=== PATIENT | male | born 1970 | race Caucasian/White ===

== ENCOUNTER 2017-02-22 14:35 | Inpatient (IN) | payer OTHER ==
[2017-02-22 16:27] VITALS: BMI 33.9
--- NOTE | 2017-02-22 17:24 | HP ---
CIWA Score - CIWA Score Nausea/Vomitin-Mild Nausea/No Vomiting Muscle Tremors: 4-Moderate,w/Arms Extend Anxiety: 3 Agitation: 4-Moderately Restless Paroxysmal Sweats: 1-Minimal Palms Moist Orientation: 1-Uncertain about Date Tacttile Disturbances: 0-None Auditory Disturbances: 0-None Visual Disturbances: 0-None Headache: 0-None Present CIWA-Ar Total Score: 14 Admission ROS BHS - HPI Chief Complaint: withdrawal sx Allergies/Adverse Reactions: Allergies Allergy/AdvReac Type Severity Reaction Status Date / Time No Known Allergies Allergy Verified 10/21/15 14:13 History of Present Illness: 46 years old male with long history of xanax nicotine dependence has chronic muscle spasm and lower back pain and depression is admitted to detox methadone program 100 mg po daily Exam Limitations: No Limitations - Ebola screening Have you traveled outside of the country in the last 21 days: No Have you had contact with anyone from an Ebola affected area: No Have you been sick,other than usual withdrawal symptoms: No Do you have a fever: No - Review of Systems Constitutional: Changes in sleep, Weight Stable EENT: reports: No Symptoms Reported Respiratory: reports: No Symptoms reported Cardiac: reports: No Symptoms Reported GI: reports: Nausea, Poor Fluid Intake, Abdominal cramping : reports: No Symptoms Reported Musculoskeletal: reports: Back Pain, Joint Pain, Muscle Pain, Neck Pain Integumentary: reports: Change in Color (iv heroin inner elbows) Neuro: reports: Seizure (05/2016 last episode), Tremors Endocrine: reports: No Symptoms Reported Hematology: reports: No Symptoms Reported Psychiatric: reports: Judgement Intact, Anxious, Depressed Other Systems: Reviewed and Negative Patient History - Patient Medical History Hx Anemia: No Hx Asthma: No Hx Chronic Obstructive Pulmonary Disease (COPD): No Hx Cancer: No Hx Cardiac Disorders: No Hx Congestive Heart Failure: No Hx Hypertension: No Hx Hypercholesterolemia: No Hx Pacemaker: No HX Cerebrovascular Accident: No Hx Seizures: Yes (05/2016 last episode) Hx Dementia: No Hx Diabetes: No Hx Gastrointestinal Disorders: No Hx Liver Disease: No Hx Genitourinary Disorders: No Hx Sexually Transmitted Disorders: No Hx Renal Disease (ESRD): No Hx Thyroid Disease: No Hx Human Immunodeficiency Virus (HIV): No (05/06) Hx Hepatitis C: Yes Hx Depression: No Hx Suicide Attempt: Yes (2006 overdose) Hx Bipolar Disorder: Yes Hx Schizophrenia: No - Patient Surgical History Past Surgical History: Yes Hx Neurologic Surgery: No Hx Cataract Extraction: No Hx Cardiac Surgery: No Hx Lung Surgery: No Hx Breast Surgery: No Hx Breast Biopsy: No Hx Abdominal Surgery: No Hx Appendectomy: No Hx Cholecystectomy: No Hx Genitourinary Surgery: No Hx Orthopedic Surgery: No Other Surgical History: incision and drainage of infected right hand in 1994 Anesthesia Reaction: No - PPD History Previous Implant?: Yes Documented Results: Negative w/proof Implanted On Prior [facility] Admission?: Yes Date: 09/18/15 Results: 0 mm PPD to be Administered?: Yes - Smoking Cessation Smoking history: Current every day smoker Have you smoked in the past 12 months: Yes Aproximately how many cigarettes per day: 20 Cigars Per Day: 0 Hx Chewing Tobacco Use: No Initiated information on smoking cessation: Yes 'Breaking Loose' booklet given: 02/22/17 - Substance & Tx. History Hx Alcohol Use: No Hx Substance Use: Yes Substance Use Type: Cocaine, Heroin, Tranquilizers Hx Substance Use Treatment: Yes (05/2016) - Substances Abused Alprazolam (Xanax) Route: Oral Frequency: Daily Amount used: 8mg Age of first use: 18 Date of Last Use: 02/21/17 Benzodiazepine (Klonopin) Route: Oral Frequency: Daily Amount used: 11mg Age of first use: 18 Date of Last Use: 02/21/17 Family Disease History - Family Disease History Family Disease History: Heart Disease: Father (), Other: Brother (ONLY CHILD), Son (HEALTHY) Admission Physical Exam S - Vital Signs Vital Signs: Vital Signs - 24 hr 02/22/17 16:12 Temperature 98.9 F Pulse Rate 64 Respiratory 18 Rate Blood Pressure 100/60 - Physical General Appearance: Yes: Appropriately Dressed, Mild Distress, Obese, Tremorous , Irritable, Sweating, Anxious HEENTM: Yes: Hearing grossly Normal, Normal ENT Inspection, Normocephalic, Normal Voice Respiratory: Yes: Chest Non-Tender, Lungs Clear, Normal Breath Sounds, No Respiratory Distress, No Accessory Muscle Use Neck: Yes: Supple, Trachea in good position Breast: Yes: Breasts Symetrical Cardiology: Yes: Regular Rhythm, Regular Rate, S1, S2 Abdominal: Yes: Non Tender, Soft, Decreased BS Genitourinary: Yes: Within Normal Limits Back: Yes: Normal Inspection Musculoskeletal: Yes: full range of Motion, Gait Steady, Back pain, Muscle Pain Extremities: Yes: Normal Range of Motion, Non-Tender, Tremors Neurological: Yes: Alert, Motor Strength 5/5, Normal Response, Depressed Affect Integumentary: Yes: Warm, Track [place] Lymphatic: Yes: Within Normal Limits - Diagnostic (1) Bipolar II disorder Current Visit: Yes Status: Suspected (2) Uncomplicated sedative, hypnotic or anxiolytic withdrawal Current Visit: Yes Status: Acute (3) Methadone maintenance therapy patient Current Visit: Yes Status: Chronic Comment: 100 MG VERIFICAITON PENDING (4) Nicotine dependence Current Visit: Yes Status: Acute Qualifiers: Nicotine product type: cigarettes Substance use status: in withdrawal Qualified Code(s): F17.213 - Nicotine dependence, cigarettes, with withdrawal Cleared for Admission [facility] - Detox or Rehab [facility] Level of Care: Medically Managed Detox Regimen/Protocol: Valium [facility] Breath Alcohol Content Breath Alcohol Content: 0 Urine Drug Screen - Results Drug Screen Negative: No Urine Drug Screen Results: DESHAWN-Cocaine, OPI-Opiates, BZO-Benzodiazepines, MTD- Methadone
[2017-02-22] MEDS ORDERED: MAGNESIUM CITRATE 300 ML BOTTLE PO PRN (17:35)
[2017-02-22] MEDS ORDERED: IBUPROFEN 400 MG TABLET (FP) PO PRN (17:35)
[2017-02-22] MEDS ORDERED: guaiFENesin/D-METHORPHAN HB 10 ML UNIT-DOSE CUPS PO PRN (17:35)
[2017-02-22] MEDS ORDERED: ACETAMINOPHEN 325 MG TABLET (FP) PO PRN (17:35)
[2017-02-22] MEDS ORDERED: NICOTINE POLACRILEX 4 MG GUM BC PRN (17:35)
[2017-02-22] MEDS ORDERED: MAGNESIUM HYDROX 2400MG/30ML ORAL SUSPENSION 30 ML CUP PO PRN (17:35)
[2017-02-22] MEDS ORDERED: P-EPHED 60MG/TRIPROLIDI 2.5MG TABLET PO PRN (17:35)
[2017-02-22] MEDS ORDERED: MENTHOL/PHENOL 1 EACH UD MM PRN (17:35)
[2017-02-22] MEDS ORDERED: LOPERAMIDE HCL 2 MG CAPSULE PO PRN (17:35)
[2017-02-22] MEDS ORDERED: METHOCARBAMOL 750 MG TABLET PO PRN (17:36)
[2017-02-22] MEDS ORDERED: diazePAM 5 MG TABLET PO ONE (18:45)
[2017-02-22] MEDS: GABAPENTIN 400 MG CAPSULE (FP) PO SCH (22:16)
[2017-02-22] MEDS: THIAMINE HCL 100 MG TABLET (FP) PO SCH (22:16)
[2017-02-22] MEDS: diazePAM 5 MG TABLET PO SCH (22:17)
[2017-02-22 23:26] LABS: URINE APPEARANCE SLCLOUDY; URINE BILIRUBIN NEGATIVE (NEGATIVE); URINE BLOOD NEGATIVE (NEGATIVE); URINE COLOR DKYELLOW; URINE GLUCOSE (UA) NEGATIVE (NEGATIVE); URINE KETONE NEGATIVE (NEGATIVE); URINE NITRITE NEGATIVE (NEGATIVE); URINE PROTEIN NEGATIVE (NEGATIVE)
[2017-02-23] MEDS: GABAPENTIN 400 MG CAPSULE (FP) PO SCH ×2 (05:34→14:12)
[2017-02-23] MEDS: diazePAM 5 MG TABLET PO SCH ×3 (05:34→22:09)
[2017-02-23] MEDS: diazePAM 5 MG TABLET PO PRN ×2 (08:10→16:30)
[2017-02-23] MEDS ORDERED: METHADONE HCL 10 MG TABLET PO SCH (08:30)
[2017-02-23] MEDS ORDERED: METHADONE HCL 10 MG TABLET ONE (09:29)
[2017-02-23] MEDS ORDERED: METHADONE HCL 40 MG DISPERSABLE TABLET ONE (09:30)
--- NOTE | 2017-02-23 10:32 | EKG ---
Test Reason : Blood Pressure : / mmHG Vent. Rate : 054 BPM Atrial Rate : 054 BPM P-R Int : 168 ms QRS Dur : 108 ms QT Int : 488 ms P-R-T Axes : 018 010 026 degrees QTc Int : 462 ms SINUS BRADYCARDIA OTHERWISE NORMAL ECG NO PREVIOUS ECGS AVAILABLE Confirmed by KIP VAUGHN, DEEPTI ([id number]) on 02/23/2017 10:32:17 AM Referred By: Confirmed By:DEEPTI SHIN MD
[2017-02-23] MEDS: METHADONE 80 MG, METHADONE 20 MG PO SCH (10:37)
[2017-02-23] MEDS: NICOTINE 21 MG/24 HOURS TOPICAL PATCH TD SCH (10:37)
[2017-02-23] MEDS: PRENATAL VITAMINS W/ FOLIC ACID TABLET (FP) PO SCH (10:37)
[2017-02-23 11:07] LABS: MCHC 32.5 g/dl (32.0-35.9); MEAN CELL VOLUME 92.6 fl (80-96); PLATELET COUNT 151 K/MM3 (134-434)
[2017-02-23 11:08] LABS: ALBUMIN 3.2 g/dl (3.4-5.0)
[2017-02-23 11:09] LABS: URINE LEUK ESTERASE Negative (NEGATIVE)
[2017-02-23 11:16] LABS: ALK PHOS 74 U/L (45-117); ANION GAP 5 (8-16); BILIRUBIN,TOTAL 0.2 mg/dL (0.2-1.0); CALCIUM 7.9 mg/dL (8.5-10.1); CO2 31 mmol/L (21-32); CREATININE 0.8 mg/dL (0.7-1.3); GLUCOSE,RANDOM 138 mg/dL (74-106); SGOT/AST 29 U/L (15-37); SGPT/ALT 38 U/L (12-78)
--- NOTE | 2017-02-23 11:55 | CONSULT ---
[facility] Psychiatric Consult - Data Date of interview: 02/23/17 Admission source: [facility] Identifying data: Readmission to [facility] for this 46 y/o male seeking detox treatment on for alcohol,heroin,cocaine and sedative/ anxiolytic dependence.Patient is ,a father of one,domiciled,unemployed and supported on Public Assistance. Substance Abuse History: Discussed with patient in this session.Confirmed.Detais in current [facility] report : Smoking history: Current every day smoker. Have you smoked in the past 12 months: Yes. Aproximately how many cigarettes per day: 20. Cigars Per Day: 0. Hx Chewing Tobacco Use: No. Initiated information on smoking cessation: Yes. 'Breaking Loose' booklet given: 02/22/17. - Substance & Tx. History. Hx Alcohol Use: No. Hx Substance Use: Yes. Substance Use Type: Cocaine, Heroin, Tranquilizers. Hx Substance Use Treatment: Yes (05/2016). - Substances Abused. Alprazolam (Xanax). Route: Oral. Frequency: Daily. Amount used: 8mg. Age of first use: 18. Date of Last Use: 02/21/17. Benzodiazepine (Klonopin). Route: Oral. Frequency: Daily. Amount used: 11mg. Age of first use: 18. Date of Last Use: 02/21/17 Medical History: Hepatitis C and recent history of withdrawal seizures. Psychiatric History: Onset of psychiatric disturbances : age 14 (diagnosed with ADHD).History of brief treatment with Ritalin.Patient admits to multiple psychiatric hospitalizations ([facility]).Diagnosed with Bipolar Disorder and PTSD.Mr Bee is currently on methadone maintenance (100 mg/ day) at [facility] in the [place].Sees Dr Agustin for medication management.Prescribed seroquel 100 mg/hs + wellbutrin (dose not recalled) + ambien 10 mg/hs.No reported history of suicide attempts. Physical/Sexual Abuse/Trauma History: Saw combat in [place] (18 months) .Served for six years in the [employer].Admits to occasional flashbacks and nightmares. Additional Comment: Urine Drug Screen Results: DESHAWN-Cocaine, OPI-Opiates, BZO- Benzodiazepines, MTD-Methadone.Noted. Mental Status Exam - Mental Status Exam Alert and Oriented to: Time, Place, Person Cognitive Function: Good Patient Appearance: Well Groomed (tattoo around neck) Mood: Withdrawn, Hopeful, Euthymic Affect: Appropriate, Normal Range Patient Behavior: Fatigued, Cooperative Speech Pattern: Clear, Appropriate Voice Loudness: Normal Thought Process: Intact, Goal Oriented Thought Disorder: Not Present Hallucinations: Denies Suicidal Ideation: Denies Homicidal Ideation: Denies Insight/Judgement: Poor Sleep: Poorly, Difficulty falling asleep Appetite: Good Muscle strength/Tone: Normal Gait/Station: Normal Psychiatric Findings - Problem List ([place] 1, 2,3) (1) Opioid dependence on agonist therapy Current Visit: Yes Status: Acute (2) Uncomplicated sedative, hypnotic or anxiolytic withdrawal Current Visit: Yes Status: Acute (3) Cocaine dependence Current Visit: Yes Status: Acute (4) Nicotine dependence Current Visit: Yes Status: Acute Qualifiers: Nicotine product type: cigarettes Substance use status: in withdrawal Qualified Code(s): F17.213 - Nicotine dependence, cigarettes, with withdrawal (5) Drug-induced mood disorder Current Visit: Yes Status: Acute (6) ADHD (attention deficit hyperactivity disorder) Current Visit: No Status: Acute Comment: As per records. (7) Bipolar disorder Current Visit: Yes Status: Chronic Qualifiers: Active/Remission status: in partial remission Most recent bipolar episode type: depressed Qualified Code(s): F31.75 - Bipolar disorder, in partial remission, most recent episode depressed Comment: Self-report.On medications.OPD care at [facility]. (8) PTSD (post-traumatic stress disorder) Current Visit: Yes Status: Chronic Comment: Historical diagnosis. (9) Insomnia Current Visit: Yes Status: Acute - Initial Treatment Plan Initial Treatment Plan: Psychoeducation.Sleep hygiene.Detoxification in progress.Medications : seroquel 100 mg po hs + wellbutrin XL 150 mg po daily + ambien 10 mg po hs prn.Side effects/benefits are discussed with the patient.Mr Bee has expressed his agreement with this careplan.Pharmacy claims are revisited : confirmed refills for these medications on 02/01/17 at [facility] (including lithium and sertraline : rejected by patient in this interview).Observation.
--- NOTE | 2017-02-23 14:28 | PN ---
[facility] CIWA - CIWA Score Nausea/Vomitin-Mild Nausea/No Vomiting Muscle Tremors: 4-Moderate,w/Arms Extend Anxiety: 5 Agitation: 4-Moderately Restless Paroxysmal Sweats: No Perspiration Orientation: 2-Disoriented Date<2 days Tacttile Disturbances: 2-Mild Itch/Numbness/Burn Auditory Disturbances: 0-None Visual Disturbances: 0-None Headache: 0-None Present CIWA-Ar Total Score: 18 BHS Progress Note (SOAP) Subjective: Interrupted Sleep, Tremors, Stomach Cramping, Anxious, Fatigue. Objective: PT. A 7O X 2 (UNCERTAIN ABOUT CURRENT DAY/ DATE). PT. OBSERVED AMBULATING ON UNIT. NO ACUTE DISTRESS. 02/23/17 14:25 Vital Signs Temperature 96.8 F L 02/23/17 13:12 Pulse Rate 85 02/23/17 13:12 Respiratory Rate 18 02/23/17 13:12 Blood Pressure 112/72 02/23/17 13:12 O2 Sat by Pulse Oximetry (%) Laboratory Tests 02/22/17 02/23/17 02/23/17 22:33 07:00 07:00 WBC 4.0 RBC 3.99 L Hgb 12.0 D Hct 36.9 MCV 92.6 MCH 30.0 MCHC 32.5 RDW 15.0 Plt Count 151 MPV 9.0 Sodium 141 Potassium 3.4 L Chloride 105 Carbon Dioxide 31 Anion Gap 5 L BUN 15 D Creatinine 0.8 Creat Clearance w eGFR > 60 Random Glucose 138 H D Calcium 7.9 L Total Bilirubin 0.2 D AST 29 D ALT 38 D Alkaline Phosphatase 74 Total Protein 6.0 L Albumin 3.2 L Urine Color Dkyellow Urine Appearance Slcloudy Urine pH 5.0 Ur Specific [place] 1.026 Urine Protein Negative Urine Glucose (UA) Negative Urine Ketones Negative Urine Blood Negative Urine Nitrite Negative Urine Bilirubin Negative Urine Urobilinogen 2.0 LABS NOTED. RPR RESULT P[ENDING. 02/23/17 14:27 Assessment: 02/23/17 14:26 WITHDRAWAL SYMPTOMS. HYPOKALEMIA. 02/23/17 14:27 Plan: CONTINUE DETOX. K-DUR, 20 MEW PO X 1 NOW, THEN 20 MEQ PO BID AFTER. BGM ACBK FOR ELEVATED ADMISSION RANDOM GLUCOSE LEVEL. INCREASE DAILY PO FLUID INTAKE.
[2017-02-23] MEDS ORDERED: POTASSIUM CHLORIDE TABS 20 MEQ TABLET.ER (FP) PO ONE (14:29)
[2017-02-23] MEDS: POTASSIUM CHLORIDE TABS 20 MEQ TABLET.ER (FP) PO SCH (17:12)
[2017-02-23] MEDS ORDERED: ZOLPIDEM TARTRATE 5 MG TABLET PO PRN (17:26)
--- NOTE | 2017-02-23 17:26 | PN ---
S Progress Note Note: Patient was waiting on line for medication felt dizzy and lowered to floor, did not hit head, no LOC, no seizure like activity. VSS, bp WNL, no orthostatic hypotension 121/71 pulse 64 t 97.6 rr18 poor skin turgor a/p:dizziness most likely 2/2 medication effects, low k supplemented this am, will repeat labs, d/c prn valium, d/c prn ambien, lower seroquel dosee and neurontin to prevent further episodes. cont detox as scheduled.
--- NOTE | 2017-02-23 19:10 | PN ---
[facility] Progress Note Note: Psychiatry Attending's note : Patient felt dizzy earlier while waiting in line for medications. Lowered to the floor by staff.No fall.Brief episode of fainting. Rapid response called.Patient was attended to by Dr Johnson. Medical note : appreciated.Vital signs were normal at time of incident. Mr Bee was escorted to his room.Alert and fully oriented after the episode. Conversant,coherent and argumentative over the issue of medications. Unhappy about decision to modify medication regimen. Lead Slot Technician met with patient.Safety discussed. Mr Bee calmed down and agreed with careplan. Case reviewed with medical attending,Dr Johnson. Patient is kept under close observation. Ambien and seroquel discontinued until further orders. Psychiatry will follow.
[2017-02-23] MEDS ORDERED: QUEtiapine FUMARATE 50 MG TABLET PO SCH (22:00)
[2017-02-23] MEDS ORDERED: QUEtiapine FUMARATE 100 MG TABLET (FP) PO SCH (22:00)
[2017-02-23] MEDS ORDERED: ZOLPIDEM TARTRATE 10 MG TABLET (PARK CARE ONLY) PO PRN (22:00)
[2017-02-23] MEDS: THIAMINE HCL 100 MG TABLET (FP) PO SCH (22:08)
[2017-02-23] MEDS: GABAPENTIN 300 MG CAPSULE (FP) PO SCH (22:09)
[2017-02-23] MEDS ORDERED: QUEtiapine FUMARATE 50 MG TABLET PO ONE (23:30)
[2017-02-24] MEDS: MAG HYDROX/AL HYDROX/SIMETH 30 ML UNIT-DOSE CUP PO PRN ×3 (01:02→20:08)
[2017-02-24] MEDS ORDERED: METHADONE HCL 10 MG TABLET ONE (04:22)
[2017-02-24] MEDS ORDERED: METHADONE HCL 40 MG DISPERSABLE TABLET ONE (04:23)
[2017-02-24] MEDS: METHADONE 80 MG, METHADONE 20 MG PO SCH (05:02)
[2017-02-24] MEDS: GABAPENTIN 300 MG CAPSULE (FP) PO SCH ×3 (05:02→22:10)
[2017-02-24 10:16] LABS: BASOPHIL 0.8 % (0-2.0); EOSINOPHIL 3.6 % (0-4.5); MCH 30.4 pg (25.7-33.7); MCHC 33.1 g/dl (32.0-35.9); MEAN CELL VOLUME 91.7 fl (80-96); NEUTROPHILS 46.8 % (42.8-82.8); PLATELET COUNT 148 K/MM3 (134-434); RDW 14.7 % (11.9-15.9); WHITE BLOOD COUNT 4.4 K/mm3 (4.0-10.0)
[2017-02-24 10:22] LABS: ALBUMIN 3.1 g/dl (3.4-5.0); ANION GAP 4 (8-16); CALCIUM 8.3 mg/dL (8.5-10.1); CO2 31 mmol/L (21-32); GLUCOSE,RANDOM 124 mg/dL (74-106)
[2017-02-24 10:26] LABS: ALK PHOS 72 U/L (45-117); BILIRUBIN,TOTAL 0.3 mg/dL (0.2-1.0); CREATININE 0.7 mg/dL (0.7-1.3); SGOT/AST 27 U/L (15-37); SGPT/ALT 38 U/L (12-78); TOT PROT 6.1 g/dl (6.4-8.2)
[2017-02-24] MEDS: PRENATAL VITAMINS W/ FOLIC ACID TABLET (FP) PO SCH (10:27)
[2017-02-24] MEDS: POTASSIUM CHLORIDE TABS 20 MEQ TABLET.ER (FP) PO SCH ×2 (10:27→17:12)
[2017-02-24] MEDS: diazePAM 5 MG TABLET PO SCH ×2 (10:27→22:10)
[2017-02-24] MEDS: NICOTINE 21 MG/24 HOURS TOPICAL PATCH TD SCH (10:27)
--- NOTE | 2017-02-24 13:29 | PN ---
[facility] CIWA - CIWA Score Nausea/Vomitin-No Nausea/No Vomiting Muscle Tremors: 4-Moderate,w/Arms Extend Anxiety: 5 Agitation: 4-Moderately Restless Paroxysmal Sweats: 3 Orientation: 2-Disoriented Date<2 days Tacttile Disturbances: 1-Very Mild Itch/Numbness Auditory Disturbances: 0-None Visual Disturbances: 0-None Headache: 0-None Present CIWA-Ar Total Score: 19 S Progress Note (SOAP) Subjective: Anxious, Tremors, Agitation, Sweating, Interrupted Sleep. Objective: PT. A &O X 2 (UNCERTAIN ABOUT DAY / DATE). PT. OBSERVED AMBULATING ON UNIT UNASSISTED. NO ACUTE DISTRESS. 02/24/17 13:24 Vital Signs Temperature 97.5 F L 02/24/17 13:21 Pulse Rate 63 02/24/17 13:21 Respiratory Rate 18 02/24/17 13:21 Blood Pressure 106/71 02/24/17 13:21 O2 Sat by Pulse Oximetry (%) Laboratory Tests 02/22/17 02/23/17 02/23/17 22:33 07:00 07:00 WBC 4.0 RBC 3.99 L Hgb 12.0 D Hct 36.9 MCV 92.6 MCH 30.0 MCHC 32.5 RDW 15.0 Plt Count 151 MPV 9.0 Neutrophils % Lymphocytes % Monocytes % Eosinophils % Basophils % Sodium 141 Potassium 3.4 L Chloride 105 Carbon Dioxide 31 Anion Gap 5 L BUN 15 D Creatinine 0.8 Creat Clearance w eGFR > 60 POC Glucometer Random Glucose 138 H D Calcium 7.9 L Total Bilirubin 0.2 D AST 29 D ALT 38 D Alkaline Phosphatase 74 Total Protein 6.0 L Albumin 3.2 L Urine Color Dkyellow Urine Appearance Slcloudy Urine pH 5.0 Ur Specific [place] 1.026 Urine Protein Negative Urine Glucose (UA) Negative Urine Ketones Negative Urine Blood Negative Urine Nitrite Negative Urine Bilirubin Negative Urine Urobilinogen 2.0 RPR Titer 02/23/17 02/24/17 02/24/17 07:00 05:01 07:00 WBC 4.4 RBC 4.04 Hgb 12.3 Hct 37.1 MCV 91.7 MCH 30.4 MCHC 33.1 RDW 14.7 Plt Count 148 MPV 9.0 Neutrophils % 46.8 Lymphocytes % 41.6 H Monocytes % 7.2 Eosinophils % 3.6 Basophils % 0.8 Sodium Potassium Chloride Carbon Dioxide Anion Gap BUN Creatinine Creat Clearance w eGFR POC Glucometer 104 Random Glucose Calcium Total Bilirubin AST ALT Alkaline Phosphatase Total Protein Albumin Urine Color Urine Appearance Urine pH Ur Specific [place] Urine Protein Urine Glucose (UA) Urine Ketones Urine Blood Urine Nitrite Urine Bilirubin Urine Urobilinogen RPR Titer Nonreactive 02/24/17 07:00 WBC RBC Hgb Hct MCV MCH MCHC RDW Plt Count MPV Neutrophils % Lymphocytes % Monocytes % Eosinophils % Basophils % Sodium 141 Potassium 3.6 Chloride 106 Carbon Dioxide 31 Anion Gap 4 L BUN 13 Creatinine 0.7 Creat Clearance w eGFR > 60 POC Glucometer Random Glucose 124 H Calcium 8.3 L Total Bilirubin 0.3 D AST 27 ALT 38 Alkaline Phosphatase 72 Total Protein 6.1 L Albumin 3.1 L Urine Color Urine Appearance Urine pH Ur Specific [place] Urine Protein Urine Glucose (UA) Urine Ketones Urine Blood Urine Nitrite Urine Bilirubin Urine Urobilinogen RPR Titer LABS NOTED. RESULTS OF REPEAT CBC, CMP NOTED. 02/24/17 13:28 02/24/17 13:28 Assessment: 02/24/17 13:25 WITHDRAWAL SYMPTOMS. Plan: CONTINUE DETOX. PATIENT DOES NOT APPEAR LETHARGIC WHEN BEING EXAMINED EARLIER THIS AM. RE-START REMAINDER OF DETOX VALIUM PRN. INCREASE DAILY PO FLUID INTAKE.
[2017-02-24] MEDS: diazePAM 5 MG TABLET PO PRN ×2 (14:33→18:33)
--- NOTE | 2017-02-24 16:30 | PN ---
[facility] Progress Note Note: Psychiatric Nurse practitioner Patient seen by psychiatric nurse practitioner in response of resuming Seroquel 50mg HS. Pt. felt dizzy yesterday and had to be lowered by staff. Seroquel 50mg held last night due to brief episode of fainting. Today, patient presents alert and oriented and was observed ambulating on the unit. Vital signs this afternoon was within normal limits. No episodes of fainting reported today. Pt. denies feeling dizzy. Seroqul 50mg to be resumed tonight. Pt. agreeable with plan. Will continue to monitor patient.
[2017-02-24] MEDS ORDERED: QUEtiapine FUMARATE 50 MG TABLET PO SCH (22:00)
[2017-02-24] MEDS: THIAMINE HCL 100 MG TABLET (FP) PO SCH (22:10)
[2017-02-25] MEDS: diazePAM 5 MG TABLET PO PRN ×3 (03:03→16:59)
[2017-02-25] MEDS ORDERED: METHADONE HCL 40 MG DISPERSABLE TABLET ONE (04:44)
[2017-02-25] MEDS ORDERED: METHADONE HCL 10 MG TABLET ONE (04:44)
[2017-02-25] MEDS: METHADONE 80 MG, METHADONE 20 MG PO SCH (05:16)
[2017-02-25] MEDS: GABAPENTIN 300 MG CAPSULE (FP) PO SCH ×3 (05:16→22:24)
[2017-02-25] MEDS: NICOTINE 21 MG/24 HOURS TOPICAL PATCH TD SCH (09:11)
[2017-02-25] MEDS: diazePAM 5 MG TABLET PO SCH ×2 (09:11→22:24)
[2017-02-25] MEDS: POTASSIUM CHLORIDE TABS 20 MEQ TABLET.ER (FP) PO SCH ×2 (09:11→17:00)
[2017-02-25] MEDS: PRENATAL VITAMINS W/ FOLIC ACID TABLET (FP) PO SCH (09:12)
--- NOTE | 2017-02-25 13:34 | PN ---
[facility] Progress Note (SOAP) Subjective: Sweating, Tremors, Anxious, Interrupted Sleep. Objective: PT. A & O X 3, OBSERVED AMBULATING ON UNIT. NO ACUTE DISTRESS. 02/25/17 13:31 Vital Signs Temperature 97.3 F L 02/25/17 09:30 Pulse Rate 64 02/25/17 09:30 Respiratory Rate 18 02/25/17 09:30 Blood Pressure 121/67 02/25/17 09:30 O2 Sat by Pulse Oximetry (%) Laboratory Tests 02/22/17 02/23/17 02/23/17 22:33 07:00 07:00 WBC 4.0 RBC 3.99 L Hgb 12.0 D Hct 36.9 MCV 92.6 MCH 30.0 MCHC 32.5 RDW 15.0 Plt Count 151 MPV 9.0 Neutrophils % Lymphocytes % Monocytes % Eosinophils % Basophils % Sodium 141 Potassium 3.4 L Chloride 105 Carbon Dioxide 31 Anion Gap 5 L BUN 15 D Creatinine 0.8 Creat Clearance w eGFR > 60 POC Glucometer Random Glucose 138 H D Calcium 7.9 L Total Bilirubin 0.2 D AST 29 D ALT 38 D Alkaline Phosphatase 74 Total Protein 6.0 L Albumin 3.2 L Urine Color Dkyellow Urine Appearance Slcloudy Urine pH 5.0 Ur Specific [place] 1.026 Urine Protein Negative Urine Glucose (UA) Negative Urine Ketones Negative Urine Blood Negative Urine Nitrite Negative Urine Bilirubin Negative Urine Urobilinogen 2.0 RPR Titer 02/23/17 02/24/17 02/24/17 07:00 05:01 07:00 WBC 4.4 RBC 4.04 Hgb 12.3 Hct 37.1 MCV 91.7 MCH 30.4 MCHC 33.1 RDW 14.7 Plt Count 148 MPV 9.0 Neutrophils % 46.8 Lymphocytes % 41.6 H Monocytes % 7.2 Eosinophils % 3.6 Basophils % 0.8 Sodium Potassium Chloride Carbon Dioxide Anion Gap BUN Creatinine Creat Clearance w eGFR POC Glucometer 104 Random Glucose Calcium Total Bilirubin AST ALT Alkaline Phosphatase Total Protein Albumin Urine Color Urine Appearance Urine pH Ur Specific [place] Urine Protein Urine Glucose (UA) Urine Ketones Urine Blood Urine Nitrite Urine Bilirubin Urine Urobilinogen RPR Titer Nonreactive 02/24/17 07:00 WBC RBC Hgb Hct MCV MCH MCHC RDW Plt Count MPV Neutrophils % Lymphocytes % Monocytes % Eosinophils % Basophils % Sodium 141 Potassium 3.6 Chloride 106 Carbon Dioxide 31 Anion Gap 4 L BUN 13 Creatinine 0.7 Creat Clearance w eGFR > 60 POC Glucometer Random Glucose 124 H Calcium 8.3 L Total Bilirubin 0.3 D AST 27 ALT 38 Alkaline Phosphatase 72 Total Protein 6.1 L Albumin 3.1 L Urine Color Urine Appearance Urine pH Ur Specific [place] Urine Protein Urine Glucose (UA) Urine Ketones Urine Blood Urine Nitrite Urine Bilirubin Urine Urobilinogen RPR Titer LABS NOTED. RESULTS OF REPEAT CBC AND CMP NOTED. PT. REQUESTS HIV AB TEST - RESULT PENDING. 02/25/17 13:34 Assessment: 02/25/17 13:32 WITHDRAWAL SYMPTOMS. Plan: CONTINUE DETOX. PATIENT REFUSING FURTHER BGM'S - WILL D/C. INCREASE DAILY PO FLUID INTAKE.
[2017-02-25] MEDS: MAG HYDROX/AL HYDROX/SIMETH 30 ML UNIT-DOSE CUP PO PRN (13:41)
[2017-02-25 15:36] LABS: HIV 1 & 2 AB NEGATIVE; HIV 1 AGp24 NEGATIVE
--- NOTE | 2017-02-25 16:28 | PN ---
[facility] Progress Note Note: Psychiatric nurse practitioner: Approached patient bedside to discuss seroquel dose. Patient's seroquel was resumed last night after patient had a brief episode of fainting on 02/23/2017. Pt. able to tolerate Seroquel 50mg last night. Seroquel 100mg ordered for tonight. Pharmacy claims reviewed. Pt. presented as alert and oriented and was observed ambulating on the unit. Pt. denies feeling dizzy. Benefits and side effects discussed with patient. Verbal consent given. Pt. agreeable with plan. Will continue to monitor patient.
[2017-02-25] MEDS ORDERED: ZOLPIDEM TARTRATE 5 MG TABLET PO PRN (19:22)
[2017-02-25] MEDS ORDERED: hydrOXYzine HCL 25 MG TABLET (FP) PO PRN (19:22)
[2017-02-25] MEDS ORDERED: QUEtiapine FUMARATE 100 MG TABLET (FP) PO SCH (22:00)
[2017-02-25] MEDS: THIAMINE HCL 100 MG TABLET (FP) PO SCH (22:24)
[2017-02-26] MEDS ORDERED: METHADONE HCL 10 MG TABLET ONE (03:50)
[2017-02-26] MEDS ORDERED: METHADONE HCL 40 MG DISPERSABLE TABLET ONE (03:51)
[2017-02-26] MEDS: METHADONE 80 MG, METHADONE 20 MG PO SCH (05:35)
[2017-02-26] MEDS: GABAPENTIN 300 MG CAPSULE (FP) PO SCH (05:35)
[2017-02-26 06:24] VITALS: BP 90/63; PULSE 64; TEMP 97.4
[2017-02-26] MEDS ORDERED: diazePAM 5 MG TABLET PO SCH (10:00)
--- NOTE | 2017-02-26 18:41 | DS ---
[facility] Detox Discharge Summary Admission Date: 02/22/17 Discharge Date: 02/26/17 - History Present History: Cocaine Dependence, Opioid Dependence, Sedative Dependence, MMTP Additional Comments: [facility] DAY [facility]REATMENT [facility] ([facility]) FOR AFTERCARE. PATIENT WAS DISCHARGED FROM DETOX UNIT IN STABLE MEDICAL CONDITION. Pertinent Past History: Depression, History of Seizures (Substance-Related), Nicotine Dependence, PTSD, ADHD, MMTP, Insomnia, Bipolar Disorder. - Physical Exam Results Vital Signs: Vital Signs Temperature 97.4 F L 02/26/17 06:23 Pulse Rate 64 02/26/17 06:23 Respiratory Rate 18 02/26/17 06:23 Blood Pressure 90/63 02/26/17 06:23 O2 Sat by Pulse Oximetry (%) Pertinent Admission Physical Exam Findings: WITHDRAWAL SYMPTOMS. Laboratory Tests 02/22/17 02/23/17 02/23/17 22:33 07:00 07:00 WBC 4.0 RBC 3.99 L Hgb 12.0 D Hct 36.9 MCV 92.6 MCH 30.0 MCHC 32.5 RDW 15.0 Plt Count 151 MPV 9.0 Neutrophils % Lymphocytes % Monocytes % Eosinophils % Basophils % Sodium 141 Potassium 3.4 L Chloride 105 Carbon Dioxide 31 Anion Gap 5 L BUN 15 D Creatinine 0.8 Creat Clearance w eGFR > 60 POC Glucometer Random Glucose 138 H D Calcium 7.9 L Total Bilirubin 0.2 D AST 29 D ALT 38 D Alkaline Phosphatase 74 Total Protein 6.0 L Albumin 3.2 L Urine Color Dkyellow Urine Appearance Slcloudy Urine pH 5.0 Ur Specific [place] 1.026 Urine Protein Negative Urine Glucose (UA) Negative Urine Ketones Negative Urine Blood Negative Urine Nitrite Negative Urine Bilirubin Negative Urine Urobilinogen 2.0 RPR Titer HIV 1&2 Antibody Screen HIV P24 Antigen 02/23/17 02/24/17 02/24/17 07:00 05:01 07:00 WBC 4.4 RBC 4.04 Hgb 12.3 Hct 37.1 MCV 91.7 MCH 30.4 MCHC 33.1 RDW 14.7 Plt Count 148 MPV 9.0 Neutrophils % 46.8 Lymphocytes % 41.6 H Monocytes % 7.2 Eosinophils % 3.6 Basophils % 0.8 Sodium Potassium Chloride Carbon Dioxide Anion Gap BUN Creatinine Creat Clearance w eGFR POC Glucometer 104 Random Glucose Calcium Total Bilirubin AST ALT Alkaline Phosphatase Total Protein Albumin Urine Color Urine Appearance Urine pH Ur Specific [place] Urine Protein Urine Glucose (UA) Urine Ketones Urine Blood Urine Nitrite Urine Bilirubin Urine Urobilinogen RPR Titer Nonreactive HIV 1&2 Antibody Screen HIV P24 Antigen 02/24/17 02/25/17 07:00 09:40 WBC RBC Hgb Hct MCV MCH MCHC RDW Plt Count MPV Neutrophils % Lymphocytes % Monocytes % Eosinophils % Basophils % Sodium 141 Potassium 3.6 Chloride 106 Carbon Dioxide 31 Anion Gap 4 L BUN 13 Creatinine 0.7 Creat Clearance w eGFR > 60 POC Glucometer Random Glucose 124 H Calcium 8.3 L Total Bilirubin 0.3 D AST 27 ALT 38 Alkaline Phosphatase 72 Total Protein 6.1 L Albumin 3.1 L Urine Color Urine Appearance Urine pH Ur Specific [place] Urine Protein Urine Glucose (UA) Urine Ketones Urine Blood Urine Nitrite Urine Bilirubin Urine Urobilinogen RPR Titer HIV 1&2 Antibody Screen Negative HIV P24 Antigen Negative LABS NOTED. - Treatment Hospital Course: Detox Protocol Followed, Detoxed Safely, Responded well, Discharged Condition Good - Medication Discharge Medications: Ambulatory Orders Quetiapine Fumarate [Seroquel -] 100 mg PO HS 09/16/15 Gabapentin [Neurontin -] 800 mg PO TID #90 capsule 09/18/15 Bupropion HCl [Wellbutrin Xl -] 150 mg PO DAILY #30 tab.sr.24h 02/23/17 Quetiapine Fumarate [Seroquel] 100 mg PO HS #30 tablet 02/23/17 - Diagnosis (1) Uncomplicated sedative, hypnotic or anxiolytic withdrawal Status: Acute (2) Methadone maintenance therapy patient Status: Chronic (3) ADHD (attention deficit hyperactivity disorder) Status: Acute Qualifiers: Attention deficit-hyperactivity disorder type: unspecified Qualified Code(s ): F90.9 - Attention-deficit hyperactivity disorder, unspecified type (4) Cocaine dependence Status: Acute Qualifiers: Substance use status: uncomplicated Qualified Code(s): F14.20 - Cocaine dependence, uncomplicated (5) Drug withdrawal seizure Status: Acute Qualifiers: Complication of substance-induced condition: uncomplicated Qualified Code(s ): F19.230 - Other psychoactive substance dependence with withdrawal, uncomplicated (6) Insomnia Status: Acute Qualifiers: Insomnia type: unspecified Qualified Code(s): G47.00 - Insomnia, unspecified (7) Nicotine dependence Status: Acute Qualifiers: Nicotine product type: cigarettes Substance use status: in withdrawal Qualified Code(s): F17.213 - Nicotine dependence, cigarettes, with withdrawal (8) Opioid dependence on agonist therapy Status: Chronic (9) Bipolar disorder Status: Chronic Qualifiers: Active/Remission status: in partial remission Most recent bipolar episode type: depressed Qualified Code(s): F31.75 - Bipolar disorder, in partial remission, most recent episode depressed (10) PTSD (post-traumatic stress disorder) Status: Chronic (11) Substance-induced sleep disorder Status: Chronic - AMA Did Patient Leave Against Medical Advice: No
== END 2017-02-26 08:44 | disposition home or self-care (01) | DRG 773 ==
LOC: YASAS 14:35 → Y3N 17:36
PROVIDERS: ADMIT Internal Medicine; ATTEND Internal Medicine
PROC: HZ2ZZZZ Detoxification Services for Substance Abuse Treatment (ICD-10-PCS; principal; 2017-02-22)
DX: F11.20 Opioid dependence, uncomplicated (principal); F13.230 Sedative, hypnotic or anxiolytic dependence with withdrawal, uncomplicated; F14.20 Cocaine dependence, uncomplicated; F17.213 Nicotine dependence, cigarettes, with withdrawal; F19.282 Other psychoactive substance dependence with psychoactive substance-induced sleep disorder; F19.24 Other psychoactive substance dependence with psychoactive substance-induced mood disorder; F90.9 Attention-deficit hyperactivity disorder, unspecified type; F31.75 Bipolar disorder, in partial remission, most recent episode depressed; F43.10 Post-traumatic stress disorder, unspecified; G47.00 Insomnia, unspecified
CPT/HCPCS: 36415; 80053; 81003; 85025; 85027; 86593; 87389; 93005; 93010

== ENCOUNTER 2018-04-15 16:32 | Inpatient (IN) | payer OTHER ==
[2018-04-15 17:25] VITALS: BMI 33.2
--- NOTE | 2018-04-15 19:36 | HP ---
CIWA Score Nausea/Vomitin-Mild Nausea/No Vomiting Muscle Tremors: 4-Moderate,w/Arms Extend Anxiety: 4-Mod. Anxious/Guarded Agitation: 3 Paroxysmal Sweats: 1-Minimal Palms Moist Orientation: 0-Oriented Tacttile Disturbances: 0-None Auditory Disturbances: 0-None Visual Disturbances: 0-None Headache: 0-None Present CIWA-Ar Total Score: 13 - Admission Criteria OASAS Guidelines: Admission for Medically Managed Detox: Requires at least one of the followin. CIWA greater than 12 2. Seizures within the past 24 hours 3. Delirium tremens within the past 24 hours 4. Hallucinations within the past 24 hours 5. Acute intervention needed for co occurring medical disorder 6. Acute intervention needed for co occurring psychiatric disorder 7. Severe withdrawal that cannot be handled at a lower level of care (continued vomiting, continued diarrhea, abnormal vital signs) requiring intravenous medication and/or fluids 8. Admission ROS [facility] Chief Complaint: Benzo and alcohol withdrawal symptoms Allergies/Adverse Reactions: Allergies Allergy/AdvReac Type Severity Reaction Status Date / Time No Known Allergies Allergy Verified 04/15/18 19:11 History of Present Illness: 47 years old male with 20 years alcohol and benzo dependence is seeking admission to detox. Patient has been in previous detox, last in January at [facility]. He reports 3 years of sobriety. He has medical history of CVA, anxiety, seizures and depression. He reports suicide attempt in 2006 and denies suicidal ideation at this time. He is on Methadone 140mg tablet oral at [facility]. LDM is today. Dose is yet to be confirmed by the nurse. Exam Limitations: No Limitations - Ebola screening Have you traveled outside of the country in the last 21 days: No (N) Have you had contact with anyone from an Ebola affected area: No Have you been sick,other than usual withdrawal symptoms: No Do you have a fever: No - Review of Systems Constitutional: Chills, Malaise, Night Sweats, Changes in sleep EENT: reports: No Symptoms Reported Respiratory: reports: No Symptoms reported Cardiac: reports: No Symptoms Reported GI: reports: Nausea, Poor Appetite, Poor Fluid Intake, Abdominal cramping : reports: No Symptoms Reported Musculoskeletal: reports: Back Pain Integumentary: reports: Dryness, Flushing Neuro: reports: Tremors Endocrine: reports: No Symptoms Reported Hematology: reports: No Symptoms Reported Psychiatric: reports: Anxious, Depressed Other Systems: Reviewed and Negative Patient History - Patient Medical History Hx Anemia: No Hx Asthma: No Hx Chronic Obstructive Pulmonary Disease (COPD): No Hx Cancer: No Hx Cardiac Disorders: Yes (CVA -) Hx Congestive Heart Failure: No Hx Hypertension: No Hx Hypercholesterolemia: No Hx Pacemaker: No HX Cerebrovascular Accident: No Hx Seizures: Yes ( January 2018 - Gabapentin) Hx Dementia: No Hx Diabetes: No Hx Gastrointestinal Disorders: No Hx Liver Disease: No Hx Genitourinary Disorders: No Hx Sexually Transmitted Disorders: No Hx Renal Disease (ESRD): No Hx Thyroid Disease: No Hx Human Immunodeficiency Virus (HIV): No (05/06) Hx Hepatitis C: Yes (Treated with Interferon) Hx Depression: Yes (Wellbutrin) Hx Suicide Attempt: Yes ( Attempt in 2006 overdose- Denies suicidal ideation at this time) Hx Bipolar Disorder: Yes Hx Schizophrenia: No Other Medical History: Anxiety - Not on medication - Patient Surgical History Past Surgical History: Yes Hx Neurologic Surgery: No Hx Cataract Extraction: No Hx Cardiac Surgery: No Hx Lung Surgery: No Hx Abdominal Surgery: No Hx Appendectomy: No Hx Cholecystectomy: No Hx Genitourinary Surgery: No Hx Orthopedic Surgery: No Other Surgical History: incision and drainage of infected right hand in 1994 Anesthesia Reaction: No - PPD History Previous Implant?: Yes Documented Results: Negative w/o proof Implanted On Prior [facility] Admission?: Yes Date: 02/24/17 Results: 0 mm PPD to be Administered?: Yes - Reproductive History Patient is a Female of Child Bearing Age (11 -55 yrs old): No (male) - Smoking Cessation Smoking history: Current every day smoker Have you smoked in the past 12 months: Yes Aproximately how many cigarettes per day: 20 Cigars Per Day: 0 Hx Chewing Tobacco Use: No Initiated information on smoking cessation: Yes 'Breaking Loose' booklet given: 04/15/18 - Substance & Tx. History Hx Alcohol Use: Yes Hx Substance Use: Yes Substance Use Type: Alcohol, Cocaine Hx Substance Use Treatment: Yes ([facility]) - Substances Abused Alprazolam (Xanax) Route: Oral Frequency: Daily Amount used: 12/2mg Age of first use: 29 Date of Last Use: 04/15/18 Benzodiazepine (Klonopin) Route: Oral Frequency: Daily Amount used: 10/2mg Age of first use: 37 Date of Last Use: 04/15/18 Cocaine Route: Smoking Frequency: 1-3 times last 30 days Amount used: 220 Age of first use: 18 Family Disease History - Family Disease History Family Disease History: Heart Disease: Father (), Other: Brother (ONLY CHILD), Son (HEALTHY) Admission Physical Exam [facility] - Vital Signs Vital Signs: Vital Signs - 24 hr 04/15/18 17:21 Temperature 98.7 F Pulse Rate 110 H Respiratory 18 Rate Blood Pressure 130/82 - Physical General Appearance: Yes: Moderate Distress, Tremorous, Irritable, Sweating, Anxious HEENTM: Yes: EOMI, Normal ENT Inspection, Normocephalic, Normal Voice, MARIAH Respiratory: Yes: Lungs Clear, Normal Breath Sounds, No Respiratory Distress Neck: Yes: Supple Breast: Yes: Breast Exam Deferred Cardiology: Yes: Tachycardia Abdominal: Yes: Normal Bowel Sounds, Soft Genitourinary: Yes: Within Normal Limits Back: Yes: Normal Inspection Musculoskeletal: Yes: Back pain Extremities: Yes: Tremors Neurological: Yes: operations representative II-XII NML intact, Alert, Normal Mood/Affect Integumentary: Yes: Warm Lymphatic: Yes: Within Normal Limits - Diagnostic (1) Anxiety Current Visit: Yes Status: Chronic (2) Cocaine dependence Current Visit: Yes Status: Chronic Qualifiers: Substance use status: uncomplicated Qualified Code(s): F14.20 - Cocaine dependence, uncomplicated (3) Drug withdrawal seizure Current Visit: Yes Status: Chronic Qualifiers: Complication of substance-induced condition: uncomplicated Qualified Code(s ): F19.230 - Other psychoactive substance dependence with withdrawal, uncomplicated (4) Nicotine dependence Current Visit: Yes Status: Chronic Qualifiers: Nicotine product type: cigarettes Substance use status: uncomplicated Qualified Code(s): F17.210 - Nicotine dependence, cigarettes, uncomplicated (5) Uncomplicated sedative, hypnotic or anxiolytic withdrawal Current Visit: Yes Status: Chronic (6) Methadone maintenance therapy patient Current Visit: No Status: Chronic Comment: 100 MG VERIFICAITON PENDING Cleared for Admission S - Detox or Rehab [facility] Level of Care: Medically Managed Detox Regimen/Protocol: Valium S Breath Alcohol Content Breath Alcohol Content: 0 Urine Drug Screen - Results Drug Screen Negative: No Urine Drug Screen Results: DESHAWN-Cocaine, BZO-Benzodiazepines, MTD-Methadone
[2018-04-15] MEDS ORDERED: P-EPHED 60MG/TRIPROLIDI 2.5MG TABLET PO PRN (19:48)
[2018-04-15] MEDS ORDERED: IBUPROFEN 400 MG TABLET (FP) PO PRN (19:48)
[2018-04-15] MEDS ORDERED: NICOTINE POLACRILEX 2 MG GUM BC PRN (19:48)
[2018-04-15] MEDS ORDERED: MENTHOL/PHENOL 1 EACH UD MM PRN (19:48)
[2018-04-15] MEDS ORDERED: LOPERAMIDE HCL 2 MG CAPSULE PO PRN (19:48)
[2018-04-15] MEDS ORDERED: MAGNESIUM HYDROX 2400MG/30ML ORAL SUSPENSION 30 ML CUP PO PRN (19:48)
[2018-04-15] MEDS ORDERED: MAGNESIUM CITRATE 300 ML BOTTLE PO PRN (19:48)
[2018-04-15] MEDS ORDERED: MAG HYDROX/AL HYDROX/SIMETH 30 ML UNIT-DOSE CUP PO PRN (19:48)
[2018-04-15] MEDS ORDERED: guaiFENesin/D-METHORPHAN HB 10 ML UNIT-DOSE CUPS PO PRN (19:48)
[2018-04-15] MEDS ORDERED: ACETAMINOPHEN 325 MG TABLET (FP) PO PRN (19:48)
[2018-04-15] MEDS ORDERED: diazePAM 5 MG TABLET PO ONE (20:45)
[2018-04-15] MEDS ORDERED: MELATONIN 5 MG TABLETS PO PRN (22:00)
[2018-04-15] MEDS: diazePAM 5 MG TABLET PO SCH (22:04)
[2018-04-15] MEDS: THIAMINE HCL 100 MG TABLET (FP) PO SCH (22:04)
[2018-04-16] MEDS: diazePAM 5 MG TABLET PO SCH ×3 (05:37→22:03)
[2018-04-16] MEDS: diazePAM 5 MG TABLET PO PRN ×4 (08:23→21:07)
--- NOTE | 2018-04-16 08:39 | PN ---
[facility] CIWA - CIWA Score Nausea/Vomitin-No Nausea/No Vomiting Muscle Tremors: 2 Anxiety: 2 Agitation: 3 Paroxysmal Sweats: 1-Minimal Palms Moist Orientation: 0-Oriented Tacttile Disturbances: 0-None Auditory Disturbances: 0-None Visual Disturbances: 0-None Headache: 1-Very Mild CIWA-Ar Total Score: 9 S Progress Note (SOAP) Subjective: patient stated that he is taking methadone 140 mg po daily no take home bottle with him the program "close" on tuesday due to the methadone verification protocol that the patient will received methadone 20 mg one dose today patient demands to call emergency number for methadone program at [phone] staff encourage to call Tuesday due to methadone program closed the nurse called [phone] no one fruit picker the phone patient informed that the methadone dosage needed to be verified prior to administration emotional support alternative supportive therapeutic management offered and discussed Objective: 04/16/18 11:29 Vital Signs Temperature 99.0 F 04/16/18 09:19 Pulse Rate 86 04/16/18 09:19 Respiratory Rate 18 04/16/18 09:19 Blood Pressure 98/73 04/16/18 09:19 O2 Sat by Pulse Oximetry (%) Laboratory Last Values WBC 4.6 K/mm3 (4.0-10.0) 04/16/18 07:20 RBC 4.05 M/mm3 (4.00-5.60) 04/16/18 07:20 Hgb 12.9 GM/dL (11.7-16.9) 04/16/18 07:20 Hct 36.8 % (35.4-49) 04/16/18 07:20 MCV 90.8 fl (80-96) 04/16/18 07:20 MCH 31.8 pg (25.7-33.7) 04/16/18 07:20 MCHC 35.1 g/dl (32.0-35.9) 04/16/18 07:20 RDW 15.3 % (11.9-15.9) 04/16/18 07:20 Plt Count 143 K/MM3 (134-434) 04/16/18 07:20 MPV 8.8 fl (7.5-11.1) 04/16/18 07:20 Sodium 142 mmol/L (136-145) 04/16/18 07:20 Potassium 3.6 mmol/L (3.5-5.1) 04/16/18 07:20 Chloride 104 mmol/L (98-107) 04/16/18 07:20 Carbon Dioxide 31 mmol/L (21-32) 04/16/18 07:20 Anion Gap 6 MMOL/L (8-16) L 04/16/18 07:20 BUN 26 mg/dL (7-18) H 04/16/18 07:20 Creatinine 0.9 mg/dL (0.55-1.3) 04/16/18 07:20 Creat Clearance w eGFR > 60 (>60) 04/16/18 07:20 Random Glucose 117 mg/dL (74-106) H 04/16/18 07:20 Calcium 8.3 mg/dL (8.5-10.1) L 04/16/18 07:20 Total Bilirubin 0.3 mg/dL (0.2-1) 04/16/18 07:20 AST 17 U/L (15-37) 04/16/18 07:20 ALT 22 U/L (13-61) 04/16/18 07:20 Alkaline Phosphatase 83 U/L (45-117) 04/16/18 07:20 Total Protein 6.4 g/dl (6.4-8.2) 04/16/18 07:20 Albumin 3.5 g/dl (3.4-5.0) 04/16/18 07:20 lab noted Assessment: 04/16/18 11:29 withdrawal sx Plan: continue detox
--- NOTE | 2018-04-16 09:06 | CONSULT ---
[facility] Psychiatric Consult - Data Date of interview: 04/16/18 Admission source: Self-referred Identifying data: Mr Bee is a 47 years old male, unemployed on public assistance, domiciled living in a residence in [place] seeking detox treatment for benzodiazepine and cocaine Substance Abuse History: Reports history of klonopin, xanax and cocaine use. 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 Smokes cigarettes 1 ppd Psychiatric History: Reports that his first psychiatric contact was at age 14 when he was diagnosed with ADHD. Reports receiving treatment with Ritalin and Adderall. Reports that in 2005, he was admitted to [facility] in [place], [place] and diagnosed with Bipolar Disorder and PTSD. Reports subsequent admissions to [facility] and [facility]. Claims most recent admission was in 2018 to [facility]. Reports receiving OPD care on site at his Residence in [facility]. He sees Dr Susy Dillon and he is prescribed Seroquel 200 mg po HS, Gabapentin 800 mg po TID and Wellbutrin XL 150 mg po daily. Told news writer that he last took medications yesterday prior to current admission. Reportedly, he has one previous suicidal attempt in 2006. At present, reports feeling anxious and sleeping poorly Physical/Sexual Abuse/Trauma History: Denies history of emotional, physical or sexual abuse as well as DV relationship. Reports serving in the [employer] from 1997 to 2003. Claims his discharge was honorable Mental Status Exam - Mental Status Exam Alert and Oriented to: Time, Place, Person Cognitive Function: Fair Patient Appearance: Well Groomed Mood: Anxious Affect: Appropriate Patient Behavior: Cooperative Speech Pattern: Clear Voice Loudness: Normal Thought Process: Intact, Goal Oriented Hallucinations: Denies Homicidal Ideation: Denies Insight/Judgement: Fair Sleep: Poorly Appetite: Poor Muscle strength/Tone: Normal Gait/Station: Other Psychiatric Findings - Problem List (Mobile 1, 2,3) (1) ADHD (attention deficit hyperactivity disorder) Current Visit: No Status: Chronic Qualifiers: Attention deficit-hyperactivity disorder type: unspecified Qualified Code(s ): F90.9 - Attention-deficit hyperactivity disorder, unspecified type Comment: As per records. (2) Bipolar disorder Current Visit: No Status: Chronic Qualifiers: Active/Remission status: in partial remission Most recent bipolar episode type: depressed Qualified Code(s): F31.75 - Bipolar disorder, in partial remission, most recent episode depressed Comment: Self-report.On medications.OPD care at [facility]. (3) PTSD (post-traumatic stress disorder) Current Visit: No Status: Chronic Comment: Historical diagnosis. (4) Substance-induced anxiety disorder Current Visit: Yes Status: Acute (5) Substance-induced sleep disorder Current Visit: Yes Status: Acute (6) Cocaine dependence Current Visit: Yes Status: Acute Qualifiers: Substance use status: uncomplicated Qualified Code(s): F14.20 - Cocaine dependence, uncomplicated (7) Uncomplicated sedative, hypnotic or anxiolytic withdrawal Current Visit: Yes Status: Acute (8) Opioid dependence on agonist therapy Current Visit: No Status: Chronic (9) Nicotine dependence Current Visit: Yes Status: Chronic (10) Drug withdrawal seizure Current Visit: Yes Status: Chronic Qualifiers: Complication of substance-induced condition: uncomplicated Qualified Code(s ): F19.230 - Other psychoactive substance dependence with withdrawal, uncomplicated (11) CVA (cerebral vascular accident) Current Visit: Yes Status: Resolved (12) Hepatitis C Current Visit: Yes Status: Resolved - Initial Treatment Plan Initial Treatment Plan: 1) Continue Wellbutrin XL 150 mg po daily, Seroquel 200 mg po HS and Gabapentin 800 mg po TID. 2) Monitor progress
[2018-04-16] MEDS ORDERED: METHADONE HCL 10 MG TABLET PO ONE (10:00)
[2018-04-16] MEDS: PRENATAL VITAMINS W/ FOLIC ACID TABLET (FP) PO SCH (10:16)
[2018-04-16] MEDS: NICOTINE 21 MG/24 HOURS TOPICAL PATCH TD SCH (10:16)
[2018-04-16 11:12] LABS: ALBUMIN 3.5 g/dl (3.4-5.0); ALK PHOS 83 U/L (45-117); ANION GAP 6 MMOL/L (8-16); BILIRUBIN,TOTAL 0.3 mg/dL (0.2-1); BLOOD UREA NITROGEN 26 mg/dL (7-18); CALCIUM 8.3 mg/dL (8.5-10.1); CHLORIDE 104 mmol/L (98-107); CO2 31 mmol/L (21-32); CREATININE 0.9 mg/dL (0.55-1.3); GLUCOSE,RANDOM 117 mg/dL (74-106); POTASSIUM 3.6 mmol/L (3.5-5.1); SGOT/AST 17 U/L (15-37); SGPT/ALT 22 U/L (13-61); SODIUM 142 mmol/L (136-145); TOT PROT 6.4 g/dl (6.4-8.2)
[2018-04-16 11:26] LABS: HEMATOCRIT 36.8 % (35.4-49); HEMOGLOBIN 12.9 GM/dL (11.7-16.9); MCH 31.8 pg (25.7-33.7); MCHC 35.1 g/dl (32.0-35.9); MEAN CELL VOLUME 90.8 fl (80-96); MEAN PLT VOLUME 8.8 fl (7.5-11.1); PLATELET COUNT 143 K/MM3 (134-434); RBC 4.05 M/mm3 (4.00-5.60); RDW 15.3 % (11.9-15.9); WHITE BLOOD COUNT 4.6 K/mm3 (4.0-10.0)
[2018-04-16] MEDS ORDERED: GABAPENTIN 300 MG CAPSULE (FP) PO ONE (17:03)
[2018-04-16] MEDS ORDERED: MELATONIN 5 MG TABLETS PO PRN (17:04)
--- NOTE | 2018-04-16 17:34 | DS ---
[facility] Detox Discharge Summary Admission Date: 04/15/18 Discharge Date: 04/16/18 - History Present History: Cocaine Dependence, Sedative Dependence, MMTP Additional Comments: Patient admitted with anxiolytic withdrawal symptoms. Pertinent Past History: He has medical history of CVA and bilateral hip pain. Hx opiate use disorder and on Methadone maintenance therapy at [facility]. Hx: Cocaine use disorder. Hx: Nicotine use disorder. - Physical Exam Results Vital Signs: Vital Signs Temperature 96.4 F L 04/16/18 17:16 Pulse Rate 73 04/16/18 17:16 Respiratory Rate 16 04/16/18 17:16 Blood Pressure 101/61 04/16/18 17:16 O2 Sat by Pulse Oximetry (%) Pertinent Admission Physical Exam Findings: Patient admitted for detox from anxiolytics. Patient will remain on methadone maintenance, as prescribed by [facility]. Laboratory Last Values WBC 4.6 K/mm3 (4.0-10.0) 04/16/18 07:20 RBC 4.05 M/mm3 (4.00-5.60) 04/16/18 07:20 Hgb 12.9 GM/dL (11.7-16.9) 04/16/18 07:20 Hct 36.8 % (35.4-49) 04/16/18 07:20 MCV 90.8 fl (80-96) 04/16/18 07:20 MCH 31.8 pg (25.7-33.7) 04/16/18 07:20 MCHC 35.1 g/dl (32.0-35.9) 04/16/18 07:20 RDW 15.3 % (11.9-15.9) 04/16/18 07:20 Plt Count 143 K/MM3 (134-434) 04/16/18 07:20 MPV 8.8 fl (7.5-11.1) 04/16/18 07:20 Sodium 142 mmol/L (136-145) 04/16/18 07:20 Potassium 3.6 mmol/L (3.5-5.1) 04/16/18 07:20 Chloride 104 mmol/L (98-107) 04/16/18 07:20 Carbon Dioxide 31 mmol/L (21-32) 04/16/18 07:20 Anion Gap 6 MMOL/L (8-16) L 04/16/18 07:20 BUN 26 mg/dL (7-18) H 04/16/18 07:20 Creatinine 0.9 mg/dL (0.55-1.3) 04/16/18 07:20 Creat Clearance w eGFR > 60 (>60) 04/16/18 07:20 Random Glucose 117 mg/dL (74-106) H 04/16/18 07:20 Calcium 8.3 mg/dL (8.5-10.1) L 04/16/18 07:20 Total Bilirubin 0.3 mg/dL (0.2-1) 04/16/18 07:20 AST 17 U/L (15-37) 04/16/18 07:20 ALT 22 U/L (13-61) 04/16/18 07:20 Alkaline Phosphatase 83 U/L (45-117) 04/16/18 07:20 Total Protein 6.4 g/dl (6.4-8.2) 04/16/18 07:20 Albumin 3.5 g/dl (3.4-5.0) 04/16/18 07:20 RPR Titer Nonreactive (NONREACTIVE) 04/16/18 07:20 Labs reviewed. - Treatment Hospital Course: Detox Protocol Followed (Patient was tolerating detox w/o side effects but did not complete protocol.), Discharged Condition Good (Alert, oriented upon discharge. Gait steady w/ use of personal cane.) - Medication Discharge Medications: Ambulatory Orders Quetiapine Fumarate [Seroquel -] 200 mg PO HS 09/16/15 Gabapentin [Neurontin -] 800 mg PO TID #90 capsule 09/18/15 Bupropion HCl [Wellbutrin Xl -] 150 mg PO DAILY #30 tab.sr.24h 02/23/17 - Diagnosis (1) Bone pain Current Visit: Yes Status: Chronic (2) Uncomplicated sedative, hypnotic or anxiolytic withdrawal Current Visit: Yes Status: Acute (3) Nicotine dependence Current Visit: Yes Status: Chronic Qualifiers: Nicotine product type: cigarettes Substance use status: uncomplicated Qualified Code(s): F17.210 - Nicotine dependence, cigarettes, uncomplicated (4) Methadone maintenance therapy patient Current Visit: Yes Status: Chronic (5) Cocaine dependence, uncomplicated Current Visit: Yes Status: Chronic - AMA Did Patient Leave Against Medical Advice: Yes (Patient refuses to stay despite offers of medication adjustments. )
--- NOTE | 2018-04-16 17:50 | PN ---
[facility] Progress Note Note: Patient requesting to leave because not getting prescribed pain medication. Provider escorted [facility] and reviewed medications. Patient had prescriptions for Meloxicam and Acetaminophen 500 mg. Offered to prescribe these medications for patient, but patient declined and signed out AMA. D
[2018-04-16] MEDS: THIAMINE HCL 100 MG TABLET (FP) PO SCH (22:03)
[2018-04-16] MEDS: QUEtiapine FUMARATE 100 MG TABLET (FP) PO SCH (22:03)
[2018-04-16] MEDS: GABAPENTIN 400 MG CAPSULE (FP) PO SCH (22:03)
[2018-04-17] MEDS: diazePAM 5 MG TABLET PO PRN ×4 (05:52→19:52)
[2018-04-17] MEDS: GABAPENTIN 400 MG CAPSULE (FP) PO SCH ×3 (05:52→22:24)
[2018-04-17] MEDS ORDERED: METHADONE HCL 10 MG TABLET PO SCH (07:45)
[2018-04-17] MEDS ORDERED: METHADONE HCL 10 MG TABLET ONE (07:58)
[2018-04-17] MEDS ORDERED: METHADONE HCL 40 MG DISPERSABLE TABLET ONE (07:58)
[2018-04-17] MEDS: METHADONE 120 MG, METHADONE 20 MG PO SCH (08:00)
[2018-04-17] MEDS: NICOTINE 21 MG/24 HOURS TOPICAL PATCH TD SCH (10:00)
[2018-04-17] MEDS: PRENATAL VITAMINS W/ FOLIC ACID TABLET (FP) PO SCH (10:01)
[2018-04-17] MEDS: diazePAM 5 MG TABLET PO SCH ×2 (10:01→22:24)
--- NOTE | 2018-04-17 10:30 | PN ---
S CIWA - CIWA Score Nausea/Vomitin-No Nausea/No Vomiting Muscle Tremors: 1-None Visible, but [place] Anxiety: 2 Agitation: 1-Slight > Activity Paroxysmal Sweats: 1-Minimal Palms Moist Orientation: 0-Oriented Tacttile Disturbances: 0-None Auditory Disturbances: 0-None Visual Disturbances: 0-None Headache: 1-Very Mild CIWA-Ar Total Score: 6 BHS Progress Note (SOAP) Subjective: tremor sweating anxiety patient requests higher dose of valium offer supportive therapeutic treatment Objective: 04/17/18 10:31 Vital Signs Temperature 96.4 F L 04/17/18 09:26 Pulse Rate 85 04/17/18 09:26 Respiratory Rate 18 04/17/18 09:26 Blood Pressure 100/57 L 04/17/18 09:26 O2 Sat by Pulse Oximetry (%) Laboratory Last Values WBC 4.6 K/mm3 (4.0-10.0) 04/16/18 07:20 RBC 4.05 M/mm3 (4.00-5.60) 04/16/18 07:20 Hgb 12.9 GM/dL (11.7-16.9) 04/16/18 07:20 Hct 36.8 % (35.4-49) 04/16/18 07:20 MCV 90.8 fl (80-96) 04/16/18 07:20 MCH 31.8 pg (25.7-33.7) 04/16/18 07:20 MCHC 35.1 g/dl (32.0-35.9) 04/16/18 07:20 RDW 15.3 % (11.9-15.9) 04/16/18 07:20 Plt Count 143 K/MM3 (134-434) 04/16/18 07:20 MPV 8.8 fl (7.5-11.1) 04/16/18 07:20 Sodium 142 mmol/L (136-145) 04/16/18 07:20 Potassium 3.6 mmol/L (3.5-5.1) 04/16/18 07:20 Chloride 104 mmol/L (98-107) 04/16/18 07:20 Carbon Dioxide 31 mmol/L (21-32) 04/16/18 07:20 Anion Gap 6 MMOL/L (8-16) L 04/16/18 07:20 BUN 26 mg/dL (7-18) H 04/16/18 07:20 Creatinine 0.9 mg/dL (0.55-1.3) 04/16/18 07:20 Creat Clearance w eGFR > 60 (>60) 04/16/18 07:20 Random Glucose 117 mg/dL (74-106) H 04/16/18 07:20 Calcium 8.3 mg/dL (8.5-10.1) L 04/16/18 07:20 Total Bilirubin 0.3 mg/dL (0.2-1) 04/16/18 07:20 AST 17 U/L (15-37) 04/16/18 07:20 ALT 22 U/L (13-61) 04/16/18 07:20 Alkaline Phosphatase 83 U/L (45-117) 04/16/18 07:20 Total Protein 6.4 g/dl (6.4-8.2) 04/16/18 07:20 Albumin 3.5 g/dl (3.4-5.0) 04/16/18 07:20 RPR Titer Nonreactive (NONREACTIVE) 04/16/18 07:20 lab noted Assessment: 04/17/18 10:31 withdrawal sx Plan: continue detox
[2018-04-17] MEDS ORDERED: BACLOFEN 10 MG TABLET (FP) PO ONE (11:05)
[2018-04-17] MEDS: QUEtiapine FUMARATE 100 MG TABLET (FP) PO SCH (22:24)
[2018-04-17] MEDS: THIAMINE HCL 100 MG TABLET (FP) PO SCH (22:24)
[2018-04-18] MEDS ORDERED: METHADONE HCL 10 MG TABLET ONE (04:49)
[2018-04-18] MEDS ORDERED: METHADONE HCL 40 MG DISPERSABLE TABLET ONE (04:50)
[2018-04-18] MEDS: METHADONE 120 MG, METHADONE 20 MG PO SCH (05:24)
[2018-04-18] MEDS: GABAPENTIN 400 MG CAPSULE (FP) PO SCH ×3 (05:25→22:19)
[2018-04-18] MEDS: diazePAM 5 MG TABLET PO PRN ×4 (05:26→19:42)
[2018-04-18] MEDS: NICOTINE 21 MG/24 HOURS TOPICAL PATCH TD SCH (09:39)
[2018-04-18] MEDS: diazePAM 5 MG TABLET PO SCH ×2 (09:40→22:19)
[2018-04-18] MEDS: PRENATAL VITAMINS W/ FOLIC ACID TABLET (FP) PO SCH (09:40)
--- NOTE | 2018-04-18 10:26 | PN ---
BHS Progress Note (SOAP) Subjective: craving and poor coping skills otherwise feeling ok discuss aftercare Objective: 04/18/18 10:38 Vital Signs Temperature 96.8 F L 04/18/18 09:07 Pulse Rate 90 04/18/18 09:07 Respiratory Rate 18 04/18/18 09:07 Blood Pressure 90/67 04/18/18 09:07 O2 Sat by Pulse Oximetry (%) Laboratory Last Values WBC 4.6 K/mm3 (4.0-10.0) 04/16/18 07:20 RBC 4.05 M/mm3 (4.00-5.60) 04/16/18 07:20 Hgb 12.9 GM/dL (11.7-16.9) 04/16/18 07:20 Hct 36.8 % (35.4-49) 04/16/18 07:20 MCV 90.8 fl (80-96) 04/16/18 07:20 MCH 31.8 pg (25.7-33.7) 04/16/18 07:20 MCHC 35.1 g/dl (32.0-35.9) 04/16/18 07:20 RDW 15.3 % (11.9-15.9) 04/16/18 07:20 Plt Count 143 K/MM3 (134-434) 04/16/18 07:20 MPV 8.8 fl (7.5-11.1) 04/16/18 07:20 Sodium 142 mmol/L (136-145) 04/16/18 07:20 Potassium 3.6 mmol/L (3.5-5.1) 04/16/18 07:20 Chloride 104 mmol/L (98-107) 04/16/18 07:20 Carbon Dioxide 31 mmol/L (21-32) 04/16/18 07:20 Anion Gap 6 MMOL/L (8-16) L 04/16/18 07:20 BUN 26 mg/dL (7-18) H 04/16/18 07:20 Creatinine 0.9 mg/dL (0.55-1.3) 04/16/18 07:20 Creat Clearance w eGFR > 60 (>60) 04/16/18 07:20 Random Glucose 117 mg/dL (74-106) H 04/16/18 07:20 Calcium 8.3 mg/dL (8.5-10.1) L 04/16/18 07:20 Total Bilirubin 0.3 mg/dL (0.2-1) 04/16/18 07:20 AST 17 U/L (15-37) 04/16/18 07:20 ALT 22 U/L (13-61) 04/16/18 07:20 Alkaline Phosphatase 83 U/L (45-117) 04/16/18 07:20 Total Protein 6.4 g/dl (6.4-8.2) 04/16/18 07:20 Albumin 3.5 g/dl (3.4-5.0) 04/16/18 07:20 RPR Titer Nonreactive (NONREACTIVE) 04/16/18 07:20 lab noted Assessment: 04/18/18 10:39 mild withdrawal sx Plan: continue detox
[2018-04-18] MEDS ORDERED: hydrOXYzine PAMOATE 50 MG CAPSULE (FP) PO PRN (20:13)
[2018-04-18] MEDS: QUEtiapine FUMARATE 100 MG TABLET (FP) PO SCH (22:19)
[2018-04-18] MEDS: THIAMINE HCL 100 MG TABLET (FP) PO SCH (22:19)
[2018-04-19] MEDS ORDERED: METHADONE HCL 40 MG DISPERSABLE TABLET ONE (04:45)
[2018-04-19] MEDS ORDERED: METHADONE HCL 10 MG TABLET ONE (04:45)
[2018-04-19] MEDS: METHADONE 120 MG, METHADONE 20 MG PO SCH (05:20)
[2018-04-19] MEDS: GABAPENTIN 400 MG CAPSULE (FP) PO SCH (05:20)
[2018-04-19 06:02] VITALS: BP 114/83; PULSE 87; TEMP 96.4
--- NOTE | 2018-04-19 09:55 | DS ---
[facility] Detox Discharge Summary Admission Date: 04/15/18 Discharge Date: 04/19/18 - History Present History: Alcohol Dependence, Sedative Dependence Additional Comments: 47 years old male admitted on 04/15/18 for alcohol and benzo withdrawal stabilization completed detox regimen aftercare [facility] methadone maintenance program patient received 140 mg of methadone today informed bring in medication list and bottle of home medication to aftercare appointment Pertinent Past History: informed update home medication list if any changes patient reported that he is abuse alcohol and benzo together refused to discuss alcohol drinking in detail - Physical Exam Results Vital Signs: Vital Signs Temperature 96.4 F L 04/19/18 06:01 Pulse Rate 87 04/19/18 06:01 Respiratory Rate 18 04/19/18 06:30 Blood Pressure 114/83 04/19/18 06:01 O2 Sat by Pulse Oximetry (%) Pertinent Admission Physical Exam Findings: alcohol and banzo withdrawal sx Laboratory Last Values WBC 4.6 K/mm3 (4.0-10.0) 04/16/18 07:20 RBC 4.05 M/mm3 (4.00-5.60) 04/16/18 07:20 Hgb 12.9 GM/dL (11.7-16.9) 04/16/18 07:20 Hct 36.8 % (35.4-49) 04/16/18 07:20 MCV 90.8 fl (80-96) 04/16/18 07:20 MCH 31.8 pg (25.7-33.7) 04/16/18 07:20 MCHC 35.1 g/dl (32.0-35.9) 04/16/18 07:20 RDW 15.3 % (11.9-15.9) 04/16/18 07:20 Plt Count 143 K/MM3 (134-434) 04/16/18 07:20 MPV 8.8 fl (7.5-11.1) 04/16/18 07:20 Sodium 142 mmol/L (136-145) 04/16/18 07:20 Potassium 3.6 mmol/L (3.5-5.1) 04/16/18 07:20 Chloride 104 mmol/L (98-107) 04/16/18 07:20 Carbon Dioxide 31 mmol/L (21-32) 04/16/18 07:20 Anion Gap 6 MMOL/L (8-16) L 04/16/18 07:20 BUN 26 mg/dL (7-18) H 04/16/18 07:20 Creatinine 0.9 mg/dL (0.55-1.3) 04/16/18 07:20 Creat Clearance w eGFR > 60 (>60) 04/16/18 07:20 Random Glucose 117 mg/dL (74-106) H 04/16/18 07:20 Calcium 8.3 mg/dL (8.5-10.1) L 04/16/18 07:20 Total Bilirubin 0.3 mg/dL (0.2-1) 04/16/18 07:20 AST 17 U/L (15-37) 04/16/18 07:20 ALT 22 U/L (13-61) 04/16/18 07:20 Alkaline Phosphatase 83 U/L (45-117) 04/16/18 07:20 Total Protein 6.4 g/dl (6.4-8.2) 04/16/18 07:20 Albumin 3.5 g/dl (3.4-5.0) 04/16/18 07:20 RPR Titer Nonreactive (NONREACTIVE) 04/16/18 07:20 lab noted - Treatment Hospital Course: Detox Protocol Followed, Detoxed Safely, Responded well, Discharged Condition Good, Rehab Referral Accepted Patient has Accepted a Rehab Referral to: [facility] - Medication Discharge Medications: Ambulatory Orders Quetiapine Fumarate [Seroquel -] 200 mg PO HS 09/16/15 Gabapentin [Neurontin -] 800 mg PO TID #90 capsule 09/18/15 Bupropion HCl [Wellbutrin Xl -] 150 mg PO DAILY #30 tab.sr.24h 02/23/17 Methadone [Dolophine -] 140 mg PO DAILY 04/19/18 - Diagnosis (1) Alcohol dependence with uncomplicated withdrawal Status: Acute (2) Drug-induced mood disorder Status: Suspected (3) Uncomplicated sedative, hypnotic or anxiolytic withdrawal Status: Acute (4) Methadone maintenance therapy patient Status: Chronic (5) Nicotine dependence Status: Acute Qualifiers: Nicotine product type: cigarettes Substance use status: in withdrawal Qualified Code(s): F17.213 - Nicotine dependence, cigarettes, with withdrawal (6) Hepatitis C Status: Chronic Qualifiers: Viral hepatitis chronicity: unspecified Hepatic coma status: without hepatic coma Qualified Code(s): B19.20 - Unspecified viral hepatitis C without hepatic coma - AMA Did Patient Leave Against Medical Advice: No
[2018-04-19] MEDS ORDERED: diazePAM 5 MG TABLET PO SCH (10:00)
== END 2018-04-19 08:50 | disposition home or self-care (01) | DRG 773 ==
LOC: YASAS 16:32 → Y3N 20:14
PROVIDERS: ADMIT Neuromusculoskeletal Medicine & OMM; ATTEND Neuromusculoskeletal Medicine & OMM
PROC: HZ2ZZZZ Detoxification Services for Substance Abuse Treatment (ICD-10-PCS; principal; 2018-04-15)
DX: F10.230 Alcohol dependence with withdrawal, uncomplicated (principal); F13.230 Sedative, hypnotic or anxiolytic dependence with withdrawal, uncomplicated; F11.20 Opioid dependence, uncomplicated; F14.20 Cocaine dependence, uncomplicated; F19.24 Other psychoactive substance dependence with psychoactive substance-induced mood disorder; F19.280 Other psychoactive substance dependence with psychoactive substance-induced anxiety disorder; F19.282 Other psychoactive substance dependence with psychoactive substance-induced sleep disorder; F90.9 Attention-deficit hyperactivity disorder, unspecified type; F43.10 Post-traumatic stress disorder, unspecified; F41.9 Anxiety disorder, unspecified; B19.20 Unspecified viral hepatitis C without hepatic coma; M85.80 Other specified disorders of bone density and structure, unspecified site; G40.909 Epilepsy, unspecified, not intractable, without status epilepticus; R00.0 Tachycardia, unspecified; Z86.73 Personal history of transient ischemic attack (TIA), and cerebral infarction without residual deficits; Z91.5 Personal history of self-harm
CPT/HCPCS: 36415; 80053; 85027; 86593; J0475

== ENCOUNTER 2018-06-28 13:21 | Inpatient (IN) | payer OTHER ==
[2018-06-28 15:04] VITALS: BMI 34.0
--- NOTE | 2018-06-28 15:43 | HP ---
CIWA Score Nausea/Vomitin Muscle Tremors: 2 Anxiety: 2 Agitation: 2 Paroxysmal Sweats: 1-Minimal Palms Moist Orientation: 0-Oriented Tacttile Disturbances: 1-Very Mild Itch/Numbness Auditory Disturbances: 1-Very Mild Visual Disturbances: 0-None Headache: 2-Mild CIWA-Ar Total Score: 13 - Admission Criteria OASAS Guidelines: Admission for Medically Managed Detox: Requires at least one of the followin. CIWA greater than 12 2. Seizures within the past 24 hours 3. Delirium tremens within the past 24 hours 4. Hallucinations within the past 24 hours 5. Acute intervention needed for co occurring medical disorder 6. Acute intervention needed for co occurring psychiatric disorder 7. Severe withdrawal that cannot be handled at a lower level of care (continued vomiting, continued diarrhea, abnormal vital signs) requiring intravenous medication and/or fluids 8. Admission ROS S - HPI Chief Complaint: i need help to stop using xanax Allergies/Adverse Reactions: Allergies Allergy/AdvReac Type Severity Reaction Status Date / Time No Known Allergies Allergy Verified 06/28/18 14:52 History of Present Illness: this 47 years old male with xanax dependence,seeking detox,last detox 04/17/18 to 04/19/18 multiple admissions in detox but keep relapsing mmtp 140 mgs/day,last medicated today hepatitis c treated nicotine dependence 5 cigarette,requested patch and gum longest period of sobriety 3 and half years will go to residencial ptsd,bipolar disoder,depression,insomnia 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 ,complete recovery Exam Limitations: No Limitations - Ebola screening Have you traveled outside of the country in the last 21 days: No (N) Have you had contact with anyone from an Ebola affected area: No Do you have a fever: No - Review of Systems Constitutional: Chills, Loss of Appetite, Malaise, Night Sweats, Changes in sleep, Weakness EENT: reports: Nose Congestion Respiratory: reports: No Symptoms reported Cardiac: reports: No Symptoms Reported GI: reports: Diarrhea, Nausea, Vomiting, Abdominal cramping : reports: No Symptoms Reported Musculoskeletal: reports: Back Pain, Muscle Pain Integumentary: reports: Dryness Neuro: reports: Headache, Tremors Endocrine: reports: No Symptoms Reported Hematology: reports: No Symptoms Reported Psychiatric: reports: No Sypmtoms Reported, Judgement Intact, Mood/Affect Appropiate, Orientated x3, Anxious, Depressed, other (bipolar disorder,ptsd, insomnia) Other Systems: Reviewed and Negative Patient History - Patient Medical History Hx Anemia: No Hx Asthma: No Hx Chronic Obstructive Pulmonary Disease (COPD): No Hx Cancer: No Hx Cardiac Disorders: Yes (CVA -) Hx Congestive Heart Failure: No Hx Hypertension: No Hx Hypercholesterolemia: No Hx Pacemaker: No HX Cerebrovascular Accident: No Hx Seizures: Yes (04/08 last ) Hx Dementia: No Hx Diabetes: No Hx Gastrointestinal Disorders: No Hx Liver Disease: No Hx Genitourinary Disorders: No Hx Sexually Transmitted Disorders: No Hx Renal Disease (ESRD): No Hx Thyroid Disease: No Hx Human Immunodeficiency Virus (HIV): No (05/06) Hx Hepatitis C: Yes (Treated with Interferon) Hx Depression: Yes (Wellbutrin) Hx Suicide Attempt: Yes ( Attempt in 2006 overdose- Denies suicidal ideation at this time) Hx Bipolar Disorder: Yes Hx Schizophrenia: No Other Medical History: no suicidal,no homicidal - Patient Surgical History Past Surgical History: Yes Hx Neurologic Surgery: No Hx Cataract Extraction: No Hx Cardiac Surgery: No Hx Lung Surgery: No Hx Breast Surgery: No Hx Breast Biopsy: No Hx Abdominal Surgery: No Hx Appendectomy: No Hx Cholecystectomy: No Hx Genitourinary Surgery: No Hx Orthopedic Surgery: No Other Surgical History: incision and drainage of infected right hand in 1994 Anesthesia Reaction: No - PPD History Previous Implant?: Yes Documented Results: Negative w/proof Implanted On Prior [facility] Admission?: Yes Date: 04/17/18 Results: 0 mm PPD to be Administered?: No - Smoking Cessation Smoking history: Current every day smoker Have you smoked in the past 12 months: Yes Aproximately how many cigarettes per day: 5 Cigars Per Day: 0 Hx Chewing Tobacco Use: No Initiated information on smoking cessation: Yes 'Breaking Loose' booklet given: 06/28/18 - Substance & Tx. History Hx Alcohol Use: Yes Hx Substance Use: Yes Substance Use Type: Tranquilizers Hx Substance Use Treatment: Yes ([facility] 04/15/18 to 04/19/18) - Substances abused Alprazolam (Xanax) Substance route: Smoking Frequency: Daily Amount used: 25mg Age of first use: 32 Date of last use: 06/28/18 Benzodiazepine (Klonopin) Substance route: Oral Frequency: 1-3 times last 30 days Amount used: 25 pills 50mg Age of first use: 37 Date of last use: 06/22/18 Family Disease History - Family Disease History Family Disease History: Heart Disease: Father (), Mother (alive), Other : Brother (ONLY CHILD), Son (HEALTHY) Admission Physical Exam BHS - Vital Signs Vital Signs: Vital Signs - 24 hr 06/28/18 14:51 Temperature 98.2 F Pulse Rate 74 Respiratory 18 Rate Blood Pressure 119/82 - Physical General Appearance: Yes: Moderate Distress, Tremorous, Irritable, Sweating, Anxious HEENTM: Yes: Normal ENT Inspection, MARIAH, Pharynx Normal Respiratory: Yes: Lungs Clear, Normal Breath Sounds, No Respiratory Distress Neck: Yes: Within Normal Limits, Supple, Trachea in good position Breast: Yes: Within Normal Limits Cardiology: Yes: Within Normal Limits, Regular Rhythm, Regular Rate, S1, S2 Abdominal: Yes: Within Normal Limits, Normal Bowel Sounds, Non Tender, Flat, Soft Genitourinary: Yes: Within Normal Limits Back: Yes: Muscle Spasm Musculoskeletal: Yes: Back pain, Muscle Pain Extremities: Yes: Within Normal Limits, Normal Range of Motion, Tremors Neurological: Yes: mortician helper II-XII NML intact, Alert, Motor Strength 5/5 Integumentary: Yes: Dry, Track [place] Lymphatic: Yes: Within Normal Limits - Diagnostic (1) Uncomplicated sedative, hypnotic or anxiolytic withdrawal Current Visit: Yes Status: Acute (2) Hepatitis C Current Visit: No Status: Chronic Qualifiers: Viral hepatitis chronicity: unspecified Hepatic coma status: without hepatic coma Qualified Code(s): B19.20 - Unspecified viral hepatitis C without hepatic coma (3) Methadone maintenance therapy patient Current Visit: No Status: Chronic Comment: 100 MG VERIFICAITON PENDING (4) Opioid dependence on agonist therapy Current Visit: No Status: Chronic (5) Bipolar II disorder Current Visit: No Status: Suspected (6) CVA (cerebral vascular accident) Current Visit: No Status: Resolved (7) Nicotine dependence Current Visit: No Status: Acute Qualifiers: Nicotine product type: cigarettes Substance use status: in withdrawal Qualified Code(s): F17.213 - Nicotine dependence, cigarettes, with withdrawal (8) PTSD (post-traumatic stress disorder) Current Visit: No Status: Chronic Comment: Historical diagnosis. Cleared for Admission [facility] - Detox or Rehab [facility] Level of Care: Medically Managed Detox Regimen/Protocol: Valium Urine Drug Screen - Test Device Lot number: [id number] Expiration date: 02/18/20 - Control Is test valid?: Yes - Results Drug screen NEGATIVE: No Urine drug screen results: DESHAWN-Cocaine, MTD-Methadone, BZO-Benzodiazepines Inpatient Rehab Admission - Rehab Decision to Admit Inpatient rehab admission?: No
[2018-06-28] MEDS ORDERED: BISMUTH SUBSALICYLATE 524 MG/30 ML UD PO PRN (16:12)
[2018-06-28] MEDS ORDERED: METHOCARBAMOL 500 MG TABLET PO PRN (16:12)
[2018-06-28] MEDS ORDERED: MELATONIN 5 MG TABLETS PO PRN (16:12)
[2018-06-28] MEDS ORDERED: IBUPROFEN 400 MG TABLET (FP) PO PRN (16:12)
[2018-06-28] MEDS ORDERED: MAGNESIUM HYDROX 2400MG/30ML ORAL SUSPENSION 30 ML CUP PO PRN (16:12)
[2018-06-28] MEDS ORDERED: ACETAMINOPHEN 325 MG TABLET (FP) PO PRN ×2 (16:12)
[2018-06-28] MEDS ORDERED: MENTHOL/PHENOL 1 EACH UD MM PRN (16:12)
[2018-06-28] MEDS ORDERED: MAGNESIUM CITRATE 300 ML BOTTLE PO PRN (16:12)
[2018-06-28] MEDS ORDERED: MAG HYDROX/AL HYDROX/SIMETH 30 ML UNIT-DOSE CUP PO PRN (16:12)
[2018-06-28] MEDS: diazePAM 5 MG TABLET PO PRN (17:40)
[2018-06-28] MEDS ORDERED: QUEtiapine FUMARATE 100 MG TABLET (FP) PO ONE (21:00)
[2018-06-28] MEDS ORDERED: GABAPENTIN 300 MG CAPSULE (FP) PO ONE (21:00)
[2018-06-28] MEDS: diazePAM 5 MG TABLET PO SCH (22:25)
[2018-06-28] MEDS: THIAMINE HCL 100 MG TABLET (FP) PO SCH (22:25)
[2018-06-28] MEDS: hydrOXYzine PAMOATE 25 MG CAPSULE (FP) PO PRN (22:25)
[2018-06-28 23:36] LABS: PH,URINE 5.5 (5.0-8.0); URINE APPEARANCE CLEAR; URINE BILIRUBIN NEGATIVE (NEGATIVE); URINE COLOR YELLOW; URINE GLUCOSE (UA) NEGATIVE (NEGATIVE); URINE KETONE NEGATIVE (NEGATIVE); URINE LEUK ESTERASE NEGATIVE (NEGATIVE); URINE NITRITE NEGATIVE (NEGATIVE); URINE PROTEIN NEGATIVE (NEGATIVE); URINE UROBILINOGEN 0.2 mg/dL (0.2-1.0)
[2018-06-29] MEDS: diazePAM 5 MG TABLET PO SCH ×3 (05:33→22:14)
[2018-06-29] MEDS: diazePAM 5 MG TABLET PO PRN ×4 (08:42→20:43)
[2018-06-29] MEDS ORDERED: METHADONE HCL 10 MG TABLET PO ONE (09:02)
[2018-06-29] MEDS ORDERED: METHADONE 120 MG, METHADONE 20 MG PO ONE (09:20)
--- NOTE | 2018-06-29 09:37 | CONSULT ---
[facility] Psychiatric Consult - Data Date of interview: 06/29/18 Admission source: Self-referred Identifying data: Mr Bee is a 47 years old male, unemployed on public assistance, domiciled living in a residence in [place] seeking detox treatment for benzodiazepine Substance Abuse History: Reports history of klonopin and xanax use. Refer to addiction counselor's summary for further information. 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 Smokes cigarettes 1 ppd Psychiatric History: Reports is well known to auto service writer from previous encounter while admitted to this facility in March 2018. Historical narrative has remained consistent. He reports that his first psychiatric contact was at age 14 when he was diagnosed with ADHD. Reports receiving treatment with Ritalin and Adderall. Reports that in 2005, he was admitted to [facility] in [place], [place], diagnosed with Bipolar Disorder and PTSD. Reports subsequent admissions to [facility] and [facility]. Claims most recent admission was in [address] [facility]. Reports receiving OPD care on site at his Residence in [facility]. He sees Dr Susy Dillon and he is prescribed Seroquel 200 mg po HS, Gabapentin 800 mg po TID and Wellbutrin XL 150 mg po daily. Told auto service writer that he last took medications yesterday prior to current admission. Reportedly, he has one previous suicidal attempt by overdose on pills in 2006. At present, reports feeling depressed, anxious and sleeping poorly Physical/Sexual Abuse/Trauma History: Denies history of emotional, physical or sexual abuse as well as DV relationship. Reports serving in the [employer] from 1997 to 2003. Claims his discharge was honorable Mental Status Exam - Mental Status Exam Alert and Oriented to: Time, Place, Person Cognitive Function: Fair Patient Appearance: Disheveled Mood: Depressed, Anxious, Irritable Affect: Appropriate Speech Pattern: Clear Voice Loudness: Moderately Soft/Quiet Thought Process: Intact, Goal Oriented Hallucinations: Denies Suicidal Ideation: Denies Homicidal Ideation: Denies Sleep: Poorly Appetite: Poor Muscle strength/Tone: Normal Gait/Station: Normal Psychiatric Findings - Problem List ([place] 1, 2,3) (1) ADHD (attention deficit hyperactivity disorder) Current Visit: No Status: Chronic Qualifiers: Attention deficit-hyperactivity disorder type: unspecified Qualified Code(s ): F90.9 - Attention-deficit hyperactivity disorder, unspecified type Comment: As per records. (2) Bipolar disorder Current Visit: No Status: Chronic Qualifiers: Active/Remission status: in partial remission Most recent bipolar episode type: depressed Qualified Code(s): F31.75 - Bipolar disorder, in partial remission, most recent episode depressed Comment: Self-report.On medications.OPD care at [facility]. (3) PTSD (post-traumatic stress disorder) Current Visit: No Status: Chronic Comment: Historical diagnosis. (4) Substance induced mood disorder Current Visit: Yes Status: Acute (5) Substance-induced sleep disorder Current Visit: Yes Status: Acute (6) Uncomplicated sedative, hypnotic or anxiolytic withdrawal Current Visit: No Status: Acute (7) Opioid dependence on agonist therapy Current Visit: Yes Status: Chronic (8) Nicotine dependence Current Visit: Yes Status: Chronic (9) Hepatitis C Current Visit: No Status: Resolved Qualifiers: Viral hepatitis chronicity: unspecified Hepatic coma status: without hepatic coma Qualified Code(s): B19.20 - Unspecified viral hepatitis C without hepatic coma (10) Low back pain Current Visit: No Status: Chronic Qualifiers: Chronicity: chronic Back pain laterality: bilateral Sciatica presence: with sciatica Sciatica laterality: bilateral sciatica Qualified Code(s): M54.42 - Lumbago with sciatica, left side; M54.41 - Lumbago with sciatica, right side; G89.29 - Other chronic pain (11) CVA (cerebral vascular accident) Current Visit: No Status: Resolved - Initial Treatment Plan Initial Treatment Plan: 1) Continue Wellbutrin XL 150 mg po daily, Gabapentin 800 mg po TID and Seroquel 200 mg po HS. 2) Start Belsomra 10 mg po HS prn for insomnia. 3) Continue inpatient detoxification
[2018-06-29] MEDS ORDERED: METHADONE HCL 10 MG TABLET ONE (09:42)
[2018-06-29] MEDS ORDERED: METHADONE HCL 40 MG DISPERSABLE TABLET ONE (09:42)
[2018-06-29 10:11] LABS: HEMATOCRIT 37.5 % (35.4-49); HEMOGLOBIN 12.4 GM/dL (11.7-16.9); MCH 30.6 pg (25.7-33.7); MCHC 33.2 g/dl (32.0-35.9); MEAN CELL VOLUME 92.4 fl (80-96); MEAN PLT VOLUME 8.7 fl (7.5-11.1); PLATELET COUNT 120 K/MM3 (134-434); RBC 4.06 M/mm3 (4.00-5.60); RDW 15.3 % (11.9-15.9); WHITE BLOOD COUNT 3.1 K/mm3 (4.0-10.0)
[2018-06-29] MEDS: ASPIRIN 81 MG CHEWABLE TABLETS PO SCH (10:13)
[2018-06-29] MEDS: PRENATAL VITAMINS W/ FOLIC ACID TABLET (FP) PO SCH (10:13)
[2018-06-29 10:28] LABS: ALK PHOS 64 U/L (45-117); ANION GAP 1 MMOL/L (8-16); BILIRUBIN,TOTAL 0.3 mg/dL (0.2-1); BLOOD UREA NITROGEN 17 mg/dL (7-18); CALCIUM 8.5 mg/dL (8.5-10.1); CHLORIDE 108 mmol/L (98-107); CO2 31 mmol/L (21-32); CREATININE 0.7 mg/dL (0.55-1.3); GLUCOSE,RANDOM 82 mg/dL (74-106); POTASSIUM 3.9 mmol/L (3.5-5.1); SGOT/AST 17 U/L (15-37); SGPT/ALT 16 U/L (13-61); SODIUM 140 mmol/L (136-145); TOT PROT 5.9 g/dl (6.4-8.2)
--- NOTE | 2018-06-29 10:28 | PN ---
S CIWA - CIWA Score Nausea/Vomitin Muscle Tremors: 2 Anxiety: 2 Agitation: 2 Paroxysmal Sweats: 1-Minimal Palms Moist Orientation: 0-Oriented Tacttile Disturbances: 1-Very Mild Itch/Numbness Auditory Disturbances: 1-Very Mild Visual Disturbances: 0-None Headache: 2-Mild CIWA-Ar Total Score: 13 BHS Progress Note (SOAP) Subjective: alert,irritable,anxious,interrupted sleep,pain in the body Objective: 06/29/18 10:26 Vital Signs Temperature 96.3 F L 06/29/18 09:09 Pulse Rate 66 06/29/18 09:09 Respiratory Rate 18 06/29/18 09:09 Blood Pressure 131/73 06/29/18 09:09 O2 Sat by Pulse Oximetry (%) 06/29/18 10:27 Laboratory Last Values Urine Color Yellow 06/28/18 23:20 Urine Appearance Clear 06/28/18 23:20 Urine pH 5.5 (5.0-8.0) 06/28/18 23:20 Ur Specific [place] 1.019 (1.010-1.035) 06/28/18 23:20 Urine Protein Negative (NEGATIVE) 06/28/18 23:20 Urine Glucose (UA) Negative (NEGATIVE) 06/28/18 23:20 Urine Ketones Negative (NEGATIVE) 06/28/18 23:20 Urine Blood Negative (NEGATIVE) 06/28/18 23:20 Urine Nitrite Negative (NEGATIVE) 06/28/18 23:20 Urine Bilirubin Negative (NEGATIVE) 06/28/18 23:20 Urine Urobilinogen 0.2 mg/dL (0.2-1.0) 06/28/18 23:20 Ur Leukocyte Esterase Negative (NEGATIVE) 06/28/18 23:20 06/29/18 10:27 labs pending Assessment: 06/29/18 10:27 withdrawal symptom Plan: continue detox
[2018-06-29] MEDS: GABAPENTIN 400 MG CAPSULE (FP) PO SCH ×2 (15:55→22:14)
[2018-06-29] MEDS: hydrOXYzine PAMOATE 25 MG CAPSULE (FP) PO PRN (20:13)
[2018-06-29] MEDS ORDERED: SUVOREXANT 10 MG TABLET PO PRN (22:00)
[2018-06-29] MEDS: QUEtiapine FUMARATE 200 MG TABLET PO SCH (22:14)
[2018-06-29] MEDS: THIAMINE HCL 100 MG TABLET (FP) PO SCH (22:14)
[2018-06-30] MEDS: diazePAM 5 MG TABLET PO PRN ×5 (02:51→21:19)
[2018-06-30] MEDS ORDERED: METHADONE HCL 40 MG DISPERSABLE TABLET ONE (05:03)
[2018-06-30] MEDS ORDERED: METHADONE HCL 10 MG TABLET ONE (05:03)
[2018-06-30] MEDS: GABAPENTIN 400 MG CAPSULE (FP) PO SCH ×3 (05:23→22:22)
[2018-06-30] MEDS: METHADONE 120 MG, METHADONE 20 MG PO SCH (05:24)
[2018-06-30] MEDS ORDERED: METHADONE HCL 40 MG DISPERSABLE TABLET PO SCH (06:00)
[2018-06-30] MEDS ORDERED: SIMETHICONE 80 MG TAB.CHEW (FP) PO PRN (09:00)
[2018-06-30] MEDS: ASPIRIN 81 MG CHEWABLE TABLETS PO SCH (10:19)
[2018-06-30] MEDS: diazePAM 5 MG TABLET PO SCH ×2 (10:19→22:23)
[2018-06-30] MEDS: PRENATAL VITAMINS W/ FOLIC ACID TABLET (FP) PO SCH (10:19)
--- NOTE | 2018-06-30 11:53 | PN ---
S CIWA - CIWA Score Nausea/Vomitin Muscle Tremors: 2 Anxiety: 2 Agitation: 2 Paroxysmal Sweats: 1-Minimal Palms Moist Orientation: 0-Oriented Tacttile Disturbances: 1-Very Mild Itch/Numbness Auditory Disturbances: 1-Very Mild Visual Disturbances: 0-None Headache: 2-Mild CIWA-Ar Total Score: 13 BHS Progress Note (SOAP) Subjective: alert,irritable,anxious,interrupted sleep,pain in the body and back Objective: 06/30/18 11:52 Vital Signs Temperature 97.9 F 06/30/18 06:00 Pulse Rate 81 06/30/18 09:19 Respiratory Rate 18 06/30/18 09:19 Blood Pressure 117/61 06/30/18 09:19 O2 Sat by Pulse Oximetry (%) Laboratory Last Values WBC 3.1 K/mm3 (4.0-10.0) L 06/29/18 07:00 RBC 4.06 M/mm3 (4.00-5.60) 06/29/18 07:00 Hgb 12.4 GM/dL (11.7-16.9) 06/29/18 07:00 Hct 37.5 % (35.4-49) 06/29/18 07:00 MCV 92.4 fl (80-96) 06/29/18 07:00 MCH 30.6 pg (25.7-33.7) 06/29/18 07:00 MCHC 33.2 g/dl (32.0-35.9) 06/29/18 07:00 RDW 15.3 % (11.9-15.9) 06/29/18 07:00 Plt Count 120 K/MM3 (134-434) L 06/29/18 07:00 MPV 8.7 fl (7.5-11.1) 06/29/18 07:00 Sodium 140 mmol/L (136-145) 06/29/18 07:00 Potassium 3.9 mmol/L (3.5-5.1) 06/29/18 07:00 Chloride 108 mmol/L (98-107) H 06/29/18 07:00 Carbon Dioxide 31 mmol/L (21-32) 06/29/18 07:00 Anion Gap 1 MMOL/L (8-16) L 06/29/18 07:00 BUN 17 mg/dL (7-18) 06/29/18 07:00 Creatinine 0.7 mg/dL (0.55-1.3) 06/29/18 07:00 Creat Clearance w eGFR 121.95 (>60) 06/29/18 07:00 Random Glucose 82 mg/dL (74-106) 06/29/18 07:00 Calcium 8.5 mg/dL (8.5-10.1) 06/29/18 07:00 Total Bilirubin 0.3 mg/dL (0.2-1) 06/29/18 07:00 AST 17 U/L (15-37) 06/29/18 07:00 ALT 16 U/L (13-61) 06/29/18 07:00 Alkaline Phosphatase 64 U/L (45-117) 06/29/18 07:00 Total Protein 5.9 g/dl (6.4-8.2) L 06/29/18 07:00 Albumin 3.0 g/dl (3.4-5.0) L 06/29/18 07:00 Urine Color Yellow 06/28/18 23:20 Urine Appearance Clear 06/28/18 23:20 Urine pH 5.5 (5.0-8.0) 06/28/18 23:20 Ur Specific [place] 1.019 (1.010-1.035) 06/28/18 23:20 Urine Protein Negative (NEGATIVE) 06/28/18 23:20 Urine Glucose (UA) Negative (NEGATIVE) 06/28/18 23:20 Urine Ketones Negative (NEGATIVE) 06/28/18 23:20 Urine Blood Negative (NEGATIVE) 06/28/18 23:20 Urine Nitrite Negative (NEGATIVE) 06/28/18 23:20 Urine Bilirubin Negative (NEGATIVE) 06/28/18 23:20 Urine Urobilinogen 0.2 mg/dL (0.2-1.0) 06/28/18 23:20 Ur Leukocyte Esterase Negative (NEGATIVE) 06/28/18 23:20 RPR Titer Nonreactive (NONREACTIVE) 06/29/18 07:00 Assessment: 06/30/18 11:52 withdrawal symptom Plan: continue detox,mylicon for gas prn
[2018-06-30] MEDS: hydrOXYzine PAMOATE 25 MG CAPSULE (FP) PO PRN ×2 (12:39→19:47)
[2018-06-30] MEDS ORDERED: LOPERAMIDE HCL 2 MG CAPSULE PO ONE (20:30)
[2018-06-30] MEDS: THIAMINE HCL 100 MG TABLET (FP) PO SCH (22:22)
[2018-06-30] MEDS: QUEtiapine FUMARATE 200 MG TABLET PO SCH (22:22)
[2018-07-01] MEDS ORDERED: METHADONE HCL 40 MG DISPERSABLE TABLET ONE (05:09)
[2018-07-01] MEDS ORDERED: METHADONE HCL 10 MG TABLET ONE (05:09)
[2018-07-01] MEDS: METHADONE 120 MG, METHADONE 20 MG PO SCH (05:10)
[2018-07-01] MEDS: GABAPENTIN 400 MG CAPSULE (FP) PO SCH (05:10)
[2018-07-01] MEDS ORDERED: diazePAM 5 MG TABLET PO SCH (06:00)
[2018-07-01 06:24] VITALS: BP 95/58; PULSE 78; TEMP 98.2
== END 2018-07-01 07:15 | disposition home or self-care (01) | DRG 773 ==
LOC: YASAS 13:21 → Y6N 17:01
PROVIDERS: ADMIT Surgery; ATTEND Surgery
PROC: HZ2ZZZZ Detoxification Services for Substance Abuse Treatment (ICD-10-PCS; principal; 2018-06-28)
DX: F13.230 Sedative, hypnotic or anxiolytic dependence with withdrawal, uncomplicated (principal); F11.20 Opioid dependence, uncomplicated; F17.210 Nicotine dependence, cigarettes, uncomplicated; F90.9 Attention-deficit hyperactivity disorder, unspecified type; F31.75 Bipolar disorder, in partial remission, most recent episode depressed; F43.10 Post-traumatic stress disorder, unspecified; F19.24 Other psychoactive substance dependence with psychoactive substance-induced mood disorder; F19.282 Other psychoactive substance dependence with psychoactive substance-induced sleep disorder; B19.20 Unspecified viral hepatitis C without hepatic coma; M54.41 Lumbago with sciatica, right side; G89.29 Other chronic pain; Z86.73 Personal history of transient ischemic attack (TIA), and cerebral infarction without residual deficits; Z86.69 Personal history of other diseases of the nervous system and sense organs; Z91.5 Personal history of self-harm
CPT/HCPCS: 36415; 80053; 81003; 85027; 86593

== ENCOUNTER 2018-10-13 11:44 | Inpatient (IN) | payer OTHER | END 2018-10-16 20:43 | disposition short-term general hospital (02) | LOC: YASAS 11:44 → Y6N 15:04 ==

== ENCOUNTER 2018-10-16 12:37 | Observation (INO) | payer OTHER ==
--- NOTE | 2018-10-16 14:20 | PDOC ---
History of Present Illness - General Chief Complaint: Syncope/Near Syncope Stated Complaint: FALL Time Seen by Provider: 10/16/18 12:55 History Source: Patient Exam Limitations: No Limitations - History of Present Illness Initial Comments: HPI: 47 y/o male presenting [facility] from [facility] s/p unwitnessed syncopal episode. Pt reports he was sitting in his bed and then the next thing he remembers is being on the floor with members of staff above him. Denies any preceding symptoms. Is currently undergoing detox for benzodiazepine and cocaine abuse. Endorses h/o of IVDA, last used on Tuesday. Has a h/o of withdrawal seizures but states these are usually preceded by fuzzy headedness and he usually experiences urinary incontinence, neither of which he experienced today. Denies any symptoms at time of interview. Family Hx: - Father from [place] in 50s - Mother s/p [place] in 50s PCP: Follows with a physician in [place]. 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, treated at [facility] - Irregular Echo, reports some sort of valvular disorder but pt failed to f/u w / cards, unable to provide further details Review of Systems: In addition to that documented in the HPI above, the additional ROS was obtained : Constitutional: Denies fevers or chills Head: Denies vision changes or headache ENMT: Denies sore throat or tongue biting CV: Denies chest pain Resp: Denies SOB GI: Denies vomiting or diarrhea : Denies painful urination MSK: Denies recent trauma Skin: Denies new rashes Neuro: Denies new numbness or tingling or weakness Endocrine: Denies polyuria Heme: Denies bleeding or bruising Physical Examination: Constitutional: Well-developed, well-nourished adult male in no acute distress or obvious discomfort. Found semi-fowlers on hospital bed. Alert and oriented x4. Answered all questions appropriately and completely. Speech was non-labored , non-pressured. Head: Normocephalic. No obvious external signs of trauma. Eyes: EOMI. No Nystagmus. Sclerae white. Conjunctiva moist and not injected. Ears: Hearing grossly intact. Nose: No nasal discharge. Throat: Oral cavity and pharynx normal. No inflammation, swelling, exudate, or lesions. Teeth and gingiva in good general condition. Neck: Supple, trachea is midline. Cardiovascular / Chest: Regular rate and regular rhythm. No murmur, rubs, clicks , or gallops. Peripheral pulses: radial pulses full. Respiratory: Breathing unlabored. Equal chest rise and fall. Clear to auscultation bilaterally. No stridor, no wheezing, no rhonchi. Gastrointestinal: abdomen is soft, non-tender, non-distended. Neuro: Alert and oriented. Moving all four extremities spontaneously. No focal deficits. Cranial nerves intact. Sensation to all four extremities intact. Upper and lower extremities: proximal and distal strength 5/5. Ring Conductor strength 5/ 5 - equal and symmetric. Plantar flexion and dorsiflexion 5/5. No nuchal rigidity. Intact heel to bhakta and rapid alternating movements. Skin: Warm, dry, and intact. Psych: Affect: appropriate. Mood: normal. MDM: *Reviewed vital signs, nursing notes, and prior visit documentation (if available). 47 y/o male presenting s/p syncopal episode. No reported seizure like activity. Afebrile. Vitals unremarkable for hypotension or tachycardia. Physical exam as described above. Low suspicion for seizure, ACS, arrhythmia, PE, or CVA/TIA. EKG unremarkable for ischemic findings. Troponin not elevated. CBC unremarkable for anemia. Mild leukopenia, which appears to be baseline per previous [employer] [facility] [employer] records. Head CT unremarkable. Echo ordered given pts reported valvular disorder and recent IVDA. Echo unremarkable. Ordered PRN and scheduled PO Valium as prescribed in [facility] Records. ED Attending discussed case with Dr. Cleveland. Requested Echo report from [facility]. Unable to obtain SARAH report. Will admit pt to observation for syncope. In person discussion with resident Dr. Abrams. Verbally appraised of the pts HPI , ED course, and current plan of management. Will admit pt to telemetry for attending Dr. Bhatia. Apolinar Ashford M.D., PGY2 Emergency Medicine Resident Past History - Past Medical History Allergies/Adverse Reactions: Allergies Allergy/AdvReac Type Severity Reaction Status Date / Time No Known Allergies Allergy Verified 10/16/18 12:42 Home Medications: Ambulatory Orders Quetiapine Fumarate [Seroquel -] 200 mg PO HS 09/16/15 Gabapentin [Neurontin -] 800 mg PO TID #90 capsule 09/18/15 Bupropion HCl [Wellbutrin Xl -] 150 mg PO DAILY #30 tab.sr.24h 02/23/17 Methadone [Dolophine -] 140 mg PO DAILY 04/19/18 Aspirin [ASA -] 81 mg PO DAILY 06/28/18 Zolpidem Tartrate [Ambien] 10 mg PO HS 06/28/18 Anemia: No Asthma: No Cancer: No Cardiac Disorders: Yes (CVA -) CVA: No COPD: No CHF: No Dementia: No Diabetes: No GI Disorders: No Disorders: No HTN: No Hypercholesterolemia: No Kidney Stones: No Liver Disease: No Seizures: Yes (07/2018) Thyroid Disease: No - Surgical History Abdominal Surgery: No Appendectomy: No Cardiac Surgery: No Cholecystectomy: No Lung Surgery: No Neurologic Surgery: No Orthopedic Surgery: No - Reproductive History Testicular Surgery: No - Suicide/Smoking/Psychosocial Hx Smoking History: Current every day smoker Have you smoked in the past 12 months: Yes Number of Cigarettes Smoked Daily: 10 Cigars Per Day: 0 Information on smoking cessation initiated: No 'Breaking Loose' booklet given: 10/13/18 Hx Alcohol Use: Yes Drug/Substance Use Hx: Yes Substance Use Type: Alcohol, Prescribed, Tranquilizers Hx Substance Use Treatment: Yes *Physical Exam - Vital Signs Last Vital Signs Temp Pulse Resp BP Pulse Ox 99.1 F 77 18 100/72 97 10/16/18 12:42 10/16/18 12:42 10/16/18 12:42 10/16/18 12:42 10/16/18 12:42 ED Treatment Course - LABORATORY CBC & Chemistry Diagram: 10/16/18 14:05 10/16/18 14:05 - RADIOLOGY Radiology Studies Ordered: Category Date Time Status HEAD CT WITHOUT CONTRAST [CT] Stat CT Scan 10/16/18 13:39 Ordered CHEST PA & LAT [RAD] Stat Radiology 10/16/18 13:46 Ordered *DC/Admit/Observation/Transfer Diagnosis at time of Disposition: Syncope Qualifiers: Syncope type: unspecified Qualified Code(s): R55 - Syncope and collapse - Discharge Dispostion Condition at time of disposition: Stable Decision to Admit order: Yes - Referrals - Patient Instructions - Post Discharge Activity
[2018-10-16] MEDS ORDERED: diazePAM 5 MG TABLET PO ONE ×2 (14:22→20:12)
[2018-10-16 14:50] LABS: BASO % 1.2 % (0-2.0); EOS % 3.5 % (0-4.5); HEMATOCRIT 41.6 % (35.4-49); LYMPH % 42.3 % (8-40); MCH 31.3 pg (25.7-33.7); MCHC 33.7 g/dl (32.0-35.9); MEAN CELL VOLUME 92.7 fl (80-96); MEAN PLT VOLUME 9.1 fl (7.5-11.1); MONO % 8.4 % (3.8-10.2); NEUT % 44.6 % (42.8-82.8); PLATELET COUNT 132 K/MM3 (134-434); RBC 4.49 M/mm3 (4.00-5.60); RDW 15.4 % (11.9-15.9); WHITE BLOOD COUNT 3.7 K/mm3 (4.0-10.0)
--- NOTE | 2018-10-16 14:55 | PDOC ---
Documentation entered by Karen West SCRIBE, acting as scribe for Del Vila MD. Del Vila MD: This documentation has been prepared by the Brett sheikh Brenda, SCRIBE, under my direction and personally reviewed by me in its entirety. I confirm that the documentation accurately reflects all work, treatment, procedures, and medical decision making performed by me. Attending Attestation - Resident Resident Name: AshfordApolinar - ED Attending Attestation I have performed the following: I have examined & evaluated the patient, The case was reviewed & discussed with the resident, I agree w/resident's findings & plan, Exceptions are as noted - HPI HPI: 10/16/18 14:36 The patient is a 47 year old male, with a significant PMH of withdrawal seizures , bipolar disorder, nicotine dependence and Hepatitis C, who presents to the emergency department from [facility], s/p syncopal episode. As per patient, he is currently at [facility] for a benzo detox (admitted TuesdayOctober 13) , and reports having a heated argument with his roommate, where he then remembers sitting down on his bed and then waking up on the floor. He notes not knowing how long he was out for, but believes it wasnt long. Patient notes doing cocaine on Tuesday (10/12/18). Patient reports chills and sweats, but notes it to be normal due to the detox. Patient currently denies any pain, or complaints. The patient denies chest pain, shortness of breath, headache and dizziness. Denies fever, chills, nausea, vomiting, diarrhea and constipation. Denies dysuria, frequency, urgency and hematuria. Allergies: NKA Social history: Current everyday smoker. Hx of Illicit drug use. PCP: Does not have one - Physicial Exam PE: 10/16/18 14:26 GENERAL: The patient is awake, alert, and fully oriented, Nontoxic - in no acute distress. HEAD: Normocephalic, atraumatic EYES: extraocular movements intact, sclera anicteric, conjunctiva clear. ENT: Normal voice, Moist mucous membranes. NECK: Normal range of motion, supple LUNGS: Breath sounds equal, clear to auscultation bilaterally. No wheezes, no rhonchi, no rales. HEART: Regular rate and rhythm, normal S1 and S2 without murmur, rub or gallop. ABDOMEN: Soft, nontender, No guarding, no rebound. No CVA tenderness EXTREMITIES: Normal range of motion, no edema. NEUROLOGICAL: No facial assymetry, Normal speech, moving all 4 ext spontaneously and symmetrically PSYCH: Normal mood, normal affect. SKIN: Warm, Dry, normal turgor, - Medical Decision Making 10/16/18 13:43 47y M at [facility] for detox of benzos/cocaine, hx of cva w abnormal SARAH at [facility] last year, had a syncopal episode while in detox. currently astypmatmic. no tongue biting, urinary incontinence. No syncopal prodrome including cp, painter, sob, abd pain, back pain, focal numbnes/weakness/tingling, palpitations, lightheadedness, changes in his speech. ddx - includes possible arrytmia, thromboemboli, anemia, metablic derangement will ck labs, ct head, ekg will place pt on interpretive program coordinator 10/16/18 17:17 labs reviewed TTE normal here will dw cardiology regarding recommendations 10/16/18 18:22 will attempt to get a copy of his records from [facility] may need obs/syncope Heart Score/ECG Review - ECG Impressions Comment:: 10/16/18 14:35 Twelve-lead EKG was performed and reviewed by me. There is normal sinus rhythm with a normal rate. rate of 75 The axis is normal. The intervals are normal. There is normal R wave progression There are no ST or T wave abnormalities. Impression: Normal twelve-lead EKG
[2018-10-16 15:03] LABS: INR 0.97 (0.83-1.09); PROTHROMBIN TIME (PATIENT) 11.4 SEC (9.7-13.0)
[2018-10-16 15:23] LABS: ALBUMIN 3.8 g/dl (3.4-5.0); ALK PHOS 80 U/L (45-117); ANION GAP 3 MMOL/L (8-16); BILIRUBIN,TOTAL 0.2 mg/dL (0.2-1); BLOOD UREA NITROGEN 15.5 mg/dL (7-18); CALCIUM 9.6 mg/dL (8.5-10.1); CHLORIDE 101 mmol/L (98-107); CO2 35 mmol/L (21-32); CREATININE 0.9 mg/dL (0.55-1.3); GLUCOSE,RANDOM 110 mg/dL (74-106); POTASSIUM 4.5 mmol/L (3.5-5.1); SGOT/AST 19 U/L (15-37); SGPT/ALT 23 U/L (13-61); SODIUM 139 mmol/L (136-145)
[2018-10-16] MEDS ORDERED: diazePAM 5 MG TABLET ONE ×4 (15:27→23:43)
--- NOTE | 2018-10-16 16:07 | ECHO ---
Name: SRIRAM DOMINGO Exam:Adult Echocardiogram Study Date: 10/16/2018 03:24 PM Age: 47 yrs Reason For Study: SYNCOPE HX VALVE PROBLEM RECENT IVDA Height: 72 in Weight: 240 lb BSA: 2.3 m2 MMode/2D Measurements & Calculations IVSd: 0.85 cm Ao root diam: 3.4 cm LVIDd: 5.0 cm LA dimension: 3.4 cm LVIDs: 3.1 cm LVPWd: 0.75 cm EDV(Teich): 115.8 ml LVOT diam: 2.1 cm ESV(Teich): 37.4 ml Doppler Measurements & Calculations MV E max shun: 50.1 cm/sec Ao V2 max: 126.4 cm/sec MV A max shun: 54.4 cm/sec Ao max P.4 mmHg MV E/A: 0.92 Ao V2 mean: 90.5 cm/sec MV dec time: 0.27 sec Ao mean P.6 mmHg Ao V2 VTI: 29.6 cm MARV(I,D): 2.0 cm2 MARV(V,D): 2.1 cm2 LV V1 max P.4 mmHg SV(LVOT): 59.5 ml LV V1 mean P.2 mmHg LV V1 max: 78.0 cm/sec LV V1 mean: 49.3 cm/sec LV V1 VTI: 17.2 cm TR max shun: 190.5 cm/sec Med Peak E' Shun: 5.0 cm/sec TR max P.2 mmHg Med E/e': 10.1 Lat Peak E' Shun: 6.7 cm/sec Lat E/e': 7.5 Procedure A complete two-dimensional transthoracic echocardiogram was performed (2D, M-mode, Doppler and color flow Doppler). Left Ventricle The left ventricle is normal in size. Left ventricular systolic function is normal. Ejection Fraction = 65- 70%. Grade I diastolic dysfunction, (abnormal relaxation pattern). Ratio E/E'= 10. No regional wall m otion abnormalities noted. Right Ventricle The right ventricle is normal size. The right ventricular systolic function is normal. RV systolic TD I is 12 cm/s. Atria The left atrial size is normal. Right atrial size is normal. Mitral Valve The mitral valve is normal in structure and function. There is trace to mild mitral regurgitation. Tricuspid Valve The tricuspid valve is normal in structure and function. There is mild tricuspid regurgitation. Right ventricular systolic pressure is normal. Aortic Valve There is mild aortic sclerosis.;. No aortic regurgitation is present. Pulmonic Valve The pulmonic valve is not well visualized. Trace pulmonic valvular regurgitation. Great Vessels The aortic root is normal size. Pericardium/Pleura There is no pericardial effusion. Interpretation Summary The left ventricle is normal in size. Left ventricular systolic function is normal. No regional wall motion abnormalities noted. Ejection Fraction = 65-70%. Grade I diastolic dysfunction, (abnormal relaxation pattern). Ratio E/E'= 10 The right ventricular systolic function is normal. The left atrial size is normal. Right atrial size is normal. There is trace to mild mitral regurgitation. There is mild tricuspid regurgitation. Right ventricular systolic pressure is normal. There is mild aortic sclerosis.; Trace pulmonic valvular regurgitation. There is no pericardial effusion. Previous study is not available for comparison Cliff Cleveland MD 10/16/2018 04:06 PM
--- NOTE | 2018-10-16 19:43 | HP ---
CHIEF COMPLAINT:= Syncope PCP: Dr. Bernard ([place]- 12 04) HISTORY OF PRESENT ILLNESS: 47 y/o M, w/ PMH of IV Drug user and seizures, presents to the ED from [facility] w/ syncope of a few minute duration, onset right before arrival to the ED. Pt reports that he was feeling lightheaded right after he took his medication, Vallium, during which he became aggravated and into an argument with roommate. Next thing he remembers is waking up by himself on the floor right before help arrived. Pt states it was not a seizure due to lack of bruises, pain or hitting his head. Pt states he has had 2 to 3 seizures in the past year, and all seizures started after treatment at [facility]. Pt reports a CVA 2017, during which they found cardiac abnormality on SARAH at [place]. He is undergoing treatment at [facility] with Vallium, also [facility] methadone clinic and psycho therapy for PTSD. Denies headaches, changes in vision, numbness, tingling, sob, chest pain, urinary incontinence. ROS is negative. ER course was notable for: (1)CT head here normal (2)ECHO here was normal (3)Vitals were wnl on admission Recent Travel: n/a PAST MEDICAL HISTORY: Seizures, CVA 2017, IV Drug abuse- heroin, Benzo for 6yrs, cocaine since 2002, PTSD- psychotherapy with Dr. Bernard currently, Hx of Hep C, Undergoing tx at methadone clinic, tx at [facility] PAST SURGICAL HISTORY: n/a Social History: Smoking: half a pack/daily x 25 yrs Alcohol: none Drugs: heroin, cocaine- last use on tuesday last week 10/11 Family History: Father at 53 y/o [place], Mother has [place] x3, Alive Allergies: NKDA No Known Allergies Allergy (Verified 10/16/18 12:42) HOME MEDICATIONS: Home Medications Medication Instructions Recorded Quetiapine Fumarate [Seroquel -] 200 mg PO HS 09/16/15 Gabapentin [Neurontin -] 800 mg PO TID #90 capsule 09/18/15 Bupropion HCl [Wellbutrin Xl -] 150 mg PO DAILY #30 tab.sr.24h 02/23/17 Methadone [Dolophine -] 140 mg PO DAILY 04/19/18 Aspirin [ASA -] 81 mg PO DAILY 06/28/18 Zolpidem Tartrate [Ambien] 10 mg PO HS 06/28/18 REVIEW OF SYSTEMS CONSTITUTIONAL: Absent: fever, chills, diaphoresis, generalized weakness, malaise, loss of appetite, weight change Absent: difficulty swallowing, mouth swelling, ear pain, eye pain, visual changes CARDIOVASCULAR: Absent: chest pain, syncope, palpitations, irregular heart rate, lightheadedness , peripheral edema RESPIRATORY: Absent: cough, shortness of breath, dyspnea with exertion, orthopnea, wheezing, stridor, hemoptysis GASTROINTESTINAL: Absent: abdominal pain, abdominal distension, nausea, vomiting, diarrhea, constipation, melena, hematochezia GENITOURINARY: Absent: dysuria, frequency, urgency, hesitancy, hematuria, flank pain, genital pain MUSCULOSKELETAL: Absent: myalgia, arthralgia, joint swelling, back pain, neck pain Absent: rash, itching, pallor HEMATOLOGIC/IMMUNOLOGIC: Absent: easy bleeding, easy bruising, lymphadenopathy, frequent infections NEUROLOGIC: Absent: headache, focal weakness or paresthesias, dizziness, unsteady gait, seizure, mental status changes, bladder or bowel incontinence PSYCHIATRIC: Absent: anxiety, depression, suicidal or homicidal ideation, hallucinations. PHYSICAL EXAMINATION Vital Signs Temperature 99.1 F 10/16/18 12:42 Pulse Rate 63 10/16/18 19:00 Respiratory Rate 18 10/16/18 19:00 Blood Pressure 114/70 10/16/18 19:00 O2 Sat by Pulse Oximetry (%) 97 10/16/18 19:00 GENERAL: Awake, alert, and fully oriented, in no acute distress. HEAD: Normal with no signs of trauma, no bruises or tenderness EYES: Pupils equal, round and reactive to light, extraocular movements intact, sclera anicteric, conjunctiva clear. No lid lag. THROAT: Thyroid normal- no fullness. Moist mucous membranes. NECK: Normal range of motion, supple without lymphadenopathy, JVD, or masses. LUNGS: Breath sounds equal, clear to auscultation bilaterally. No wheezes, and no crackles. No accessory muscle use. HEART: Regular rate and rhythm, normal S1 and S2 without murmur, rub or gallop. ABDOMEN: Soft, nontender, not distended, normoactive bowel sounds, no guarding, no rebound, no masses. LOWER EXTREMITIES: 2+ pulses, warm, well-perfused. No calf tenderness. No peripheral edema. NEUROLOGICAL: Cranial nerves II-XII intact. Normal speech. Normal gait. Sensations intact b/l. Strength 5/5 b/l. DTR intact b/l. ROM intact b/l. PSYCHIATRIC: Cooperative. Good eye contact. Appropriate mood and affect. SKIN: Warm, dry, normal turgor, no rashes or lesions noted, normal capillary refill. Laboratory Results - last 24 hr CBC, BMP 10/16/18 14:05 10/16/18 14:05 Active Medications Aspirin (Asa -) 81 mg PO DAILY KYUNG ASSESSMENT/PLAN: 47 y/o M hx of drug use, hepC, cva and seizurespresents to the ED s/p Syncope of a few minute duration possible secondary to vasovagal, r/o syncope. 1) Syncope: r/o Cardiogenic vs Vasovagal vs withdrawl r/o Arrythymia r/o Stroke Orthostatic test negative- vitals: Supine- 118/74, Sitting- 120/75, Standing- 118/84 EKG normal Echo done here- Mild pulmonic, tricuspid, mitral valve regurge. Otherwise normal Cardiac monitoring overnight Carotid Doppler ordered- r/o stenosis- Will f/u ED spoke with Dr. Cleveland (cardio)- Recommended getting SARAH results from [facility] f/u SARAH results from [place] f/u TSH CT head negative Continue home med- Aspirin 2)IV Drug User: Pt not clean- last use 10/11/18- cocaine In [facility] detox w/ Vallium in ED 10mg f/u for Methadone dosing and give in am Will order HIV testing after consent- f/u Will monitor for now 4) Thrombocytopenia and Leukopenia Could be 2/2 to Hepc vs r/o HIV Labs- Platelets 132, WBC- 3.7 SCDs for DVT ppx Labs in am- f/u Chronically Thrombocytopenic #DVT ppx - SCD's FEN -Sodium controlled diet Dispo: monitor on tele, meds need to be reconciled in AM - ED spoke with Dr. Cleveland, SARAH records need to be obtained before patient can go back to [facility] ATTENDING PHYSICIAN STATEMENT I saw and evaluated the patient. I reviewed the resident's note and discussed the case with the resident. I agree with the resident's findings and plan as documented. SUBJECTIVE: OBJECTIVE: ASSESSMENT AND PLAN:
--- NOTE | 2018-10-16 20:13 | PN ---
Teaching Attending Note Name of Resident: Jeff Renee ATTENDING PHYSICIAN STATEMENT I saw and evaluated the patient. I reviewed the resident's note and discussed the case with the resident. I agree with the resident's findings and plan as documented. Seen and examined; please see resident note for further historical details. Briefly, this is a 47 y/o male with a PMH as stated being brought here from [facility] (was on valium taper for detox) for unwitnessed syncope. SARAH report pending; TTE from today shows LVEF normal with Grade I DD and trace MR, mild TR , trace AL, normal RVSP, and mild aortic sclerosis. Dr. Cleveland contacted by ED. Does not have usual features of seizure (no true post ictal state, no incontenance) though has had WD sz prior. VS, labs, imaging reviewed NAD, AAO, resting in bed. Negative orthostatics NC AT EOMI PERRLA RRR s1/2 no mgr Lungs CTAB, w/ sym exp Echo discussed above ASSESSMENT AND PLAN: Patient presents for syncope; pending SARAH records. Checking blood culturex1 given IVDU # Syncope and collapse # BZD and cocaine abuse, currently detoxing # Leukopenia with lymphocytosis (no HIV on file since 2017 so will order) # HCV # Hypercarbia # Thrombocytopenia # Obesity # Polysubstance abuse with recent IVDU Telemetry, followup SARAH, seizure precautions and neuro checks. Less suspicious for seizure given clinical presentation but overall need to monitor. Continue valium taper. Full Code
[2018-10-16] MEDS ORDERED: HEPARIN NA (PORCINE) 5,000 UNITS/ML 1ML VIAL SQ SCH (22:00)
[2018-10-16] MEDS: diazePAM 5 MG TABLET PO SCH (23:00)
[2018-10-16] MEDS ORDERED: diazePAM 5 MG TABLET PO PRN (23:09)
[2018-10-17] MEDS ORDERED: MAGNESIUM SULF 50% (8.12 MEQ/2 ML-1 GM VIAL) IVPB ONE (02:57)
[2018-10-17] MEDS ORDERED: QUEtiapine FUMARATE 200 MG TABLET PO ONE (03:15)
[2018-10-17] MEDS ORDERED: QUEtiapine FUMARATE 100 MG TABLET (FP) PO ONE (03:45)
[2018-10-17 05:30] VITALS: BMI 31.1
[2018-10-17] MEDS: diazePAM 5 MG TABLET PO SCH (06:37)
[2018-10-17 07:34] LABS: BASO % 0.6 % (0-2.0); EOS % 4.3 % (0-4.5); HEMATOCRIT 39.4 % (35.4-49); HEMOGLOBIN 13.4 GM/dL (11.7-16.9); LYMPH % 43.2 % (8-40); MCH 31.1 pg (25.7-33.7); MCHC 34.1 g/dl (32.0-35.9); MEAN CELL VOLUME 91.3 fl (80-96); MEAN PLT VOLUME 8.6 fl (7.5-11.1); MONO % 8.9 % (3.8-10.2); PLATELET COUNT 123 K/MM3 (134-434); RBC 4.31 M/mm3 (4.00-5.60); RDW 15.6 % (11.9-15.9); WHITE BLOOD COUNT 3.5 K/mm3 (4.0-10.0)
[2018-10-17 08:37] LABS: ALBUMIN 3.6 g/dl (3.4-5.0); BILIRUBIN,TOTAL 0.3 mg/dL (0.2-1); BLOOD UREA NITROGEN 16.3 mg/dL (7-18); CALCIUM 9.2 mg/dL (8.5-10.1); CREATININE 0.9 mg/dL (0.55-1.3); MAGNESIUM 2.8 mg/dL (1.8-2.4); PHOSPHOROUS 3.8 mg/dL (2.5-4.9); TOT PROT 6.7 g/dl (6.4-8.2)
[2018-10-17] MEDS: ASPIRIN 81 MG CHEWABLE TABLETS PO SCH (09:09)
--- NOTE | 2018-10-17 09:30 | EKG ---
Test Reason : Blood Pressure : / mmHG Vent. Rate : 075 BPM Atrial Rate : 075 BPM P-R Int : 156 ms QRS Dur : 096 ms QT Int : 428 ms P-R-T Axes : 026 030 038 degrees QTc Int : 477 ms NORMAL SINUS RHYTHM NORMAL ECG WHEN COMPARED WITH ECG OF 13-OCT-2018 15:27, NO SIGNIFICANT CHANGE WAS FOUND Confirmed by Martinez Kaiser MD ([id number]) on 10/17/2018 9:29:49 AM Referred By: Confirmed By:Martinez Kaiser MD
[2018-10-17] MEDS ORDERED: METHADONE HCL 10 MG TABLET PO SCH (11:45)
[2018-10-17] MEDS ORDERED: METHADONE HCL 10 MG TABLET ONE (11:50)
[2018-10-17] MEDS ORDERED: METHADONE HCL 40 MG DISPERSABLE TABLET ONE (11:50)
[2018-10-17] MEDS: FOLIC ACID 1 MG TABLET (FP) PO SCH (11:52)
--- NOTE | 2018-10-17 11:59 | EKG ---
Test Reason : Blood Pressure : / mmHG Vent. Rate : 061 BPM Atrial Rate : 061 BPM P-R Int : 162 ms QRS Dur : 102 ms QT Int : 456 ms P-R-T Axes : 012 -01 018 degrees QTc Int : 459 ms NORMAL SINUS RHYTHM NORMAL ECG WHEN COMPARED WITH ECG OF 16-OCT-2018 13:14, NO SIGNIFICANT CHANGE WAS FOUND Confirmed by Martinez Kaiser MD ([id number]) on 10/17/2018 11:58:57 AM [facility]erred [facility] Confirmed By:Martinez Kaiser MD
[2018-10-17] MEDS ORDERED: METHADONE PO SCH ×2 (12:00→12:13)
--- NOTE | 2018-10-17 15:36 | PN ---
Teaching Attending Note Name of Resident: Ad Lakhani ATTENDING PHYSICIAN STATEMENT I saw and evaluated the patient. I reviewed the resident's note and discussed the case with the resident. I agree with the resident's findings and plan as documented. SUBJECTIVE: No pain, no fever or chills, no N/V. No HENAO. He thinks he is detoxing and requests valium. OBJECTIVE: NAD, calm, and comfortable in bed . MMM, no facial droop. EOMI. round equal pupils, reactive to light CV: RRR, no MRG Lungs: CTAB Abd: soft, ND, NL BS. Ext : no edema or erythema, no tremor. Neuro: he refused ASSESSMENT AND PLAN: 47 y/o man with h/o heroin abuse, and active benzo and cocaine use, HCV, WD seizures, and other problems who presented form [facility] with syncope. 1- Syncope : unclear etiology. r/o arrhythmias, r/o valium effect. Orthostatic VS are neg. doubt withdrawal seizures after being detoxed in [facility]. - cont tele - EKG reviewed. - CUS and echo reviewed. Head CT reviewed. 2- Benzo and cocaine abuse: - per [facility] records, he fished his detox with valium yesterday. he was supposed to be monitored yesterday for a dc home today. - No signs of withdrawal today. he shows signs of drug seeking behaviour. - hold off any benzos , nless signs of withdrawal are observed. - MD has to evaluate before any benzos are given. 3- H/o heroin abuse. on chronic methadone - dose confirmed and resumed. 4- Pancytopenia: chronic , likely due to BM suppression or HCV - check B12 - w/u as out pt . need GI referral for w.u of cirrhosis 5- metabolic alkalosis . was likely volume depleted. resolved on repeat blood work dispo : if tele lan snot reveal any arrhythmias and no signs of withdrawal, can be dc tomorrow
--- NOTE | 2018-10-17 15:41 | PN ---
Physical Exam: SUBJECTIVE: Patient seen and examined at the bedside this AM. No acute events overnight. OBJECTIVE: Vital Signs Period Temp Pulse Resp BP Sys/Duque Pulse Ox Last 24 Hr 97.6 F-98.2 F 63-72 16-18 95-141/58-84 95-98 GENERAL: The patient is awake, alert, and fully oriented, in no acute distress. HEAD: Normal with no signs of trauma. EYES: PERRL, extraocular movements intact, sclera anicteric, conjunctiva clear. No ptosis. NECK: supple. LUNGS: Breath sounds equal, clear to auscultation bilaterally, no wheezes, no crackles, no accessory muscle use. HEART: Regular rate and rhythm, S1, S2 2/6 aortic regurg like murmur in 2nd rt intercostal space, no rubs or gallop. ABDOMEN: Soft, nontender, nondistended, no guarding, no rebound. EXTREMITIES: 2+ pulses, warm, well-perfused, no edema. NEUROLOGICAL: Normal speech, gait not observed. PSYCH: agitated mood. SKIN: Warm, dry, tattoes diffusely throughout his body, no rashes or lesions noted. Laboratory Results - last 24 hr 10/17/18 10/17/18 06:40 06:40 WBC 3.5 L RBC 4.31 Hgb 13.4 Hct 39.4 MCV 91.3 MCH 31.1 MCHC 34.1 RDW 15.6 Plt Count 123 L MPV 8.6 Absolute Neuts (auto) 1.5 Neutrophils % 43.0 Lymphocytes % 43.2 H Monocytes % 8.9 Eosinophils % 4.3 Basophils % 0.6 Nucleated RBC % 0 Sodium 139 Potassium 4.0 Chloride 102 Carbon Dioxide 32 Anion Gap 4 L BUN 16.3 Creatinine 0.9 Est GFR (CKD-EPI)AfAm 119.13 Est GFR (CKD-EPI)NonAf 102.79 Random Glucose 88 Calcium 9.2 Phosphorus 3.8 Magnesium 2.8 H Total Bilirubin 0.3 AST 14 L ALT 20 Alkaline Phosphatase 76 Total Protein 6.7 Albumin 3.6 TSH 1.92 Active Medications Generic Name Dose Route Start Last Admin Trade Name Freq PRN Reason Stop Dose Admin Aspirin 81 mg 10/17/18 10:00 10/17/18 09:09 Asa - PO 81 mg DAILY KYUNG Administration Folic Acid 1 mg 10/17/18 10:00 10/17/18 11:52 Folic Acid - PO 1 mg DAILY [facility] Administration Gabapentin 800 mg 10/17/18 15:45 Neurontin - PO TID [facility] Methadone HCl 30 mg/ Methadone 150 mg 10/17/18 12:13 HCl 120 mg PO DAILY@0600 [facility] Quetiapine Fumarate 200 mg 10/17/18 22:00 Seroquel - PO HS [facility] Thiamine HCl 100 mg 10/17/18 22:00 Vitamin B1 - PO [facility] ASSESSMENT/PLAN: 47 y/o M hx of drug use, hepC, cva and seizurespresents to the ED s/p Syncope of a few minute duration possible secondary to vasovagal, r/o syncope. 1) Syncope: r/o Cardiogenic vs Vasovagal vs withdrawl r/o Arrythymia r/o Stroke Echo done here- Mild pulmonic, tricuspid, mitral valve regurge. Otherwise normal Cardiac monitoring overnight Carotid Doppler ordered- r/o stenosis- Will f/u TSH- 1.92 - Continue home med: Aspirin - continue thiamine 100 mg - f/u B12, Folate 2)IV Drug User: In [facility] detox Valium day 3 was missed, which was his final day. He is on 5mg BID as his detox dose, 10mg one time dose given in ED last night. Methadone maintenance dose (150mg) given. Will follow up HIV test 4) Thrombocytopenia and Leukopenia Could be 2/2 to HCV vs HIV Labs- Platelets 123, WBC- 3.5 Labs in am- f/u Chronically Thrombocytopenic #DVT ppx - SCD's FEN -Sodium controlled diet Dispo: spoke with [facility] to confirm his management: pt only missed last dose of his valium detox, but pt was given it in ED. will most likely d/c him tm just want to monitor pt on tele for another night. Visit type - Emergency Visit Emergency Visit: No - New Patient This patient is new to me today: No - Critical Care Critical Care patient: No - Discharge Referral Referred to [facility] Med P.C.: No ATTENDING PHYSICIAN STATEMENT I saw and evaluated the patient. I reviewed the resident's note and discussed the case with the resident. I agree with the resident's findings and plan as documented. SUBJECTIVE: OBJECTIVE: ASSESSMENT AND PLAN:
[2018-10-17] MEDS: GABAPENTIN 400 MG CAPSULE (FP) PO SCH ×2 (15:56→21:40)
[2018-10-17] MEDS ORDERED: PT OWN MED DRAWER 7, Y5N ONE (21:39)
[2018-10-17] MEDS ORDERED: QUEtiapine FUMARATE 200 MG TABLET PO SCH (22:00)
[2018-10-17] MEDS ORDERED: THIAMINE HCL 100 MG TABLET (FP) PO SCH (22:00)
[2018-10-18] MEDS ORDERED: diazePAM 5 MG TABLET PO SCH (06:00)
[2018-10-18] MEDS ORDERED: METHADONE HCL 40 MG DISPERSABLE TABLET ONE (06:04)
[2018-10-18] MEDS ORDERED: METHADONE HCL 10 MG TABLET ONE (06:05)
[2018-10-18] MEDS: GABAPENTIN 400 MG CAPSULE (FP) PO SCH ×2 (06:16→15:19)
--- NOTE | 2018-10-18 09:37 | PN ---
Teaching Attending Note Name of Resident: Ad Lakhani ATTENDING PHYSICIAN STATEMENT I saw and evaluated the patient. I reviewed the resident's note and discussed the case with the resident. I agree with the resident's findings and plan as documented. SUBJECTIVE: Patient iis feeling better with no acute distress. OBJECTIVE: Vital Signs Temperature 97.8 F 10/18/18 05:00 Pulse Rate 57 L 10/18/18 05:00 Respiratory Rate 18 10/18/18 05:00 Blood Pressure 103/58 L 10/18/18 05:00 O2 Sat by Pulse Oximetry (%) 97 10/18/18 01:58 GENERAL: The patient is awake, alert, and fully oriented, in no acute distress. HEAD: Normal with no signs of trauma. NECK: supple. No JVD EYES: PERRL, extraocular movements intact, sclera anicteric, conjunctiva clear. LUNGS: CTA BL , clear to auscultation bilaterally, no wheezes, no crackles, no accessory muscle use. HEART: Regular rate and rhythm, S1, S2 positive, with KING 2/6 , no rubs or gallop. ABDOMEN: Soft, nontender, nondistended, no guarding, no rebound. EXTREMITIES: 2+ pulses, warm, well-perfused, no edema. NEUROLOGICAL: Normal speech, gait not observed. SKIN: Warm, dry, tattoes diffusely throughout his body, no rashes or lesions noted. WBC 3.5 K/mm3 (4.0-10.0) L 10/17/18 06:40 RBC 4.31 M/mm3 (4.00-5.60) 10/17/18 06:40 Hgb 13.4 GM/dL (11.7-16.9) 10/17/18 06:40 Hct 39.4 % (35.4-49) 10/17/18 06:40 MCV 91.3 fl (80-96) 10/17/18 06:40 MCHC 34.1 g/dl (32.0-35.9) 10/17/18 06:40 RDW 15.6 % (11.9-15.9) 10/17/18 06:40 Plt Count 123 K/MM3 (134-434) L 10/17/18 06:40 MPV 8.6 fl (7.5-11.1) 10/17/18 06:40 CMP Sodium 139 mmol/L (136-145) 10/17/18 06:40 Potassium 4.0 mmol/L (3.5-5.1) 10/17/18 06:40 Chloride 102 mmol/L (98-107) 10/17/18 06:40 Carbon Dioxide 32 mmol/L (21-32) 10/17/18 06:40 Anion Gap 4 MMOL/L (8-16) L 10/17/18 06:40 BUN 16.3 mg/dL (7-18) 10/17/18 06:40 Creatinine 0.9 mg/dL (0.55-1.3) 10/17/18 06:40 Random Glucose 88 mg/dL (74-106) 10/17/18 06:40 Calcium 9.2 mg/dL (8.5-10.1) 10/17/18 06:40 Total Bilirubin 0.3 mg/dL (0.2-1) 10/17/18 06:40 AST 14 U/L (15-37) L 10/17/18 06:40 ALT 20 U/L (13-61) 10/17/18 06:40 Alkaline Phosphatase 76 U/L (45-117) 10/17/18 06:40 Total Protein 6.7 g/dl (6.4-8.2) 10/17/18 06:40 Albumin 3.6 g/dl (3.4-5.0) 10/17/18 06:40 CARDIAC ENZYMES Creatine Kinase 56 U/L (26-308) 10/16/18 14:05 Troponin I < 0.02 ng/ml (0.00-0.05) 10/16/18 14:05 Current Medications Generic Name Dose Route Start Last Admin Trade Name Melissa PRN Reason Stop Dose Admin Aspirin 81 mg 10/17/18 10:00 10/17/18 09:09 Asa - PO 81 mg DAILY KYUNG Administration Bupropion HCl 150 mg 10/17/18 17:00 10/17/18 17:23 Wellbutrin Xl - PO 150 mg DAILY [facility]UN[facility] Administration Folic Acid 1 mg 10/17/18 10:00 10/17/18 11:52 Folic Acid - PO 1 mg DAILY [facility] Administration Gabapentin 800 mg 10/17/18 15:45 10/18/18 06:16 Neurontin - PO 800 mg TID [facility]UNG Administration Methadone HCl 30 mg/ Methadone 150 mg 10/17/18 12:13 10/18/18 06:15 HCl 120 mg PO 150 mg DAILY@0600 [facility] Administration Quetiapine Fumarate 200 mg 10/17/18 22:00 10/17/18 21:40 Seroquel - PO 200 mg HS [facility]UN[facility] Administration Thiamine HCl 100 mg 10/17/18 22:00 10/17/18 21:40 Vitamin B1 - PO 100 mg HS KYUNG Administration Home Medications Medication Instructions Recorded Quetiapine Fumarate [Seroquel -] 100 mg PO HS 09/16/15 Gabapentin [Neurontin -] 800 mg PO TID #90 capsule 09/18/15 Bupropion HCl [Wellbutrin Xl -] 150 mg PO DAILY #30 tab.sr.24h 02/23/17 Methadone [Dolophine -] 150 mg PO DAILY 04/19/18 Aspirin [ASA -] 81 mg PO DAILY 06/28/18 Zolpidem Tartrate [Ambien] 10 mg PO HS 06/28/18 ASSESSMENT AND PLAN: Patient is a 47 y/o man with PMHx of heroin abuse, and active benzo and cocaine use, HCV, WD seizures, who presented form [facility] with syncope. # s/p Syncopal event: no seizure activity or further syncopal event. will discharge the patient back to rehab. cont tele, EKG reviewed. echo reviewed. Head CT reviewed. # Benzo and cocaine abuse: Patient is going back to rehab. # H/o heroin abuse. on chronic methadone f/u with the clinic , dose confirmed and resumed. # Pancytopenia:improved discharge patient back to rehab.
[2018-10-18] MEDS: ASPIRIN 81 MG CHEWABLE TABLETS PO SCH (10:23)
[2018-10-18] MEDS: FOLIC ACID 1 MG TABLET (FP) PO SCH (10:23)
--- NOTE | 2018-10-18 15:14 | DS ---
Physical Exam: SUBJECTIVE: Patient seen and examined at the bedside this AM in no acute distress. Non agitated state, did not show any signs of withdrawing. OBJECTIVE: Vital Signs Period Temp Pulse Resp BP Sys/Duque Pulse Ox Last 24 Hr 97.6 F-98.0 F 57-80 18-18 103-124/53-67 97-97 PHYSICAL EXAM GENERAL: The patient is awake, alert, and fully oriented, in no acute distress. HEAD: Normal with no signs of trauma. NECK: supple. LUNGS: Breath sounds equal, clear to auscultation bilaterally, no wheezes, no crackles, no accessory muscle use. HEART: Regular rate and rhythm, S1, S2 without murmur, rub or gallop. ABDOMEN: Soft, nontender, nondistended, no guarding, no rebound. EXTREMITIES: 2+ pulses, warm, well-perfused, no edema. NEUROLOGICAL: Cranial nerves II through XII grossly intact. Normal speech, gait not observed. PSYCH: Normal mood, normal affect. SKIN: Warm, no rashes or lesions noted. LABS Laboratory Results - last 24 hr 10/16/18 10/18/18 06:40 05:05 Vitamin B12 444 Serum Folate 19 H HIV 1&2 Ag/Ab, 4th Gen Non reactive HOSPITAL COURSE: Date of Admission:10/16/18 This is a 47 y/o M with PMH of HCV, multidrug use, CVA, and seizures who was admitted for a syncopal event. While he was here echo, ekg, carotid all were found to be normal. He was placed on telemetry and no signs of arrythmia were observed. While patient was here, he was found to have thrombocytopenia and this was followed up by an HIV test, which was negative. Patient has been asymptomatic and fully detoxed for his benzo and alcohol use. He was d/c to rehab at [facility]. - Pt was informed to refrain from using alcohol and drugs and pt agrees to go to rehab and to stay away from drugs. - Pt was told to return to the ED if he had any worsening of his symptoms or chest pain, sob, fevers. Date of Discharge: 10/18/18 Minutes to complete discharge: 35 Discharge Summary Reason For Visit: SYNCOPE Condition: Good - Instructions Diet, Activity, Other Instructions: You were admitted after a fainting episode. We monitored your heart while you were here and it was normal. An ultrasound of your carotid arteries and heart were done that did not show any acute issues requiring immediate intervention. Medications - Continue all your home meds as prescribed. Follow Up - Please follow up with your primary care doctor, Dr. Barros in 1 week. - You may continue drug rehab - You may return to the emergency room if you have another fall, or if you experience chest pain, shortness of breath, fevers. Referrals: MD Papo [Other] - 1 Week Disposition: HOME - Home Medications Comprehensive Discharge Medication List: Ambulatory Orders Quetiapine Fumarate [Seroquel -] 100 mg PO HS 09/16/15 Gabapentin [Neurontin -] 800 mg PO TID #90 capsule 09/18/15 Bupropion HCl [Wellbutrin Xl -] 150 mg PO DAILY #30 tab.sr.24h 02/23/17 Methadone [Dolophine -] 150 mg PO DAILY 04/19/18 Aspirin [ASA -] 81 mg PO DAILY 06/28/18 This patient is new to me today: No Emergency Visit: No Critical Care patient: No - Discharge Referral [facility]erred to [facility] Med P.C.: No ATTENDING PHYSICIAN STATEMENT I saw and evaluated the patient. I reviewed the resident's note and discussed the case with the resident. I agree with the resident's findings and plan as documented. SUBJECTIVE: OBJECTIVE: ASSESSMENT AND PLAN:
[2018-10-18 16:07] VITALS: BP 113/57; PULSE 64; TEMP 98
[2018-10-19] MEDS ORDERED: diazePAM 5 MG TABLET PO ONE (06:00)
== END 2018-10-18 16:14 | disposition other institution (70) ==
LOC: JER 12:37 → JERBED 20:06 → J4S 10-17 02:49
PROVIDERS: ADMIT Internal Medicine; ATTEND Internal Medicine
PROC: 3E033GC Introduction of Other Therapeutic Substance into Peripheral Vein, Percutaneous Approach (ICD-10-PCS; principal; 2018-10-16)
DX: R55 Syncope and collapse (principal); F11.20 Opioid dependence, uncomplicated; F14.10 Cocaine abuse, uncomplicated; F13.10 Sedative, hypnotic or anxiolytic abuse, uncomplicated; F31.9 Bipolar disorder, unspecified; F17.210 Nicotine dependence, cigarettes, uncomplicated; B18.2 Chronic viral hepatitis C; G62.9 Polyneuropathy, unspecified; R94.31 Abnormal electrocardiogram [ECG] [EKG]; E87.2 Acidosis; D69.6 Thrombocytopenia, unspecified; D72.819 Decreased white blood cell count, unspecified; G40.909 Epilepsy, unspecified, not intractable, without status epilepticus; E66.9 Obesity, unspecified; Z68.31 Body mass index [BMI] 31.0-31.9, adult; Z86.73 Personal history of transient ischemic attack (TIA), and cerebral infarction without residual deficits; Z79.82 Long term (current) use of aspirin
CPT/HCPCS: 36415; 70450-TC; 71045-TC-FY; 80053; 80307; 82550; 82607; 82746; 83735; 84100; 84443; 84484; 85025; 85610; 87389; 93005; 93010; 93306-TC; 93880-TC; 96374; 99285-25; G0378

== ENCOUNTER 2018-10-18 16:30 | Inpatient (IN) | payer OTHER | END 2018-10-31 07:00 | disposition home or self-care (01) | LOC: YASAS 16:30 → Y3W 18:30 ==

== ENCOUNTER 2018-12-20 13:27 | Inpatient (IN) | payer OTHER ==
[2018-12-20 17:10] VITALS: BMI 32.8
--- NOTE | 2018-12-20 18:35 | HP ---
CIWA Score Nausea/Vomitin-No Nausea/No Vomiting Muscle Tremors: 4-Moderate,w/Arms Extend Anxiety: 1-Mildly Anxious Agitation: 1-Slight > Activity Paroxysmal Sweats: 3 Orientation: 0-Oriented Tacttile Disturbances: 1-Very Mild Itch/Numbness Auditory Disturbances: 0-None Visual Disturbances: 0-None Headache: 3-Moderate CIWA-Ar Total Score: 13 - Admission Criteria OASAS Guidelines: Admission for Medically Managed Detox: Requires at least one of the followin. CIWA greater than 12 2. Seizures within the past 24 hours 3. Delirium tremens within the past 24 hours 4. Hallucinations within the past 24 hours 5. Acute intervention needed for co occurring medical disorder 6. Acute intervention needed for co occurring psychiatric disorder 7. Severe withdrawal that cannot be handled at a lower level of care (continued vomiting, continued diarrhea, abnormal vital signs) requiring intravenous medication and/or fluids 8. Patient presents the following: CIWA greater than 12 Admission Criteria Met: Admission criteria met Admitting History and Physical - Smoking History Smoking history: Current every day smoker Have you smoked in the past 12 months: Yes Aproximately how many cigarettes per day: 10 - Alcohol/Substance Use Hx Alcohol Use: Yes Admission ROS [facility] Chief Complaint: Matthew Bee is a 48 year old male presenting for benzodiazapine detox. Allergies/Adverse Reactions: Allergies Allergy/AdvReac Type Severity Reaction Status Date / Time No Known Allergies Allergy Verified 12/20/18 16:58 History of Present Illness: Matthew Bee is a 48 year old male presenting for benzodiazapine detox. Benzodiazapines: 6-10 sticks of Xanax per day. If cannot use Xanax takes 6-8 Klonopin. Last use was today in the morning. has had seizures in the past. Most recent seizure was on previous admission to this facility. Endorses blackouts. has had falls and head hits. Notes that he doesn't always know what is in the Xanax but mostly only gets it from 2-3 dealers that he trusts. Withdrawal symptoms of shakes, diarrhea, chills, body aches. Alcohol: 4 24oz beers 1-2 times per week. Does drink when he is on Xanax. Cocaine: occasional use. On methadone maintenance program, on 150mg through [facility]. NEED TO OBTAIN DOSE CONFIRMATION FROM [facility] IN THE MORNING. Has been to detox and rehab in the past and completed. Plans after detox is to go to rehab at this facility. Wants to go back to outpatient and AA meetings. Medical History: 2 herniated discs (L4-L5), stroke (2018) Surgical History: denies Psychiatric: PTSD, bipolar, insomnia Meds: Wellbutrin, nuerontin, aspirin, seroquel, ambien Smokin cigarettes a day, 25 years. Social: lives in apartment, lives alone. 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 Counseled on Sai protocol and advised to talk to psychiatrist to try and taper off benzos with Valium. Counseled on Hendricks-3, MVI, magnesium, Vit B complex, proper nutrition. - Ebola screening Have you traveled outside of the country in the last 21 days: No Have you had contact with anyone from an Ebola affected area: No - Review of Systems Constitutional: Loss of Appetite EENT: reports: No Symptoms Reported Respiratory: reports: No Symptoms reported Cardiac: reports: Palpitations GI: reports: No Symptoms Reported : reports: No Symptoms Reported Musculoskeletal: reports: Back Pain Integumentary: reports: No Symptoms Reported Neuro: reports: Headache Endocrine: reports: No Symptoms Reported Hematology: reports: No Symptoms Reported Psychiatric: reports: Judgement Intact, Orientated x3, Anxious Patient History - Patient Medical History Hx Anemia: No Hx Asthma: No Hx Chronic Obstructive Pulmonary Disease (COPD): No Hx Cancer: No Hx Cardiac Disorders: Yes (CVA -) Hx Congestive Heart Failure: No Hx Hypertension: No Hx Hypercholesterolemia: No Hx Pacemaker: No HX Cerebrovascular Accident: No Hx Seizures: Yes (07/2018) Hx Dementia: No Hx Diabetes: No Hx Gastrointestinal Disorders: No Hx Liver Disease: No Hx Genitourinary Disorders: No Hx Sexually Transmitted Disorders: No Hx Renal Disease (ESRD): No Hx Thyroid Disease: No Hx Human Immunodeficiency Virus (HIV): No (05/06) Hx Hepatitis C: Yes (Treated with Interferon) Hx Depression: Yes Hx Suicide Attempt: No Hx Bipolar Disorder: Yes Hx Schizophrenia: No - Patient Surgical History Past Surgical History: No Hx Neurologic Surgery: No Hx Cataract Extraction: No Hx Cardiac Surgery: No Hx Lung Surgery: No Hx Breast Surgery: No Hx Breast Biopsy: No Hx Abdominal Surgery: No Hx Appendectomy: No Hx Cholecystectomy: No Hx Genitourinary Surgery: No Hx Section: No Hx Orthopedic Surgery: No Other Surgical History: incision and drainage of infected right hand in 1994 Anesthesia Reaction: No - PPD History Date: 04/17/18 Results: 0 mm - Smoking Cessation Smoking history: Current every day smoker Have you smoked in the past 12 months: Yes Aproximately how many cigarettes per day: 10 Cigars Per Day: 0 Hx Chewing Tobacco Use: No Initiated information on smoking cessation: Yes 'Breaking Loose' booklet given: 12/20/18 - Substance & Tx. History Hx Alcohol Use: Yes Hx Substance Use: Yes Substance Use Type: Alcohol, Cocaine, Tranquilizers (benzo) Hx Substance Use Treatment: Yes - Substances abused Alprazolam (Xanax) Substance route: Oral Frequency: Daily Amount used: 16 to 20 mg or 8 to 10 2 mg. Age of first use: 37 Date of last use: 12/20/18 Benzodiazepine (Klonopin) Substance route: Oral Frequency: 1-3 times last 30 days Amount used: 25 pills 50mg Age of first use: 37 Date of last use: 06/22/18 Alcohol Substance route: Oral Frequency: 1-2 times per week Amount used: 4 of 24 ounce Age of first use: 14 Date of last use: 12/19/18 Admission Physical Exam S - Vital Signs Vital Signs: Vital Signs - 24 hr 12/20/18 16:57 Temperature 98.1 F Pulse Rate 82 Respiratory 20 Rate Blood Pressure 126/84 - Physical General Appearance: Yes: Nourished, Appropriately Dressed, Mild Distress HEENTM: Yes: EOMI, Hearing grossly Normal, Normocephalic, Normal Voice, MARIAH, Pharynx Normal Respiratory: Yes: Chest Non-Tender, Lungs Clear, Normal Breath Sounds, No Respiratory Distress, No Accessory Muscle Use Neck: Yes: No masses,lesions,Nodules, Trachea in good position Breast: Yes: Breast Exam Deferred Cardiology: Yes: Regular Rhythm, Regular Rate, S1, S2 Abdominal: Yes: Normal Bowel Sounds, Non Tender, Flat Genitourinary: Yes: Within Normal Limits Back: Yes: Other (mild tenderness over L4-L5) Musculoskeletal: Yes: Back pain Extremities: Yes: Normal Capillary Refill, Normal Inspection, Normal Range of Motion, Non-Tender Neurological: Yes: salt washer II-XII NML intact, Fully Oriented, Alert, Motor Strength 5/5, Normal Response, Depressed Affect Integumentary: Yes: Normal Color, Dry, Warm, Track Scott (old healed) - Diagnostic (1) Alcohol dependence, uncomplicated Current Visit: No Status: Acute (2) History of seizure Current Visit: No Status: Acute (3) Sedative, hypnotic or anxiolytic dependence, uncomplicated Current Visit: No Status: Acute (4) Substance-induced anxiety disorder Current Visit: No Status: Acute (5) Substance-induced sleep disorder Current Visit: No Status: Acute (6) Anxiety Current Visit: No Status: Chronic (7) Bipolar disorder Current Visit: No Status: Chronic Qualifiers: Qualified Code(s): F31.75 - Bipolar disorder, in partial remission, most recent episode depressed Comment: As per records + self-report. On medications. (8) CVA (cerebral vascular accident) Current Visit: No Status: Chronic Qualifiers: Qualified Code(s): I63.9 - Cerebral infarction, unspecified (9) Cocaine dependence, uncomplicated Current Visit: No Status: Chronic (10) Drug withdrawal seizure Current Visit: No Status: Chronic Qualifiers: Qualified Code(s): F19.230 - Other psychoactive substance dependence with withdrawal, uncomplicated (11) Low back pain Current Visit: No Status: Chronic Qualifiers: Qualified Code(s): M54.42 - Lumbago with sciatica, left side; M54.41 - Lumbago with sciatica, right side; G89.29 - Other chronic pain (12) Methadone maintenance therapy patient Current Visit: No Status: Chronic Comment: on 150 mg qd (13) Nicotine dependence Current Visit: No Status: Chronic Qualifiers: Qualified Code(s): F17.210 - Nicotine dependence, cigarettes, uncomplicated (14) PTSD (post-traumatic stress disorder) Current Visit: No Status: Chronic Comment: Historical diagnosis. (15) Hepatitis C Current Visit: No Status: Resolved Qualifiers: Qualified Code(s): B19.20 - Unspecified viral hepatitis C without hepatic coma Cleared for Admission [facility] - Detox or Rehab [facility] Level of Care: Medically Managed Detox Regimen/Protocol: Valium Breathalyzer - Breathalyzer Breathalyzer: 0 Urine Drug Screen - Test Device Lot number: [id number] Expiration date: 08/18/20 - Control Is test valid?: Yes - Results Drug screen NEGATIVE: No Urine drug screen results: DESHAWN-Cocaine, MTD-Methadone, BZO-Benzodiazepines Inpatient Rehab Admission - Rehab Decision to Admit Inpatient rehab admission?: No
[2018-12-20] MEDS ORDERED: MENTHOL/PHENOL 1 EACH UD MM PRN (19:06)
[2018-12-20] MEDS ORDERED: MELATONIN 5 MG TABLETS PO PRN (19:06)
[2018-12-20] MEDS ORDERED: MAGNESIUM HYDROX 2400MG/30ML ORAL SUSPENSION 30 ML CUP PO PRN (19:06)
[2018-12-20] MEDS ORDERED: BISMUTH SUBSALICYLATE 524 MG/30 ML UD PO PRN (19:06)
[2018-12-20] MEDS ORDERED: diazePAM 5 MG TABLET PO ONE (19:06)
[2018-12-20] MEDS ORDERED: ACETAMINOPHEN 325 MG TABLET (FP) PO PRN ×2 (19:06)
[2018-12-20] MEDS ORDERED: MAG HYDROX/AL HYDROX/SIMETH 30 ML UNIT-DOSE CUP PO PRN (19:06)
[2018-12-20] MEDS ORDERED: MAGNESIUM CITRATE 300 ML BOTTLE PO PRN (19:06)
--- NOTE | 2018-12-20 19:11 | PN ---
Teaching Attending Note Name of Resident: Gary Desir ATTENDING PHYSICIAN STATEMENT I saw and evaluated the patient. I reviewed the resident's note and discussed the case with the resident. I agree with the resident's findings and plan as documented. SUBJECTIVE: 48 yo with h/o CVA here for benzo use disorder and on methadone for opioid use disorder. H/o seizures with benzo withdrawal OBJECTIVE: Vital Signs - 24 hr 12/20/18 16:57 Temperature 98.1 F Pulse Rate 82 Respiratory 20 Rate Blood Pressure 126/84 alert and oriented ASSESSMENT AND PLAN: Benzo use disorder- valium taper. continue methadone
[2018-12-20] MEDS ORDERED: QUEtiapine FUMARATE 25 MG TABLET (FP) PO ONE (21:00)
[2018-12-20] MEDS: GABAPENTIN 400 MG CAPSULE (FP) PO SCH (22:02)
[2018-12-20] MEDS: hydrOXYzine PAMOATE 25 MG CAPSULE (FP) PO PRN (22:02)
[2018-12-20] MEDS: METHOCARBAMOL 500 MG TABLET PO PRN (22:02)
[2018-12-20] MEDS: THIAMINE HCL 100 MG TABLET (FP) PO SCH (22:02)
[2018-12-20] MEDS: diazePAM 5 MG TABLET PO SCH (22:03)
[2018-12-21] MEDS: diazePAM 5 MG TABLET PO PRN ×4 (02:21→17:37)
[2018-12-21] MEDS: GABAPENTIN 400 MG CAPSULE (FP) PO SCH ×3 (05:37→22:06)
[2018-12-21] MEDS: diazePAM 5 MG TABLET PO SCH ×3 (05:37→22:06)
[2018-12-21] MEDS ORDERED: METHADONE HCL 10 MG TABLET PO ONE (08:50)
[2018-12-21] MEDS ORDERED: METHADONE 120 MG, METHADONE 30 MG PO ONE (08:55)
--- NOTE | 2018-12-21 09:23 | CONSULT ---
[facility] Psychiatric Consult - Data Date of interview: 12/21/18 Admission source: Sef-referred Identifying data: Mr Bee is a 47 years old male, father of a 18 years old son, unemployed on public assistance, domiciled living in a residence in [place] seeking detox treatment for alcohol and benzodiazepine Substance Abuse History: Reports history of alcohol, klonopin and xanax use. Refer to addiction counselor's summary for further information. 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 Patient is on methadone 150 mg/day from [facility]. 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 Historical narrative has remained consistent. He reports that his first psychiatric contact was at age 14 when he was diagnosed with ADHD. Reports receiving treatment with Ritalin and Adderall. Reports that in 2005, he was admitted to [facility] in [place], [place], diagnosed with Bipolar Disorder and PTSD. Reports subsequent admissions [facility], [facility], [facility] and most recently in 2018 [facility] . Claims most recent admission was in . Reports receiving OPD care on site at his [facility]. He sees Dr Susy Dillon and he is currently prescribed Seroquel 100 mg po HS, Gabapentin 800 mg po TID and Wellbutrin XL 150 mg po daily. Reportedly, he has one previous suicidal attempt by overdose on pills in 2006. At present, denies experiencing psychotic, manic or depressive symptoms, S /H ideations. However, reports feeling anxious and sleeping poorly. Requests to be continued on current medications Physical/Sexual Abuse/Trauma History: Denies history of emotional, physical or sexual abuse as well as DV relationship. Reports serving in the [employer] from 1997 to 2003. Claims his discharge was honorable Mental Status Exam - Mental Status Exam Alert and Oriented to: Time, Place, Person Cognitive Function: Fair Patient Appearance: Disheveled Mood: Anxious Affect: Appropriate Patient Behavior: Cooperative Speech Pattern: Clear Voice Loudness: Normal Thought Process: Intact, Goal Oriented Thought Disorder: Not Present Hallucinations: Denies Suicidal Ideation: Denies Homicidal Ideation: Denies Insight/Judgement: Poor Sleep: Poorly Appetite: Fair Muscle strength/Tone: Normal Gait/Station: Normal Psychiatric Findings - Problem List ([place] 1, 2,3) (1) ADHD (attention deficit hyperactivity disorder) Current Visit: No Status: Chronic Qualifiers: Attention deficit-hyperactivity disorder type: unspecified Qualified Code(s ): F90.9 - Attention-deficit hyperactivity disorder, unspecified type Comment: As per records. (2) PTSD (post-traumatic stress disorder) Current Visit: No Status: Chronic Comment: Historical diagnosis. (3) Bipolar II disorder Current Visit: No Status: Chronic (4) Alcohol dependence with uncomplicated withdrawal Current Visit: No Status: Acute (5) Sedative, hypnotic or anxiolytic dependence, uncomplicated Current Visit: No Status: Acute (6) Opioid dependence on agonist therapy Current Visit: Yes Status: Chronic (7) Nicotine dependence Current Visit: No Status: Chronic Qualifiers: Nicotine product type: cigarettes Substance use status: uncomplicated Qualified Code(s): F17.210 - Nicotine dependence, cigarettes, uncomplicated (8) CVA (cerebral vascular accident) Current Visit: No Status: Chronic Qualifiers: CVA mechanism: unspecified Qualified Code(s): I63.9 - Cerebral infarction, unspecified (9) Drug withdrawal seizure Current Visit: No Status: Resolved Qualifiers: Complication of substance-induced condition: uncomplicated Qualified Code(s ): F19.230 - Other psychoactive substance dependence with withdrawal, uncomplicated (10) Low back pain Current Visit: No Status: Chronic Qualifiers: Chronicity: chronic Back pain laterality: bilateral Sciatica presence: with sciatica Sciatica laterality: bilateral sciatica Qualified Code(s): M54.42 - Lumbago with sciatica, left side; M54.41 - Lumbago with sciatica, right side; G89.29 - Other chronic pain (11) Hepatitis C Current Visit: No Status: Resolved Qualifiers: Viral hepatitis chronicity: unspecified Hepatic coma status: without hepatic coma Qualified Code(s): B19.20 - Unspecified viral hepatitis C without hepatic coma - Initial Treatment Plan Initial Treatment Plan: 1) Continue Wellbutrin XL 150 mg po daily, Seroquel 100 mg po HS and Gabapentin 800 mg po TID(ordered by medical staff). 2) Continue inpatient detoxification
[2018-12-21] MEDS ORDERED: METHADONE HCL 10 MG TABLET ONE (09:44)
[2018-12-21] MEDS ORDERED: METHADONE HCL 40 MG DISPERSABLE TABLET ONE (09:45)
[2018-12-21] MEDS: ASPIRIN 81 MG CHEWABLE TABLETS PO SCH (10:08)
[2018-12-21] MEDS: PRENATAL VITAMINS W/ FOLIC ACID TABLET (FP) PO SCH (10:08)
[2018-12-21 10:48] LABS: HEMATOCRIT 36.3 % (35.4-49); HEMOGLOBIN 12.2 GM/dL (11.7-16.9); MCHC 33.7 g/dl (32.0-35.9); MEAN CELL VOLUME 92.2 fl (80-96); MEAN PLT VOLUME 9.1 fl (7.5-11.1); PLATELET COUNT 132 K/MM3 (134-434); RBC 3.93 M/mm3 (4.00-5.60); RDW 15.3 % (11.9-15.9); WHITE BLOOD COUNT 3.7 K/mm3 (4.0-10.0)
[2018-12-21 11:01] LABS: ALBUMIN 3.3 g/dl (3.4-5.0); BILIRUBIN,TOTAL 0.4 mg/dL (0.2-1); BLOOD UREA NITROGEN 18.6 mg/dL (7-18); CALCIUM 8.6 mg/dL (8.5-10.1); CREATININE 0.9 mg/dL (0.55-1.3); POTASSIUM 4.1 mmol/L (3.5-5.1); TOT PROT 6.2 g/dl (6.4-8.2)
--- NOTE | 2018-12-21 12:51 | PN ---
S CIWA - CIWA Score Nausea/Vomitin Muscle Tremors: 2 Anxiety: 3 Agitation: 2 Paroxysmal Sweats: 2 Orientation: 0-Oriented Tacttile Disturbances: 1-Very Mild Itch/Numbness Auditory Disturbances: 0-None Visual Disturbances: 1-Very Mild Sensitivity Headache: 0-None Present CIWA-Ar Total Score: 13 BHS Progress Note (SOAP) Subjective: c/o of difficulty sleeping, chills , sweats Objective: 12/21/18 12:49 Vital Signs Temperature 97.7 F 12/21/18 09:29 Pulse Rate 79 12/21/18 09:29 Respiratory Rate 18 12/21/18 09:29 Blood Pressure 119/78 12/21/18 09:29 O2 Sat by Pulse Oximetry (%) Laboratory Last Values WBC 3.7 K/mm3 (4.0-10.0) L 12/21/18 08:00 RBC 3.93 M/mm3 (4.00-5.60) L 12/21/18 08:00 Hgb 12.2 GM/dL (11.7-16.9) 12/21/18 08:00 Hct 36.3 % (35.4-49) 12/21/18 08:00 MCV 92.2 fl (80-96) 12/21/18 08:00 MCH 31.0 pg (25.7-33.7) 12/21/18 08:00 MCHC 33.7 g/dl (32.0-35.9) 12/21/18 08:00 RDW 15.3 % (11.9-15.9) 12/21/18 08:00 Plt Count 132 K/MM3 (134-434) L 12/21/18 08:00 MPV 9.1 fl (7.5-11.1) 12/21/18 08:00 Sodium 142 mmol/L (136-145) 12/21/18 08:00 Potassium 4.1 mmol/L (3.5-5.1) 12/21/18 08:00 Chloride 107 mmol/L (98-107) 12/21/18 08:00 Carbon Dioxide 31 mmol/L (21-32) 12/21/18 08:00 Anion Gap 4 MMOL/L (8-16) L 12/21/18 08:00 BUN 18.6 mg/dL (7-18) H 12/21/18 08:00 Creatinine 0.9 mg/dL (0.55-1.3) 12/21/18 08:00 Est GFR (CKD-EPI)AfAm 118.30 12/21/18 08:00 Est GFR (CKD-EPI)NonAf 102.07 12/21/18 08:00 Random Glucose 93 mg/dL (74-106) 12/21/18 08:00 Calcium 8.6 mg/dL (8.5-10.1) 12/21/18 08:00 Total Bilirubin 0.4 mg/dL (0.2-1) 12/21/18 08:00 AST 16 U/L (15-37) 12/21/18 08:00 ALT 31 U/L (13-61) 12/21/18 08:00 Alkaline Phosphatase 69 U/L (45-117) 12/21/18 08:00 Total Protein 6.2 g/dl (6.4-8.2) L 12/21/18 08:00 Albumin 3.3 g/dl (3.4-5.0) L 12/21/18 08:00 RPR Titer Nonreactive (NONREACTIVE) 12/21/18 08:00 labs reviewed Assessment: 12/21/18 12:49 withdrawal sx Aox3 no acute distress no adventitious breath sounds full ROM, no gait abnormality Plan: increase PO fluids continue detox continue to monitor
[2018-12-21] MEDS: METHOCARBAMOL 500 MG TABLET PO PRN (17:39)
[2018-12-21] MEDS: IBUPROFEN 400 MG TABLET (FP) PO PRN (17:39)
[2018-12-21] MEDS: hydrOXYzine PAMOATE 25 MG CAPSULE (FP) PO PRN (22:06)
[2018-12-21] MEDS: THIAMINE HCL 100 MG TABLET (FP) PO SCH (22:06)
[2018-12-21] MEDS: QUEtiapine FUMARATE 100 MG TABLET (FP) PO SCH (22:06)
[2018-12-22] MEDS: diazePAM 5 MG TABLET PO PRN ×4 (01:09→19:49)
[2018-12-22] MEDS ORDERED: METHADONE HCL 40 MG DISPERSABLE TABLET PO SCH (06:00)
[2018-12-22] MEDS ORDERED: METHADONE HCL 10 MG TABLET ONE (06:21)
[2018-12-22] MEDS ORDERED: METHADONE HCL 40 MG DISPERSABLE TABLET ONE (06:22)
[2018-12-22] MEDS: GABAPENTIN 400 MG CAPSULE (FP) PO SCH ×3 (06:30→22:04)
[2018-12-22] MEDS: diazePAM 5 MG TABLET PO SCH ×2 (06:30→17:30)
[2018-12-22] MEDS: METHADONE 120 MG, METHADONE 30 MG PO SCH (06:31)
[2018-12-22] MEDS: METHOCARBAMOL 500 MG TABLET PO PRN (10:14)
[2018-12-22] MEDS: ASPIRIN 81 MG CHEWABLE TABLETS PO SCH (10:14)
[2018-12-22] MEDS: IBUPROFEN 400 MG TABLET (FP) PO PRN (10:14)
[2018-12-22] MEDS: PRENATAL VITAMINS W/ FOLIC ACID TABLET (FP) PO SCH (10:14)
--- NOTE | 2018-12-22 13:10 | PN ---
S CIWA - CIWA Score Nausea/Vomitin Muscle Tremors: 2 Anxiety: 3 Agitation: 3 Paroxysmal Sweats: 2 Orientation: 0-Oriented Tacttile Disturbances: 0-None Auditory Disturbances: 0-None Visual Disturbances: 0-None Headache: 0-None Present CIWA-Ar Total Score: 12 BHS Progress Note (SOAP) Subjective: Patient c/o anxiety, restlessness, sweating and mild shakes. Objective: 12/22/18 13:01 Vital Signs Temperature 97.8 F 12/22/18 10:10 Pulse Rate 72 12/22/18 10:10 Respiratory Rate 18 12/22/18 10:10 Blood Pressure 111/71 12/22/18 10:10 O2 Sat by Pulse Oximetry (%) Laboratory Tests 12/21/18 12/21/18 12/21/18 08:00 08:00 08:00 WBC 3.7 L RBC 3.93 L Hgb 12.2 Hct 36.3 MCV 92.2 MCH 31.0 MCHC 33.7 RDW 15.3 Plt Count 132 L MPV 9.1 Sodium 142 Potassium 4.1 Chloride 107 Carbon Dioxide 31 Anion Gap 4 L BUN 18.6 H Creatinine 0.9 Est GFR (CKD-EPI)AfAm 118.30 Est GFR (CKD-EPI)NonAf 102.07 Random Glucose 93 Calcium 8.6 Total Bilirubin 0.4 AST 16 ALT 31 Alkaline Phosphatase 69 Total Protein 6.2 L Albumin 3.3 L RPR Titer Nonreactive PE alert and oriented x 3 skin warm, + facial moisture pupils dilated at 3mm, eoms intact bl car s1s2 resp cta bl ext full rom, +tremors amb ad jamir Assessment: 12/22/18 13:15 BZo withdrawal symptoms Plan: continue detox encourage oral fluids monitor clinically
[2018-12-22] MEDS: QUEtiapine FUMARATE 100 MG TABLET (FP) PO SCH (22:04)
[2018-12-22] MEDS: THIAMINE HCL 100 MG TABLET (FP) PO SCH (22:04)
[2018-12-23] MEDS: diazePAM 5 MG TABLET PO PRN ×2 (00:45→07:30)
[2018-12-23] MEDS ORDERED: METHADONE HCL 40 MG DISPERSABLE TABLET ONE (04:59)
[2018-12-23] MEDS ORDERED: METHADONE HCL 10 MG TABLET ONE (04:59)
[2018-12-23] MEDS: GABAPENTIN 400 MG CAPSULE (FP) PO SCH ×3 (05:16→21:58)
[2018-12-23] MEDS: METHADONE 120 MG, METHADONE 30 MG PO SCH (05:17)
[2018-12-23] MEDS ORDERED: diazePAM 5 MG TABLET PO ONE (06:00)
[2018-12-23] MEDS: ASPIRIN 81 MG CHEWABLE TABLETS PO SCH (10:51)
[2018-12-23] MEDS: NICOTINE POLACRILEX 2 MG GUM BUC PRN (10:52)
[2018-12-23] MEDS: PRENATAL VITAMINS W/ FOLIC ACID TABLET (FP) PO SCH (10:52)
[2018-12-23] MEDS: METHOCARBAMOL 500 MG TABLET PO PRN ×2 (10:55→19:43)
[2018-12-23] MEDS: IBUPROFEN 400 MG TABLET (FP) PO PRN ×2 (10:55→19:44)
--- NOTE | 2018-12-23 11:31 | PN ---
S CIWA - CIWA Score Nausea/Vomitin-No Nausea/No Vomiting Muscle Tremors: 2 Anxiety: 3 Agitation: 1-Slight > Activity Paroxysmal Sweats: 2 Orientation: 0-Oriented Tacttile Disturbances: 0-None Auditory Disturbances: 0-None Visual Disturbances: 0-None Headache: 1-Very Mild CIWA-Ar Total Score: 9 BHS Progress Note (SOAP) Subjective: c/o anxiety, headache, sweats, and mild shakes. Objective: 12/23/18 11:26 Vital Signs 12/23/18 12/23/18 12/23/18 03:30 06:00 09:34 Temperature 97.3 F L 97.2 F L Pulse Rate 79 87 Respiratory 18 20 18 Rate Blood Pressure 97/61 132/73 12/23/18 11:26 Lab Results WBC 3.7 K/mm3 (4.0-10.0) L 12/21/18 08:00 RBC 3.93 M/mm3 (4.00-5.60) L 12/21/18 08:00 Hgb 12.2 GM/dL (11.7-16.9) 12/21/18 08:00 Hct 36.3 % (35.4-49) 12/21/18 08:00 MCV 92.2 fl (80-96) 12/21/18 08:00 MCHC 33.7 g/dl (32.0-35.9) 12/21/18 08:00 RDW 15.3 % (11.9-15.9) 12/21/18 08:00 Plt Count 132 K/MM3 (134-434) L 12/21/18 08:00 Sodium 142 mmol/L (136-145) 12/21/18 08:00 Potassium 4.1 mmol/L (3.5-5.1) 12/21/18 08:00 Chloride 107 mmol/L (98-107) 12/21/18 08:00 Carbon Dioxide 31 mmol/L (21-32) 12/21/18 08:00 Anion Gap 4 MMOL/L (8-16) L 12/21/18 08:00 BUN 18.6 mg/dL (7-18) H 12/21/18 08:00 Creatinine 0.9 mg/dL (0.55-1.3) 12/21/18 08:00 Random Glucose 93 mg/dL (74-106) 12/21/18 08:00 Calcium 8.6 mg/dL (8.5-10.1) 12/21/18 08:00 Labs noted. Assessment: 12/23/18 11:27 AOX3, in no acute respiratory distress. Full ROM, ambulating in the unt. Withdrawal symptoms. Pt [facility] and bed was available for him, pt still with c/o withdrawal symptoms. Explained to pt that if bed is not available in the rehab tomorrow, he will be discharge home and have to come back on tuesday (12/25/18) for admission to rehab. Pt agreed to stay in detox for one more day due to the withdrawal symptoms. Pt verbalized understanding of the information given. Discharge order changed for tomorrow (12/24/18). 12/23/18 11:36 Plan: Continue prns and schedule meds. Give Valium 5mg po once in AM (12/24/18). D/C in AM when bed is available in rehab, if no bed is available in rehab discharge home and advice pt to come back tuesday for admission to rehab.
[2018-12-23] MEDS: hydrOXYzine PAMOATE 25 MG CAPSULE (FP) PO PRN ×2 (13:54→19:43)
[2018-12-23] MEDS: QUEtiapine FUMARATE 100 MG TABLET (FP) PO SCH (21:58)
[2018-12-23] MEDS: THIAMINE HCL 100 MG TABLET (FP) PO SCH (21:58)
[2018-12-24] MEDS ORDERED: METHADONE HCL 10 MG TABLET ONE (02:57)
[2018-12-24] MEDS ORDERED: METHADONE HCL 40 MG DISPERSABLE TABLET ONE (02:58)
[2018-12-24] MEDS: METHADONE 120 MG, METHADONE 30 MG PO SCH (05:39)
[2018-12-24] MEDS: GABAPENTIN 400 MG CAPSULE (FP) PO SCH (05:40)
[2018-12-24] MEDS ORDERED: diazePAM 5 MG TABLET PO ONE (06:00)
[2018-12-24 09:08] VITALS: BP 112/67; PULSE 79; TEMP 97
[2018-12-24] MEDS: hydrOXYzine PAMOATE 25 MG CAPSULE (FP) PO PRN (09:21)
[2018-12-24] MEDS: PRENATAL VITAMINS W/ FOLIC ACID TABLET (FP) PO SCH (10:18)
[2018-12-24] MEDS: ASPIRIN 81 MG CHEWABLE TABLETS PO SCH (10:18)
[2018-12-24] MEDS: METHOCARBAMOL 500 MG TABLET PO PRN (10:19)
[2018-12-24] MEDS: IBUPROFEN 400 MG TABLET (FP) PO PRN (10:19)
[2018-12-24] MEDS: NICOTINE POLACRILEX 2 MG GUM BUC PRN (11:04)
--- NOTE | 2018-12-24 12:34 | PN ---
S CIWA - CIWA Score Nausea/Vomitin-No Nausea/No Vomiting Muscle Tremors: 1-None Visible, but [place] Anxiety: 0-No Anxiety, at Ease Agitation: 1-Slight > Activity Paroxysmal Sweats: No Perspiration Orientation: 0-Oriented Tacttile Disturbances: 0-None Auditory Disturbances: 0-None Visual Disturbances: 0-None Headache: 0-None Present CIWA-Ar Total Score: 2 BHS Progress Note (SOAP) Subjective: offers no new complaint Objective: 12/24/18 12:35 A & O x 3 gait steady no withdrawal sx noted Vital Signs Temperature 97 F L 12/24/18 09:08 Pulse Rate 79 12/24/18 09:08 Respiratory Rate 18 12/24/18 09:08 Blood Pressure 112/67 12/24/18 09:08 O2 Sat by Pulse Oximetry (%) Assessment: 12/24/18 12:38 detox completed Plan: for d/c
--- NOTE | 2018-12-24 12:45 | DS ---
[facility] Detox Discharge Summary Admission Date: 12/20/18 Discharge Date: 12/24/18 - History Additional Comments: Pt completed detox. A & O x 3, denies headache, CP or any discomfort. Ambulatory with a steady gait, in no acute distress. 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 - Physical Exam Results Vital Signs: Vital Signs Temperature 97 F L 12/24/18 09:08 Pulse Rate 79 12/24/18 09:08 Respiratory Rate 18 12/24/18 09:08 Blood Pressure 112/67 12/24/18 09:08 O2 Sat by Pulse Oximetry (%) Pertinent Admission Physical Exam Findings: withdrawal sx - Treatment Hospital Course: Detox Protocol Followed, Detoxed Safely, Responded well, Discharged Condition Good - Medication Discharge Medications: Ambulatory Orders Aspirin [ASA -] 81 mg PO DAILY #30 tab.chew 10/30/18 Bupropion HCl [Wellbutrin Xl -] 150 mg PO DAILY 14 Days #30 tab.sr.24h 10/30/18 Gabapentin [Neurontin -] 800 mg PO TID #42 capsule 10/30/18 Quetiapine Fumarate [Seroquel -] 100 mg PO HS #14 tablet 10/30/18 - Diagnosis (1) Alcohol dependence with uncomplicated withdrawal Current Visit: No Status: Acute (2) Sedative, hypnotic or anxiolytic dependence, uncomplicated Current Visit: No Status: Acute (3) Substance-induced anxiety disorder Current Visit: No Status: Acute (4) Anxiety Current Visit: No Status: Chronic (5) Cocaine dependence, uncomplicated Current Visit: No Status: Chronic (6) Insomnia Current Visit: No Status: Chronic Qualifiers: Insomnia type: unspecified Qualified Code(s): G47.00 - Insomnia, unspecified (7) Nicotine dependence Current Visit: No Status: Chronic Qualifiers: Nicotine product type: cigarettes Substance use status: uncomplicated Qualified Code(s): F17.210 - Nicotine dependence, cigarettes, uncomplicated (8) PTSD (post-traumatic stress disorder) Current Visit: No Status: Chronic (9) Low back pain Current Visit: No Status: Chronic Qualifiers: Chronicity: chronic Back pain laterality: bilateral Sciatica presence: with sciatica Sciatica laterality: bilateral sciatica Qualified Code(s): M54.42 - Lumbago with sciatica, left side; M54.41 - Lumbago with sciatica, right side; G89.29 - Other chronic pain (10) Methadone maintenance therapy patient Current Visit: No Status: Chronic - AMA Did Patient Leave Against Medical Advice: No
== END 2018-12-24 12:30 | disposition home or self-care (01) | DRG 773 ==
LOC: YASAS 13:27 → Y6N 20:08
PROVIDERS: ADMIT Surgery; ATTEND Surgery
PROC: HZ2ZZZZ Detoxification Services for Substance Abuse Treatment (ICD-10-PCS; principal; 2018-12-20)
DX: F10.230 Alcohol dependence with withdrawal, uncomplicated (principal); F13.230 Sedative, hypnotic or anxiolytic dependence with withdrawal, uncomplicated; F11.20 Opioid dependence, uncomplicated; F14.20 Cocaine dependence, uncomplicated; F17.210 Nicotine dependence, cigarettes, uncomplicated; F19.280 Other psychoactive substance dependence with psychoactive substance-induced anxiety disorder; F31.81 Bipolar II disorder; F43.10 Post-traumatic stress disorder, unspecified; F90.9 Attention-deficit hyperactivity disorder, unspecified type; G47.00 Insomnia, unspecified; M54.42 Lumbago with sciatica, left side; M54.41 Lumbago with sciatica, right side; Z86.73 Personal history of transient ischemic attack (TIA), and cerebral infarction without residual deficits; Z86.69 Personal history of other diseases of the nervous system and sense organs
CPT/HCPCS: 36415; 80053; 85027; 86593

== ENCOUNTER 2019-01-24 12:39 | Inpatient (IN) | payer OTHER ==
[2019-01-24 15:39] VITALS: BMI 32.3
--- NOTE | 2019-01-24 16:38 | HP ---
CIWA Score Nausea/Vomitin-Mild Nausea/No Vomiting Muscle Tremors: 2 Anxiety: 3 Agitation: 1-Slight > Activity Paroxysmal Sweats: 2 Orientation: 0-Oriented Tacttile Disturbances: 0-None Auditory Disturbances: 1-Very Mild Visual Disturbances: 2-Mild Sensitivity Headache: 1-Very Mild CIWA-Ar Total Score: 13 - Admission Criteria OASAS Guidelines: Admission for Medically Managed Detox: Requires at least one of the followin. CIWA greater than 12 2. Seizures within the past 24 hours 3. Delirium tremens within the past 24 hours 4. Hallucinations within the past 24 hours 5. Acute intervention needed for co occurring medical disorder 6. Acute intervention needed for co occurring psychiatric disorder 7. Severe withdrawal that cannot be handled at a lower level of care (continued vomiting, continued diarrhea, abnormal vital signs) requiring intravenous medication and/or fluids 8. Patient presents the following: CIWA greater than 12, Seizures, delirium tremens or hallucinations in the past 12 hours (last seizure was in 09/2018 ( benzo induced)) Admission Criteria Met: Admission criteria met Admitting History and Physical - Admission Chief Complaint: Withdrawal symptoms History Source: Patient Limitations to Obtaining History: No Limitations - Past Surgical History Past Surgical History: Yes: None - Smoking History Smoking history: Current every day smoker Have you smoked in the past 12 months: Yes Aproximately how many cigarettes per day: 7 - Alcohol/Substance Use Hx Alcohol Use: Yes - Social History Usual Living Arrangement: Yes: Alone Do you think of yourself as: Straight/Heterosexual ADL: Independent Occupation: [id number] History of Recent Travel: No Admission ROS [facility] Chief Complaint: Withdrawal symptoms Allergies/Adverse Reactions: Allergies Allergy/AdvReac Type Severity Reaction Status Date / Time No Known Allergies Allergy Verified 01/24/19 15:32 History of Present Illness: 48 y.o. woman with an extensive history of benzodiazepine, alcohol and cocaine dependence is here seeking detox services. He has had multiple admissions here for detox with the last being from 12/20/18 to 12/24/18. His last rehab admission was from 10/18/18 to 10/31/18. Longest period of illicit drug abstinence has been 1 month. He currently on enrolled at [facility] and states he was last medicated today 150mg of methadone (unverified). Exam Limitations: No Limitations - Ebola screening Have you traveled outside of the country in the last 21 days: No Have you had contact with anyone from an Ebola affected area: No Do you have a fever: No - Review of Systems Constitutional: Loss of Appetite EENT: reports: No Symptoms Reported Respiratory: reports: No Symptoms reported Cardiac: reports: No Symptoms Reported GI: reports: No Symptoms Reported : reports: No Symptoms Reported Musculoskeletal: reports: Back Pain Integumentary: reports: No Symptoms Reported Neuro: reports: Seizure (Benzo withdrawal induced), Tremors Endocrine: reports: No Symptoms Reported Hematology: reports: No Symptoms Reported Psychiatric: reports: Mood/Affect Appropiate, Anxious, other (Bipolar) Other Systems: Reviewed and Negative Patient History - Patient Medical History Hx Anemia: No Hx Asthma: No Hx Chronic Obstructive Pulmonary Disease (COPD): No Hx Cancer: No Hx Cardiac Disorders: No Hx Congestive Heart Failure: No Hx Hypertension: No Hx Hypercholesterolemia: No Hx Pacemaker: No HX Cerebrovascular Accident: Yes (01/2018) Hx Seizures: Yes (Benzo withdrawal induced-09/2018) Hx Dementia: No Hx Diabetes: No Hx Gastrointestinal Disorders: No Hx Liver Disease: No Hx Genitourinary Disorders: No Hx Sexually Transmitted Disorders: No Hx Renal Disease (ESRD): No Hx Thyroid Disease: No Hx Human Immunodeficiency Virus (HIV): No (05/06) Hx Hepatitis C: Yes (Treated with Interferon) Hx Depression: Yes Hx Suicide Attempt: No Hx Bipolar Disorder: Yes Hx Schizophrenia: No - Patient Surgical History Past Surgical History: No Hx Neurologic Surgery: No Hx Cataract Extraction: No Hx Cardiac Surgery: No Hx Lung Surgery: No Hx Breast Surgery: No Hx Breast Biopsy: No Hx Abdominal Surgery: No Hx Appendectomy: No Hx Cholecystectomy: No Hx Genitourinary Surgery: No Hx Section: No Hx Orthopedic Surgery: No Other Surgical History: incision and drainage of infected right hand in 1994 Anesthesia Reaction: No - PPD History Previous Implant?: Yes Documented Results: Negative w/proof Implanted On Prior [facility] Admission?: Yes Date: 04/17/18 Results: 0 mm PPD to be Administered?: No - Reproductive History Patient is a Female of Child Bearing Age (11 -55 yrs old): No - Smoking Cessation Smoking history: Current every day smoker Have you smoked in the past 12 months: Yes Aproximately how many cigarettes per day: 7 Cigars Per Day: 0 Hx Chewing Tobacco Use: No Initiated information on smoking cessation: Yes 'Breaking Loose' booklet given: 01/24/19 - Substance & Tx. History Hx Alcohol Use: Yes Hx Substance Use: Yes Substance Use Type: Alcohol, Tranquilizers Hx Substance Use Treatment: Yes (Detox: 12/2018; Rehab: 10/2018) - Substances abused Alprazolam (Xanax) Substance route: Oral Frequency: Daily Amount used: 16-24mg Age of first use: 37 Date of last use: 01/23/19 Benzodiazepine (Klonopin) Substance route: Oral Frequency: Daily Amount used: 12-20mg Age of first use: 37 Date of last use: 01/24/19 Alcohol Substance route: Oral Frequency: 1-2 times per week Amount used: 4 of 24 ounce Age of first use: 14 Date of last use: 01/23/19 Admission Physical Exam BHS - Vital Signs Vital Signs: Vital Signs - 24 hr 01/24/19 15:24 Temperature 97.5 F L Pulse Rate 112 H Respiratory 19 Rate Blood Pressure 128/85 - Physical General Appearance: Yes: Tremorous, Irritable, Anxious HEENTM: Yes: Normocephalic Respiratory: Yes: Lungs Clear, Normal Breath Sounds, No Respiratory Distress, No Accessory Muscle Use Neck: Yes: Within Normal Limits Breast: Yes: Breast Exam Deferred Cardiology: Yes: Regular Rhythm, Tachycardia Abdominal: Yes: Non Tender, Flat, Soft Genitourinary: Yes: Other (No compliants reported) Back: Yes: Normal Inspection Musculoskeletal: Yes: Back pain Extremities: Yes: Normal Capillary Refill, Normal Inspection Neurological: Yes: Alert, Normal Mood/Affect, Normal Response Integumentary: Yes: Within Normal Limits, Normal Color Lymphatic: Yes: Within Normal Limits - Diagnostic (1) History of seizures Current Visit: Yes Status: Chronic (2) Alcohol dependence, uncomplicated Current Visit: Yes Status: Chronic (3) Sedative, hypnotic or anxiolytic dependence, uncomplicated Current Visit: No Status: Acute (4) CVA (cerebral vascular accident) Current Visit: No Status: Chronic Qualifiers: CVA mechanism: unspecified Qualified Code(s): I63.9 - Cerebral infarction, unspecified (5) Cocaine dependence, uncomplicated Current Visit: Yes Status: Acute (6) Nicotine dependence Current Visit: No Status: Chronic Qualifiers: Nicotine product type: cigarettes Substance use status: uncomplicated Qualified Code(s): F17.210 - Nicotine dependence, cigarettes, uncomplicated (7) Opioid dependence on agonist therapy Current Visit: Yes Status: Chronic (8) Uncomplicated sedative, hypnotic or anxiolytic withdrawal Current Visit: Yes Status: Chronic (9) Hepatitis C Current Visit: Yes Status: Chronic Qualifiers: Viral hepatitis chronicity: unspecified Hepatic coma status: without hepatic coma Qualified Code(s): B19.20 - Unspecified viral hepatitis C without hepatic coma (10) Syncope Current Visit: No Status: Acute Qualifiers: Syncope type: unspecified Qualified Code(s): R55 - Syncope and collapse (11) Neuropathy Current Visit: Yes Status: Chronic Cleared for Admission BHS - Detox or Rehab S Level of Care: Medically Managed Detox Regimen/Protocol: Valium Claeared for Rehab Admission: No Breathalyzer - Breathalyzer Breathalyzer: 0 Urine Drug Screen - Test Device Lot number: [id number] Expiration date: 09/17/20 - Control Is test valid?: Yes - Results Drug screen NEGATIVE: No Urine drug screen results: DESHAWN-Cocaine, MTD-Methadone, BZO-Benzodiazepines Inpatient Rehab Admission - Rehab Decision to Admit Inpatient rehab admission?: No
[2019-01-24] MEDS ORDERED: ACETAMINOPHEN 325 MG TABLET (FP) PO PRN ×2 (16:46)
[2019-01-24] MEDS ORDERED: MAGNESIUM CITRATE 300 ML BOTTLE PO PRN (16:46)
[2019-01-24] MEDS ORDERED: QUEtiapine FUMARATE 100 MG TABLET (FP) PO PRN (16:46)
[2019-01-24] MEDS ORDERED: hydrOXYzine PAMOATE 25 MG CAPSULE (FP) PO PRN (16:46)
[2019-01-24] MEDS ORDERED: METHOCARBAMOL 500 MG TABLET PO PRN (16:46)
[2019-01-24] MEDS ORDERED: MENTHOL/PHENOL 1 EACH UD MM PRN (16:46)
[2019-01-24] MEDS ORDERED: MAGNESIUM HYDROX 2400MG/30ML ORAL SUSPENSION 30 ML CUP PO PRN (16:46)
[2019-01-24] MEDS ORDERED: BISMUTH SUBSALICYLATE 524 MG/30 ML UD PO PRN (16:46)
[2019-01-24] MEDS ORDERED: IBUPROFEN 400 MG TABLET (FP) PO PRN (16:46)
[2019-01-24] MEDS ORDERED: NICOTINE POLACRILEX 2 MG GUM BUC PRN (16:46)
[2019-01-24] MEDS ORDERED: diazePAM 5 MG TABLET PO ONE (18:15)
[2019-01-24] MEDS: MAG HYDROX/AL HYDROX/SIMETH 30 ML UNIT-DOSE CUP PO PRN (21:04)
[2019-01-24] MEDS: diazePAM 5 MG TABLET PO SCH (22:10)
[2019-01-24] MEDS: GABAPENTIN 400 MG CAPSULE (FP) PO SCH (22:11)
[2019-01-24] MEDS: THIAMINE HCL 100 MG TABLET (FP) PO SCH (22:11)
[2019-01-25] MEDS: GABAPENTIN 400 MG CAPSULE (FP) PO SCH ×3 (05:14→22:39)
[2019-01-25] MEDS: diazePAM 5 MG TABLET PO SCH ×3 (05:14→22:41)
[2019-01-25] MEDS: diazePAM 5 MG TABLET PO PRN ×4 (07:13→20:47)
[2019-01-25] MEDS ORDERED: METHADONE HCL 10 MG TABLET PO ONE (08:37)
[2019-01-25] MEDS ORDERED: METHADONE 120 MG, METHADONE 30 MG PO ONE (08:45)
[2019-01-25] MEDS ORDERED: METHADONE HCL 10 MG TABLET ONE (08:55)
[2019-01-25] MEDS ORDERED: METHADONE HCL 40 MG DISPERSABLE TABLET ONE (08:56)
[2019-01-25] MEDS: ASPIRIN 81 MG CHEWABLE TABLETS PO SCH (09:05)
[2019-01-25] MEDS: PRENATAL VITAMINS W/ FOLIC ACID TABLET (FP) PO SCH (09:05)
[2019-01-25] MEDS: NICOTINE 14 MG/24 HOURS TOPICAL PATCH TD SCH (09:06)
--- NOTE | 2019-01-25 09:36 | PN ---
S CIWA - CIWA Score Nausea/Vomitin-Mild Nausea/No Vomiting Muscle Tremors: 2 Anxiety: 2 Agitation: 2 Paroxysmal Sweats: No Perspiration Orientation: 0-Oriented Tacttile Disturbances: 1-Very Mild Itch/Numbness Auditory Disturbances: 0-None Visual Disturbances: 0-None Headache: 2-Mild CIWA-Ar Total Score: 10 BHS Progress Note (SOAP) Subjective: alert,irritable,anxious,interrupted sleep,pain in the body Objective: 01/25/19 09:35 Vital Signs Temperature 97.9 F 01/25/19 06:05 Pulse Rate 88 01/25/19 06:05 Respiratory Rate 18 01/25/19 06:05 Blood Pressure 121/77 01/25/19 06:05 O2 Sat by Pulse Oximetry (%) labs pending Assessment: 01/25/19 09:36 withdrawal symptom Plan: continue detox valium regimen
[2019-01-25 09:44] LABS: HEMATOCRIT 39.7 % (35.4-49); HEMOGLOBIN 13.3 GM/dL (11.7-16.9); MCH 30.5 pg (25.7-33.7); MCHC 33.4 g/dl (32.0-35.9); MEAN CELL VOLUME 91.3 fl (80-96); MEAN PLT VOLUME 9.2 fl (7.5-11.1); PLATELET COUNT 124 K/MM3 (134-434); RBC 4.35 M/mm3 (4.00-5.60); RDW 15.1 % (11.9-15.9); WHITE BLOOD COUNT 3.5 K/mm3 (4.0-10.0)
[2019-01-25 10:08] LABS: ALBUMIN 3.5 g/dl (3.4-5.0); BILIRUBIN,TOTAL 0.2 mg/dL (0.2-1); BLOOD UREA NITROGEN 20.9 mg/dL (7-18); CALCIUM 9.2 mg/dL (8.5-10.1); CREATININE 0.9 mg/dL (0.55-1.3); POTASSIUM 3.9 mmol/L (3.5-5.1); TOT PROT 6.5 g/dl (6.4-8.2)
--- NOTE | 2019-01-25 10:41 | CONSULT ---
[facility] Psychiatric Consult - Data Date of interview: 01/25/19 Admission source: Self-referred Identifying data: Mr Bee is a 47 years old male, father of a 18 years old son, unemployed on public assistance, domiciled living in a residence in [place] seeking detox treatment for alcohol and benzodiazepine Substance Abuse History: Reports history of alcohol, klonopin and xanax use. Refer to addiction counselor's summary for further information. 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 Patient is on methadone 150 mg/day from [facility]. 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 Historical narrative has remained consistent. He reports that his first psychiatric contact was at age 14 when he was diagnosed with ADHD. Reports receiving treatment with Ritalin and Adderall. Reports that in 2005, he was admitted to [facility] in [place], [place], diagnosed with Bipolar Disorder and PTSD. Reports subsequent admissions [facility], [facility], [facility] and most recently in 2018 [facility]. Reports receiving OPD care on site at his [facility]. He sees Dr Susy Dillon and he is currently prescribed Seroquel 100 mg po HS, Gabapentin 800 mg po TID and Wellbutrin XL 150 mg po daily. Reportedly, he has one previous suicidal attempt by overdose on pills in 2006. At present, denies experiencing psychotic , manic or depressive symptoms, S/H ideations. However, reports feeling anxious and sleeping poorly. Requests to be continued on current medications Physical/Sexual Abuse/Trauma History: Denies history of emotional, physical or sexual abuse as well as DV relationship. Reports serving in the [employer] from 1997 to 2003. Claims his discharge was honorable Mental Status Exam - Mental Status Exam Alert and Oriented to: Time, Place, Person Cognitive Function: Fair Patient Appearance: Disheveled Mood: Depressed, Anxious Affect: Appropriate Speech Pattern: Clear Sleep: Poorly Appetite: Fair Muscle strength/Tone: Normal Gait/Station: Normal Psychiatric Findings - Problem List ([place] 1, 2,3) (1) ADHD (attention deficit hyperactivity disorder) Current Visit: No Status: Chronic Qualifiers: Attention deficit-hyperactivity disorder type: unspecified Qualified Code(s ): F90.9 - Attention-deficit hyperactivity disorder, unspecified type Comment: As per records. (2) PTSD (post-traumatic stress disorder) Current Visit: No Status: Chronic Comment: Historical diagnosis. (3) Bipolar II disorder Current Visit: No Status: Chronic (4) Substance induced mood disorder Current Visit: Yes Status: Acute (5) Substance-induced sleep disorder Current Visit: No Status: Acute (6) Alcohol dependence, uncomplicated Current Visit: Yes Status: Acute (7) Cocaine dependence, uncomplicated Current Visit: Yes Status: Acute (8) Uncomplicated sedative, hypnotic or anxiolytic withdrawal Current Visit: Yes Status: Acute (9) Opioid dependence on agonist therapy Current Visit: Yes Status: Chronic (10) Nicotine dependence Current Visit: No Status: Chronic Qualifiers: Nicotine product type: cigarettes Substance use status: uncomplicated Qualified Code(s): F17.210 - Nicotine dependence, cigarettes, uncomplicated (11) Hepatitis C Current Visit: Yes Status: Resolved Qualifiers: Viral hepatitis chronicity: unspecified Hepatic coma status: without hepatic coma Qualified Code(s): B19.20 - Unspecified viral hepatitis C without hepatic coma (12) History of seizures Current Visit: Yes Status: Resolved (13) Neuropathy Current Visit: Yes Status: Chronic (14) CVA (cerebral vascular accident) Current Visit: No Status: Chronic Qualifiers: CVA mechanism: unspecified Qualified Code(s): I63.9 - Cerebral infarction, unspecified (15) Low back pain Current Visit: No Status: Chronic Qualifiers: Chronicity: chronic Back pain laterality: bilateral Sciatica presence: with sciatica Sciatica laterality: bilateral sciatica Qualified Code(s): M54.42 - Lumbago with sciatica, left side; M54.41 - Lumbago with sciatica, right side; G89.29 - Other chronic pain - Initial Treatment Plan Initial Treatment Plan: 1) Resume Wellbutrin XL 150 mg po daily, Seroquel 100 mg po HS and Gabapentin 800 mg po TID. 2) Continue inpatient detoxification
[2019-01-25] MEDS ORDERED: QUEtiapine FUMARATE 100 MG TABLET (FP) PO SCH (22:00)
[2019-01-25] MEDS: THIAMINE HCL 100 MG TABLET (FP) PO SCH (22:40)
[2019-01-26] MEDS: diazePAM 5 MG TABLET PO PRN ×4 (03:23→13:47)
[2019-01-26] MEDS: GABAPENTIN 400 MG CAPSULE (FP) PO SCH ×2 (05:07→13:46)
[2019-01-26] MEDS: diazePAM 5 MG TABLET PO SCH ×2 (05:07→17:15)
[2019-01-26] MEDS ORDERED: METHADONE HCL 40 MG DISPERSABLE TABLET PO SCH (06:00)
[2019-01-26] MEDS ORDERED: METHADONE 120 MG, METHADONE 30 MG PO SCH ×2 (06:00→10:00)
[2019-01-26] MEDS: MAG HYDROX/AL HYDROX/SIMETH 30 ML UNIT-DOSE CUP PO PRN (06:27)
[2019-01-26] MEDS ORDERED: METHADONE HCL 10 MG TABLET ONE (08:52)
[2019-01-26] MEDS ORDERED: METHADONE HCL 40 MG DISPERSABLE TABLET ONE (08:53)
[2019-01-26] MEDS: PRENATAL VITAMINS W/ FOLIC ACID TABLET (FP) PO SCH (10:21)
[2019-01-26] MEDS: ASPIRIN 81 MG CHEWABLE TABLETS PO SCH (10:21)
[2019-01-26] MEDS: NICOTINE 14 MG/24 HOURS TOPICAL PATCH TD SCH (10:22)
--- NOTE | 2019-01-26 10:30 | PN ---
S CIWA - CIWA Score Nausea/Vomitin-No Nausea/No Vomiting Muscle Tremors: 2 Anxiety: 1-Mildly Anxious Agitation: 0-Normal Activity Paroxysmal Sweats: 1-Minimal Palms Moist Orientation: 0-Oriented Tacttile Disturbances: 0-None Auditory Disturbances: 0-None Visual Disturbances: 0-None Headache: 0-None Present CIWA-Ar Total Score: 4 BHS Progress Note (SOAP) Subjective: anxiety Objective: 01/26/19 10:27 Vital Signs Temperature 97.7 F 01/26/19 09:36 Pulse Rate 96 H 01/26/19 09:36 Respiratory Rate 18 01/26/19 09:36 Blood Pressure 103/68 01/26/19 09:36 O2 Sat by Pulse Oximetry (%) Laboratory Tests 01/25/19 01/25/19 01/25/19 08:00 08:00 08:00 WBC 3.5 L RBC 4.35 Hgb 13.3 Hct 39.7 MCV 91.3 MCH 30.5 MCHC 33.4 RDW 15.1 Plt Count 124 L MPV 9.2 Sodium 141 Potassium 3.9 Chloride 105 Carbon Dioxide 31 Anion Gap 5 L BUN 20.9 H Creatinine 0.9 Est GFR (CKD-EPI)AfAm 118.30 Est GFR (CKD-EPI)NonAf 102.07 Random Glucose 82 Calcium 9.2 Total Bilirubin 0.2 AST 20 ALT 25 Alkaline Phosphatase 83 Total Protein 6.5 Albumin 3.5 RPR Titer Nonreactive aaox3 ambulating no acute distress Assessment: 01/26/19 10:28 mild withdrawals Plan: continue detox increase fluids d/c later this evening
[2019-01-26] MEDS ORDERED: hydrOXYzine PAMOATE 50 MG CAPSULE (FP) PO PRN ×2 (12:26→16:46)
[2019-01-26] MEDS ORDERED: DOCUSATE SODIUM 100 MG CAPSULE (FP) PO SCH (14:00)
[2019-01-26 17:01] VITALS: BP 122/73; PULSE 94; TEMP 98.2
[2019-01-27] MEDS ORDERED: diazePAM 5 MG TABLET PO ONE (06:00)
== END 2019-01-26 18:30 | disposition other institution (70) | DRG 773 ==
LOC: YASAS 12:39 → Y6N 17:16
PROVIDERS: ADMIT Allergy & Immunology; ATTEND Allergy & Immunology
PROC: HZ2ZZZZ Detoxification Services for Substance Abuse Treatment (ICD-10-PCS; principal; 2019-01-24)
DX: F10.230 Alcohol dependence with withdrawal, uncomplicated (principal); F13.230 Sedative, hypnotic or anxiolytic dependence with withdrawal, uncomplicated; F11.20 Opioid dependence, uncomplicated; F14.20 Cocaine dependence, uncomplicated; F17.210 Nicotine dependence, cigarettes, uncomplicated; F19.282 Other psychoactive substance dependence with psychoactive substance-induced sleep disorder; F19.24 Other psychoactive substance dependence with psychoactive substance-induced mood disorder; F31.81 Bipolar II disorder; F43.10 Post-traumatic stress disorder, unspecified; F90.9 Attention-deficit hyperactivity disorder, unspecified type; G62.9 Polyneuropathy, unspecified; M54.41 Lumbago with sciatica, right side; Z86.19 Personal history of other infectious and parasitic diseases; Z86.69 Personal history of other diseases of the nervous system and sense organs; Z86.73 Personal history of transient ischemic attack (TIA), and cerebral infarction without residual deficits
CPT/HCPCS: 36415; 80053; 85027; 86593

== ENCOUNTER 2019-01-26 18:48 | Inpatient (IN) | payer OTHER ==
--- NOTE | 2019-01-26 14:33 | HP ---
[facility] Rehab Assess/Revision - Admission History Ad[facility]hab [facility] - Findings Detox History & Physical reviewed: Yes Concur with findings: Yes Inpatient Rehab Admission - Rehab Decision to Admit Inpatient rehab admission?: Yes - Initial Determination Are CD services needed?: Yes Free of communicable disease: Yes Not in need of hospitalization: Yes - Rehab Admission Criteria Previous failed treatment: Yes Poor recovery environment: Yes Comorbidities: Yes Lacks judgement: Yes Patient is meeting Inpatient Rehab admission criteria:: Yes
[~2019-01-26 18:48] MED LIST: MAGNESIUM CITRATE 300 ML BOTTLE PO PRN; MAGNESIUM HYDROX 2400MG/30ML ORAL SUSPENSION 30 ML CUP PO PRN; MENTHOL/PHENOL 1 EACH UD MM PRN; P-EPHED 60MG/TRIPROLIDI 2.5MG TABLET PO PRN; guaiFENesin 200 MG/10 ML 10 ML UNIT-DOSE CUPS PO PRN
[2019-01-26] MEDS: GABAPENTIN 400 MG CAPSULE (FP) PO SCH (21:36)
[2019-01-26] MEDS: THIAMINE HCL 100 MG TABLET (FP) PO SCH (21:36)
[2019-01-26] MEDS: MELATONIN 5 MG TABLETS PO PRN (21:36)
[2019-01-26] MEDS: QUEtiapine FUMARATE 50 MG TABLET PO SCH (21:36)
[2019-01-26] MEDS: hydrOXYzine PAMOATE 50 MG CAPSULE (FP) PO PRN (21:36)
[2019-01-26] MEDS: IBUPROFEN 400 MG TABLET (FP) PO PRN (21:37)
[2019-01-26] MEDS: MAG HYDROX/AL HYDROX/SIMETH 30 ML UNIT-DOSE CUP PO PRN (22:29)
[2019-01-27] MEDS ORDERED: MAG HYDROX/AL HYDROX/SIMETH 30 ML UNIT-DOSE CUP PO ONE (03:34)
[2019-01-27] MEDS: hydrOXYzine PAMOATE 50 MG CAPSULE (FP) PO PRN ×3 (03:38→17:14)
[2019-01-27] MEDS ORDERED: METHADONE HCL 10 MG TABLET ONE (05:21)
[2019-01-27] MEDS ORDERED: METHADONE HCL 40 MG DISPERSABLE TABLET ONE (05:22)
[2019-01-27] MEDS ORDERED: METHADONE HCL 10 MG TABLET PO SCH (06:00)
[2019-01-27] MEDS: GABAPENTIN 400 MG CAPSULE (FP) PO SCH ×3 (06:01→21:28)
[2019-01-27] MEDS: METHADONE 120 MG, METHADONE 30 MG PO SCH (06:01)
--- NOTE | 2019-01-27 09:13 | PN ---
[facility] Progress Note Note: patient complained of heart burn Vital Signs Temperature 97.5 F L 01/27/19 06:55 Pulse Rate 72 01/27/19 06:55 Respiratory Rate 18 01/27/19 06:55 Blood Pressure 108/72 01/27/19 06:55 O2 Sat by Pulse Oximetry (%) will give pepcid 10 mgs po daily
[2019-01-27] MEDS: PRENATAL VITAMINS W/ FOLIC ACID TABLET (FP) PO SCH (10:26)
[2019-01-27] MEDS: FAMOTIDINE 10 MG TABLET PO SCH (10:26)
[2019-01-27] MEDS: NICOTINE 21 MG/24 HOURS TOPICAL PATCH TD SCH (10:26)
[2019-01-27] MEDS: ASPIRIN 81 MG CHEWABLE TABLETS PO SCH (10:26)
[2019-01-27] MEDS: MAG HYDROX/AL HYDROX/SIMETH 30 ML UNIT-DOSE CUP PO PRN (17:14)
[2019-01-27] MEDS: LOPERAMIDE HCL 2 MG CAPSULE PO PRN (21:28)
[2019-01-27] MEDS: QUEtiapine FUMARATE 50 MG TABLET PO SCH (21:31)
[2019-01-27] MEDS: THIAMINE HCL 100 MG TABLET (FP) PO SCH (21:32)
[2019-01-27] MEDS ORDERED: ONDANSETRON *ODT* 4 MG TABLET SL ONE (22:09)
--- NOTE | 2019-01-27 22:12 | PN ---
[facility] Progress Note Note: Patient complained of nausea Vital Signs Temperature 97.5 F L 01/27/19 06:55 Pulse Rate 72 01/27/19 06:55 Respiratory Rate 18 01/27/19 06:55 Blood Pressure 108/72 01/27/19 06:55 O2 Sat by Pulse Oximetry (%) Action: Ondansetron 4mg SL ordered
[2019-01-28] MEDS ORDERED: METHADONE HCL 10 MG TABLET ONE (04:59)
[2019-01-28] MEDS ORDERED: METHADONE HCL 40 MG DISPERSABLE TABLET ONE (05:00)
[2019-01-28] MEDS: LOPERAMIDE HCL 2 MG CAPSULE PO PRN ×2 (05:08→11:20)
[2019-01-28] MEDS: IBUPROFEN 400 MG TABLET (FP) PO PRN (05:08)
[2019-01-28] MEDS: GABAPENTIN 400 MG CAPSULE (FP) PO SCH ×3 (06:03→22:18)
[2019-01-28] MEDS: METHADONE 120 MG, METHADONE 30 MG PO SCH (06:03)
[2019-01-28] MEDS ORDERED: FAMOTIDINE 10 MG TABLET PO ONE ×2 (07:15→07:45)
[2019-01-28] MEDS ORDERED: ONDANSETRON *ODT* 4 MG TABLET SL ONE (07:31)
--- NOTE | 2019-01-28 07:34 | PN ---
S Progress Note Note: [id number] complained of heartburn and nausea Vital Signs Temperature 97.7 F 01/28/19 06:47 Pulse Rate 106 H 01/28/19 06:47 Respiratory Rate 20 01/28/19 06:47 Blood Pressure 101/58 L 01/28/19 06:47 O2 Sat by Pulse Oximetry (%) Action: Ondansetron 4mg SL ordered Pepcid 10mg oral ordered
[2019-01-28] MEDS: PRENATAL VITAMINS W/ FOLIC ACID TABLET (FP) PO SCH (10:11)
[2019-01-28] MEDS: ASPIRIN 81 MG CHEWABLE TABLETS PO SCH (10:11)
[2019-01-28] MEDS: NICOTINE 21 MG/24 HOURS TOPICAL PATCH TD SCH (10:12)
[2019-01-28] MEDS: hydrOXYzine PAMOATE 50 MG CAPSULE (FP) PO PRN ×3 (10:12→22:19)
[2019-01-28] MEDS: FAMOTIDINE 10 MG TABLET PO SCH (11:04)
[2019-01-28] MEDS: QUEtiapine FUMARATE 50 MG TABLET PO SCH (22:18)
[2019-01-28] MEDS: THIAMINE HCL 100 MG TABLET (FP) PO SCH (22:18)
[2019-01-29] MEDS ORDERED: METHADONE HCL 10 MG TABLET ONE (05:59)
[2019-01-29] MEDS ORDERED: METHADONE HCL 40 MG DISPERSABLE TABLET ONE (05:59)
[2019-01-29] MEDS: GABAPENTIN 400 MG CAPSULE (FP) PO SCH ×3 (06:17→21:04)
[2019-01-29] MEDS: METHADONE 120 MG, METHADONE 30 MG PO SCH (06:17)
[2019-01-29] MEDS ORDERED: ONDANSETRON *ODT* 4 MG TABLET SL PRN (09:12)
[2019-01-29] MEDS: PRENATAL VITAMINS W/ FOLIC ACID TABLET (FP) PO SCH (09:58)
[2019-01-29] MEDS: FAMOTIDINE 10 MG TABLET PO SCH (09:58)
[2019-01-29] MEDS: ASPIRIN 81 MG CHEWABLE TABLETS PO SCH (09:58)
[2019-01-29] MEDS: NICOTINE POLACRILEX 4 MG GUM BUC PRN ×2 (09:59→15:45)
[2019-01-29] MEDS: NICOTINE 21 MG/24 HOURS TOPICAL PATCH TD SCH (10:01)
--- NOTE | 2019-01-29 14:40 | PN ---
[facility] Progress Note Note: Patient reports sleeping poorly despite taking Seroquel 100 mg/hs. Reports that he usuallu takes Seroquel and Ambien. Hypnotic properties of Belsomra discussed with patient and he agreed to try it. Belsomra 10 mg/hs prn for insomnia ordered for patient
[2019-01-29] MEDS: hydrOXYzine PAMOATE 50 MG CAPSULE (FP) PO PRN (16:38)
[2019-01-29] MEDS: QUEtiapine FUMARATE 50 MG TABLET PO SCH (21:04)
[2019-01-29] MEDS: MELATONIN 5 MG TABLETS PO PRN (21:04)
[2019-01-29] MEDS: THIAMINE HCL 100 MG TABLET (FP) PO SCH (21:04)
[2019-01-29] MEDS: SUVOREXANT 10 MG TABLET PO PRN (21:05)
[2019-01-30] MEDS: GABAPENTIN 400 MG CAPSULE (FP) PO SCH ×3 (05:58→21:46)
[2019-01-30] MEDS ORDERED: METHADONE HCL 10 MG TABLET ONE (05:58)
[2019-01-30] MEDS: METHADONE 120 MG, METHADONE 30 MG PO SCH (05:59)
[2019-01-30] MEDS ORDERED: METHADONE HCL 40 MG DISPERSABLE TABLET ONE (05:59)
[2019-01-30] MEDS: MAG HYDROX/AL HYDROX/SIMETH 30 ML UNIT-DOSE CUP PO PRN (06:43)
[2019-01-30] MEDS: ASPIRIN 81 MG CHEWABLE TABLETS PO SCH (09:51)
[2019-01-30] MEDS: FAMOTIDINE 10 MG TABLET PO SCH (09:51)
[2019-01-30] MEDS: hydrOXYzine PAMOATE 50 MG CAPSULE (FP) PO PRN ×3 (09:51→21:48)
[2019-01-30] MEDS: NICOTINE 21 MG/24 HOURS TOPICAL PATCH TD SCH (09:52)
[2019-01-30] MEDS: PRENATAL VITAMINS W/ FOLIC ACID TABLET (FP) PO SCH (09:53)
[2019-01-30] MEDS: NICOTINE POLACRILEX 4 MG GUM BUC PRN ×3 (09:53→17:51)
[2019-01-30] MEDS: MELATONIN 5 MG TABLETS PO PRN (21:46)
[2019-01-30] MEDS: THIAMINE HCL 100 MG TABLET (FP) PO SCH (21:46)
[2019-01-30] MEDS: QUEtiapine FUMARATE 50 MG TABLET PO SCH (21:47)
[2019-01-30] MEDS: IBUPROFEN 400 MG TABLET (FP) PO PRN (21:48)
[2019-01-30] MEDS: SUVOREXANT 10 MG TABLET PO PRN (21:48)
[2019-01-30] MEDS ORDERED: FAMOTIDINE 10 MG TABLET PO SCH (22:00)
[2019-01-31] MEDS ORDERED: METHADONE HCL 10 MG TABLET ONE (05:02)
[2019-01-31] MEDS ORDERED: METHADONE HCL 40 MG DISPERSABLE TABLET ONE (05:02)
[2019-01-31] MEDS: GABAPENTIN 400 MG CAPSULE (FP) PO SCH ×3 (06:13→21:03)
[2019-01-31] MEDS: METHADONE 120 MG, METHADONE 30 MG PO SCH (06:13)
[2019-01-31] MEDS: PRENATAL VITAMINS W/ FOLIC ACID TABLET (FP) PO SCH (10:08)
[2019-01-31] MEDS: ASPIRIN 81 MG CHEWABLE TABLETS PO SCH (10:08)
[2019-01-31] MEDS: NICOTINE 21 MG/24 HOURS TOPICAL PATCH TD SCH (10:08)
[2019-01-31] MEDS ORDERED: FAMOTIDINE 20 MG TABLET PO ONE (10:13)
[2019-01-31] MEDS: NICOTINE POLACRILEX 4 MG GUM BUC PRN ×2 (11:05→18:07)
--- NOTE | 2019-01-31 12:30 | CONSULT ---
[facility] Psychiatric Consult - Data Date of interview: 01/31/19 Psychiatric History: Patient admitted from detox on 01/26/19 for inpatient rehabilitation. 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 These medications were reordered by ERINN Swan on 01/26/19 when transferring patient to rehab
[2019-01-31] MEDS ORDERED: COLLOIDAL OATMEAL 1 BAR EACH TP PRN (14:01)
[2019-01-31] MEDS: QUEtiapine FUMARATE 50 MG TABLET PO SCH (21:03)
[2019-01-31] MEDS: MELATONIN 5 MG TABLETS PO PRN (21:04)
[2019-01-31] MEDS: THIAMINE HCL 100 MG TABLET (FP) PO SCH (21:04)
[2019-01-31] MEDS: hydrOXYzine PAMOATE 50 MG CAPSULE (FP) PO PRN (21:05)
[2019-01-31] MEDS: FAMOTIDINE 10 MG TABLET PO SCH (21:05)
[2019-01-31] MEDS: SUVOREXANT 10 MG TABLET PO PRN (21:06)
[2019-01-31] MEDS ORDERED: PT OWN MED DRAWER 7, Y5N ONE (21:07)
[2019-02-01] MEDS ORDERED: METHADONE HCL 10 MG TABLET ONE (05:13)
[2019-02-01] MEDS ORDERED: METHADONE HCL 40 MG DISPERSABLE TABLET ONE (05:14)
[2019-02-01] MEDS: GABAPENTIN 400 MG CAPSULE (FP) PO SCH ×3 (05:58→21:54)
[2019-02-01] MEDS: FAMOTIDINE 10 MG TABLET PO SCH ×2 (05:58→21:55)
[2019-02-01] MEDS: METHADONE 120 MG, METHADONE 30 MG PO SCH (05:58)
[2019-02-01] MEDS ORDERED: PT OWN MED DRAWER 7, Y5N ONE (08:25)
[2019-02-01] MEDS: PRENATAL VITAMINS W/ FOLIC ACID TABLET (FP) PO SCH (10:23)
[2019-02-01] MEDS: ASPIRIN 81 MG CHEWABLE TABLETS PO SCH (10:23)
[2019-02-01] MEDS: hydrOXYzine PAMOATE 50 MG CAPSULE (FP) PO PRN ×3 (10:24→21:54)
[2019-02-01] MEDS: NICOTINE 21 MG/24 HOURS TOPICAL PATCH TD SCH (10:25)
[2019-02-01] MEDS: NICOTINE POLACRILEX 4 MG GUM BUC PRN ×3 (10:25→18:09)
[2019-02-01] MEDS: THIAMINE HCL 100 MG TABLET (FP) PO SCH (21:54)
[2019-02-01] MEDS: MELATONIN 5 MG TABLETS PO PRN (21:54)
[2019-02-01] MEDS: QUEtiapine FUMARATE 50 MG TABLET PO SCH (21:55)
[2019-02-01] MEDS: IBUPROFEN 400 MG TABLET (FP) PO PRN (21:55)
[2019-02-01] MEDS: SUVOREXANT 10 MG TABLET PO PRN (21:55)
[2019-02-02] MEDS ORDERED: METHADONE HCL 40 MG DISPERSABLE TABLET ONE (05:22)
[2019-02-02] MEDS ORDERED: METHADONE HCL 10 MG TABLET ONE (05:22)
[2019-02-02] MEDS: GABAPENTIN 400 MG CAPSULE (FP) PO SCH ×3 (06:28→21:06)
[2019-02-02] MEDS: FAMOTIDINE 10 MG TABLET PO SCH ×2 (06:28→21:06)
[2019-02-02] MEDS: METHADONE 120 MG, METHADONE 30 MG PO SCH (06:28)
[2019-02-02] MEDS: ASPIRIN 81 MG CHEWABLE TABLETS PO SCH (10:29)
[2019-02-02] MEDS: PRENATAL VITAMINS W/ FOLIC ACID TABLET (FP) PO SCH (10:29)
[2019-02-02] MEDS: NICOTINE 21 MG/24 HOURS TOPICAL PATCH TD SCH (10:29)
[2019-02-02] MEDS: NICOTINE POLACRILEX 4 MG GUM BUC PRN ×2 (11:09→17:56)
[2019-02-02] MEDS: hydrOXYzine PAMOATE 50 MG CAPSULE (FP) PO PRN ×2 (13:59→17:56)
[2019-02-02] MEDS: SUVOREXANT 10 MG TABLET PO PRN (21:05)
[2019-02-02] MEDS: IBUPROFEN 400 MG TABLET (FP) PO PRN (21:06)
[2019-02-02] MEDS: QUEtiapine FUMARATE 50 MG TABLET PO SCH (21:06)
[2019-02-02] MEDS: MELATONIN 5 MG TABLETS PO PRN (21:07)
[2019-02-02] MEDS: THIAMINE HCL 100 MG TABLET (FP) PO SCH (21:57)
[2019-02-03] MEDS ORDERED: METHADONE HCL 10 MG TABLET ONE (05:57)
[2019-02-03] MEDS ORDERED: METHADONE HCL 40 MG DISPERSABLE TABLET ONE (05:57)
[2019-02-03] MEDS: METHADONE 120 MG, METHADONE 30 MG PO SCH (06:22)
[2019-02-03] MEDS: FAMOTIDINE 10 MG TABLET PO SCH ×2 (06:23→21:40)
[2019-02-03] MEDS: GABAPENTIN 400 MG CAPSULE (FP) PO SCH ×3 (06:23→21:10)
[2019-02-03] MEDS: ASPIRIN 81 MG CHEWABLE TABLETS PO SCH (09:46)
[2019-02-03] MEDS: NICOTINE 21 MG/24 HOURS TOPICAL PATCH TD SCH (09:46)
[2019-02-03] MEDS: PRENATAL VITAMINS W/ FOLIC ACID TABLET (FP) PO SCH (09:46)
[2019-02-03] MEDS: hydrOXYzine PAMOATE 50 MG CAPSULE (FP) PO PRN ×2 (09:47→21:11)
[2019-02-03] MEDS: THIAMINE HCL 100 MG TABLET (FP) PO SCH (21:10)
[2019-02-03] MEDS: MELATONIN 5 MG TABLETS PO PRN (21:10)
[2019-02-03] MEDS: QUEtiapine FUMARATE 50 MG TABLET PO SCH (21:10)
[2019-02-03] MEDS: SUVOREXANT 10 MG TABLET PO PRN (21:11)
[2019-02-03] MEDS ORDERED: PT OWN MED DRAWER 7, Y5N ONE (21:13)
[2019-02-04] MEDS ORDERED: METHADONE HCL 10 MG TABLET ONE (05:56)
[2019-02-04] MEDS ORDERED: METHADONE HCL 40 MG DISPERSABLE TABLET ONE (05:56)
[2019-02-04] MEDS: FAMOTIDINE 10 MG TABLET PO SCH ×2 (06:12→21:40)
[2019-02-04] MEDS: METHADONE 120 MG, METHADONE 30 MG PO SCH (06:12)
[2019-02-04] MEDS: GABAPENTIN 400 MG CAPSULE (FP) PO SCH ×3 (06:12→21:40)
[2019-02-04] MEDS: ASPIRIN 81 MG CHEWABLE TABLETS PO SCH (09:59)
[2019-02-04] MEDS: NICOTINE 21 MG/24 HOURS TOPICAL PATCH TD SCH (09:59)
[2019-02-04] MEDS: NICOTINE POLACRILEX 4 MG GUM BUC PRN (09:59)
[2019-02-04] MEDS: hydrOXYzine PAMOATE 50 MG CAPSULE (FP) PO PRN ×2 (09:59→21:41)
[2019-02-04] MEDS: PRENATAL VITAMINS W/ FOLIC ACID TABLET (FP) PO SCH (09:59)
--- NOTE | 2019-02-04 12:16 | PN ---
[facility] Progress Note Note: Patient reports not responding to Belsomra 10 mg/hs. Will increase Belsomra dosage to 15 mg/hs
[2019-02-04] MEDS: THIAMINE HCL 100 MG TABLET (FP) PO SCH (21:40)
[2019-02-04] MEDS: MELATONIN 5 MG TABLETS PO PRN (21:40)
[2019-02-04] MEDS: QUEtiapine FUMARATE 50 MG TABLET PO SCH (21:40)
[2019-02-04] MEDS: SUVOREXANT 10 MG TABLET PO PRN (21:41)
[2019-02-04] MEDS ORDERED: SUVOREXANT 5 MG TABLET PO PRN (22:00)
[2019-02-04] MEDS ORDERED: SUVOREXANT 10 MG TABLET PO PRN (22:00)
[2019-02-05] MEDS ORDERED: METHADONE HCL 10 MG TABLET ONE (05:21)
[2019-02-05] MEDS ORDERED: METHADONE HCL 40 MG DISPERSABLE TABLET ONE (05:21)
[2019-02-05] MEDS: GABAPENTIN 400 MG CAPSULE (FP) PO SCH ×3 (06:01→21:16)
[2019-02-05] MEDS: METHADONE 120 MG, METHADONE 30 MG PO SCH (06:01)
[2019-02-05] MEDS: FAMOTIDINE 10 MG TABLET PO SCH ×2 (06:02→21:18)
[2019-02-05] MEDS: ASPIRIN 81 MG CHEWABLE TABLETS PO SCH (09:42)
[2019-02-05] MEDS: NICOTINE 21 MG/24 HOURS TOPICAL PATCH TD SCH (09:42)
[2019-02-05] MEDS: hydrOXYzine PAMOATE 50 MG CAPSULE (FP) PO PRN ×3 (09:42→21:19)
[2019-02-05] MEDS: PRENATAL VITAMINS W/ FOLIC ACID TABLET (FP) PO SCH (09:42)
[2019-02-05] MEDS: NICOTINE POLACRILEX 4 MG GUM BUC PRN (09:43)
[2019-02-05] MEDS: ACETAMINOPHEN 325 MG TABLET (FP) PO PRN (17:40)
[2019-02-05] MEDS: QUEtiapine FUMARATE 50 MG TABLET PO SCH (21:16)
[2019-02-05] MEDS: THIAMINE HCL 100 MG TABLET (FP) PO SCH (21:17)
[2019-02-05] MEDS: MELATONIN 5 MG TABLETS PO PRN (21:18)
[2019-02-06] MEDS ORDERED: METHADONE HCL 40 MG DISPERSABLE TABLET ONE (05:24)
[2019-02-06] MEDS ORDERED: METHADONE HCL 10 MG TABLET ONE (05:24)
[2019-02-06] MEDS: FAMOTIDINE 10 MG TABLET PO SCH ×2 (05:39→21:10)
[2019-02-06] MEDS: GABAPENTIN 400 MG CAPSULE (FP) PO SCH ×3 (05:39→21:09)
[2019-02-06] MEDS: METHADONE 120 MG, METHADONE 30 MG PO SCH (05:39)
[2019-02-06] MEDS: PRENATAL VITAMINS W/ FOLIC ACID TABLET (FP) PO SCH (09:45)
[2019-02-06] MEDS: hydrOXYzine PAMOATE 50 MG CAPSULE (FP) PO PRN ×2 (09:45→16:39)
[2019-02-06] MEDS: ASPIRIN 81 MG CHEWABLE TABLETS PO SCH (09:45)
[2019-02-06] MEDS: NICOTINE 21 MG/24 HOURS TOPICAL PATCH TD SCH (09:46)
[2019-02-06] MEDS: NICOTINE POLACRILEX 4 MG GUM BUC PRN (09:46)
[2019-02-06] MEDS: IBUPROFEN 400 MG TABLET (FP) PO PRN ×2 (09:46→16:40)
[2019-02-06] MEDS: MELATONIN 5 MG TABLETS PO PRN (21:10)
[2019-02-06] MEDS: THIAMINE HCL 100 MG TABLET (FP) PO SCH (21:10)
[2019-02-06] MEDS: QUEtiapine FUMARATE 50 MG TABLET PO SCH (21:10)
[2019-02-06] MEDS: SUVOREXANT 15 MG TABLET PO PRN (22:25)
[2019-02-07] MEDS ORDERED: METHADONE HCL 10 MG TABLET ONE (05:25)
[2019-02-07] MEDS ORDERED: METHADONE HCL 40 MG DISPERSABLE TABLET ONE (05:25)
[2019-02-07] MEDS: FAMOTIDINE 10 MG TABLET PO SCH ×2 (06:00→22:24)
[2019-02-07] MEDS: METHADONE 120 MG, METHADONE 30 MG PO SCH (06:00)
[2019-02-07] MEDS: GABAPENTIN 400 MG CAPSULE (FP) PO SCH ×3 (06:00→22:22)
[2019-02-07] MEDS: ASPIRIN 81 MG CHEWABLE TABLETS PO SCH (09:00)
[2019-02-07] MEDS: NICOTINE 21 MG/24 HOURS TOPICAL PATCH TD SCH (09:01)
[2019-02-07] MEDS: PRENATAL VITAMINS W/ FOLIC ACID TABLET (FP) PO SCH (09:01)
[2019-02-07] MEDS: SUVOREXANT 15 MG TABLET PO PRN (22:22)
[2019-02-07] MEDS: THIAMINE HCL 100 MG TABLET (FP) PO SCH (22:22)
[2019-02-07] MEDS: hydrOXYzine PAMOATE 50 MG CAPSULE (FP) PO PRN (22:22)
[2019-02-07] MEDS: QUEtiapine FUMARATE 50 MG TABLET PO SCH (22:23)
[2019-02-08] MEDS ORDERED: METHADONE HCL 40 MG DISPERSABLE TABLET ONE (05:51)
[2019-02-08] MEDS ORDERED: METHADONE HCL 10 MG TABLET ONE (05:51)
[2019-02-08] MEDS: GABAPENTIN 400 MG CAPSULE (FP) PO SCH ×3 (06:12→21:13)
[2019-02-08] MEDS: METHADONE 120 MG, METHADONE 30 MG PO SCH (06:12)
[2019-02-08] MEDS: FAMOTIDINE 10 MG TABLET PO SCH ×2 (06:12→21:13)
[2019-02-08 06:38] VITALS: TEMP 97.5
[2019-02-08] MEDS: PRENATAL VITAMINS W/ FOLIC ACID TABLET (FP) PO SCH (10:00)
[2019-02-08] MEDS: hydrOXYzine PAMOATE 50 MG CAPSULE (FP) PO PRN ×2 (10:00→21:13)
[2019-02-08] MEDS: ASPIRIN 81 MG CHEWABLE TABLETS PO SCH (10:01)
[2019-02-08] MEDS: NICOTINE POLACRILEX 4 MG GUM BUC PRN (10:01)
[2019-02-08] MEDS: NICOTINE 21 MG/24 HOURS TOPICAL PATCH TD SCH (10:01)
--- NOTE | 2019-02-08 12:13 | PN ---
S Progress Note Note: Psychiatric nurse practitioner note: Patient scheduled for discharge tomorrow (02/09/19). A 30 day prescription of Wellbutrin 150mg XL + Gabapentin 800mg TID + Seroquel 100mg was electronically sent to [facility], [address] [place] [address].
--- NOTE | 2019-02-08 14:10 | PN ---
[facility] Progress Note (SOAP) Subjective: patient to be discharged tomorrow. PMHx: 48 y.o. man with an extensive history of benzodiazepine, alcohol and cocaine dependence. He has had multiple admissions with the last being from 12/20/18 to 12/24/18. His last rehab admission was from 10/18/18 to 10/31/18. Longest period of drug abstinence has been 1 month. He currently on enrolled at [facility]'s M[facility]. He is also a of [place] conflicts. Hospital Course: Patient attended groups, had 1:1 meeting with his counselor and was adherent to his medication regimen and treatment plan Objective: P/E General: no apparent distres HEENTM: normocephalic, PERRLA Neck: supple Lungs: clear Heart: s1 s2 ABD: soft, non-tender, +BS MSK: full weight bearing, steady gait, full ROM Neuro: CN 2-12 intact, no neurological deficits noted. 02/08/19 14:14 Vital Signs Period Temp Pulse Resp BP Sys/Duque Pulse Ox Last 24 Hr 97.5 F 93 18-18 107/67 Assessment: Medically stable for discharge MMTP ETOH Use Benzo us Heroin use 02/08/19 14:16 02/08/19 14:16 02/08/19 14:17 Plan: Prescriptions sent to patient's pharmacy. Patient will be returning to his MMTP at [facility]. Discharge order placed.
[2019-02-08] MEDS: ACETAMINOPHEN 325 MG TABLET (FP) PO PRN (16:03)
[2019-02-08] MEDS: QUEtiapine FUMARATE 50 MG TABLET PO SCH (21:13)
[2019-02-08] MEDS: THIAMINE HCL 100 MG TABLET (FP) PO SCH (21:13)
[2019-02-08] MEDS: MELATONIN 5 MG TABLETS PO PRN (21:13)
[2019-02-08] MEDS: SUVOREXANT 15 MG TABLET PO PRN (21:15)
[2019-02-09] MEDS ORDERED: METHADONE HCL 10 MG TABLET ONE (05:49)
[2019-02-09] MEDS ORDERED: METHADONE HCL 40 MG DISPERSABLE TABLET ONE (05:49)
[2019-02-09] MEDS ORDERED: METHADONE 120 MG, METHADONE 30 MG PO SCH (06:00)
[2019-02-09] MEDS: GABAPENTIN 400 MG CAPSULE (FP) PO SCH (06:09)
[2019-02-09] MEDS: FAMOTIDINE 10 MG TABLET PO SCH (06:09)
[2019-02-09 06:49] VITALS: BP 90/77; PULSE 95
--- NOTE | 2019-02-09 09:48 | DS ---
[facility] Rehab Discharge Summary - [facility] Rehab Discharge Summary Admission Date: 01/26/19 Discharge Date: 02/09/19 - History Present History: Alcohol dependence, Cocaine dependence, Sedative dependence - Discharge Physical Exam Vital Signs: Vital Signs Temperature 97.5 F L 02/09/19 06:48 Pulse Rate 95 H 02/09/19 06:48 Respiratory Rate 18 02/09/19 06:48 Blood Pressure 90/77 02/09/19 06:48 O2 Sat by Pulse Oximetry (%) Pertinent Admission Physical Exam Findings: Patient left prior to BANK RUNNER evaluation this morning stating " I saw the provider yesterday and everything was done. I have to go now". - Treatment Discharge Condition: Discharge condition good - Medication Discharge Medications: Ambulatory Orders Bupropion HCl [Wellbutrin Xl -] 150 mg PO DAILY 14 Days #30 tab.sr.24h 10/30/18 Quetiapine Fumarate [Seroquel -] 100 mg PO HS #14 tablet 10/30/18 Aspirin [ASA -] 81 mg PO DAILY #30 tab.chew 02/08/19 Bupropion HCl [Wellbutrin Xl -] 150 mg PO DAILY #30 tab.sr.24h 02/08/19 Gabapentin 800 mg PO TID #90 tablet 02/08/19 Gabapentin [Neurontin -] 800 mg PO TID #42 capsule 02/08/19 Quetiapine Fumarate [Seroquel -] 100 mg PO HS #30 tablet 02/08/19 - Medication-Assisted Treatment (MAT) Medication-Assisted Treatment (MAT): Yes MAT Follow-up Referral: Patient is client at [facility]. - Discharge Instructions Diet, activity, other medical instructions: Diet: reg as avni Activity: as avni Other medical instructions: follow up with PCP as recommended - AMA Did Patient Leave Against Medical Advice: No
== END 2019-02-09 08:50 | disposition home or self-care (01) | DRG 772 ==
LOC: YASAS 18:48 → Y3W 18:49
PROVIDERS: ADMIT Neuromusculoskeletal Medicine & OMM; ATTEND Neuromusculoskeletal Medicine & OMM
PROC: HZ42ZZZ Group Counseling for Substance Abuse Treatment, Cognitive-Behavioral (ICD-10-PCS; principal; 2019-01-26)
DX: F10.20 Alcohol dependence, uncomplicated (principal); F11.20 Opioid dependence, uncomplicated; F13.20 Sedative, hypnotic or anxiolytic dependence, uncomplicated; F14.20 Cocaine dependence, uncomplicated
CPT/HCPCS: Q0162

== ENCOUNTER 2019-05-23 14:47 | Inpatient (IN) | payer OTHER ==
--- NOTE | 2019-05-23 15:22 | BHS.RME ---
Substance Use & Tx History - Substance Use History Alcohol Substance amount: beer, 2 x 16 ounce Frequency of use: Less than 3 times per week Substance route: Oral Date of Last Use: 05/23/19 Benzodiazepines Substance amount: Xanax 5-8 sticks per day, Klonopin 2mg tabs up to 6-8 per day Frequency of use: Daily Substance route: Oral Date of Last Use: 05/23/19 Physical/Psych/Mental Status - Behavior General Behavior: Decreased activity - Cooperativeness Cooperativeness: Cooperative - Thinking Thought Processes: Tight Thought content: Future oriented - Physical Health Problems Is patient presently having any pain?: No Does patient presently have any injuries (include location): No Does patient currently have a fever: No CIWA Nausea/Vomitin-No Nausea/No Vomiting Muscle Tremors: 4-Moderate,w/Arms Extend Anxiety: 3 Agitation: 3 Paroxysmal Sweats: No Perspiration Orientation: 0-Oriented Tacttile Disturbances: 0-None Auditory Disturbances: 1-Very Mild Visual Disturbances: 1-Very Mild Sensitivity Headache: 0-None Present CIWA-Ar Total Score: 12
--- NOTE | 2019-05-23 19:27 | HP ---
CIWA Score Nausea/Vomitin-No Nausea/No Vomiting Muscle Tremors: 4-Moderate,w/Arms Extend Anxiety: 3 Agitation: 3 Paroxysmal Sweats: No Perspiration Orientation: 0-Oriented Tacttile Disturbances: 0-None Auditory Disturbances: 0-None Visual Disturbances: 2-Mild Sensitivity Headache: 3-Moderate CIWA-Ar Total Score: 15 - Admission Criteria OASAS Guidelines: Admission for Medically Managed Detox: Requires at least one of the followin. CIWA greater than 12 2. Seizures within the past 24 hours 3. Delirium tremens within the past 24 hours 4. Hallucinations within the past 24 hours 5. Acute intervention needed for co occurring medical disorder 6. Acute intervention needed for co occurring psychiatric disorder 7. Severe withdrawal that cannot be handled at a lower level of care (continued vomiting, continued diarrhea, abnormal vital signs) requiring intravenous medication and/or fluids 8. Admitting History and Physical - Past Surgical History Past Surgical History: Yes: None - Smoking History Smoking history: Current every day smoker Have you smoked in the past 12 months: Yes Aproximately how many cigarettes per day: 7 - Alcohol/Substance Use Hx Alcohol Use: Yes - Social History ADL: Independent Occupation: [id number] History of Recent Travel: No Admission ROS [facility] Allergies/Adverse Reactions: Allergies Allergy/AdvReac Type Severity Reaction Status Date / Time No Known Allergies Allergy Verified 05/23/19 18:59 History of Present Illness: This report was requested by: Felecia Ricci | Reference #: [id number] Others' Prescriptions Patient Name: Matthew Bee Date: 1970 Address: [address] [place] [address] Sex: Male Rx Written Rx Dispensed Drug Quantity Days Supply Prescriber Name Payment Method Dispenser clonazepam 1 mg tablet 28 14 Edy Patricio [facility] clonazepam 1 mg tablet 28 14 Edy Patricio [facility] zolpidem tartrate 10 mg tablet 30 30 Desirae Montenegro MD [employer] [facility] zolpidem tartrate 10 mg tablet 7 7 Ivone Barros [employer] [facility] zolpidem tartrate 10 mg tablet 7 7 Papo , Shoshannah A [employer] [facility] zolpidem tartrate 10 mg tablet 7 7 Papo , Shoshannah A [employer] [facility] zolpidem tartrate 10 mg tablet 7 7 Papo , Shoshannah A [employer] [facility] Patient Name: Matthew Bee Date: 1970 Address: [address] [place] [id number] Sex: Male Rx Written Rx Dispensed Drug Quantity Days Supply Prescriber Name Payment Method Dispenser zolpidem tartrate 10 mg tablet 7 7 Papo , Shoshnevah A [facility] zolpidem tartrate 10 mg tablet 7 7 Papo , Shoshannah A [facility] zolpidem tartrate 10 mg tablet 7 7 Papo , Shoshannah A [facility] zolpidem tartrate 10 mg tablet 7 7 Papo , Shoshannah A [facility] zolpidem tartrate 10 mg tablet 7 7 Papo , Shoshannah A [employer] [facility] zolpidem tartrate 10 mg tablet 7 7 Papo , Shoshannah A [employer] [facility] zolpidem tartrate 10 mg tablet 7 7 Papo , Shoshannah A [employer] [facility] Patient Name: Matthew Bee Date: 1970 Address: [address] [place] [id number] Sex: Male Rx Written Rx Dispensed Drug Quantity Days Supply Prescriber Name Payment Method Dispenser zolpidem tartrate 10 mg tablet 7 7 Papo , Shoshannah A [employer] [facility] zolpidem tartrate 10 mg tablet 7 7 Papo , Shoshannah A [employer] [facility] zolpidem tartrate 10 mg tablet 7 7 Papo , Lindah A [employer] [facility] zolpidem tartrate 10 mg tablet 7 7 Papo , Maria Victoriashnevah A [employer] [facility] zolpidem tartrate 10 mg tablet 7 7 Papo , Lindah A [employer] [facility] * - Drugs marked with an asterisk are compound drugs. If the compound drug is made up of more than one controlled substance, then each controlled substance will be a separate row in the table. pt here requesting detox from etoh use , claims 2 x large beers abd 1/2 pint - 1 pint vodka/day since 5 months ago after of his maternal GM . reports tremors and sweating if not drinking , + w/d seizures, latest " a few months ago " cocaine - 1/2 gr/ month via inhalation heroin - occasional , used 1 day ago states first time in 3.5 years benzo - rx as above /. mmttp-120 mg , latest today Exam Limitations: Clinical Condition - Review of Systems Constitutional: See HPI EENT: reports: No Symptoms Reported (denies dysphagia) Respiratory: reports: No Symptoms reported Cardiac: reports: No Symptoms Reported GI: reports: Diarrhea, Nausea, Poor Appetite : reports: No Symptoms Reported Musculoskeletal: reports: No Symptoms Reported Integumentary: reports: No Symptoms Reported Neuro: reports: Headache, Tremors Endocrine: reports: No Symptoms Reported Psychiatric: reports: Orientated x3, Agitated, Anxious Patient History - Patient Medical History Hx Anemia: No Hx Asthma: No Hx Chronic Obstructive Pulmonary Disease (COPD): No Hx Cancer: No Hx Cardiac Disorders: No Hx Congestive Heart Failure: No Hx Hypertension: No Hx Hypercholesterolemia: No Hx Pacemaker: No HX Cerebrovascular Accident: Yes (01/2018) Hx Seizures: Yes (Benzo withdrawal induced-09/2018) Hx Dementia: No Hx Diabetes: No Hx Gastrointestinal Disorders: No Hx Liver Disease: No Hx Genitourinary Disorders: No Hx Sexually Transmitted Disorders: No Hx Renal Disease (ESRD): No Hx Thyroid Disease: No Hx Human Immunodeficiency Virus (HIV): No (05/06) Hx Hepatitis C: Yes (Treated with Interferon) Hx Depression: Yes Hx Suicide Attempt: No Hx Bipolar Disorder: Yes Hx Schizophrenia: No - Patient Surgical History Past Surgical History: No Hx Neurologic Surgery: No Hx Cataract Extraction: No Hx Cardiac Surgery: No Hx Lung Surgery: No Hx Breast Surgery: No Hx Breast Biopsy: No Hx Abdominal Surgery: No Hx Appendectomy: No Hx Cholecystectomy: No Hx Genitourinary Surgery: No Hx Section: No Hx Orthopedic Surgery: No Other Surgical History: incision and drainage of infected right hand in 1994 Anesthesia Reaction: No - PPD History Date: 04/17/18 Results: 0 mm - Smoking Cessation Smoking history: Current every day smoker Have you smoked in the past 12 months: Yes Aproximately how many cigarettes per day: 7 Cigars Per Day: 0 Hx Chewing Tobacco Use: No Initiated information on smoking cessation: Yes 'Breaking Loose' booklet given: 05/23/19 - Substances abused Alcohol Substance route: Oral Frequency: Daily Amount used: 3-4 CANS OF BEER, 1/2 PINT VODKA Age of first use: 14 Date of last use: 05/23/19 Benzodiazepine (Klonopin) Substance route: Oral Frequency: 1-2 times per week Amount used: 6 MG Age of first use: 37 Date of last use: 05/21/19 Alprazolam (Xanax) Substance route: Oral Frequency: Daily Amount used: 1-2 TABS Age of first use: 37 Date of last use: 05/19/19 Admission Physical Exam [facility] - Physical General Appearance: Yes: Moderate Distress, Tremorous, Irritable, Anxious HEENTM: Yes: EOMI, Hearing grossly Normal, Normocephalic, Normal Voice Respiratory: Yes: Chest Non-Tender, Lungs Clear, Normal Breath Sounds, No Respiratory Distress, No Accessory Muscle Use Neck: Yes: No masses,lesions,Nodules, Trachea in good position Cardiology: Yes: Regular Rhythm, Regular Rate, S1, S2 Abdominal: Yes: Normal Bowel Sounds, Non Tender, Soft Back: Yes: Normal Inspection Musculoskeletal: Yes: full range of Motion, Gait Steady Extremities: Yes: Normal Range of Motion, Non-Tender, Tremors Neurological: Yes: Fully Oriented, Alert, Motor Strength 5/5, Depressed Affect Integumentary: Yes: Warm, Other (tattoos damir UE) - Diagnostic (1) Alcohol dependence with uncomplicated withdrawal Current Visit: Yes Status: Acute (2) Cocaine dependence, uncomplicated Current Visit: Yes Status: Chronic (3) Nicotine dependence Current Visit: Yes Status: Chronic Qualifiers: Nicotine product type: cigarettes (4) Opioid dependence on agonist therapy Current Visit: Yes Status: Chronic Breathalyzer - Breathalyzer Breathalyzer: 0 Urine Drug Screen - Test Device Lot number: [id number] Expiration date: 02/17/21 - Control Is test valid?: Yes - Results Drug screen NEGATIVE: No Urine drug screen results: DESHAWN-Cocaine, MOP-Opiates, MTD-Methadone, BZO- Benzodiazepines Inpatient Rehab Admission - Rehab Decision to Admit Inpatient rehab admission?: No
[2019-05-23] MEDS ORDERED: ONDANSETRON *ODT* 4 MG TABLET SL ONE (19:30)
[2019-05-23] MEDS ORDERED: MAGNESIUM HYDROX 2400MG/30ML ORAL SUSPENSION 30 ML CUP PO PRN (19:30)
[2019-05-23] MEDS ORDERED: ACETAMINOPHEN 325 MG TABLET (FP) PO PRN ×2 (19:30)
[2019-05-23] MEDS ORDERED: BISMUTH SUBSALICYLATE 524 MG/30 ML UD PO PRN (19:30)
[2019-05-23] MEDS ORDERED: NICOTINE POLACRILEX 2 MG GUM BUC PRN (19:30)
[2019-05-23] MEDS ORDERED: IBUPROFEN 400 MG TABLET (FP) PO PRN (19:30)
[2019-05-23] MEDS ORDERED: QUEtiapine FUMARATE 100 MG TABLET (FP) PO PRN (19:30)
[2019-05-23] MEDS ORDERED: MAGNESIUM CITRATE 300 ML BOTTLE PO PRN (19:30)
[2019-05-23] MEDS ORDERED: MENTHOL/PHENOL 1 EACH UD MM PRN (19:30)
[2019-05-23] MEDS ORDERED: chlordiazePOXIDE HCL 25 MG CAPSULE PO ONE (19:32)
[2019-05-23 20:44] VITALS: BMI 34.5
[2019-05-23] MEDS: hydrOXYzine PAMOATE 25 MG CAPSULE (FP) PO SCH (22:08)
[2019-05-23] MEDS: MELATONIN 5 MG TABLETS PO SCH (22:08)
[2019-05-23] MEDS: chlordiazePOXIDE HCL 25 MG CAPSULE PO SCH (22:08)
[2019-05-23] MEDS: THIAMINE HCL 100 MG TABLET (FP) PO SCH (22:09)
[2019-05-24] MEDS: hydrOXYzine PAMOATE 25 MG CAPSULE (FP) PO SCH ×5 (07:42→22:15)
[2019-05-24] MEDS: chlordiazePOXIDE HCL 25 MG CAPSULE PO SCH ×4 (07:42→22:11)
--- NOTE | 2019-05-24 09:23 | PN ---
[facility] CIWA - CIWA Score Nausea/Vomitin-Mild Nausea/No Vomiting Muscle Tremors: 2 Anxiety: 2 Agitation: 2 Paroxysmal Sweats: No Perspiration Orientation: 0-Oriented Tacttile Disturbances: 1-Very Mild Itch/Numbness Auditory Disturbances: 0-None Visual Disturbances: 0-None Headache: 2-Mild CIWA-Ar Total Score: 10 S Progress Note (SOAP) Subjective: alert,irritable,anxious,interrupted sleep,tremor,pain in the body Objective: 05/24/19 09:21 Vital Signs Temperature 98.1 F 05/24/19 07:32 Pulse Rate 73 05/24/19 07:32 Respiratory Rate 18 05/24/19 07:32 Blood Pressure 112/59 L 05/24/19 07:32 O2 Sat by Pulse Oximetry (%) Assessment: 05/24/19 09:22 withdrawal symptom Plan: continue detox librium regimen,methadone maintenance 120 mgs po daily
[2019-05-24] MEDS ORDERED: METHADONE HCL 40 MG DISPERSABLE TABLET PO ONE (09:30)
[2019-05-24] MEDS: PRENATAL VITAMINS W/ FOLIC ACID TABLET (FP) PO SCH (10:44)
[2019-05-24] MEDS: ASPIRIN 81 MG CHEWABLE TABLETS PO SCH (10:44)
[2019-05-24 13:03] LABS: HEMATOCRIT 34.8 % (35.4-49); HEMOGLOBIN 11.4 GM/dL (11.7-16.9); MCH 30.1 pg (25.7-33.7); MCHC 32.8 g/dl (32.0-35.9); MEAN CELL VOLUME 91.8 fl (80-96); MEAN PLT VOLUME 8.4 fl (7.5-11.1); PLATELET COUNT 120 K/MM3 (134-434); RDW 15.5 % (11.9-15.9); WHITE BLOOD COUNT 4.8 K/mm3 (4.0-10.0)
[2019-05-24 13:27] LABS: BILIRUBIN,TOTAL 0.3 mg/dL (0.2-1); CALCIUM 8.2 mg/dL (8.5-10.1); CREATININE 0.9 mg/dL (0.55-1.3); POTASSIUM 3.5 mmol/L (3.5-5.1); TOT PROT 5.7 g/dl (6.4-8.2)
--- NOTE | 2019-05-24 15:45 | CONSULT ---
[facility] Psychiatric Consult - Data Date of interview: 05/24/19 Admission source: [facility] Identifying data: Patient is a 48 year old single male, father of one, unemployed, domiciled, and is supported by [employer] benefits. This is one of multiple admissions for patient. Patient admitted to for alcohol and benzodiazepine dependence. Substance Abuse History: Smoking Cessation. Smoking history: Current every day smoker. Have you smoked in the past 12 months: Yes. Aproximately how many cigarettes per day: 7. Cigars Per Day: 0. Hx Chewing Tobacco Use: No. Initiated information on smoking cessation: Yes. 'Breaking Loose' booklet given: 05/23/19. - Substances abused. Alcohol. Substance route: Oral. Frequency: Daily. Amount used: 3-4 CANS OF BEER, 1/2 PINT VODKA. Age of first use: 14. Date of last use: 05/23/19. Benzodiazepine (Klonopin). Substance route: Oral. Frequency: 1-2 times per week. Amount used: 6 MG. Age of first use: 37. Date of last use: 05/21/19. Alprazolam (Xanax). Substance route: Oral. Frequency: Daily. Amount used: 1-2 TABS. Age of first use: 37. Date of last use: 05/19/19 Medical History: Significant for herniated disc, history of treatment for hepatitis C, sedative-related seizure and surgery for I & D infection of right hand. Psychiatric History: Patient reports history of multiple psychiatric hospitalizations ([facility] in [place], [place], [facility], [facility], [facility]) most recently one month ago at [facility] due to feeling paranoid and having constant flashbacks. Diagnosis of Bipolar disorder +PTSD. Mr. Bee states that he receives outpatient psychiatric from Dr. Barros and claims to be prescribed Seroquel 100mg HS + Depakote 1000mg + Prazosin 2mg HS +Buspar 10mg TID (will contact pharmacy for verifications). History of one suicide attempt by overdose in 2006. At present patient is reporting difficulty sleeping. Physical/Sexual Abuse/Trauma History: denies. Mental Status Exam - Mental Status Exam Alert and Oriented to: Time, Place, Person Cognitive Function: Good Patient Appearance: Well Groomed Mood: Withdrawn Affect: Mood Congruent Patient Behavior: Fatigued, Cooperative Speech Pattern: Appropriate Voice Loudness: Moderately Soft/Quiet Thought Process: Goal Oriented Thought Disorder: Not Present Hallucinations: Denies Suicidal Ideation: Denies Homicidal Ideation: Denies Insight/Judgement: Poor Sleep: Fair Appetite: Fair Muscle strength/Tone: Normal Gait/Station: Normal Psychiatric Findings - Problem List ([place] 1, 2,3) (1) Alcohol dependence with uncomplicated withdrawal Current Visit: Yes Status: Acute (2) Cocaine dependence, uncomplicated Current Visit: Yes Status: Chronic (3) Nicotine dependence Current Visit: Yes Status: Chronic Qualifiers: Nicotine product type: cigarettes (4) Opioid dependence on agonist therapy Current Visit: Yes Status: Chronic (5) Substance-induced sleep disorder Current Visit: Yes Status: Acute - Initial Treatment Plan Initial Treatment Plan: Psychoeducation provided. Detoxification in progress. [facility] @ [phone]. As per pharmacy staff patient picked up the following prescription on 04/25/19 (30 day supply): Zyprexa 15mg HS + Tra zodone 50mg HS + Seroquel 50mg HS +Buspar 10mg TID + Depakote 1000mg ER + Prazosin 2mg HS + Gabapentin 800mg TID. After patient was informed of his medications patient stated to song writer , " All i take is seroquel + Depakote". 1) Will order Seroquel 100mg HS + Depakote 500mg ER. 2) Valproic acid level ordered for 05/25/19.
[2019-05-24] MEDS: THIAMINE HCL 100 MG TABLET (FP) PO SCH (22:11)
[2019-05-24] MEDS: QUEtiapine FUMARATE 100 MG TABLET (FP) PO SCH (22:12)
[2019-05-24] MEDS: DIVALPROEX NA *ER* EXTEND REL 500 MG TABLET.SA (FP) PO SCH (22:12)
[2019-05-24] MEDS: MELATONIN 5 MG TABLETS PO SCH (22:14)
[2019-05-25] MEDS: MAG HYDROX/AL HYDROX/SIMETH 30 ML UNIT-DOSE CUP PO PRN ×2 (02:47→19:26)
[2019-05-25] MEDS: METHADONE HCL 40 MG DISPERSABLE TABLET PO SCH (05:18)
[2019-05-25] MEDS: chlordiazePOXIDE HCL 25 MG CAPSULE PO SCH ×4 (05:19→22:04)
[2019-05-25] MEDS: hydrOXYzine PAMOATE 25 MG CAPSULE (FP) PO SCH ×5 (05:19→22:07)
[2019-05-25] MEDS: METHOCARBAMOL 500 MG TABLET PO PRN (05:21)
--- NOTE | 2019-05-25 09:44 | PN ---
S CIWA - CIWA Score Nausea/Vomitin-Mild Nausea/No Vomiting Muscle Tremors: 1-None Visible, but [place] Anxiety: 2 Agitation: 2 Paroxysmal Sweats: No Perspiration Orientation: 0-Oriented Tacttile Disturbances: 1-Very Mild Itch/Numbness Auditory Disturbances: 0-None Visual Disturbances: 0-None Headache: 2-Mild CIWA-Ar Total Score: 9 [facility] Progress Note (SOAP) Subjective: alert,irritable,anxious,interrupted sleep,tremor Objective: 05/25/19 09:40 Vital Signs Temperature 97.2 F L 05/25/19 06:18 Pulse Rate 65 05/25/19 06:18 Respiratory Rate 20 05/25/19 06:18 Blood Pressure 112/60 05/25/19 06:18 O2 Sat by Pulse Oximetry (%) Laboratory Last Values WBC 4.8 K/mm3 (4.0-10.0) 05/24/19 09:00 RBC 3.80 M/mm3 (4.00-5.60) L 05/24/19 09:00 Hgb 11.4 GM/dL (11.7-16.9) L 05/24/19 09:00 Hct 34.8 % (35.4-49) L 05/24/19 09:00 MCV 91.8 fl (80-96) 05/24/19 09:00 MCH 30.1 pg (25.7-33.7) 05/24/19 09:00 MCHC 32.8 g/dl (32.0-35.9) 05/24/19 09:00 RDW 15.5 % (11.9-15.9) 05/24/19 09:00 Plt Count 120 K/MM3 (134-434) L 05/24/19 09:00 MPV 8.4 fl (7.5-11.1) 05/24/19 09:00 Sodium 143 mmol/L (136-145) 05/24/19 09:00 Potassium 3.5 mmol/L (3.5-5.1) 05/24/19 09:00 Chloride 109 mmol/L (98-107) H 05/24/19 09:00 Carbon Dioxide 29 mmol/L (21-32) 05/24/19 09:00 Anion Gap 5 MMOL/L (8-16) L 05/24/19 09:00 BUN 16.0 mg/dL (7-18) 05/24/19 09:00 Creatinine 0.9 mg/dL (0.55-1.3) 05/24/19 09:00 Est GFR (CKD-EPI)AfAm 118.30 05/24/19 09:00 Est GFR (CKD-EPI)NonAf 102.07 05/24/19 09:00 Random Glucose 102 mg/dL (74-106) 05/24/19 09:00 Calcium 8.2 mg/dL (8.5-10.1) L 05/24/19 09:00 Total Bilirubin 0.3 mg/dL (0.2-1) 05/24/19 09:00 AST 57 U/L (15-37) H 05/24/19 09:00 ALT 58 U/L (13-61) 05/24/19 09:00 Alkaline Phosphatase 65 U/L (45-117) 05/24/19 09:00 Total Protein 5.7 g/dl (6.4-8.2) L 05/24/19 09:00 Albumin 3.0 g/dl (3.4-5.0) L 05/24/19 09:00 RPR Titer Nonreactive (NONREACTIVE) 05/24/19 09:00 Assessment: 05/25/19 09:41 withdrawal symptom,continue detox librium regimen,continue methadone maintenance 120 mgs po daily,znia grady was contracted by Daksha Mckinney ,on compliance issue and unit rule,and agree to comply sand continue treatment Plan: continue detox librium regimen and methadone maintenance 120 mgs po daily
[2019-05-25] MEDS: PRENATAL VITAMINS W/ FOLIC ACID TABLET (FP) PO SCH (10:12)
[2019-05-25] MEDS: ASPIRIN 81 MG CHEWABLE TABLETS PO SCH (10:13)
[2019-05-25] MEDS: chlordiazePOXIDE HCL 25 MG CAPSULE PO PRN ×2 (14:12→19:26)
--- NOTE | 2019-05-25 17:49 | PN ---
[facility] Progress Note Note: Psychiatric nurse practitioner note; Valproic acid level is 12.6. Level is nontherapeutic. Level of 12.6 is indicative of poor compliance to medications.
[2019-05-25] MEDS ORDERED: TRIMETHOBENZAMIDE HCL 200MG/2ML INJ IM ONE (21:30)
[2019-05-25] MEDS ORDERED: PROMETHAZINE HCL 25 MG TABLET PO PRN (21:32)
[2019-05-25] MEDS: DIVALPROEX NA *ER* EXTEND REL 500 MG TABLET.SA (FP) PO SCH (22:05)
[2019-05-25] MEDS: THIAMINE HCL 100 MG TABLET (FP) PO SCH (22:05)
[2019-05-25] MEDS: QUEtiapine FUMARATE 100 MG TABLET (FP) PO SCH (22:05)
[2019-05-25] MEDS: MELATONIN 5 MG TABLETS PO SCH (22:08)
[2019-05-26] MEDS: chlordiazePOXIDE HCL 10 MG CAPSULE PO PRN ×4 (02:42→21:06)
[2019-05-26] MEDS: LOPERAMIDE HCL 2 MG CAPSULE PO PRN (03:04)
[2019-05-26] MEDS: hydrOXYzine PAMOATE 25 MG CAPSULE (FP) PO SCH ×5 (05:44→22:24)
[2019-05-26] MEDS: METHADONE HCL 40 MG DISPERSABLE TABLET PO SCH (05:44)
[2019-05-26] MEDS: chlordiazePOXIDE HCL 10 MG CAPSULE PO SCH ×4 (05:44→22:24)
--- NOTE | 2019-05-26 10:14 | PN ---
[facility] CIWA - CIWA Score Nausea/Vomitin-Mild Nausea/No Vomiting Muscle Tremors: 2 Anxiety: 2 Agitation: 2 Paroxysmal Sweats: No Perspiration Orientation: 0-Oriented Tacttile Disturbances: 1-Very Mild Itch/Numbness Auditory Disturbances: 0-None Visual Disturbances: 0-None Headache: 1-Very Mild CIWA-Ar Total Score: 9 S Progress Note (SOAP) Subjective: alert,irritable,anxious,interrupted sleep,pain in the body Objective: 05/26/19 10:13 Vital Signs Temperature 97.3 F L 05/26/19 08:47 Pulse Rate 76 05/26/19 08:47 Respiratory Rate 18 05/26/19 08:47 Blood Pressure 96/66 05/26/19 08:47 O2 Sat by Pulse Oximetry (%) 05/26/19 10:13 Laboratory Last Values WBC 4.8 K/mm3 (4.0-10.0) 05/24/19 09:00 RBC 3.80 M/mm3 (4.00-5.60) L 05/24/19 09:00 Hgb 11.4 GM/dL (11.7-16.9) L 05/24/19 09:00 Hct 34.8 % (35.4-49) L 05/24/19 09:00 MCV 91.8 fl (80-96) 05/24/19 09:00 MCH 30.1 pg (25.7-33.7) 05/24/19 09:00 MCHC 32.8 g/dl (32.0-35.9) 05/24/19 09:00 RDW 15.5 % (11.9-15.9) 05/24/19 09:00 Plt Count 120 K/MM3 (134-434) L 05/24/19 09:00 MPV 8.4 fl (7.5-11.1) 05/24/19 09:00 Sodium 143 mmol/L (136-145) 05/24/19 09:00 Potassium 3.5 mmol/L (3.5-5.1) 05/24/19 09:00 Chloride 109 mmol/L (98-107) H 05/24/19 09:00 Carbon Dioxide 29 mmol/L (21-32) 05/24/19 09:00 Anion Gap 5 MMOL/L (8-16) L 05/24/19 09:00 BUN 16.0 mg/dL (7-18) 05/24/19 09:00 Creatinine 0.9 mg/dL (0.55-1.3) 05/24/19 09:00 Est GFR (CKD-EPI)AfAm 118.30 05/24/19 09:00 Est GFR (CKD-EPI)NonAf 102.07 05/24/19 09:00 Random Glucose 102 mg/dL (74-106) 05/24/19 09:00 Calcium 8.2 mg/dL (8.5-10.1) L 05/24/19 09:00 Total Bilirubin 0.3 mg/dL (0.2-1) 05/24/19 09:00 AST 57 U/L (15-37) H 05/24/19 09:00 ALT 58 U/L (13-61) 05/24/19 09:00 Alkaline Phosphatase 65 U/L (45-117) 05/24/19 09:00 Total Protein 5.7 g/dl (6.4-8.2) L 05/24/19 09:00 Albumin 3.0 g/dl (3.4-5.0) L 05/24/19 09:00 Valproic Acid 12.6 ug/mL (50-100) L 05/25/19 07:45 RPR Titer Nonreactive (NONREACTIVE) 05/24/19 09:00 Assessment: 05/26/19 10:13 withdrawal symptom Plan: continue detox librium regimen,encourage fluid,continue methadone maintenance 120 mgs po daily
[2019-05-26] MEDS: ASPIRIN 81 MG CHEWABLE TABLETS PO SCH (10:43)
[2019-05-26] MEDS: PRENATAL VITAMINS W/ FOLIC ACID TABLET (FP) PO SCH (10:43)
[2019-05-26] MEDS: QUEtiapine FUMARATE 100 MG TABLET (FP) PO SCH (22:24)
[2019-05-26] MEDS: DIVALPROEX NA *ER* EXTEND REL 500 MG TABLET.SA (FP) PO SCH (22:24)
[2019-05-26] MEDS: THIAMINE HCL 100 MG TABLET (FP) PO SCH (22:24)
[2019-05-26] MEDS: MELATONIN 5 MG TABLETS PO SCH (22:24)
[2019-05-27] MEDS: chlordiazePOXIDE HCL 10 MG CAPSULE PO SCH ×2 (06:11→17:06)
[2019-05-27] MEDS: hydrOXYzine PAMOATE 25 MG CAPSULE (FP) PO SCH ×5 (06:11→22:18)
[2019-05-27] MEDS: METHADONE HCL 40 MG DISPERSABLE TABLET PO SCH (06:11)
[2019-05-27] MEDS: MAG HYDROX/AL HYDROX/SIMETH 30 ML UNIT-DOSE CUP PO PRN ×2 (07:42→16:01)
[2019-05-27] MEDS: PRENATAL VITAMINS W/ FOLIC ACID TABLET (FP) PO SCH (09:43)
[2019-05-27] MEDS: ASPIRIN 81 MG CHEWABLE TABLETS PO SCH (09:43)
[2019-05-27] MEDS: METHOCARBAMOL 500 MG TABLET PO PRN (09:43)
[2019-05-27] MEDS ORDERED: ONDANSETRON *ODT* 4 MG TABLET SL PRN (10:45)
--- NOTE | 2019-05-27 11:27 | PN ---
S CIWA - CIWA Score Nausea/Vomitin-Mild Nausea/No Vomiting Muscle Tremors: 1-None Visible, but [place] Anxiety: 1-Mildly Anxious Agitation: 1-Slight > Activity Paroxysmal Sweats: No Perspiration Orientation: 0-Oriented Tacttile Disturbances: 0-None Auditory Disturbances: 0-None Visual Disturbances: 0-None Headache: 0-None Present CIWA-Ar Total Score: 4 BHS Progress Note (SOAP) Subjective: nausea heartburn Objective: 05/27/19 11:26 Vital Signs Temperature 97.7 F 05/27/19 08:40 Pulse Rate 95 H 05/27/19 08:40 Respiratory Rate 18 05/27/19 08:40 Blood Pressure 94/78 05/27/19 08:40 O2 Sat by Pulse Oximetry (%) aaox3 ambulating no acute distress Assessment: 05/27/19 11:27 withdrawals Plan: fredis carpenter prn protonix d/c in am
[2019-05-27] MEDS: PANTOPRAZOLE 40 MG TABLET PO SCH (11:38)
[2019-05-27] MEDS: LOPERAMIDE HCL 2 MG CAPSULE PO PRN (20:18)
[2019-05-27] MEDS: QUEtiapine FUMARATE 100 MG TABLET (FP) PO SCH (22:17)
[2019-05-27] MEDS: MELATONIN 5 MG TABLETS PO SCH (22:17)
[2019-05-27] MEDS: DIVALPROEX NA *ER* EXTEND REL 500 MG TABLET.SA (FP) PO SCH (22:17)
[2019-05-27] MEDS: THIAMINE HCL 100 MG TABLET (FP) PO SCH (22:18)
[2019-05-28] MEDS ORDERED: chlordiazePOXIDE HCL 10 MG CAPSULE PO ONE (05:00)
[2019-05-28] MEDS: METHADONE HCL 40 MG DISPERSABLE TABLET PO SCH (05:32)
[2019-05-28] MEDS: hydrOXYzine PAMOATE 25 MG CAPSULE (FP) PO SCH ×3 (05:33→13:34)
[2019-05-28] MEDS: LOPERAMIDE HCL 2 MG CAPSULE PO PRN (05:35)
[2019-05-28 06:54] VITALS: PULSE 80; TEMP 97.5
--- NOTE | 2019-05-28 08:44 | DS ---
[facility] Detox Discharge Summary Admission Date: 05/23/19 Discharge Date: 05/28/19 - History Present History: Alcohol Dependence, Cocaine Dependence, Sedative Dependence, MMTP - Physical Exam Results Vital Signs: Vital Signs Temperature 97.5 F L 05/28/19 05:20 Pulse Rate 80 05/28/19 05:20 Respiratory Rate 18 05/28/19 05:20 Blood Pressure 103/67 05/28/19 05:20 O2 Sat by Pulse Oximetry (%) Pertinent Admission Physical Exam Findings: Vital Signs Temperature 97.5 F L 05/28/19 05:20 Pulse Rate 80 05/28/19 05:20 Respiratory Rate 18 05/28/19 05:20 Blood Pressure 103/67 05/28/19 05:20 O2 Sat by Pulse Oximetry (%) Laboratory Tests 05/24/19 05/24/19 05/24/19 09:00 09:00 09:00 WBC 4.8 RBC 3.80 L Hgb 11.4 L Hct 34.8 L MCV 91.8 MCH 30.1 MCHC 32.8 RDW 15.5 Plt Count 120 L MPV 8.4 Sodium 143 Potassium 3.5 Chloride 109 H Carbon Dioxide 29 Anion Gap 5 L BUN 16.0 Creatinine 0.9 Est GFR (CKD-EPI)AfAm 118.30 Est GFR (CKD-EPI)NonAf 102.07 Random Glucose 102 Calcium 8.2 L Total Bilirubin 0.3 AST 57 H ALT 58 Alkaline Phosphatase 65 Total Protein 5.7 L Albumin 3.0 L Valproic Acid RPR Titer Nonreactive 05/25/19 07:45 WBC RBC Hgb Hct MCV MCH MCHC RDW Plt Count MPV Sodium Potassium Chloride Carbon Dioxide Anion Gap BUN Creatinine Est GFR (CKD-EPI)AfAm Est GFR (CKD-EPI)NonAf Random Glucose Calcium Total Bilirubin AST ALT Alkaline Phosphatase Total Protein Albumin Valproic Acid 12.6 L RPR Titer aaox3 ambula;;;;;;;; ;;.-+ - Treatment Hospital Course: Detox Protocol Followed, Detoxed Safely, Responded well, Discharged Condition Good, Rehab Referral Accepted - Medication Discharge Medications: Ambulatory Orders Quetiapine Fumarate [Seroquel -] 100 mg PO HS #14 tablet 10/30/18 Aspirin [ASA -] 81 mg PO DAILY #30 tab.chew 02/08/19 Gabapentin [Neurontin -] 800 mg PO TID #42 capsule 02/08/19 Zolpidem Tartrate [Ambien] 10 mg PO HS 03/22/19 Divalproex [Depakote -] 500 mg PO BID 05/23/19 Prazosin HCl [Minipress -] 2 mg PO HS 05/23/19 - Diagnosis (1) Alcohol dependence with uncomplicated withdrawal Current Visit: Yes Status: Chronic (2) Substance-induced sleep disorder Current Visit: Yes Status: Chronic (3) Cocaine dependence, uncomplicated Current Visit: Yes Status: Chronic (4) Nicotine dependence Current Visit: Yes Status: Chronic Qualifiers: Nicotine product type: cigarettes Substance use status: uncomplicated Qualified Code(s): F17.210 - Nicotine dependence, cigarettes, uncomplicated (5) Opioid dependence on agonist therapy Current Visit: Yes Status: Chronic (6) Alcohol dependence, uncomplicated Current Visit: No Status: Acute (7) Sedative, hypnotic or anxiolytic dependence, uncomplicated Current Visit: No Status: Acute (8) Substance induced mood disorder Current Visit: No Status: Acute (9) Substance-induced anxiety disorder Current Visit: No Status: Acute (10) Syncope Current Visit: No Status: Acute Qualifiers: Syncope type: unspecified Qualified Code(s): R55 - Syncope and collapse (11) Uncomplicated sedative, hypnotic or anxiolytic withdrawal Current Visit: No Status: Acute (12) ADHD (attention deficit hyperactivity disorder) Current Visit: No Status: Chronic Qualifiers: Attention deficit-hyperactivity disorder type: unspecified Qualified Code(s): F90.9 - Attention-deficit hyperactivity disorder, unspecified type (13) Anxiety Current Visit: No Status: Chronic (14) Bipolar II disorder Current Visit: No Status: Chronic (15) Bipolar disorder Current Visit: No Status: Chronic Qualifiers: Active/Remission status: in partial remission Most recent bipolar episode type: depressed Qualified Code(s): F31.75 - Bipolar disorder, in partial remission, most recent episode depressed (16) Bone pain Current Visit: No Status: Chronic (17) CVA (cerebral vascular accident) Current Visit: No Status: Chronic Qualifiers: CVA mechanism: unspecified Qualified Code(s): I63.9 - Cerebral infarction, unspecified (18) Insomnia Current Visit: No Status: Chronic Qualifiers: Insomnia type: unspecified Qualified Code(s): G47.00 - Insomnia, unspecified (19) Low back pain Current Visit: No Status: Chronic Qualifiers: Chronicity: chronic Back pain laterality: bilateral Sciatica presence: with sciatica Sciatica laterality: bilateral sciatica Qualified Code(s): M54.42 - Lumbago with sciatica, left side; M54.41 - Lumbago with sciatica, right side; G89.29 - Other chronic pain (20) Methadone maintenance therapy patient Current Visit: No Status: Chronic (21) Neuropathy Current Visit: No Status: Chronic (22) PTSD (post-traumatic stress disorder) Current Visit: No Status: Chronic (23) Substance induced mood disorder Current Visit: No Status: Chronic (24) Substance-induced sleep disorder Current Visit: No Status: Chronic (25) Substance-induced sleep disorder Current Visit: No Status: Chronic (26) Drug-induced mood disorder Current Visit: No Status: Suspected (27) Drug withdrawal seizure Current Visit: No Status: Resolved Qualifiers: Complication of substance-induced condition: uncomplicated Qualified Code(s): F19.230 - Other psychoactive substance dependence with withdrawal, uncomplicated (28) Hepatitis C Current Visit: No Status: Resolved Qualifiers: Viral hepatitis chronicity: unspecified Hepatic coma status: without hepatic coma Qualified Code(s): B19.20 - Unspecified viral hepatitis C without hepatic coma (29) History of seizures Current Visit: No Status: Resolved - AMA Did Patient Leave Against Medical Advice: No
--- NOTE | 2019-05-28 09:07 | PN ---
[facility] Progress Note Note: patient stated he has been taking gabapentin 800 mg po tid,confirmed with pharmacist at [facility] at [phone],patient has bee taking it since 05/2018 , patient stated taking it fir neuropathy, patient agrees to be on gabapentin 600 mgd po tid agreed to go to rehab
[2019-05-28] MEDS ORDERED: DIPHENOXYLATE 2.5/ATROPINE.025 1 COMBO TABLET PO PRN (09:15)
[2019-05-28 10:30] VITALS: BP 91/65
[2019-05-28] MEDS: ASPIRIN 81 MG CHEWABLE TABLETS PO SCH (10:50)
[2019-05-28] MEDS: PANTOPRAZOLE 40 MG TABLET PO SCH (10:50)
[2019-05-28] MEDS: PRENATAL VITAMINS W/ FOLIC ACID TABLET (FP) PO SCH (10:50)
--- NOTE | 2019-05-28 12:38 | HP ---
[facility] Rehab Assess/Revision - Admission History Admitted to Rehab from: [facility] [address] Date of Admission to Rehab: 05/28/2019 - Vital signs Vital Signs: Vital Signs Period Temp Pulse Resp BP Sys/Duque Pulse Ox Last 24 Hr 97.5 F-98.4 F 74-89 17-20 91-126/57-74 - Findings Detox History & Physical reviewed: Yes Concur with findings: Yes Comments/Additional Findings: for rehab as protocol Inpatient Rehab Admission - Rehab Decision to Admit Inpatient rehab admission?: Yes - Initial Determination Are CD services needed?: Yes Free of communicable disease: Yes Not in need of hospitalization: Yes - Rehab Admission Criteria Previous failed treatment: Yes Poor recovery environment: Yes Comorbidities: Yes Lacks judgement: No Patient is meeting Inpatient Rehab admission criteria:: Yes
[2019-05-28] MEDS ORDERED: GABAPENTIN 300 MG CAPSULE PO SCH (14:00)
== END 2019-05-28 13:41 | disposition other institution (70) | DRG 773 ==
LOC: YASAS 14:47 → Y6N 20:03
PROVIDERS: ADMIT Allergy & Immunology; ATTEND Allergy & Immunology
PROC: HZ2ZZZZ Detoxification Services for Substance Abuse Treatment (ICD-10-PCS; principal; 2019-05-23)
DX: F10.230 Alcohol dependence with withdrawal, uncomplicated (principal); F11.20 Opioid dependence, uncomplicated; F13.230 Sedative, hypnotic or anxiolytic dependence with withdrawal, uncomplicated; F14.20 Cocaine dependence, uncomplicated; F17.210 Nicotine dependence, cigarettes, uncomplicated; F19.280 Other psychoactive substance dependence with psychoactive substance-induced anxiety disorder; F19.24 Other psychoactive substance dependence with psychoactive substance-induced mood disorder; F31.81 Bipolar II disorder; F41.9 Anxiety disorder, unspecified; F90.9 Attention-deficit hyperactivity disorder, unspecified type; G47.00 Insomnia, unspecified; R55 Syncope and collapse; M54.41 Lumbago with sciatica, right side; M54.42 Lumbago with sciatica, left side; G62.9 Polyneuropathy, unspecified; Z86.73 Personal history of transient ischemic attack (TIA), and cerebral infarction without residual deficits; Z86.69 Personal history of other diseases of the nervous system and sense organs; Z86.19 Personal history of other infectious and parasitic diseases
CPT/HCPCS: 36415; 80053; 80164; 85027; 86593; Q0162

== ENCOUNTER 2019-05-28 14:17 | Inpatient (IN) | payer OTHER ==
--- NOTE | 2019-05-28 15:56 | HP ---
[facility] Rehab Assess/Revision - Admission History Admitted to Rehab from: [place] - Vital signs Vital Signs: Vital Signs Period Temp Pulse Resp BP Sys/Duque Pulse Ox Last 24 Hr 97.5 F 81 20 97/53 - Findings Detox History & Physical reviewed: Yes Concur with findings: Yes Comments/Additional Findings: Pt is a 48 y/o male with a hx of MATHEUS- Alcohol,klonopin,xanax and on Methadone 120 mg po daily admitted to rehab today from [address] PMHx:Hep C(treated),Herniated Lumber Disc, sedative related Seizure. PSHx:I&D of right hand due to infection. Psych Hx:Bipolar Disorder, PTSD. Alert o x 3. nad. oob ambulating with steady gait. Meds revieweded and ordered as necessary. Pt to follow up with psych consult Inpatient Rehab Admission - Rehab Decision to Admit Inpatient rehab admission?: Yes - Initial Determination Are CD services needed?: Yes Free of communicable disease: Yes Not in need of hospitalization: Yes - Rehab Admission Criteria Previous failed treatment: Yes Poor recovery environment: Yes Comorbidities: Yes Lacks judgement: Yes Patient is meeting Inpatient Rehab admission criteria:: Yes
[2019-05-28] MEDS ORDERED: MAGNESIUM HYDROX 2400MG/30ML ORAL SUSPENSION 30 ML CUP PO PRN (15:57)
[2019-05-28] MEDS ORDERED: ACETAMINOPHEN 325 MG TABLET (FP) PO PRN (15:57)
[2019-05-28] MEDS ORDERED: MAG HYDROX/AL HYDROX/SIMETH 30 ML UNIT-DOSE CUP PO PRN (15:57)
[2019-05-28] MEDS ORDERED: IBUPROFEN 400 MG TABLET (FP) PO PRN (15:57)
[2019-05-28] MEDS ORDERED: guaiFENesin 200 MG/10 ML 10 ML UNIT-DOSE CUPS PO PRN (15:57)
[2019-05-28] MEDS ORDERED: P-EPHED 60MG/TRIPROLIDI 2.5MG TABLET PO PRN (15:57)
[2019-05-28] MEDS ORDERED: MAGNESIUM CITRATE 300 ML BOTTLE PO PRN (15:57)
[2019-05-28] MEDS ORDERED: NICOTINE POLACRILEX 2 MG GUM BUC PRN (15:57)
[2019-05-28] MEDS ORDERED: MENTHOL/PHENOL 1 EACH UD MM PRN (15:57)
[2019-05-28] MEDS ORDERED: ONDANSETRON *ODT* 4 MG TABLET SL PRN (16:04)
--- NOTE | 2019-05-28 17:07 | CONSULT ---
[facility] Psychiatric Consult - Data Date of interview: 05/28/19 Admission source: [facility] Identifying data: Patient is a 48 year old single male, father of one, unemployed, domiciled, and is supported by [employer] benefits. This is one of multiple admissions for patient. Patient admitted to for alcohol and benzodiazepine dependence. Substance Abuse History: Smoking Cessation. Smoking history: Current every day smoker. Have you smoked in the past 12 months: Yes. Aproximately how many cigarettes per day: 7. Cigars Per Day: 0. Hx Chewing Tobacco Use: No. Initiated information on smoking cessation: Yes. 'Breaking Loose' booklet given: 05/23/19. - Substances abused. Alcohol. Substance route: Oral. Frequency: Daily. Amount used: 3-4 CANS OF BEER, 1/2 PINT VODKA. Age of first use: 14. Date of last use: 05/23/19. Benzodiazepine (Klonopin). Substance route: Oral. Frequency: 1-2 times per week. Amount used: 6 MG. Age of first use: 37. Date of last use: 05/21/19. Alprazolam (Xanax). Substance route: Oral. Frequency: Daily. Amount used: 1-2 TABS. Age of first use: 37. Date of last use: 05/19/19 Medical History: Significant for herniated disc, history of treatment for hepatitis C, sedative-related seizure and surgery for I & D infection of right hand Psychiatric History: Patient reports history of multiple psychiatric hospitalizations ( in [place], [place], [facility], [facility], [facility]) most recently one month ago at [facility] due to feeling paranoid and having constant flashbacks. Diagnosis of Bipolar disorder +PTSD. Mr. Bee states that he receives outpatient psychiatric from Dr. Barros and claims to be prescribed Seroquel 100mg HS + Depakote 1000mg + Prazosin 2mg HS +Buspar 10mg TID. Pharmacy contacted while patient was in detox. History of one suicide attempt by overdose in 2006. At present denies depressive/manic symptons, suicidal/homicidal ideation. Physical/Sexual Abuse/Trauma History: Trauma from serving in the [employer] from [id number]. Patient served time in [place] and [place]. Mental Status Exam - Mental Status Exam Alert and Oriented to: Time, Place, Person Cognitive Function: Good Patient Appearance: Well Groomed Mood: Withdrawn Affect: Appropriate Patient Behavior: Cooperative Speech Pattern: Appropriate Voice Loudness: Mildly Soft/Quiet Thought Process: Intact, Goal Oriented Thought Disorder: Not Present Hallucinations: Denies Suicidal Ideation: Denies Homicidal Ideation: Denies Insight/Judgement: Poor Sleep: Fair Appetite: Fair Muscle strength/Tone: Normal Gait/Station: Normal Psychiatric Findings - Problem List ([place] 1, 2,3) (1) Alcohol dependence, uncomplicated Current Visit: Yes Status: Acute (2) Cocaine dependence, uncomplicated Current Visit: Yes Status: Chronic (3) Opioid dependence on agonist therapy Current Visit: Yes Status: Chronic (4) PTSD (post-traumatic stress disorder) Current Visit: Yes Status: Chronic Comment: Historical diagnosis. (5) Bipolar II disorder Current Visit: Yes Status: Acute - Initial Treatment Plan Initial Treatment Plan: Psychoeducation provided. Detoxification in progress. [facility] contacted on05/24/19 @ [phone]. As per pharmacy staff patient picked up the following prescription on 04/25/19 (30 day supply): Zyprexa 15mg HS + Trazodone 50mg HS + Seroquel 50mg HS +Buspar 10mg TID + Depakote 1000mg ER + Prazosin 2mg HS + Gabapentin 800mg TID. While in detox patient only reported taking seroquel + Depakote therefore Seroquel 100mg HS + Depakote 500mg ER was ordered. Valproic acid level:12.6 on 05/25/19 which is indicative of poor compliance. Patient agreeable to resume zyprexa + prazosin and an increase in depakote. Vitals reviewed and noted that patient is hypotensive (08:44- BP- 91/65 HR 80, 15:07- BP- 97/53 HR 81) and presents as pale. Patient reports having diarrhea and vomiting within the last 24 hours. Patient denies feeling lightheaded or dizzy. Nursing staff informed. For now: 1) Will continue current medications of seroquel 100mg HS +Depakote 500mg ER. No medications adjustments to be completed at this time. 2) Patient to be reassessed on Wednesday for medication ajustments of adding his other prescribed psychotropic medications. 3) Patient in agreement with plan.
[2019-05-28] MEDS: QUEtiapine FUMARATE 100 MG TABLET (FP) PO SCH (21:13)
[2019-05-28] MEDS: DIVALPROEX NA *ER* EXTEND REL 500 MG TABLET.SA (FP) PO SCH (21:13)
[2019-05-28] MEDS: MELATONIN 5 MG TABLETS PO SCH (21:13)
[2019-05-28] MEDS: GABAPENTIN 400 MG CAPSULE PO SCH (21:13)
[2019-05-28] MEDS: THIAMINE HCL 100 MG TABLET (FP) PO SCH (21:14)
[2019-05-29] MEDS: LOPERAMIDE HCL 2 MG CAPSULE PO PRN ×2 (03:11→08:31)
[2019-05-29] MEDS: METHADONE HCL 40 MG DISPERSABLE TABLET PO SCH (06:14)
[2019-05-29] MEDS: GABAPENTIN 400 MG CAPSULE PO SCH ×3 (06:14→21:23)
[2019-05-29] MEDS ORDERED: DIPHENOXYLATE 2.5/ATROPINE.025 1 COMBO TABLET PO ONE (09:56)
--- NOTE | 2019-05-29 09:58 | PN ---
[facility] Progress Note Note: Pt c/o diarrhea x 4 days and gas that started in detox. Denies stomach pain, n/v at this time or fever. Pt is s/p alcohol detox and arrived on [address] yesterday. Pt reportedly received imodium last shift but states no relief. Pt is very agitated and verbally abrasive and unable to control his impulse with problem with re-direcions. pt was spoken to this morning by Nurse director, Puja and this typewriter repairer and encouraged to work with us to help him and mangage his concerns and symptoms appropriately. Vital Signs - 24 hr 05/28/19 05/29/19 05/29/19 15:07 01:06 07:23 Temperature 97.5 F L 97.3 F L Pulse Rate 81 70 Respiratory 20 20 20 Rate Blood Pressure 97/53 L 108/65 Alert o x 3 nad oob ambulating with steady gait. A/P Diarrhea s/p detox w/s Maintain safety D/C Imodium Lomotil 1 tab po Q8H prn for diarrhea Gas-x 80 mg po QID prn for gas BRAT Diet ordered. Dietary Consult to discuss with patient food choices that supports diarrhea treatment.
[2019-05-29] MEDS ORDERED: NICOTINE 7 MG/24 HOURS TOPICAL PATCH TD SCH (10:00)
[2019-05-29] MEDS: hydrOXYzine PAMOATE 25 MG CAPSULE (FP) PO PRN ×2 (10:19→21:25)
[2019-05-29] MEDS: ASPIRIN 81 MG CHEWABLE TABLETS PO SCH (10:19)
[2019-05-29] MEDS: NICOTINE 14 MG/24 HOURS TOPICAL PATCH TD SCH (10:19)
[2019-05-29] MEDS: PRENATAL VITAMINS W/ FOLIC ACID TABLET (FP) PO SCH (10:19)
[2019-05-29] MEDS: SIMETHICONE 80 MG TAB.CHEW (FP) PO PRN ×2 (13:49→20:21)
[2019-05-29] MEDS: DIPHENOXYLATE 2.5/ATROPINE.025 1 COMBO TABLET PO PRN (17:15)
[2019-05-29] MEDS ORDERED: LOPERAMIDE HCL 2 MG CAPSULE PO PRN (18:17)
[2019-05-29] MEDS: THIAMINE HCL 100 MG TABLET (FP) PO SCH (21:23)
[2019-05-29] MEDS: DIVALPROEX NA *ER* EXTEND REL 500 MG TABLET.SA (FP) PO SCH (21:23)
[2019-05-29] MEDS: QUEtiapine FUMARATE 100 MG TABLET (FP) PO SCH (21:23)
[2019-05-29] MEDS: MELATONIN 5 MG TABLETS PO SCH (21:24)
[2019-05-30] MEDS: GABAPENTIN 400 MG CAPSULE PO SCH (06:27)
[2019-05-30] MEDS: METHADONE HCL 40 MG DISPERSABLE TABLET PO SCH (06:27)
[2019-05-30 07:13] VITALS: BP 111/73; PULSE 77; TEMP 97.2
[2019-05-30] MEDS: DIPHENOXYLATE 2.5/ATROPINE.025 1 COMBO TABLET PO PRN (07:14)
--- NOTE | 2019-05-30 08:55 | PN ---
[facility] Progress Note Note: Called to see pt who reports he wants to go to the Hospital for his diarrhea. Reports no n/v. states gas with cramps but resolves when sit in toilet and expelled gas. Pt's antidiarrheal medication was changed yesterday and put on Gas-X as well as diet changed to BRAT. Pt was agreeable to change of diet but once received his Lunch tray rushed to this senior copywriter, became verbally aggressive and dropped his food tray hard on the table in the office next to the computer where this senior copywriter was sitting. Pt was spoken to this morning with Ms Anu Pan,Outreach Specialist re:current management and told will re-evaluate today and intervene as necessary but patient declined to all management suggestions, extremely talkative and wants to leave despite encouragement to consider staying and be managed here. Vital Signs - 24 hr 05/30/19 05/30/19 00:30 07:13 Temperature 97.2 F L Pulse Rate 77 Respiratory 20 20 Rate Blood Pressure 111/73 Alert o x 3,denies s/h/i nad oob ambulating with steady gait cardiac;s1 s2,rrr lungs:cta,damir. abdomen:soft,+bs,generalized mild discomfort on palp(reports cramping and gassy) extremities/skin:no edema;skin intact, tattoos right LE. A/P MATHEUS diarrhea noncompliant with medical care Pt to follow up with vp organizational development today talk with his counselor re:pt's refusal for management/interventions.
[2019-05-30] MEDS: ASPIRIN 81 MG CHEWABLE TABLETS PO SCH (09:04)
[2019-05-30] MEDS: PRENATAL VITAMINS W/ FOLIC ACID TABLET (FP) PO SCH (09:04)
[2019-05-30] MEDS: hydrOXYzine PAMOATE 25 MG CAPSULE (FP) PO PRN (09:04)
[2019-05-30] MEDS: NICOTINE 14 MG/24 HOURS TOPICAL PATCH TD SCH (09:05)
[2019-05-30] MEDS: SIMETHICONE 80 MG TAB.CHEW (FP) PO PRN (09:14)
--- NOTE | 2019-05-30 11:20 | DS ---
[facility] Rehab Discharge Summary - [facility] Rehab Discharge Summary Admission Date: 05/28/19 Discharge Date: 05/30/19 - History Present History: Alcohol dependence, MMTP, Sedative dependence Additional Comments: pt declined to continue with rehab and refused medical management of diarrhea since/post alcohol detox on . Pt reports he has a primary care provider Dr. Susy Barros in [place], [place] and will follow up after he leaves. pt was seen by counselor, Ms Ramandeep Kerr before pt exiting. Pertinent Past History: CVA Neuropathy PTSD Bipolar Disorder - Discharge Physical Exam Vital Signs: Vital Signs Temperature 97.2 F L 05/30/19 07:13 Pulse Rate 77 05/30/19 07:13 Respiratory Rate 20 05/30/19 07:13 Blood Pressure 111/73 05/30/19 07:13 O2 Sat by Pulse Oximetry (%) Alert o x 3,denies s/h/i well groomed nad oob ambulating with steady gait cardiac:s1 s1 lungs:cta abdomen:+bs,soft extremities/skin:no edema;skin intact. Pertinent Admission Physical Exam Findings: Status Unchanged from detox - Treatment Discharge Condition: Discharge condition good Hospital Course: pt completed detox on and referred to rehab. Pt has been c/o diarrhea from detox and resisting proper management of sx and wants to leave(see previous notes). - Medication Discharge Medications: Ambulatory Orders Quetiapine Fumarate [Seroquel -] 100 mg PO HS #14 tablet 10/30/18 Aspirin [ASA -] 81 mg PO DAILY #30 tab.chew 02/08/19 Gabapentin [Neurontin -] 800 mg PO TID #42 capsule 02/08/19 Zolpidem Tartrate [Ambien] 10 mg PO HS 03/22/19 Divalproex [Depakote -] 500 mg PO BID 05/23/19 Prazosin HCl [Minipress -] 2 mg PO HS 05/23/19 Methadone [Dolophine -] 120 mg PO DAILY 05/28/19 - Medication-Assisted Treatment (MAT) Medication-Assisted Treatment (MAT): No - Discharge Instructions Diet, activity, other medical instructions: Diet:BRAT -till diarrhea resolves(follow up with primary care provider) Activity: oob ad li Other medical instructions:follow up with CD aftercare as recommended. - Diagnosis (1) Alcohol dependence, uncomplicated Current Visit: Yes Status: Chronic (2) Low back pain Current Visit: Yes Status: Chronic Qualifiers: Chronicity: chronic Back pain laterality: bilateral Sciatica presence: with sciatica Sciatica laterality: bilateral sciatica Qualified Code(s): M54.42 - Lumbago with sciatica, left side; M54.41 - Lumbago with sciatica, right side; G89.29 - Other chronic pain (3) Methadone maintenance therapy patient Current Visit: No Status: Chronic (4) Neuropathy Current Visit: Yes Status: Chronic (5) Nicotine dependence Current Visit: Yes Status: Chronic Qualifiers: Nicotine product type: cigarettes Substance use status: uncomplicated Qualified Code(s): F17.210 - Nicotine dependence, cigarettes, uncomplicated (6) Drug withdrawal seizure Current Visit: Yes Status: Resolved Qualifiers: Complication of substance-induced condition: uncomplicated Qualified Code(s): F19.230 - Other psychoactive substance dependence with withdrawal, uncomplicated (7) Hepatitis C Current Visit: Yes Status: Resolved Qualifiers: Viral hepatitis chronicity: unspecified Hepatic coma status: without hepatic coma Qualified Code(s): B19.20 - Unspecified viral hepatitis C without hepatic coma - Follow-up Referral Minutes to complete discharge: 25 - AMA Did Patient Leave Against Medical Advice: Yes Additional Comments: Pt reports hes own meds.
== END 2019-05-30 09:30 | disposition left against medical advice (07) | DRG 770 ==
LOC: YASAS 14:17 → Y5N 14:33
PROVIDERS: ADMIT Allergy & Immunology; ATTEND Allergy & Immunology
PROC: HZ42ZZZ Group Counseling for Substance Abuse Treatment, Cognitive-Behavioral (ICD-10-PCS; principal; 2019-05-28)
DX: F10.20 Alcohol dependence, uncomplicated (principal); F11.20 Opioid dependence, uncomplicated; F14.20 Cocaine dependence, uncomplicated; F17.210 Nicotine dependence, cigarettes, uncomplicated; F43.10 Post-traumatic stress disorder, unspecified; F31.81 Bipolar II disorder; G62.9 Polyneuropathy, unspecified; M54.41 Lumbago with sciatica, right side; G89.29 Other chronic pain; B19.20 Unspecified viral hepatitis C without hepatic coma; R19.7 Diarrhea, unspecified; Z91.19 Patient's noncompliance with other medical treatment and regimen; Z86.69 Personal history of other diseases of the nervous system and sense organs
CPT/HCPCS: Q0162

== ENCOUNTER 2019-09-07 12:24 | Inpatient (IN) | payer OTHER ==
--- NOTE | 2019-09-07 13:08 | BHS.RME ---
Substance Use & Tx History - Substance Use History Alcohol Substance amount: 1 pint vodka + 6 pack beers Frequency of use: Daily Substance route: Oral Date of Last Use: 09/06/19 Physical/Psych/Mental Status - Behavior General Behavior: Decreased activity Eye Contact: Normal - Cooperativeness Cooperativeness: Cooperative - Thinking Thought Processes: Tight, Logical, Goal Directed - Physical Health Problems Is patient presently having any pain?: No Does patient presently have any injuries (include location): No Does patient currently have a fever: No Is patient : No CIWA Nausea/Vomitin-Mild Nausea/No Vomiting Muscle Tremors: 1-None Visible, but [place] Anxiety: 1-Mildly Anxious Agitation: 1-Slight > Activity Paroxysmal Sweats: 1-Minimal Palms Moist Orientation: 1-Uncertain about Date Tacttile Disturbances: 0-None Auditory Disturbances: 0-None Visual Disturbances: 0-None Headache: 0-None Present CIWA-Ar Total Score: 6
--- NOTE | 2019-09-07 14:41 | HP ---
CIWA Score Nausea/Vomitin-Mild Nausea/No Vomiting Muscle Tremors: 1-None Visible, but [place] Anxiety: 1-Mildly Anxious Agitation: 1-Slight > Activity Paroxysmal Sweats: 1-Minimal Palms Moist Orientation: 1-Uncertain about Date Tacttile Disturbances: 0-None Auditory Disturbances: 0-None Visual Disturbances: 0-None Headache: 0-None Present CIWA-Ar Total Score: 6 - Admission Criteria OASAS Guidelines: Admission for Medically Managed Detox: Requires at least one of the followin. CIWA greater than 12 2. Seizures within the past 24 hours 3. Delirium tremens within the past 24 hours 4. Hallucinations within the past 24 hours 5. Acute intervention needed for co occurring medical disorder 6. Acute intervention needed for co occurring psychiatric disorder 7. Severe withdrawal that cannot be handled at a lower level of care (continued vomiting, continued diarrhea, abnormal vital signs) requiring intravenous medication and/or fluids 8. Admitting History and Physical - Admission Chief Complaint: "I want to stop drinking and stop taking Xanax" History of Present Illness: 48 year old male with history of alcohol dependence with withdrawal, sedative dependence, cocaine use disorder, cannabis use disorder. Alcohol: 1 pint vodka and six pack beers daily, started using at age 14 and last used today at 1:30AM. 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 No legal issues pending. CIWA=6 mitigated by having taken Xanax prior to coming. Patient meets criteria for detox due to multiple medical problems and high risk for relapse due to psychiatric co-morbidities. History Source: Patient Limitations to Obtaining History: No Limitations - Past Medical History Musculoskeletal: Yes: Chronic low back pain, Other - Past Surgical History Past Surgical History: Yes: None - Smoking History Smoking history: Current every day smoker Have you smoked in the past 12 months: Yes Aproximately how many cigarettes per day: 10 - Alcohol/Substance Use Hx Alcohol Use: Yes Number of Drinks Daily: 6 History of Substance Use: reports: Cocaine, Tranquilizers - Social History Usual Living Arrangement: Yes: Other Do you think of yourself as: Straight/Heterosexual ADL: Independent Occupation: [id number] History of Recent Travel: No Admission ROS [facility] Allergies/Adverse Reactions: Allergies Allergy/AdvReac Type Severity Reaction Status Date / Time No Known Allergies Allergy Verified 05/23/19 18:59 Exam Limitations: No Limitations - Ebola screening Have you traveled outside of the country in the last 21 days: No Have you had contact with anyone from an Ebola affected area: No Have you been sick,other than usual withdrawal symptoms: No Do you have a fever: No - Review of Systems Constitutional: No Symptoms Reported EENT: reports: No Symptoms Reported Respiratory: reports: No Symptoms reported Cardiac: reports: No Symptoms Reported GI: reports: No Symptoms Reported : reports: No Symptoms Reported Musculoskeletal: reports: No Symptoms Reported Integumentary: reports: No Symptoms Reported Neuro: reports: Headache Endocrine: reports: No Symptoms Reported Hematology: reports: No Symptoms Reported Psychiatric: reports: Judgement Intact, Orientated x3, Agitated, Anxious Other Systems: Reviewed and Negative Patient History - Patient Medical History Hx Anemia: No Hx Asthma: No Hx Chronic Obstructive Pulmonary Disease (COPD): No Hx Cancer: No Hx Cardiac Disorders: No Hx Congestive Heart Failure: No Hx Hypertension: No Hx Hypercholesterolemia: No Hx Pacemaker: No HX Cerebrovascular Accident: Yes (01/2018) Hx Seizures: Yes (Last episode- 4-5 mths ago) Hx Dementia: No Hx Diabetes: No Hx Gastrointestinal Disorders: Yes Hx Liver Disease: No Hx Genitourinary Disorders: No Hx Sexually Transmitted Disorders: No Hx Renal Disease (ESRD): No Hx Thyroid Disease: No Hx Human Immunodeficiency Virus (HIV): No (05/06) Hx Hepatitis C: Yes (Treated with Interferon) Hx Depression: Yes Hx Suicide Attempt: No Hx Bipolar Disorder: Yes Hx Schizophrenia: No - Patient Surgical History Past Surgical History: No Hx Neurologic Surgery: No Hx Cataract Extraction: No Hx Cardiac Surgery: No Hx Lung Surgery: No Hx Breast Surgery: No Hx Breast Biopsy: No Hx Abdominal Surgery: No Hx Appendectomy: No Hx Cholecystectomy: No Hx Genitourinary Surgery: No Hx Section: No Hx Orthopedic Surgery: No Other Surgical History: incision and drainage of infected right hand in 1994 Anesthesia Reaction: No - PPD History Previous Implant?: Yes Documented Results: Negative w/proof Implanted On Prior [facility] Admission?: Yes Date: 04/17/18 Results: 0mm PPD to be Administered?: No - Smoking Cessation Smoking history: Current every day smoker Have you smoked in the past 12 months: Yes Aproximately how many cigarettes per day: 10 Cigars Per Day: 0 Hx Chewing Tobacco Use: No Initiated information on smoking cessation: Yes 'Breaking Loose' booklet given: 09/07/19 - Substances abused Alcohol Substance route: Oral Frequency: Daily Amount used: 1 pint vodka and 6 pack beers Age of first use: 14 Date of last use: 09/07/19 Crack Substance route: Smoking Frequency: Daily Amount used: 1 gram Age of first use: 19 Date of last use: 09/03/19 Alprazolam (Xanax) Other (specify): 2mg 6 tabs Substance route: Oral Frequency: Daily Amount used: 6 tabs Age of first use: 30 Date of last use: 09/06/19 Marijuana/Hashish Substance route: Smoking Frequency: Daily Amount used: 1 joint Age of first use: 15 Date of last use: 09/06/19 Admission Physical Exam [facility] - Physical General Appearance: Yes: Mild Distress, Moderate Distress, Irritable, Anxious HEENTM: Yes: EOMI, Hearing grossly Normal, Normal ENT Inspection, Normocephalic, Normal Voice, MARIAH, Pharynx Normal, Tm's normal Respiratory: Yes: Chest Non-Tender, Lungs Clear, Normal Breath Sounds, No Respiratory Distress, No Accessory Muscle Use Neck: Yes: No masses,lesions,Nodules, Supple, Trachea in good position Breast: Yes: Within Normal Limits Cardiology: Yes: Regular Rhythm, Regular Rate, S1, S2 Abdominal: Yes: Normal Bowel Sounds, Non Tender, Flat, Soft Genitourinary: Yes: Within Normal Limits Back: Yes: Normal Inspection Musculoskeletal: Yes: full range of Motion, Gait Steady, Pelvis Stable Extremities: Yes: Normal Capillary Refill, Normal Inspection, Normal Range of Motion, Non-Tender Neurological: Yes: sand analyst II-XII NML intact, Fully Oriented, Alert, Motor Strength 5/5, Normal Mood/Affect, Normal Response Integumentary: Yes: Normal Color, Dry, Warm Lymphatic: Yes: Within Normal Limits - Diagnostic (1) Bipolar II disorder Current Visit: Yes Status: Acute (2) Sedative, hypnotic or anxiolytic dependence, uncomplicated Current Visit: Yes Status: Acute (3) Substance induced mood disorder Current Visit: Yes Status: Acute (4) Substance-induced anxiety disorder Current Visit: Yes Status: Acute (5) Uncomplicated sedative, hypnotic or anxiolytic withdrawal Current Visit: Yes Status: Acute (6) ADHD (attention deficit hyperactivity disorder) Current Visit: Yes Status: Chronic Qualifiers: Attention deficit-hyperactivity disorder type: unspecified Qualified Code(s): F90.9 - Attention-deficit hyperactivity disorder, unspecified type Comment: As per records. (7) Alcohol dependence with uncomplicated withdrawal Current Visit: Yes Status: Chronic (8) Bipolar II disorder Current Visit: Yes Status: Chronic (9) Insomnia Current Visit: Yes Status: Chronic Qualifiers: Insomnia type: unspecified Qualified Code(s): G47.00 - Insomnia, unspecified (10) Low back pain Current Visit: Yes Status: Chronic Qualifiers: Chronicity: chronic Back pain laterality: bilateral Sciatica presence: with sciatica Sciatica laterality: bilateral sciatica Qualified Code(s): M54 .42 - Lumbago with sciatica, left side; M54.41 - Lumbago with sciatica, right side; G89.29 - Other chronic pain (11) Methadone maintenance therapy patient Current Visit: Yes Status: Chronic Comment: on 150 mg qd (12) Neuropathy Current Visit: Yes Status: Chronic (13) Nicotine dependence Current Visit: Yes Status: Chronic Qualifiers: Nicotine product type: cigarettes Substance use status: uncomplicated Qualified Code(s): F17.210 - Nicotine dependence, cigarettes, uncomplicated (14) Opioid dependence on agonist therapy Current Visit: Yes Status: Chronic Cleared for Admission BHS - Detox or Rehab Detox Regimen/Protocol: Librium Claeared for Rehab Admission: No Screened but not Admitted - Documentation of Visit Screened but not Admitted: No Breathalyzer - Breathalyzer Breathalyzer: 0 Urine Drug Screen - Test Device Lot number: [id number] Expiration date: 11/18/20 - Control Is test valid?: Yes - Results Drug screen NEGATIVE: No Urine drug screen results: THC-Marijuana, DESHAWN-Cocaine, FEN-Fentanyl, MOP- Opiates, MTD-Methadone, BZO-Benzodiazepines Inpatient Rehab Admission - Rehab Decision to Admit Inpatient rehab admission?: No
[2019-09-07] MEDS ORDERED: METHOCARBAMOL 500 MG TABLET PO PRN (14:47)
[2019-09-07] MEDS ORDERED: IBUPROFEN 400 MG TABLET (FP) PO PRN (14:47)
[2019-09-07] MEDS ORDERED: MAGNESIUM HYDROX 2400MG/30ML ORAL SUSPENSION 30 ML CUP PO PRN (14:47)
[2019-09-07] MEDS ORDERED: MENTHOL/PHENOL 1 EACH UD MM PRN (14:47)
[2019-09-07] MEDS ORDERED: ACETAMINOPHEN 325 MG TABLET (FP) PO PRN ×2 (14:47)
[2019-09-07] MEDS ORDERED: BISMUTH SUBSALICYLATE 524 MG/30 ML UD PO PRN (14:47)
[2019-09-07] MEDS ORDERED: chlordiazePOXIDE HCL 25 MG CAPSULE PO PRN (14:47)
[2019-09-07] MEDS ORDERED: MAGNESIUM CITRATE 300 ML BOTTLE PO PRN (14:47)
[2019-09-07 16:08] VITALS: BMI 33.0
[2019-09-07] MEDS ORDERED: ONDANSETRON *ODT* 4 MG TABLET SL ONE (16:30)
[2019-09-07] MEDS: PRENATAL VITAMINS W/ FOLIC ACID TABLET (FP) PO SCH (16:43)
[2019-09-07] MEDS: chlordiazePOXIDE HCL 25 MG CAPSULE PO SCH ×2 (16:43→22:20)
[2019-09-07] MEDS: NICOTINE 7 MG/24 HOURS TOPICAL PATCH TD SCH (17:07)
[2019-09-07] MEDS: hydrOXYzine PAMOATE 25 MG CAPSULE (FP) PO SCH ×2 (17:07→22:20)
--- NOTE | 2019-09-07 17:35 | CONSULT ---
[facility] Psychiatric Consult - Data Date of interview: 09/07/19 Admission source: [facility] Identifying data: Revisit to [facility] and admission to [address] [place] [address] for this 48 y/o male, self-referred for detoxification treatment. MATHEUS issues : alcohol, heroin, cocaine, benzodiazepine, nicotine. Patient is , one dependent (19 y/o son), domiciled, unemployed and supported on Public Assistance. Substance Abuse History: Discussed with the patient. MATHEUS profile as follows : Smoking history: Current every day smoker. Have you smoked in the past 12 months: Yes. Aproximately how many cigarettes per day: 10. Cigars Per Day: 0. Hx Chewing Tobacco Use: No. Initiated information on smoking cessation: Yes. 'Breaking Loose' booklet given: 09/07/19. - Substances abused. Alcohol. Substance route: Oral. Frequency: Daily. Amount used: 1 pint vodka and 6 pack beers. Age of first use: 14. Date of last use: 09/07/19. Crack. Substance route: Smoking. Frequency: Daily. Amount used: 1 gram. Age of first use: 19. Date of last use: 09/03/19. Alprazolam (Xanax). Other (specify): 2mg 6 tabs. Substance route: Oral. Frequency: Daily. Amount used: 6 tabs. Age of first use: 30. Date of last use: 09/06/19. Marijuana/Hashish. Substance route: Smoking. Frequency: Daily. Amount used: 1 joint. Age of first use: 15. Date of last use: 09/06/19 Medical History: Medical profile is remarkable for cerebrovascular accident without residual complications (several weeks ago), hepatitis C, antecedent of benzodiazepine-related withdrawal seizures, history of neuropathic pain and recent history of infection of right hand (surgery : incision and drainage). Psychiatric History: Patient presents with an extensive history of psychiatric problems (onset at age 14). Diagnosed with ADHD in childhood (brief treatment with psychostimulants : ritalin and adderall). Mr Bee admits to multiple psychiatric hospitalizations ([facility], [facility], [facility], [facility] in [place] in [place], [facility] in [facility]). Diagnosis has been revised to Bipolar Disorder + PTSD. Patient is currently on methadone maintenance (100 mg/day) at [facility]. Medications currently prescribed in OPD care : depakote 1000 mg po hs + olanzapine 15 mg/hs + neurontin 800 mg/tid (as per patient's own account). Patient continues to see his psychiatrist, Dr [facility] [place] Patient endorses one suicide attempt via overdose with medications (2006). Physical/Sexual Abuse/Trauma History: Patient denies history of abuse. Served in [employer] for 4 years. 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 Traumatized by the experience. Left the in 2003 (with an honorable discharge as per self-report). Additional Comment: Urine drug screen results: THC-Marijuana, DESHAWN-Cocaine, FEN- Fentanyl, MOP-Opiates, MTD-Methadone, BZO-Benzodiazepines. Noted. Mental Status Exam - Mental Status Exam Alert and Oriented to: Time, Place, Person Cognitive Function: Good Patient Appearance: Well Groomed (covered with tattoos : neck, extremities) Mood: Nervous, Withdrawn, Anxious Affect: Mood Congruent, Constricted Patient Behavior: Fatigued, Appropriate, Cooperative Speech Pattern: Clear, Appropriate Voice Loudness: Normal Thought Process: Goal Oriented Thought Disorder: Not Present Hallucinations: Denies Suicidal Ideation: Denies Homicidal Ideation: Denies Insight/Judgement: Poor Sleep: Poorly, Difficulty falling asleep Appetite: Good Gait/Station: Normal Psychiatric Findings - Problem List ([place] 1, 2,3) (1) Alcohol dependence with uncomplicated withdrawal Current Visit: Yes Status: Acute (2) Opioid dependence on agonist therapy Current Visit: Yes Status: Chronic (3) Benzodiazepine dependence Current Visit: Yes Status: Chronic (4) Cocaine dependence, uncomplicated Current Visit: Yes Status: Chronic (5) Nicotine dependence Current Visit: Yes Status: Chronic Qualifiers: Nicotine product type: cigarettes Substance use status: uncomplicated Qualified Code(s): F17.210 - Nicotine dependence, cigarettes, uncomplicated (6) Substance induced mood disorder Current Visit: Yes Status: Acute (7) Substance induced mood disorder Current Visit: Yes Status: Chronic (8) Bipolar disorder Current Visit: Yes Status: Chronic Qualifiers: Active/Remission status: in partial remission Most recent bipolar episode type: depressed Qualified Code(s): F31.75 - Bipolar disorder, in partial remission, most recent episode depressed Comment: As per records + self-report. On medications. (9) History of attention deficit hyperactivity disorder (ADHD) Current Visit: Yes Status: Chronic (10) Insomnia Current Visit: Yes Status: Chronic Qualifiers: Insomnia type: unspecified Qualified Code(s): G47.00 - Insomnia, unspecified - Initial Treatment Plan Initial Treatment Plan: Records revisited. Psychoeducation. Support. Sleep hygiene. Detoxification in progress. Belly Packer called [facility] for verification of medications ([phone]). Pharmacy closed. On COV- schedule (will reopen tomorrow at 10 am and closes at 3 pm, as per answering machine). In the meantime, medications are resumed as follows : olanzapine 7.5 mg po hs (reduced) + depakote 500 mg po bid + gabapentin 400 mg po tid (reduced). These are the only psychotropic molecules (and methadone) endorsed by patient in the psychiatric interview. Prazosin and seroquel orders are discontinued until verification with [facility]. Side effects/benefits of these medications were discussed with the patient in my interview. Mr Bee has expressed his agreement with this plan of care. He gave his informed consent (verbal) to MD. Valproic acid level is requested. Will follow result. Observation.
[2019-09-07] MEDS ORDERED: GABAPENTIN 400 MG CAPSULE PO SCH (22:00)
[2019-09-07] MEDS ORDERED: PRAZOSIN HCL 1 MG CAPSULE PO SCH (22:00)
[2019-09-07] MEDS ORDERED: QUEtiapine FUMARATE 50 MG TABLET PO SCH (22:00)
[2019-09-07] MEDS: DIVALPROEX SODIUM 500 MG TABLET E.C. PO SCH (22:20)
[2019-09-07] MEDS: THIAMINE HCL 100 MG TABLET (FP) PO SCH (22:20)
[2019-09-07] MEDS: OLANZapine 5 MG TABLET PO SCH (22:20)
[2019-09-07] MEDS: GABAPENTIN 400 MG CAPSULE PO SCH (22:20)
[2019-09-07] MEDS: MELATONIN 5 MG TABLETS PO SCH (22:23)
[2019-09-08] MEDS: GABAPENTIN 400 MG CAPSULE PO SCH ×3 (06:00→21:54)
[2019-09-08] MEDS: hydrOXYzine PAMOATE 25 MG CAPSULE (FP) PO SCH (06:00)
[2019-09-08] MEDS: chlordiazePOXIDE HCL 25 MG CAPSULE PO SCH ×2 (06:00→10:46)
[2019-09-08] MEDS ORDERED: METHADONE HCL 10 MG TABLET PO SCH (10:00)
[2019-09-08 10:36] LABS: HEMATOCRIT 36.6 % (35.4-49); MCH 30.3 pg (25.7-33.7); MCHC 32.9 g/dl (32.0-35.9); MEAN CELL VOLUME 92.2 fl (80-96); MEAN PLT VOLUME 9.2 fl (7.5-11.1); PLATELET COUNT 135 K/MM3 (134-434); RBC 3.97 M/mm3 (4.00-5.60); RDW 15.5 % (11.9-15.9); WHITE BLOOD COUNT 4.3 K/mm3 (4.0-10.0)
[2019-09-08 10:40] LABS: ALBUMIN 3.1 g/dl (3.4-5.0); BILIRUBIN,TOTAL 0.3 mg/dL (0.2-1); BLOOD UREA NITROGEN 21.4 mg/dL (7-18); CALCIUM 8.8 mg/dL (8.5-10.1); CREATININE 0.9 mg/dL (0.55-1.3); POTASSIUM 3.8 mmol/L (3.5-5.1); TOT PROT 5.9 g/dl (6.4-8.2)
[2019-09-08] MEDS: DIVALPROEX SODIUM 500 MG TABLET E.C. PO SCH ×2 (10:45→21:54)
[2019-09-08] MEDS: PRENATAL VITAMINS W/ FOLIC ACID TABLET (FP) PO SCH (10:45)
[2019-09-08] MEDS: ASPIRIN 81 MG CHEWABLE TABLETS PO SCH (10:45)
[2019-09-08] MEDS: NICOTINE 7 MG/24 HOURS TOPICAL PATCH TD SCH (10:46)
[2019-09-08] MEDS ORDERED: METHADONE HCL 10 MG TABLET ONE (11:24)
[2019-09-08] MEDS ORDERED: METHADONE HCL 40 MG DISPERSABLE TABLET ONE (11:24)
[2019-09-08] MEDS: METHADONE 80 MG, METHADONE 20 MG PO SCH (11:24)
--- NOTE | 2019-09-08 13:12 | PN ---
S CIWA - CIWA Score Nausea/Vomitin-No Nausea/No Vomiting Muscle Tremors: 3 Anxiety: 2 Agitation: 0-Normal Activity Paroxysmal Sweats: 2 Orientation: 0-Oriented Tacttile Disturbances: 0-None Auditory Disturbances: 0-None Visual Disturbances: 2-Mild Sensitivity Headache: 0-None Present CIWA-Ar Total Score: 9 BHS Progress Note (SOAP) Subjective: Anxious, Fatigue, Tremors. Objective: Patient A & O X 3, Observed Ambulating on Detox Unit Unassisted. In No Acute Distress. 09/08/19 13:11 Vital Signs Temperature 98.0 F 09/08/19 08:22 Pulse Rate 64 09/08/19 08:22 Respiratory Rate 18 09/08/19 08:22 Blood Pressure 115/75 09/08/19 08:22 O2 Sat by Pulse Oximetry (%) 99 09/08/19 05:45 Laboratory Tests 09/08/19 09/08/19 09/08/19 07:20 07:20 07:20 WBC 4.3 RBC 3.97 L Hgb 12.0 Hct 36.6 MCV 92.2 MCH 30.3 MCHC 32.9 RDW 15.5 Plt Count 135 MPV 9.2 Sodium 144 Potassium 3.8 Chloride 110 H Carbon Dioxide 30 Anion Gap 5 L BUN 21.4 H Creatinine 0.9 Est GFR (CKD-EPI)AfAm 118.30 Est GFR (CKD-EPI)NonAf 102.07 Random Glucose 91 Calcium 8.8 Total Bilirubin 0.3 AST 10 L ALT 16 Alkaline Phosphatase 56 Total Protein 5.9 L Albumin 3.1 L Valproic Acid Syphilis Serology Non-reactive 09/08/19 07:20 WBC RBC Hgb Hct MCV MCH MCHC RDW Plt Count MPV Sodium Potassium Chloride Carbon Dioxide Anion Gap BUN Creatinine Est GFR (CKD-EPI)AfAm Est GFR (CKD-EPI)NonAf Random Glucose Calcium Total Bilirubin AST ALT Alkaline Phosphatase Total Protein Albumin Valproic Acid 34.7 L Syphilis Serology Labs Noted. Assessment: 09/08/19 13:12 WITHDRAWAL SYMPTOMS. 09/08/19 13:13 Plan: Continue Detox.
[2019-09-08] MEDS ORDERED: diazePAM 5 MG TABLET PO ONE (14:11)
--- NOTE | 2019-09-08 14:39 | PN ---
[facility] Progress Note Note: Patient reports that he is not finding current Detox medication regimen (Librium) to be effective for relief of withdrawal symptoms. At Patient's request, Detox medication regimen changed to Valium Detox Regimen. Wicho Palacios NP
[2019-09-08] MEDS: diazePAM 5 MG TABLET PO PRN (20:36)
[2019-09-08] MEDS: diazePAM 5 MG TABLET PO SCH (21:54)
[2019-09-08] MEDS: THIAMINE HCL 100 MG TABLET (FP) PO SCH (21:54)
[2019-09-08] MEDS: MELATONIN 5 MG TABLETS PO SCH (21:55)
[2019-09-08] MEDS: OLANZapine 5 MG TABLET PO SCH (21:55)
[2019-09-09] MEDS ORDERED: METHADONE HCL 40 MG DISPERSABLE TABLET ONE (04:13)
[2019-09-09] MEDS ORDERED: METHADONE HCL 10 MG TABLET ONE (04:13)
[2019-09-09] MEDS ORDERED: chlordiazePOXIDE HCL 25 MG CAPSULE PO SCH (05:00)
[2019-09-09] MEDS: diazePAM 5 MG TABLET PO SCH ×3 (05:34→22:00)
[2019-09-09] MEDS: METHADONE 80 MG, METHADONE 20 MG PO SCH (05:34)
[2019-09-09] MEDS: GABAPENTIN 400 MG CAPSULE PO SCH ×3 (05:34→22:00)
[2019-09-09] MEDS: PRENATAL VITAMINS W/ FOLIC ACID TABLET (FP) PO SCH (10:41)
[2019-09-09] MEDS: DIVALPROEX SODIUM 500 MG TABLET E.C. PO SCH ×2 (10:41→22:00)
[2019-09-09] MEDS: NICOTINE 7 MG/24 HOURS TOPICAL PATCH TD SCH (10:41)
[2019-09-09] MEDS: ASPIRIN 81 MG CHEWABLE TABLETS PO SCH (10:41)
[2019-09-09] MEDS: diazePAM 5 MG TABLET PO PRN ×3 (10:41→21:01)
[2019-09-09] MEDS ORDERED: ONDANSETRON *ODT* 4 MG TABLET SL ONE (11:51)
--- NOTE | 2019-09-09 12:36 | PN ---
S CIWA - CIWA Score Nausea/Vomitin Muscle Tremors: 3 Anxiety: 3 Agitation: 2 Paroxysmal Sweats: No Perspiration Orientation: 0-Oriented Tacttile Disturbances: 0-None Auditory Disturbances: 1-Very Mild Visual Disturbances: 0-None Headache: 1-Very Mild CIWA-Ar Total Score: 12 S Progress Note (SOAP) Subjective: Complaints of shakes, anxiety and headache. Objective: 09/09/19 12:33 Vital Signs 09/09/19 09/09/19 05:29 08:50 Temperature 97 F L 97.1 F L Pulse Rate 67 54 L Respiratory 20 16 Rate Blood Pressure 103/64 112/57 L O2 Sat by Pulse 96 Oximetry (%) Laboratory Last Values WBC 4.3 K/mm3 (4.0-10.0) 09/08/19 07:20 RBC 3.97 M/mm3 (4.00-5.60) L 09/08/19 07:20 Hgb 12.0 GM/dL (11.7-16.9) 09/08/19 07:20 Hct 36.6 % (35.4-49) 09/08/19 07:20 MCV 92.2 fl (80-96) 09/08/19 07:20 MCH 30.3 pg (25.7-33.7) 09/08/19 07:20 MCHC 32.9 g/dl (32.0-35.9) 09/08/19 07:20 RDW 15.5 % (11.9-15.9) 09/08/19 07:20 Plt Count 135 K/MM3 (134-434) 09/08/19 07:20 MPV 9.2 fl (7.5-11.1) 09/08/19 07:20 Sodium 144 mmol/L (136-145) 09/08/19 07:20 Potassium 3.8 mmol/L (3.5-5.1) 09/08/19 07:20 Chloride 110 mmol/L (98-107) H 09/08/19 07:20 Carbon Dioxide 30 mmol/L (21-32) 09/08/19 07:20 Anion Gap 5 MMOL/L (8-16) L 09/08/19 07:20 BUN 21.4 mg/dL (7-18) H 09/08/19 07:20 Creatinine 0.9 mg/dL (0.55-1.3) 09/08/19 07:20 Est GFR (CKD-EPI)AfAm 118.30 09/08/19 07:20 Est GFR (CKD-EPI)NonAf 102.07 09/08/19 07:20 Random Glucose 91 mg/dL (74-106) 09/08/19 07:20 Calcium 8.8 mg/dL (8.5-10.1) 09/08/19 07:20 Total Bilirubin 0.3 mg/dL (0.2-1) 09/08/19 07:20 AST 10 U/L (15-37) L 09/08/19 07:20 ALT 16 U/L (13-61) 09/08/19 07:20 Alkaline Phosphatase 56 U/L (45-117) 09/08/19 07:20 Total Protein 5.9 g/dl (6.4-8.2) L 09/08/19 07:20 Albumin 3.1 g/dl (3.4-5.0) L 09/08/19 07:20 Valproic Acid 34.7 ug/mL (50-100) L 09/08/19 07:20 Syphilis Serology Non-reactive (NONREACTIVE) 09/08/19 07:20 Labs reviewed. Assessment: 09/09/19 12:33 Alert and oriented x 3, in no acute respiratory distress. Full ROM, ambulating in the unit with no assistance. Mild withdrawal symptoms. Complaining of nausea and vomiting Plan: Continue detox protocol. Zofran x 1 dose for vomiting. COVID 19 testing pending.
[2019-09-09] MEDS: NICOTINE POLACRILEX 2 MG GUM BUC PRN (14:44)
[2019-09-09] MEDS: OLANZapine 5 MG TABLET PO SCH (21:59)
[2019-09-09] MEDS: THIAMINE HCL 100 MG TABLET (FP) PO SCH (22:00)
[2019-09-09] MEDS: MELATONIN 5 MG TABLETS PO SCH (22:02)
[2019-09-09] MEDS: MAG HYDROX/AL HYDROX/SIMETH 30 ML UNIT-DOSE CUP PO PRN (23:08)
[2019-09-10] MEDS ORDERED: chlordiazePOXIDE HCL 10 MG CAPSULE PO PRN
[2019-09-10] MEDS ORDERED: METHADONE HCL 40 MG DISPERSABLE TABLET ONE (03:14)
[2019-09-10] MEDS ORDERED: METHADONE HCL 10 MG TABLET ONE (03:14)
[2019-09-10] MEDS ORDERED: chlordiazePOXIDE HCL 10 MG CAPSULE PO SCH (05:00)
[2019-09-10] MEDS: METHADONE 80 MG, METHADONE 20 MG PO SCH (05:43)
[2019-09-10] MEDS: GABAPENTIN 400 MG CAPSULE PO SCH ×3 (05:43→21:58)
[2019-09-10] MEDS: diazePAM 5 MG TABLET PO SCH ×2 (05:43→18:00)
[2019-09-10] MEDS: diazePAM 5 MG TABLET PO PRN ×2 (07:46→12:16)
[2019-09-10] MEDS: DIVALPROEX SODIUM 500 MG TABLET E.C. PO SCH ×2 (10:04→21:59)
[2019-09-10] MEDS: ASPIRIN 81 MG CHEWABLE TABLETS PO SCH (10:04)
[2019-09-10] MEDS: PRENATAL VITAMINS W/ FOLIC ACID TABLET (FP) PO SCH (10:04)
[2019-09-10] MEDS: NICOTINE 7 MG/24 HOURS TOPICAL PATCH TD SCH (10:06)
[2019-09-10] MEDS: NICOTINE POLACRILEX 2 MG GUM BUC PRN (10:06)
--- NOTE | 2019-09-10 12:11 | PN ---
S CIWA - CIWA Score Nausea/Vomitin-No Nausea/No Vomiting Muscle Tremors: 2 Anxiety: 2 Agitation: 2 Paroxysmal Sweats: 2 Orientation: 0-Oriented Tacttile Disturbances: 0-None Auditory Disturbances: 0-None Visual Disturbances: 0-None Headache: 0-None Present CIWA-Ar Total Score: 8 BHS Progress Note (SOAP) Subjective: sweats shakes body aches interrupted sleep Objective: 09/10/19 12:10 Vital Signs Temperature 97.5 F L 09/10/19 08:49 Pulse Rate 65 09/10/19 08:49 Respiratory Rate 16 09/10/19 08:49 Blood Pressure 129/77 09/10/19 08:49 O2 Sat by Pulse Oximetry (%) 97 09/10/19 05:40 Laboratory Tests 09/08/19 09/08/19 09/08/19 07:20 07:20 07:20 WBC 4.3 RBC 3.97 L Hgb 12.0 Hct 36.6 MCV 92.2 MCH 30.3 MCHC 32.9 RDW 15.5 Plt Count 135 MPV 9.2 Sodium 144 Potassium 3.8 Chloride 110 H Carbon Dioxide 30 Anion Gap 5 L BUN 21.4 H Creatinine 0.9 Est GFR (CKD-EPI)AfAm 118.30 Est GFR (CKD-EPI)NonAf 102.07 Random Glucose 91 Calcium 8.8 Total Bilirubin 0.3 AST 10 L ALT 16 Alkaline Phosphatase 56 Total Protein 5.9 L Albumin 3.1 L Valproic Acid Syphilis Serology Non-reactive 09/08/19 07:20 WBC RBC Hgb Hct MCV MCH MCHC RDW Plt Count MPV Sodium Potassium Chloride Carbon Dioxide Anion Gap BUN Creatinine Est GFR (CKD-EPI)AfAm Est GFR (CKD-EPI)NonAf Random Glucose Calcium Total Bilirubin AST ALT Alkaline Phosphatase Total Protein Albumin Valproic Acid 34.7 L Syphilis Serology labs noted aaox3 ambulating no acute distress Assessment: 09/10/19 12:10 withdrawals Plan: continue detox increase fluids
[2019-09-10] MEDS ORDERED: GABAPENTIN 400 MG CAPSULE PO SCH (15:15)
[2019-09-10] MEDS ORDERED: LOPERAMIDE HCL 2 MG CAPSULE PO ONE (16:19)
[2019-09-10] MEDS ORDERED: LOPERAMIDE HCL 2 MG CAPSULE PO PRN (20:00)
[2019-09-10] MEDS ORDERED: hydrOXYzine PAMOATE 50 MG CAPSULE (FP) PO ONE ×2 (20:13)
[2019-09-10] MEDS ORDERED: hydrOXYzine PAMOATE 25 MG CAPSULE (FP) PO PRN (20:23)
[2019-09-10] MEDS: OLANZapine 7.5 MG TABLET PO SCH (21:58)
[2019-09-10] MEDS: THIAMINE HCL 100 MG TABLET (FP) PO SCH (21:59)
[2019-09-10] MEDS: MELATONIN 5 MG TABLETS PO SCH (21:59)
[2019-09-11] MEDS ORDERED: METHADONE HCL 10 MG TABLET ONE (04:12)
[2019-09-11] MEDS ORDERED: METHADONE HCL 40 MG DISPERSABLE TABLET ONE (04:12)
[2019-09-11] MEDS ORDERED: chlordiazePOXIDE HCL 10 MG CAPSULE PO SCH (05:00)
[2019-09-11] MEDS: GABAPENTIN 400 MG CAPSULE PO SCH ×3 (05:37→21:59)
[2019-09-11] MEDS: diazePAM 5 MG TABLET PO SCH ×2 (05:38→17:06)
[2019-09-11] MEDS: METHADONE 80 MG, METHADONE 20 MG PO SCH (05:38)
--- NOTE | 2019-09-11 08:50 | PN ---
S CIWA - CIWA Score Nausea/Vomitin-Mild Nausea/No Vomiting Muscle Tremors: 2 Anxiety: 1-Mildly Anxious Agitation: 0-Normal Activity Paroxysmal Sweats: 2 Orientation: 0-Oriented Tacttile Disturbances: 0-None Auditory Disturbances: 0-None Visual Disturbances: 0-None Headache: 0-None Present CIWA-Ar Total Score: 6 BHS Progress Note (SOAP) Subjective: sweats shakes nausea Objective: 09/11/19 08:50 Vital Signs Temperature 97.7 F 09/11/19 06:19 Pulse Rate 70 09/11/19 06:19 Respiratory Rate 18 09/11/19 06:19 Blood Pressure 114/72 09/11/19 06:19 O2 Sat by Pulse Oximetry (%) 96 09/11/19 06:19 Laboratory Tests 09/07/19 09/08/19 09/08/19 15:50 07:20 07:20 WBC 4.3 RBC 3.97 L Hgb 12.0 Hct 36.6 MCV 92.2 MCH 30.3 MCHC 32.9 RDW 15.5 Plt Count 135 MPV 9.2 Sodium 144 Potassium 3.8 Chloride 110 H Carbon Dioxide 30 Anion Gap 5 L BUN 21.4 H Creatinine 0.9 Est GFR (CKD-EPI)AfAm 118.30 Est GFR (CKD-EPI)NonAf 102.07 Random Glucose 91 Calcium 8.8 Total Bilirubin 0.3 AST 10 L ALT 16 Alkaline Phosphatase 56 Total Protein 5.9 L Albumin 3.1 L Valproic Acid Syphilis Serology COVID-19 (LATIA) Not detected 09/08/19 09/08/19 07:20 07:20 WBC RBC Hgb Hct MCV MCH MCHC RDW Plt Count MPV Sodium Potassium Chloride Carbon Dioxide Anion Gap BUN Creatinine Est GFR (CKD-EPI)AfAm Est GFR (CKD-EPI)NonAf Random Glucose Calcium Total Bilirubin AST ALT Alkaline Phosphatase Total Protein Albumin Valproic Acid 34.7 L Syphilis Serology Non-reactive COVID-19 (LATIA) labs noted aaox3 ambulating no acute distress Assessment: 09/11/19 08:52 withdrawals Plan: continue detox zofran sl d/c in am
[2019-09-11] MEDS: DIVALPROEX SODIUM 500 MG TABLET E.C. PO SCH ×2 (12:32→21:59)
[2019-09-11] MEDS: ASPIRIN 81 MG CHEWABLE TABLETS PO SCH (12:32)
[2019-09-11] MEDS: PRENATAL VITAMINS W/ FOLIC ACID TABLET (FP) PO SCH (12:32)
[2019-09-11] MEDS: NICOTINE 7 MG/24 HOURS TOPICAL PATCH TD SCH (12:34)
[2019-09-11] MEDS: MAG HYDROX/AL HYDROX/SIMETH 30 ML UNIT-DOSE CUP PO PRN (21:27)
[2019-09-11] MEDS: OLANZapine 7.5 MG TABLET PO SCH (21:59)
[2019-09-11] MEDS: MELATONIN 5 MG TABLETS PO SCH (22:00)
[2019-09-11] MEDS: THIAMINE HCL 100 MG TABLET (FP) PO SCH (22:00)
[2019-09-12] MEDS ORDERED: METHADONE HCL 10 MG TABLET ONE (04:27)
[2019-09-12] MEDS ORDERED: METHADONE HCL 40 MG DISPERSABLE TABLET ONE (04:28)
[2019-09-12] MEDS ORDERED: chlordiazePOXIDE HCL 10 MG CAPSULE PO ONE (05:00)
[2019-09-12] MEDS: METHADONE 80 MG, METHADONE 20 MG PO SCH (05:29)
[2019-09-12] MEDS: GABAPENTIN 400 MG CAPSULE PO SCH (05:29)
[2019-09-12] MEDS ORDERED: diazePAM 5 MG TABLET PO ONE (06:00)
[2019-09-12 08:54] VITALS: BP 130/75; PULSE 81; TEMP 97.1
[2019-09-12] MEDS: PRENATAL VITAMINS W/ FOLIC ACID TABLET (FP) PO SCH (09:59)
[2019-09-12] MEDS: DIVALPROEX SODIUM 500 MG TABLET E.C. PO SCH (09:59)
[2019-09-12] MEDS: ASPIRIN 81 MG CHEWABLE TABLETS PO SCH (09:59)
[2019-09-12] MEDS: NICOTINE 7 MG/24 HOURS TOPICAL PATCH TD SCH (10:00)
--- NOTE | 2019-09-12 10:12 | DS ---
[facility] Detox Discharge Summary Admission Date: 09/07/19 Discharge Date: 09/12/19 - History Present History: Alcohol Dependence Additional Comments: 48 years old male admitted on 09/07/19 for alcohol withdrawal as management treated with valium detox regiment seen by psychiatrist for bipolar disorder resume gabapentin zyprexa and depakote Mr Cristal has completed the valium detox regiment and is tolerated well alert oriented x 3 cardiac s1s2 regular rate rhythm respiratory clear lungs bilaterally on auscultation abdomen soft round obese no rebound tenderness Pertinent Past History: time for discharge 35 minutes - Physical Exam Results Vital Signs: Vital Signs Temperature 97.1 F L 09/12/19 08:46 Pulse Rate 81 09/12/19 08:46 Respiratory Rate 20 09/12/19 08:46 Blood Pressure 130/75 09/12/19 08:46 O2 Sat by Pulse Oximetry (%) 98 09/12/19 06:10 Pertinent Admission Physical Exam Findings: alcohol withdrawal Vital Signs - 24 hr 09/11/19 09/11/19 09/11/19 12:35 17:11 17:12 Temperature 97.6 F 97.1 F L 97.1 F L Pulse Rate 82 60 60 Respiratory 18 18 18 Rate Blood Pressure 111/64 106/55 L 106/55 L O2 Sat by Pulse 98 Oximetry (%) 09/11/19 09/12/19 09/12/19 20:24 00:38 03:31 Temperature 97.3 F L Pulse Rate 77 Respiratory 18 18 18 Rate Blood Pressure 90/60 O2 Sat by Pulse 95 Oximetry (%) 09/12/19 09/12/19 06:10 08:46 Temperature 97.5 F L 97.1 F L Pulse Rate 73 81 Respiratory 18 20 Rate Blood Pressure 108/67 130/75 O2 Sat by Pulse 98 Oximetry (%) Laboratory Tests 09/07/19 09/08/19 09/08/19 15:50 07:20 07:20 WBC 4.3 RBC 3.97 L Hgb 12.0 Hct 36.6 MCV 92.2 MCH 30.3 MCHC 32.9 RDW 15.5 Plt Count 135 MPV 9.2 Sodium 144 Potassium 3.8 Chloride 110 H Carbon Dioxide 30 Anion Gap 5 L BUN 21.4 H Creatinine 0.9 Est GFR (CKD-EPI)AfAm 118.30 Est GFR (CKD-EPI)NonAf 102.07 Random Glucose 91 Calcium 8.8 Total Bilirubin 0.3 AST 10 L ALT 16 Alkaline Phosphatase 56 Total Protein 5.9 L Albumin 3.1 L Valproic Acid Syphilis Serology COVID-19 (LATIA) Not detected 09/08/19 09/08/19 07:20 07:20 WBC RBC Hgb Hct MCV MCH MCHC RDW Plt Count MPV Sodium Potassium Chloride Carbon Dioxide Anion Gap BUN Creatinine Est GFR (CKD-EPI)AfAm Est GFR (CKD-EPI)NonAf Random Glucose Calcium Total Bilirubin AST ALT Alkaline Phosphatase Total Protein Albumin Valproic Acid 34.7 L Syphilis Serology Non-reactive COVID-19 (LATIA) low albumin and depakote serum level continue depakote as mood moderator - Treatment Hospital Course: Detox Protocol Followed, Detoxed Safely, Responded well, Disch arged Condition Good, Rehab Referral Accepted Patient has Accepted [facility] Referral [facility] - Medication Discharge Medications: Ambulatory Orders Aspirin [ASA -] 81 mg PO DAILY #30 tab.chew 02/08/19 Gabapentin [Neurontin -] 800 mg PO TID #42 capsule 02/08/19 Divalproex [Depakote -] 500 mg PO BID 05/23/19 Methadone [Dolophine -] 100 mg PO DAILY 05/28/19 Olanzapine [Zyprexa] 15 mg PO HS 09/07/19 - Diagnosis (1) Alcohol dependence, uncomplicated Current Visit: Yes Status: Acute (2) Neuropathy Current Visit: Yes Status: Chronic (3) Substance induced mood disorder Current Visit: Yes Status: Suspected (4) Bipolar II disorder Current Visit: Yes Status: Chronic (5) Methadone maintenance therapy patient Current Visit: Yes Status: Chronic (6) Substance induced mood disorder Current Visit: Yes Status: Chronic (7) Nicotine dependence Current Visit: Yes Status: Chronic Qualifiers: Nicotine product type: cigarettes Substance use status: in withdrawal Q ualified Code(s): F17.213 - Nicotine dependence, cigarettes, with withdrawal - AMA Did Patient Leave Against Medical Advice: No CIWA Score - CIWA Score Nausea/Vomitin-No Nausea/No Vomiting Muscle Tremors: 2 Anxiety: 0-No Anxiety, at Ease Agitation: 0-Normal Activity Paroxysmal Sweats: 1-Minimal Palms Moist Orientation: 0-Oriented Tacttile Disturbances: 0-None Auditory Disturbances: 0-None Visual Disturbances: 0-None Headache: 0-None Present CIWA-Ar Total Score: 3
== END 2019-09-12 11:15 | disposition other institution (70) | DRG 773 ==
LOC: YASAS 12:24 → Y6N 15:45 → UNDODISIN 09-10 19:45 → Y3N 09-11 08:33
PROVIDERS: ADMIT Allergy & Immunology; ATTEND Allergy & Immunology
PROC: HZ2ZZZZ Detoxification Services for Substance Abuse Treatment (ICD-10-PCS; principal; 2019-09-07)
DX: F10.230 Alcohol dependence with withdrawal, uncomplicated (principal); F11.20 Opioid dependence, uncomplicated; F13.20 Sedative, hypnotic or anxiolytic dependence, uncomplicated; F14.20 Cocaine dependence, uncomplicated; F12.20 Cannabis dependence, uncomplicated; F17.210 Nicotine dependence, cigarettes, uncomplicated; F31.81 Bipolar II disorder; F19.24 Other psychoactive substance dependence with psychoactive substance-induced mood disorder; F19.280 Other psychoactive substance dependence with psychoactive substance-induced anxiety disorder; F43.10 Post-traumatic stress disorder, unspecified; F90.9 Attention-deficit hyperactivity disorder, unspecified type; G62.9 Polyneuropathy, unspecified; G47.00 Insomnia, unspecified; B18.2 Chronic viral hepatitis C; M54.41 Lumbago with sciatica, right side; M54.42 Lumbago with sciatica, left side; E66.9 Obesity, unspecified; Z68.33 Body mass index [BMI] 33.0-33.9, adult; Z86.69 Personal history of other diseases of the nervous system and sense organs; Z86.73 Personal history of transient ischemic attack (TIA), and cerebral infarction without residual deficits
CPT/HCPCS: 36415; 80053; 80164; 85027; 86780; Q0162; U0003

== ENCOUNTER 2019-09-12 11:06 | Inpatient (IN) | payer OTHER ==
--- NOTE | 2019-09-12 10:13 | HP ---
[facility] Rehab Assess/Revision - Admission History Admitted to Rehab from: [facility] Date of Admission to Rehab: 09/12/19 - Findings Detox History & Physical reviewed: Yes Concur with findings: Yes Comments/Additional Findings: transferred from detox to rehab admission as per protocol Inpatient Rehab Admission - Rehab Decision to Admit Inpatient rehab admission?: Yes - Initial Determination Are CD services needed?: Yes Free of communicable disease: Yes Not in need of hospitalization: Yes - Rehab Admission Criteria Previous failed treatment: Yes Poor recovery environment: Yes Comorbidities: Yes Lacks judgement: Yes Patient is meeting Inpatient Rehab admission criteria:: Yes
[~2019-09-12 11:06] MED LIST changes: +ACETAMINOPHEN 325 MG TABLET (FP) PO PRN; +LOPERAMIDE HCL 2 MG CAPSULE PO PRN; -MENTHOL/PHENOL 1 EACH UD MM PRN
[2019-09-12] MEDS: GABAPENTIN 400 MG CAPSULE PO SCH ×2 (13:42→21:15)
[2019-09-12] MEDS ORDERED: COLLOIDAL OATMEAL 1 BAR EACH TP PRN (13:50)
[2019-09-12] MEDS ORDERED: MINERAL OIL/PETROLAT/WATER TOPICAL CREAM 113 GM JAR TP PRN (13:50)
[2019-09-12] MEDS ORDERED: hydrOXYzine PAMOATE 25 MG CAPSULE (FP) PO SCH (14:00)
--- NOTE | 2019-09-12 14:45 | PN ---
BHS Progress Note (SOAP) Subjective: Patient states he feels "funny." On methadone at 90 mg; also taking Vistaril. Objective: General:No apparent distress, but slightly anxious HEENTM: Pupils-1 cm, sluggish reaction Neck: supple Lungs: clear, unlabored Cardiac: s1 s2, BRADYCARDIC ABD: +BS, MSK: full weight bearing, steady gait Neuro: No cognitive deficits Vital Signs Period Temp Pulse Resp BP Sys/Duque Pulse Ox Last 24 Hr 97.7 F-98.4 F 59-82 18-20 96-117/64-90 97 EKG shows QT/QTc = 476/451 Assessment: Sinus Bradycardia Dizziness 09/12/19 15:08 Plan: Vistaril discontinued.
--- NOTE | 2019-09-12 15:57 | EKG ---
Test Reason : Blood Pressure : / mmHG Vent. Rate : 054 BPM Atrial Rate : 054 BPM P-R Int : 150 ms QRS Dur : 106 ms QT Int : 476 ms P-R-T Axes : 015 016 035 degrees QTc Int : 451 ms SINUS BRADYCARDIA OTHERWISE NORMAL ECG WHEN COMPARED WITH ECG OF 17-OCT-2018 09:54, NO SIGNIFICANT CHANGE WAS FOUND Confirmed by MD Nino Edward ([id number]) on 09/12/2019 3:57:11 PM Referred By: Confirmed By:Rogelio Nino MD
[2019-09-12] MEDS: METHOCARBAMOL 500 MG TABLET PO SCH ×2 (17:30→21:14)
--- NOTE | 2019-09-12 19:28 | PN ---
S Progress Note Note: Patient c/o States takes vistaril for anxiety. Is also receiving gabapentin. Vital Signs - 24 hr 09/12/19 09/12/19 09/12/19 11:15 12:40 14:27 Temperature 98.4 F 97.7 F Pulse Rate 59 L 82 Respiratory 20 18 Rate Blood Pressure 96/64 112/73 O2 Sat by Pulse 97 Oximetry (%) 09/12/19 14:33 Temperature Pulse Rate 66 Respiratory Rate Blood Pressure 117/90 O2 Sat by Pulse Oximetry (%) Plan: Discussed with patient current dose of gabapentin and associated side effects. Discussed the effects of vistaril on heart w/ co-occurring use of methadone and reasons why it was d/c earlier today. Will give one dose of vistaril HS, as QTc is less than 500, and patient can be re-evaluated in a.m. Stated will prescribe CloNidine 0.1 mg PO q8h, but informed patient he can can only receive if SBP >120 and patient verbalized an understanding.
[2019-09-12] MEDS: MELATONIN 5 MG TABLETS PO SCH (21:14)
[2019-09-12] MEDS: THIAMINE HCL 100 MG TABLET (FP) PO SCH (21:14)
[2019-09-12] MEDS: DIVALPROEX SODIUM 500 MG TABLET E.C. PO SCH (21:14)
[2019-09-12] MEDS ORDERED: OLANZapine 7.5 MG TABLET PO SCH (22:00)
[2019-09-12] MEDS ORDERED: hydrOXYzine PAMOATE 25 MG CAPSULE (FP) PO ONE ×2 (22:00→23:00)
[2019-09-13] MEDS ORDERED: METHADONE HCL 10 MG TABLET ONE (06:10)
[2019-09-13] MEDS: METHADONE 80 MG, METHADONE 20 MG PO SCH (06:11)
[2019-09-13] MEDS ORDERED: METHADONE HCL 40 MG DISPERSABLE TABLET ONE (06:11)
[2019-09-13] MEDS: GABAPENTIN 400 MG CAPSULE PO SCH ×3 (06:12→21:06)
[2019-09-13] MEDS: ASPIRIN 81 MG CHEWABLE TABLETS PO SCH (09:25)
[2019-09-13] MEDS: NICOTINE 7 MG/24 HOURS TOPICAL PATCH TD SCH (09:25)
[2019-09-13] MEDS: DIVALPROEX SODIUM 500 MG TABLET E.C. PO SCH ×2 (09:25→21:09)
[2019-09-13] MEDS: PRENATAL VITAMINS W/ FOLIC ACID TABLET (FP) PO SCH (09:25)
[2019-09-13] MEDS: METHOCARBAMOL 500 MG TABLET PO SCH ×2 (09:26→14:19)
[2019-09-13] MEDS: NICOTINE POLACRILEX 2 MG GUM BUC PRN (09:27)
--- NOTE | 2019-09-13 09:28 | CONSULT ---
[facility] Psychiatric Consult - Data Date of interview: 09/13/19 Admission source: [facility] Identifying data: Latoya is a 48 y/o single male, father of one, domiciled, unemployed, and is supported by public assistance. This is one of multiple admissions for patient. Patient admitted to for treatment of alcohol, heroin, cocaine, benzodiazepine, and nicotine dependence. Substance Abuse History: Smoking Cessation. Smoking history: Current every day smoker. Have you smoked in the past 12 months: Yes. Aproximately how many cigarettes per day: 10. Cigars Per Day: 0. Hx Chewing Tobacco Use: No. Initiated information on smoking cessation: Yes. 'Breaking Loose' booklet given: 09/07/19. - Substances abused. Alcohol. Substance route: Oral. Frequency: Daily. Amount used: 1 pint vodka and 6 pack beers. Age of first use: 14. Date of last use: 09/07/19. Crack. Substance route: Smoking. Frequency: Daily. Amount used: 1 gram. Age of first use: 19. Date of last use: 09/03/19. Alprazolam (Xanax). Other (specify): 2mg 6 tabs. Substance route: Oral. Frequency: Daily. Amount used: 6 tabs. Age of first use: 30. Date of last use: 09/06/19. Marijuana/Hashish. Substance route: Smoking. Frequency: Daily. Amount used: 1 joint. Age of first use: 15. Date of last use: 09/06/19 Medical History: Medical profile is remarkable for cerebrovascular accident without residual complications (several weeks ago), hepatitis C, antecedent of benzodiazepine-related withdrawal seizures, history of neuropathic pain and recent history of infection of right hand (surgery : incision and drainage) Psychiatric History: Patient unable to give a cohesive psychiatric history. As per history, Mr. Bee has a history of multiple psychiatric hospitalizations ([facility] in [place], [place], [facility], [facility], [facility]) most recently two months ago at [facility] due to feeling feeling depressed. Diagnosis of Bipolar disorder +PTSD. Mr. Bee was able to state that upon discharge from [facility] he received a prescription of depakote but was unable to recall the other psychotropic medications. Mr. Bee is not currently followed by an outpatient psychiatric provider. Patient seen by Dr. Scott and was resumed on zyprexa 7.5mg HS + Depakote 500mg BID + Gabapentin 400mg TID. At present patient presents as lethargic, fatigue, pale, and slow to respond to questions. Physical/Sexual Abuse/Trauma History: Patient denies history of abuse. Served in [employer] for 4 years. 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 Traumatized by the experience. Left the in 2003 (with an honorable discharge as per self-report) Mental Status Exam - Mental Status Exam Alert and Oriented to: Time, Place, Person Cognitive Function: Good Patient Appearance: Well Groomed Mood: Withdrawn Affect: Mood Congruent Patient Behavior: Fatigued Speech Pattern: Delayed Voice Loudness: Mildly Soft/Quiet Thought Process: Goal Oriented Thought Disorder: Not Present Hallucinations: Denies Suicidal Ideation: Denies Homicidal Ideation: Denies Insight/Judgement: Poor Sleep: Poorly Appetite: Fair Muscle strength/Tone: Normal Gait/Station: Normal Psychiatric Findings - Problem List ([place] 1, 2,3) (1) Alcohol dependence, uncomplicated Current Visit: Yes Status: Acute (2) Sedative, hypnotic or anxiolytic dependence, uncomplicated Current Visit: Yes Status: Acute (3) Bipolar II disorder Current Visit: Yes Status: Chronic (4) PTSD (post-traumatic stress disorder) Current Visit: Yes Status: Chronic Comment: . By history and self-report. (5) Substance induced mood disorder Current Visit: Yes Status: Chronic (6) History of attention deficit hyperactivity disorder (ADHD) Current Visit: No Status: Chronic - Initial Treatment Plan Initial Treatment Plan: Psychoeducation provided. Rehab in progress. Patient presented as sluggish, pale, and slow to respond to questions. Approximately 20 minutes after speaking to play writer, Patient had a medical emergency and appeared to have presented with a mild seizure. Will d/c zyprexa 15mg HS. Will order Zyprexa 7.5mg HS. Depakote and gabapentin to be ordered and monitored by MENTAL HEALTH NURSE PRACTITIONER.
[2019-09-13] MEDS ORDERED: METHADONE HCL 40 MG DISPERSABLE TABLET PO SCH (10:00)
--- NOTE | 2019-09-13 10:37 | PN ---
BHS Progress Note (SOAP) Subjective: Rapid Response called on patient. He was talking to the manager building when he said he did not feel well. He started to fall and the COMMODITIES TRADER lowered him to the ground. The patient did not sustain a head injury. Nurse Jeet responded immediately, a Rapid Response was called, his head was placed on a pillow, and the rest of the team responded. PMHx of seizures, on Depakote and Gabapentin. Depakote level upon admission was 34 ([id number]). He has been on his depakote while in detox and rehab. Objective: P/E: General: patient found lying on the ground, somnolent, but responsive after a shout and a sternal rub HEENTM: Pupils responsive to light Neck:supple Lungs: respirations unlabored, clear CARDIAC: s1 s2 audible Neuro: Able to answer questions, oriented x3, recognizes staff. Cn 2-12 intact 09/13/19 10:34 09/13/19 10:37 Vital Signs Period Temp Pulse Resp BP Sys/Duque Pulse Ox Last 24 Hr 97.1 F-98.4 F 58-82 18-20 96-117/64-90 95-97 Assessment: seizure Patient has hx of seizure. Depakote level was non-therapeutic upon admission Patient resting comfortably in bed, post-ictal phase 09/13/19 10:37 09/13/19 10:38 Plan: Depakote level ordered Fall protocol 3 implemented Continue to monitor.
[2019-09-13] MEDS ORDERED: PT OWN MED DRAWER 7, Y5N ONE ×2 (15:49→21:08)
--- NOTE | 2019-09-13 15:59 | PN ---
[facility] Progress Note Note: patient labs reviewed. Potassium is within normal range, and valproic acid is within the lower limit of therapeutic. However, the patient's ammonia is elevated > 3 times the normal upper limit. Laboratory Last Values Potassium 4.4 mmol/L (3.5-5.1) 09/13/19 11:00 Ammonia 113.70 umol/L (11-32) H 09/13/19 11:00 Valproic Acid 54.7 ug/mL (50-100) 09/13/19 11:00 Discussed the results with the patient. Informed the patient that he needed lactulose to remove the ammonia from his system. Discussed the consequences of high ammonia levels on his metabolic system and mentation. Patient agreed.
[2019-09-13] MEDS: LACTULOSE 20 GM/30 ML UDC (FOR ORAL USE ONLY) PO SCH ×3 (17:38→21:29)
[2019-09-13] MEDS: METHOCARBAMOL 500 MG TABLET PO PRN (21:06)
[2019-09-13] MEDS: THIAMINE HCL 100 MG TABLET (FP) PO SCH (21:06)
[2019-09-13] MEDS: MELATONIN 5 MG TABLETS PO SCH (21:07)
[2019-09-13] MEDS ORDERED: OLANZapine 7.5 MG TABLET PO SCH (22:00)
[2019-09-14] MEDS ORDERED: METHADONE HCL 40 MG DISPERSABLE TABLET ONE (06:29)
[2019-09-14] MEDS ORDERED: METHADONE HCL 10 MG TABLET ONE (06:29)
[2019-09-14] MEDS: METHADONE 80 MG, METHADONE 20 MG PO SCH (06:42)
[2019-09-14] MEDS: GABAPENTIN 400 MG CAPSULE PO SCH ×3 (06:43→21:44)
[2019-09-14] MEDS ORDERED: PT OWN MED DRAWER 7, Y5N ONE ×3 (09:00→21:54)
[2019-09-14] MEDS: PRENATAL VITAMINS W/ FOLIC ACID TABLET (FP) PO SCH (10:09)
[2019-09-14] MEDS: ASPIRIN 81 MG CHEWABLE TABLETS PO SCH (10:09)
[2019-09-14] MEDS: DIVALPROEX SODIUM 500 MG TABLET E.C. PO SCH ×2 (10:09→21:46)
[2019-09-14] MEDS: LACTULOSE 20 GM/30 ML UDC (FOR ORAL USE ONLY) PO SCH ×4 (10:10→21:44)
[2019-09-14] MEDS: NICOTINE POLACRILEX 2 MG GUM BUC PRN (10:10)
[2019-09-14] MEDS: NICOTINE 7 MG/24 HOURS TOPICAL PATCH TD SCH (10:10)
[2019-09-14] MEDS: MAG HYDROX/AL HYDROX/SIMETH 30 ML UNIT-DOSE CUP PO PRN (11:49)
--- NOTE | 2019-09-14 12:24 | PN ---
[facility] Progress Note Note: PATIENT C/O SOB AND EPIGASTRIC DISCOMFORT. HE DENIES N/V/D AND CHEST PAIN. PATIENT STATES FEELING SOB WHICH WORSENS WHEN WEARING MASK AND LYING DOWN. PATIENT HAS HX OF SZD, ELEVATED AMMONIA LEVELS, ANXIETY, ETOH AND BZO DEPENDENCE. ROS: DENIES CP, DIZZINESS AND N/V/D. +C/O BURNING SENSATION AT MID CHEST AREA, ANXIETY AND SHAKES. Vital Signs Temperature 97.5 F L 09/14/19 09:52 Pulse Rate 89 09/14/19 09:52 Respiratory Rate 18 09/14/19 09:52 Blood Pressure 129/73 09/14/19 09:52 O2 Sat by Pulse Oximetry (%) 95 09/14/19 09:06 PE ALERT AND ORIENTED X 3 SKIN WARM AND DRY +PERRLA, EOMS INTACT BL, PUPILS 3MM CAR S1S2, RRR RESP CTA BL, NO RHONCHI OR RALES, STAT O2 SAT 99% EXT FULL ROM, AMB AD BRANDI MILD TREMORS AMB AD BRANDI A/P: SON LIKELY RELATED TO HEARTBURN AND ANXIETY ELEVATED AMMONIA LEVELS MEDICATED WITH MYLANTA PER ORDER PROTONIX 20MG DAILY TO START TOMORROW HEAD ELEVATION WHILE IN BED WITH 2-3 PILLOWS CONTINUE LACTULOSE REPEAT AMMONIA LEVEL 09/17/2019
[2019-09-14] MEDS: cloNIDine HCL 0.1 MG TABLET PO PRN (16:29)
--- NOTE | 2019-09-14 16:50 | PN ---
Psychiatric Progress Note Vital Signs: Vital Signs Period Temp Pulse Resp BP Sys/Duque Pulse Ox Last 24 Hr 97 F-98.0 F 64-89 16-20 102-129/70-83 95-96 Date of Session: 09/14/19 Chief Complaint:: "I'm having alot of anxiety and i'm not sleeping." HPI: Patient admitted to for treatment of alcohol, heroin, cocaine, benzodiazepine, nicotine. Consultation ordered due to complaints of worsening anxiety. ROS: Patient is ambulatory, alert +oriented X3. Current Medications: Active Medications Generic Name Dose Route Start Last Admin Trade Name Freq PRN Reason Stop Dose Admin Al Hydroxide/Mg Hydroxide 30 ml 09/12/19 10:13 09/14/19 11:49 Mylanta Oral Suspension - PO 30 ml Q6H PRN Administration DYSPEPSIA Aspirin 81 mg 09/13/19 10:00 09/14/19 10:09 Asa - PO 81 mg DAILY KYUNG Administration Clonidine 0.1 mg 09/12/19 19:33 09/14/19 16:29 Catapres - PO 0.1 mg Q8H PRN Administration WITHDRAWAL(CONT SUBST) Divalproex Sodium 500 mg 09/12/19 22:00 09/14/19 10:09 Depakote - PO 500 mg BID KYUNG Administration Gabapentin 400 mg 09/12/19 14:00 09/14/19 13:41 Neurontin - PO 400 mg TID KYUNG Administration Guaifenesin 10 ml 09/12/19 10:13 Robitussin - PO Q6H PRN COUGH Lactulose 20 gm 09/13/19 18:00 09/14/19 13:41 Cephulac (Oral Use) PO 20 gm QID KYUNG Administration Loperamide HCl 4 mg 09/12/19 10:13 Imodium - PO Q6H PRN DIARRHEA Magnesium Citrate 300 ml 09/12/19 10:13 Citroma - PO Q48H PRN CONSTIPATION Magnesium Hydroxide 30 ml 09/12/19 10:13 Milk Of Magnesia - PO DAILY PRN CONSTIPATION Melatonin 5 mg 09/12/19 22:00 09/13/19 21:07 Melatonin PO 5 mg HS KYUNG Administration Methadone HCl 80 mg/ Methadone 100 mg 09/13/19 06:00 09/14/19 06:42 HCl 20 mg PO 100 mg DAILY@0600 KYUNG Administration Methocarbamol 500 mg 09/13/19 14:46 09/13/19 21:06 Robaxin - PO 500 mg QID PRN Administration MUSCLE SPASMS Multi-Ingredient Lotion 1 applic 09/12/19 13:50 09/13/19 15:49 Eucerin (Small Jar) - TP 1 applic BID PRN Administration DRY SKIN Nicotine 7 mg 09/13/19 10:00 09/14/19 10:10 Nicoderm Patch - TD Not Given DAILY KYUNG Nicotine Polacrilex 2 mg 09/12/19 10:13 09/14/19 10:10 Nicorette Gum - BUC 2 mg Q2H PRN Administration NICOTINE REPLACEMENT RX Olanzapine 7.5 mg 09/13/19 22:00 09/13/19 21:09 Zyprexa - PO 7.5 mg HS KYUNG Administration Pantoprazole Sodium 20 mg 09/15/19 10:00 Protonix - PO DAILY KYUNG Multivit/Folic Acid/Iron 1 tab 09/13/19 10:00 09/14/19 10:09 Vitamins (Sjr) - PO 1 tab DAILY KYUNG Administration Pseudoephedrine/Triprolidine 1 combo 09/12/19 10:13 Actifed - PO TID PRN NASAL CONGESTION Thiamine HCl 100 mg 09/12/19 22:00 09/13/19 21:06 Vitamin B1 - PO 100 mg HS KYUNG Administration Medication(s) Change(s): Yes. Will d/c zyprexa 7.5mg HS. Will order zyprexa 10mg HS. Current Side Effect: No Lab tests ordered: No Lab tests reviewed: Yes Provider note:: Patient reports worsening anxiety throughout the day. Medications and labs reviewed. Ammonia level on 09/14/19: 113.7. Zyprexa was reduced due to elevated ammonia level and patient's presentation of slowed speech and mild confusion. Patient has been receiving lactulose 20mg QID for 24 hours. This afternoon while assessing Mr. Bee, he presented as alert +oriented X3 and able to answer questions appropriately. Patient made aware that additional medications will not be ordered due to his ammonia level. Since patient appears more organized today then he did yesterday zyprexa 7.5 HS will be increased to 10mg HS. Patient in agreement with plan. Nursing staff informed that clonoidine 0.1 mg is ordered and can be given to address his anxiety if parameters are met. Patient satisified and receptive to feedback. Total face to face time:: 25 Mental Status Exam - Mental Status Exam Alert and Oriented to: Time, Place, Person Cognitive Function: Good Patient Appearance: Well Groomed Mood: Irritable (slightly irritable but in control. ) Affect: Appropriate Patient Behavior: Cooperative Speech Pattern: Appropriate Voice Loudness: Mildly Soft/Quiet Thought Process: Goal Oriented Thought Disorder: Not Present Hallucinations: Denies Suicidal Ideation: Denies Homicidal Ideation: Denies Insight/Judgement: Poor Sleep: Poorly Appetite: Fair Muscle strength/Tone: Normal Gait/Station: Normal Psychiatric Treatment Plan - Problem List (1) Alcohol dependence, uncomplicated Current Visit: Yes (2) Sedative, hypnotic or anxiolytic dependence, uncomplicated Current Visit: Yes (3) Bipolar II disorder Current Visit: Yes (4) PTSD (post-traumatic stress disorder) Current Visit: Yes Comment: . By history and self-report. (5) Substance induced mood disorder Current Visit: Yes (6) History of attention deficit hyperactivity disorder (ADHD) Current Visit: No
[2019-09-14] MEDS: THIAMINE HCL 100 MG TABLET (FP) PO SCH (21:44)
[2019-09-14] MEDS: METHOCARBAMOL 500 MG TABLET PO PRN (21:44)
[2019-09-14] MEDS: MELATONIN 5 MG TABLETS PO SCH (21:44)
[2019-09-14] MEDS: OLANZapine 10 MG TABLET PO SCH (21:46)
[2019-09-15] MEDS ORDERED: METHADONE HCL 10 MG TABLET ONE (03:17)
[2019-09-15] MEDS ORDERED: METHADONE HCL 40 MG DISPERSABLE TABLET ONE (03:17)
[2019-09-15] MEDS: METHADONE 80 MG, METHADONE 20 MG PO SCH (05:57)
[2019-09-15] MEDS: GABAPENTIN 400 MG CAPSULE PO SCH ×3 (05:58→21:01)
[2019-09-15] MEDS: METHOCARBAMOL 500 MG TABLET PO PRN (06:37)
[2019-09-15] MEDS ORDERED: PT OWN MED DRAWER 7, Y5N ONE ×2 (08:18→19:20)
[2019-09-15] MEDS: LACTULOSE 20 GM/30 ML UDC (FOR ORAL USE ONLY) PO SCH ×4 (09:22→21:02)
[2019-09-15] MEDS: ASPIRIN 81 MG CHEWABLE TABLETS PO SCH (09:22)
[2019-09-15] MEDS: DIVALPROEX SODIUM 500 MG TABLET E.C. PO SCH ×2 (09:22→21:01)
[2019-09-15] MEDS: NICOTINE 7 MG/24 HOURS TOPICAL PATCH TD SCH (09:22)
[2019-09-15] MEDS: PRENATAL VITAMINS W/ FOLIC ACID TABLET (FP) PO SCH (09:23)
[2019-09-15] MEDS: PANTOPRAZOLE 20 MG TABLET PO SCH (09:23)
[2019-09-15] MEDS: NICOTINE POLACRILEX 2 MG GUM BUC PRN (09:24)
[2019-09-15] MEDS: cloNIDine HCL 0.1 MG TABLET PO PRN (11:28)
[2019-09-15] MEDS: MAG HYDROX/AL HYDROX/SIMETH 30 ML UNIT-DOSE CUP PO PRN (13:07)
--- NOTE | 2019-09-15 14:51 | PN ---
S Progress Note Note: Psychiatric nurse practitoner note: Call received by RN Bhavya stating patient is reporting anxiety. Patient received gabapentin 400mg @ 14:23. Ammonia level on 09/13/19 was 113.7. Patient's blood pressure at 14:36 was 94/68 HR 60. Clonidine 0.1 PRN for anxiety Q8H ordered by YUE Umana. Will add parameters to clonidine order : Please hold if BP <90/60 HR <60. Recommendation: Ammonia level should be ordered before additional medications are ordered.
--- NOTE | 2019-09-15 16:51 | PN ---
S Progress Note Note: Patient is referred for feeling of difficulty breathing when and epigastric discomfort when he lays down, he also c/o SOB when he ambulates short distances. He reports SOB is worse when wearing mask. Patient had similar symptoms yesterday and was given maalox, he is currently lactulose for elevated ammonia levels Patient is examined sitting in chair, symptoms not present. He denies nausea, vomiting, chest pain, palpitation or any other associated symptoms. He verbalizes his symptoms are related to his anxiety disorder. PE General Appearance: No apparent distress Last Vital Signs Temp Pulse Resp BP Pulse Ox 97.8 F 80 20 100/60 96 09/15/19 16:50 09/15/19 16:50 09/15/19 16:50 09/15/19 16:50 09/15/19 14:27 Laboratory Last Values Potassium 4.4 mmol/L (3.5-5.1) 09/13/19 11:00 Ammonia 113.70 umol/L (11-32) H 09/13/19 11:00 Valproic Acid 54.7 ug/mL (50-100) 09/13/19 11:00 Chest: Non-tender, clear in all [place] CVS: S1S2, RRR Abdomen: Mildly obese, non-tender, BS x4 Extremities: MULLINS x4, no cyanosis A/P Patient is a 48 year old man in rehab for alcohol dependence. His symptoms are vague, he is observed walking and talking with no apparent respiratory distress Oxygen 2 L via NC ordered Repeat of ammonia level is scheduled for 09/16, will order for 09/15 Patient seen by loan review analyst for possible anxiety component, he is on clonidine as needed Staff will continue to monitor
[2019-09-15] MEDS: MELATONIN 5 MG TABLETS PO SCH (21:01)
[2019-09-15] MEDS: OLANZapine 10 MG TABLET PO SCH (21:01)
[2019-09-15] MEDS: THIAMINE HCL 100 MG TABLET (FP) PO SCH (21:01)
[2019-09-16] MEDS ORDERED: METHADONE HCL 40 MG DISPERSABLE TABLET ONE (02:49)
[2019-09-16] MEDS ORDERED: METHADONE HCL 10 MG TABLET ONE (02:49)
[2019-09-16] MEDS: GABAPENTIN 400 MG CAPSULE PO SCH ×3 (06:28→21:21)
[2019-09-16] MEDS: METHADONE 80 MG, METHADONE 20 MG PO SCH (06:28)
[2019-09-16] MEDS: ASPIRIN 81 MG CHEWABLE TABLETS PO SCH (09:57)
[2019-09-16] MEDS: PANTOPRAZOLE 20 MG TABLET PO SCH (09:57)
[2019-09-16] MEDS: LACTULOSE 20 GM/30 ML UDC (FOR ORAL USE ONLY) PO SCH ×4 (09:57→21:21)
[2019-09-16] MEDS: PRENATAL VITAMINS W/ FOLIC ACID TABLET (FP) PO SCH (09:57)
[2019-09-16] MEDS: NICOTINE 7 MG/24 HOURS TOPICAL PATCH TD SCH (09:58)
[2019-09-16] MEDS ORDERED: PT OWN MED DRAWER 7, Y5N ONE ×2 (09:59→18:58)
[2019-09-16] MEDS: DIVALPROEX SODIUM 500 MG TABLET E.C. PO SCH ×2 (09:59→21:21)
[2019-09-16] MEDS: NICOTINE POLACRILEX 2 MG GUM BUC PRN (10:00)
[2019-09-16] MEDS: cloNIDine HCL 0.1 MG TABLET PO PRN (20:01)
[2019-09-16] MEDS: THIAMINE HCL 100 MG TABLET (FP) PO SCH (21:21)
[2019-09-16] MEDS: OLANZapine 10 MG TABLET PO SCH (21:21)
[2019-09-16] MEDS: MELATONIN 5 MG TABLETS PO SCH (21:21)
[2019-09-17] MEDS ORDERED: METHADONE HCL 10 MG TABLET ONE (03:09)
[2019-09-17] MEDS ORDERED: METHADONE HCL 40 MG DISPERSABLE TABLET ONE (03:09)
[2019-09-17] MEDS: GABAPENTIN 400 MG CAPSULE PO SCH ×3 (06:14→21:07)
[2019-09-17] MEDS: METHADONE 80 MG, METHADONE 20 MG PO SCH (06:14)
[2019-09-17] MEDS ORDERED: PT OWN MED DRAWER 7, Y5N ONE (08:56)
[2019-09-17] MEDS: DIVALPROEX SODIUM 500 MG TABLET E.C. PO SCH ×2 (09:36→21:08)
[2019-09-17] MEDS: ASPIRIN 81 MG CHEWABLE TABLETS PO SCH (09:36)
[2019-09-17] MEDS: LACTULOSE 20 GM/30 ML UDC (FOR ORAL USE ONLY) PO SCH ×4 (09:36→21:08)
[2019-09-17] MEDS: PANTOPRAZOLE 20 MG TABLET PO SCH (09:36)
[2019-09-17] MEDS: NICOTINE 7 MG/24 HOURS TOPICAL PATCH TD SCH (09:38)
[2019-09-17] MEDS: NICOTINE POLACRILEX 2 MG GUM BUC PRN (09:38)
[2019-09-17] MEDS: PRENATAL VITAMINS W/ FOLIC ACID TABLET (FP) PO SCH (09:38)
--- NOTE | 2019-09-17 12:55 | PN ---
[facility] Progress Note Note: c/o rectal bleeding on bowel movement. Reports constipation-"I'm on Methadone and i use colace". Denies n/v/d. Vital Signs - 8 hr 09/16/ 06:30 Temperature 97.0 F L Pulse Rate 62 Respiratory 16 Rate Blood Pressure 92/56 L O2 Sat by Pulse 97 Oximetry (%) Alert o x 3 nad oob ambulating with steady gait A:Hx constipation P-Colace 100 mg po TID increase po fluids
[2019-09-17] MEDS: DOCUSATE SODIUM 100 MG CAPSULE (FP) PO SCH ×2 (14:05→21:07)
[2019-09-17] MEDS ORDERED: COLLOIDAL OATMEAL 1 BAR EACH TP PRN (14:10)
--- NOTE | 2019-09-17 14:38 | PN ---
Psychiatric Progress Note Vital Signs: Vital Signs Period Temp Pulse Resp BP Sys/Duque Pulse Ox Last 24 Hr 97.0 F 62-82 16-18 92-114/56-79 95-97 Date of Session: 09/17/19 Chief Complaint:: " I still cannot sleep at night." HPI: Day 6 of rehabilitation treatment. MATHEUS issues : alcohol, benzodiazepine, cocaine, heroin, nicotine. Patient reports doing much better except for complaint of insomnia. ROS: Noted as alert and fully oriented. Ambulatory. Steady gait. No somatic complaints offered. Current Medications: Active Medications Generic Name Dose Route Start Last Admin Trade Name Freq PRN Reason Stop Dose Admin Al Hydroxide/Mg Hydroxide 30 ml 09/12/19 10:13 09/15/19 13:07 Mylanta Oral Suspension - PO 30 ml Q6H PRN Administration DYSPEPSIA Aspirin 81 mg 09/13/19 10:00 09/17/19 09:36 Asa - PO 81 mg DAILY KYUNG Administration Clonidine 0.1 mg 09/15/19 14:55 09/16/19 20:01 Catapres - PO 0.1 mg Q8H PRN Administration ANXIETY Colloidal Oatmeal 1 applic 09/17/19 14:10 Aveeno Soap - TP DAILY PRN HYGEINE Divalproex Sodium 500 mg 09/12/19 22:00 09/17/19 09:36 Depakote - PO 500 mg BID KYUNG Administration Docusate Sodium 100 mg 09/17/19 14:00 09/17/19 14:05 Colace - PO 100 mg TID KYUNG Administration Gabapentin 400 mg 09/12/19 14:00 09/17/19 14:05 Neurontin - PO 400 mg TID KYUNG Administration Guaifenesin 10 ml 09/12/19 10:13 Robitussin - PO Q6H PRN COUGH Ibuprofen 400 mg 09/15/19 06:45 Motrin - PO Q8H PRN PAIN LEVEL 6-10 Lactulose 20 gm 09/13/19 18:00 09/17/19 14:04 Cephulac (Oral Use) PO 20 gm QID KYUNG Administration Loperamide HCl 4 mg 09/12/19 10:13 Imodium - PO Q6H PRN DIARRHEA Magnesium Citrate 300 ml 09/12/19 10:13 Citroma - PO Q48H PRN CONSTIPATION Magnesium Hydroxide 30 ml 09/12/19 10:13 Milk Of Magnesia - PO DAILY PRN CONSTIPATION Melatonin 5 mg 09/12/19 22:00 09/16/19 21:21 Melatonin PO 5 mg HS KYUNG Administration Methadone HCl 80 mg/ Methadone 100 mg 09/13/19 06:00 09/17/19 06:14 HCl 20 mg PO 100 mg DAILY@0600 KYUNG Administration Methocarbamol 500 mg 09/13/19 14:46 09/15/19 06:37 Robaxin - PO 500 mg QID PRN Administration MUSCLE SPASMS Multi-Ingredient Lotion 1 applic 09/12/19 13:50 09/13/19 15:49 Eucerin (Small Jar) - TP 1 applic BID PRN Administration DRY SKIN Nicotine 7 mg 09/13/19 10:00 09/17/19 09:38 Nicoderm Patch - TD Not Given DAILY KYUNG Nicotine Polacrilex 2 mg 09/12/19 10:13 09/17/19 09:38 Nicorette Gum - BUC 2 mg Q2H PRN Administration NICOTINE REPLACEMENT RX Olanzapine 10 mg 09/14/19 22:00 09/16/19 21:21 Zyprexa - PO 10 mg HS KYUNG Administration Pantoprazole Sodium 20 mg 09/15/19 10:00 09/17/19 09:36 Protonix - PO 20 mg DAILY KYUNG Administration Multivit/Folic Acid/Iron 1 tab 09/13/19 10:00 09/17/19 09:38 Vitamins (Sjr) - PO 1 tab DAILY KYUNG Administration Pseudoephedrine/Triprolidine 1 combo 09/12/19 10:13 Actifed - PO TID PRN NASAL CONGESTION Thiamine HCl 100 mg 09/12/19 22:00 09/16/19 21:21 Vitamin B1 - PO 100 mg HS KYUNG Administration Medication(s) Change(s): Belsomra 5 mg po hs prn. Added to the regimen at the patient's specific request. " Belsomra has helped me sleep well at night in the past. I want to get back on that medication again." Side effects/benefits discussed with the patient. Informed consent (verbal) granted to . Current Side Effect: No Lab tests ordered: No Lab tests reviewed: Yes Provider note:: Chart reviewed. Multidisciplinary progress notes are revisited. Patient is known to this policy writer from previous admissions to the detoxification units. edge kitter J. Handy's consult notes (09/12 + 09/13 + 09/15/2019) : appreciated. Met with the patient. His concerns are received and validated. Mr Cristal is complaining of insomnia and he requests the inclusion of suvorexant in the current regimen. Principles of sleep hygiene discussed with patient. Side effects/benefits of belsomra discussed. Labs checked. Noted ammonia level t rending down (now 82.4 from 113) and VA level = 54.7 (therapeutic but in the low range). Patient is clearly showing improvement. He is alert, fully oriented, conversant, pleasant on approach and neatly groomed. Gait is steady. Patient is adherent to his medications. No occurrence of adverse effects. Stable mental status. See MSE report for details. Total face to face time:: 35 Mental Status Exam - Mental Status Exam Alert and Oriented to: Time, Place, Person Cognitive Function: Good Patient Appearance: Well Groomed Mood: Hopeful, Euthymic Affect: Appropriate, Normal Range Patient Behavior: Appropriate, Cooperative (friendly on approach) Speech Pattern: Clear, Appropriate Voice Loudness: Normal Thought Process: Intact, Goal Oriented Thought Disorder: Not Present Hallucinations: Denies Suicidal Ideation: Denies Homicidal Ideation: Denies Insight/Judgement: Fair Sleep: Poorly, Difficulty falling asleep Appetite: Good Gait/Station: Normal Psychiatric Treatment Plan - Problem List (1) Alcohol use disorder Current Visit: Yes Comment: . (2) Opioid dependence on agonist therapy Current Visit: Yes Comment: . (3) Benzodiazepine dependence Current Visit: Yes Comment: . (4) Cocaine dependence, uncomplicated Current Visit: Yes Comment: . (5) Nicotine dependence Current Visit: Yes Qualifiers: Nicotine product type: cigarettes Substance use status: in withdrawal Qualified Code(s): F17.213 - Nicotine dependence, cigarettes, with withdrawal Comment: . (6) PTSD (post-traumatic stress disorder) Current Visit: Yes Comment: . By history and self-report. (7) History of bipolar disorder Current Visit: Yes Comment: . (8) Insomnia Current Visit: Yes Qualifiers: Insomnia type: unspecified Qualified Code(s): G47.00 - Insomnia, unspecified Comment: .
[2019-09-17] MEDS: METHOCARBAMOL 500 MG TABLET PO PRN (18:50)
[2019-09-17] MEDS: OLANZapine 10 MG TABLET PO SCH (21:07)
[2019-09-17] MEDS: MELATONIN 5 MG TABLETS PO SCH (21:07)
[2019-09-17] MEDS: THIAMINE HCL 100 MG TABLET (FP) PO SCH (21:07)
[2019-09-17] MEDS: SUVOREXANT 5 MG TABLET PO PRN (21:08)
[2019-09-18] MEDS ORDERED: METHADONE HCL 10 MG TABLET ONE (05:49)
[2019-09-18] MEDS ORDERED: METHADONE HCL 40 MG DISPERSABLE TABLET ONE (05:49)
[2019-09-18] MEDS: DOCUSATE SODIUM 100 MG CAPSULE (FP) PO SCH ×3 (06:19→21:18)
[2019-09-18] MEDS: METHADONE 80 MG, METHADONE 20 MG PO SCH (06:19)
[2019-09-18] MEDS: GABAPENTIN 400 MG CAPSULE PO SCH ×3 (06:19→21:18)
[2019-09-18] MEDS ORDERED: PT OWN MED DRAWER 7, Y5N ONE (08:43)
[2019-09-18] MEDS: PRENATAL VITAMINS W/ FOLIC ACID TABLET (FP) PO SCH (09:44)
[2019-09-18] MEDS: DIVALPROEX SODIUM 500 MG TABLET E.C. PO SCH ×2 (09:44→21:19)
[2019-09-18] MEDS: PANTOPRAZOLE 20 MG TABLET PO SCH (09:44)
[2019-09-18] MEDS: LACTULOSE 20 GM/30 ML UDC (FOR ORAL USE ONLY) PO SCH ×4 (09:44→21:18)
[2019-09-18] MEDS: ASPIRIN 81 MG CHEWABLE TABLETS PO SCH (09:44)
[2019-09-18] MEDS: NICOTINE 7 MG/24 HOURS TOPICAL PATCH TD SCH (09:44)
[2019-09-18] MEDS: NICOTINE POLACRILEX 2 MG GUM BUC PRN (09:46)
[2019-09-18] MEDS: cloNIDine HCL 0.1 MG TABLET PO PRN (10:39)
--- NOTE | 2019-09-18 14:27 | PN ---
[facility] Progress Note Note: Laboratory Last Values Potassium 4.4 mmol/L (3.5-5.1) 09/13/19 11:00 POC Glucometer 106 UNITS (80-120) 09/18/19 07:21 Ammonia 36.00 umol/L (11-32) H 09/18/19 08:15 Valproic Acid 54.7 ug/mL (50-100) 09/13/19 11:00 Ammonia level is now at 36, continue to monitor.
[2019-09-18] MEDS: IBUPROFEN 400 MG TABLET (FP) PO PRN (17:34)
[2019-09-18] MEDS: METHOCARBAMOL 500 MG TABLET PO PRN ×2 (17:34→21:18)
[2019-09-18] MEDS: MELATONIN 5 MG TABLETS PO SCH (21:18)
[2019-09-18] MEDS: THIAMINE HCL 100 MG TABLET (FP) PO SCH (21:18)
[2019-09-18] MEDS: OLANZapine 10 MG TABLET PO SCH (21:18)
[2019-09-18] MEDS: SUVOREXANT 5 MG TABLET PO PRN (21:19)
[2019-09-19] MEDS ORDERED: METHADONE HCL 10 MG TABLET ONE (02:51)
[2019-09-19] MEDS ORDERED: METHADONE HCL 40 MG DISPERSABLE TABLET ONE (02:51)
[2019-09-19] MEDS: METHADONE 80 MG, METHADONE 20 MG PO SCH (06:22)
[2019-09-19] MEDS: DOCUSATE SODIUM 100 MG CAPSULE (FP) PO SCH ×3 (06:22→21:03)
[2019-09-19] MEDS: GABAPENTIN 400 MG CAPSULE PO SCH ×3 (06:22→21:03)
[2019-09-19] MEDS: METHOCARBAMOL 500 MG TABLET PO PRN ×2 (08:35→21:03)
[2019-09-19] MEDS: IBUPROFEN 400 MG TABLET (FP) PO PRN (08:35)
[2019-09-19] MEDS: PANTOPRAZOLE 20 MG TABLET PO SCH (09:22)
[2019-09-19] MEDS: LACTULOSE 20 GM/30 ML UDC (FOR ORAL USE ONLY) PO SCH ×4 (09:22→21:03)
[2019-09-19] MEDS: ASPIRIN 81 MG CHEWABLE TABLETS PO SCH (09:22)
[2019-09-19] MEDS: PRENATAL VITAMINS W/ FOLIC ACID TABLET (FP) PO SCH (09:23)
[2019-09-19] MEDS: NICOTINE 7 MG/24 HOURS TOPICAL PATCH TD SCH (09:23)
[2019-09-19] MEDS: DIVALPROEX SODIUM 500 MG TABLET E.C. PO SCH ×2 (09:24→21:04)
[2019-09-19] MEDS ORDERED: PT OWN MED DRAWER 7, Y5N ONE ×2 (09:24→13:14)
[2019-09-19] MEDS ORDERED: IBUPROFEN 600 MG TABLET (FP) PO PRN (12:06)
[2019-09-19] MEDS ORDERED: IBUPROFEN 400 MG TABLET (FP) PO PRN (12:07)
[2019-09-19] MEDS: LIDOCAINE 5% TOPICAL PATCH TP SCH (12:42)
[2019-09-19] MEDS: IBUPROFEN 600 MG TABLET (FP) PO PRN (17:31)
[2019-09-19] MEDS: OLANZapine 10 MG TABLET PO SCH (21:03)
[2019-09-19] MEDS: THIAMINE HCL 100 MG TABLET (FP) PO SCH (21:03)
[2019-09-19] MEDS: LIDOCAINE PATCH REMOVAL MC SCH (21:04)
[2019-09-19] MEDS: SUVOREXANT 5 MG TABLET PO PRN (21:04)
[2019-09-19] MEDS: MELATONIN 5 MG TABLETS PO SCH (21:04)
[2019-09-20] MEDS ORDERED: METHADONE HCL 10 MG TABLET ONE (06:00)
[2019-09-20] MEDS ORDERED: METHADONE HCL 40 MG DISPERSABLE TABLET ONE (06:00)
[2019-09-20] MEDS: METHADONE 80 MG, METHADONE 20 MG PO SCH (06:11)
[2019-09-20] MEDS: DOCUSATE SODIUM 100 MG CAPSULE (FP) PO SCH ×3 (06:12→21:20)
[2019-09-20] MEDS: GABAPENTIN 400 MG CAPSULE PO SCH ×4 (06:12→21:38)
[2019-09-20] MEDS: METHOCARBAMOL 500 MG TABLET PO PRN (09:21)
[2019-09-20] MEDS: ASPIRIN 81 MG CHEWABLE TABLETS PO SCH (09:22)
[2019-09-20] MEDS: PANTOPRAZOLE 20 MG TABLET PO SCH (09:22)
[2019-09-20] MEDS: LACTULOSE 20 GM/30 ML UDC (FOR ORAL USE ONLY) PO SCH ×4 (09:22→21:21)
[2019-09-20] MEDS: PRENATAL VITAMINS W/ FOLIC ACID TABLET (FP) PO SCH (09:22)
[2019-09-20] MEDS: DIVALPROEX SODIUM 500 MG TABLET E.C. PO SCH ×2 (09:22→21:21)
[2019-09-20] MEDS: NICOTINE 7 MG/24 HOURS TOPICAL PATCH TD SCH (09:22)
[2019-09-20] MEDS: LIDOCAINE 5% TOPICAL PATCH TP SCH (09:22)
[2019-09-20] MEDS: IBUPROFEN 600 MG TABLET (FP) PO PRN ×3 (09:23→21:20)
--- NOTE | 2019-09-20 12:24 | PN ---
S Progress Note Note: Psychiatric nurse practitioner note: Ethan 5mg HS renewed. Verbal consent given.
[2019-09-20] MEDS ORDERED: PT OWN MED DRAWER 7, Y5N ONE (15:59)
[2019-09-20] MEDS: METHOCARBAMOL 750 MG TABLET PO SCH ×2 (17:42→21:23)
[2019-09-20] MEDS: NICOTINE POLACRILEX 2 MG GUM BUC PRN (18:29)
[2019-09-20] MEDS: THIAMINE HCL 100 MG TABLET (FP) PO SCH (21:19)
[2019-09-20] MEDS: MELATONIN 5 MG TABLETS PO SCH (21:19)
[2019-09-20] MEDS: OLANZapine 10 MG TABLET PO SCH (21:20)
[2019-09-20] MEDS: LIDOCAINE PATCH REMOVAL MC SCH (21:23)
[2019-09-20] MEDS: SUVOREXANT 5 MG TABLET PO PRN (21:23)
[2019-09-20] MEDS: GABAPENTIN 300 MG CAPSULE PO SCH (21:37)
[2019-09-21] MEDS ORDERED: METHADONE HCL 40 MG DISPERSABLE TABLET ONE (03:21)
[2019-09-21] MEDS ORDERED: METHADONE HCL 10 MG TABLET ONE (03:21)
[2019-09-21] MEDS: METHADONE 80 MG, METHADONE 20 MG PO SCH (06:12)
[2019-09-21] MEDS: GABAPENTIN 300 MG CAPSULE PO SCH ×3 (06:13→21:16)
[2019-09-21] MEDS: DOCUSATE SODIUM 100 MG CAPSULE (FP) PO SCH ×3 (06:13→21:16)
[2019-09-21] MEDS: IBUPROFEN 600 MG TABLET (FP) PO PRN ×3 (07:36→21:17)
[2019-09-21] MEDS ORDERED: PT OWN MED DRAWER 7, Y5N ONE ×5 (08:16→19:35)
[2019-09-21] MEDS: DIVALPROEX SODIUM 500 MG TABLET E.C. PO SCH ×2 (09:22→21:16)
[2019-09-21] MEDS: ASPIRIN 81 MG CHEWABLE TABLETS PO SCH (09:22)
[2019-09-21] MEDS: LACTULOSE 20 GM/30 ML UDC (FOR ORAL USE ONLY) PO SCH ×4 (09:22→21:17)
[2019-09-21] MEDS: LIDOCAINE 5% TOPICAL PATCH TP SCH (09:22)
[2019-09-21] MEDS: PANTOPRAZOLE 20 MG TABLET PO SCH (09:23)
[2019-09-21] MEDS: METHOCARBAMOL 750 MG TABLET PO SCH ×4 (09:23→21:16)
[2019-09-21] MEDS: PRENATAL VITAMINS W/ FOLIC ACID TABLET (FP) PO SCH (09:23)
[2019-09-21] MEDS: NICOTINE 7 MG/24 HOURS TOPICAL PATCH TD SCH (09:23)
[2019-09-21] MEDS: cloNIDine HCL 0.1 MG TABLET PO PRN (14:57)
[2019-09-21] MEDS: MELATONIN 5 MG TABLETS PO SCH (21:15)
[2019-09-21] MEDS: SUVOREXANT 5 MG TABLET PO PRN (21:15)
[2019-09-21] MEDS: THIAMINE HCL 100 MG TABLET (FP) PO SCH (21:16)
[2019-09-21] MEDS: OLANZapine 10 MG TABLET PO SCH (21:16)
[2019-09-21] MEDS: LIDOCAINE PATCH REMOVAL MC SCH (21:19)
[2019-09-22] MEDS ORDERED: METHADONE HCL 10 MG TABLET ONE (05:25)
[2019-09-22] MEDS ORDERED: METHADONE HCL 40 MG DISPERSABLE TABLET ONE (05:25)
[2019-09-22] MEDS: METHADONE 80 MG, METHADONE 20 MG PO SCH (06:09)
[2019-09-22] MEDS: DOCUSATE SODIUM 100 MG CAPSULE (FP) PO SCH ×3 (06:09→21:03)
[2019-09-22] MEDS: GABAPENTIN 300 MG CAPSULE PO SCH ×3 (06:09→21:03)
[2019-09-22] MEDS: IBUPROFEN 600 MG TABLET (FP) PO PRN (07:09)
[2019-09-22] MEDS: NICOTINE 7 MG/24 HOURS TOPICAL PATCH TD SCH (10:04)
[2019-09-22] MEDS: PRENATAL VITAMINS W/ FOLIC ACID TABLET (FP) PO SCH (10:04)
[2019-09-22] MEDS: METHOCARBAMOL 750 MG TABLET PO SCH ×4 (10:05→21:05)
[2019-09-22] MEDS: DIVALPROEX SODIUM 500 MG TABLET E.C. PO SCH ×2 (10:05→21:05)
[2019-09-22] MEDS: PANTOPRAZOLE 20 MG TABLET PO SCH (10:05)
[2019-09-22] MEDS: LACTULOSE 20 GM/30 ML UDC (FOR ORAL USE ONLY) PO SCH ×4 (10:05→21:04)
[2019-09-22] MEDS: ASPIRIN 81 MG CHEWABLE TABLETS PO SCH (10:05)
[2019-09-22] MEDS: LIDOCAINE 5% TOPICAL PATCH TP SCH (10:06)
[2019-09-22] MEDS: NICOTINE POLACRILEX 2 MG GUM BUC PRN (10:07)
[2019-09-22] MEDS: cloNIDine HCL 0.1 MG TABLET PO PRN (14:36)
[2019-09-22] MEDS ORDERED: PT OWN MED DRAWER 7, Y5N ONE ×3 (16:52→21:40)
--- NOTE | 2019-09-22 19:12 | PN ---
S Progress Note Note: patient is anxious,requesting vistaril Vital Signs Temperature 97.6 F 09/22/19 06:03 Pulse Rate 56 L 09/22/19 06:03 Respiratory Rate 100 H 09/22/19 06:03 Blood Pressure 104/72 09/21/19 21:05 O2 Sat by Pulse Oximetry (%) 96 09/22/19 13:34 Laboratory Last Values Potassium 4.4 mmol/L (3.5-5.1) 09/13/19 11:00 POC Glucometer 106 UNITS (80-120) 09/18/19 07:21 Ammonia 36.00 umol/L (11-32) H 09/18/19 08:15 Valproic Acid 54.7 ug/mL (50-100) 09/13/19 11:00 vistaril 50 mgs po q 4 hrs prn for anxiety close monitoring
[2019-09-22] MEDS: hydrOXYzine PAMOATE 50 MG CAPSULE (FP) PO PRN (19:42)
[2019-09-22] MEDS: OLANZapine 10 MG TABLET PO SCH (21:03)
[2019-09-22] MEDS: MELATONIN 5 MG TABLETS PO SCH (21:03)
[2019-09-22] MEDS: SUVOREXANT 5 MG TABLET PO PRN (21:04)
[2019-09-22] MEDS: THIAMINE HCL 100 MG TABLET (FP) PO SCH (21:05)
[2019-09-22] MEDS: LIDOCAINE PATCH REMOVAL MC SCH (21:05)
[2019-09-23] MEDS ORDERED: METHADONE HCL 10 MG TABLET ONE (05:17)
[2019-09-23] MEDS ORDERED: METHADONE HCL 40 MG DISPERSABLE TABLET ONE (05:17)
[2019-09-23] MEDS: DOCUSATE SODIUM 100 MG CAPSULE (FP) PO SCH ×3 (06:45→21:01)
[2019-09-23] MEDS: GABAPENTIN 300 MG CAPSULE PO SCH ×3 (06:45→21:04)
[2019-09-23] MEDS: METHADONE 80 MG, METHADONE 20 MG PO SCH (06:46)
[2019-09-23] MEDS: ASPIRIN 81 MG CHEWABLE TABLETS PO SCH (09:49)
[2019-09-23] MEDS: PANTOPRAZOLE 20 MG TABLET PO SCH (09:49)
[2019-09-23] MEDS: NICOTINE 7 MG/24 HOURS TOPICAL PATCH TD SCH (09:50)
[2019-09-23] MEDS: DIVALPROEX SODIUM 500 MG TABLET E.C. PO SCH ×2 (09:50→21:01)
[2019-09-23] MEDS: LIDOCAINE 5% TOPICAL PATCH TP SCH (09:50)
[2019-09-23] MEDS: PRENATAL VITAMINS W/ FOLIC ACID TABLET (FP) PO SCH (09:50)
[2019-09-23] MEDS: LACTULOSE 20 GM/30 ML UDC (FOR ORAL USE ONLY) PO SCH ×4 (09:50→21:02)
[2019-09-23] MEDS: METHOCARBAMOL 750 MG TABLET PO SCH ×4 (09:51→21:01)
--- NOTE | 2019-09-23 11:57 | PN ---
[facility] Progress Note Note: Psychiatric nurse Practitioner note: Belsomra 5mg HS PRN renewed X3 days. Verbal consent given.
[2019-09-23] MEDS: NICOTINE POLACRILEX 2 MG GUM BUC PRN ×2 (18:51→21:31)
[2019-09-23] MEDS: THIAMINE HCL 100 MG TABLET (FP) PO SCH (21:01)
[2019-09-23] MEDS: OLANZapine 10 MG TABLET PO SCH (21:01)
[2019-09-23] MEDS: MELATONIN 5 MG TABLETS PO SCH (21:02)
[2019-09-23] MEDS: LIDOCAINE PATCH REMOVAL MC SCH (21:04)
[2019-09-23] MEDS: SUVOREXANT 5 MG TABLET PO PRN (21:30)
[2019-09-24] MEDS ORDERED: METHADONE HCL 10 MG TABLET ONE (05:19)
[2019-09-24] MEDS ORDERED: METHADONE HCL 40 MG DISPERSABLE TABLET ONE (05:20)
[2019-09-24] MEDS: GABAPENTIN 300 MG CAPSULE PO SCH ×3 (06:43→21:01)
[2019-09-24] MEDS: METHADONE 80 MG, METHADONE 20 MG PO SCH (06:43)
[2019-09-24] MEDS: DOCUSATE SODIUM 100 MG CAPSULE (FP) PO SCH ×3 (06:43→21:01)
[2019-09-24] MEDS: PANTOPRAZOLE 20 MG TABLET PO SCH (10:02)
[2019-09-24] MEDS: ASPIRIN 81 MG CHEWABLE TABLETS PO SCH (10:02)
[2019-09-24] MEDS: METHOCARBAMOL 750 MG TABLET PO SCH ×4 (10:03→21:02)
[2019-09-24] MEDS: PRENATAL VITAMINS W/ FOLIC ACID TABLET (FP) PO SCH (10:03)
[2019-09-24] MEDS: DIVALPROEX SODIUM 500 MG TABLET E.C. PO SCH ×2 (10:03→21:03)
[2019-09-24] MEDS: LIDOCAINE 5% TOPICAL PATCH TP SCH (10:04)
[2019-09-24] MEDS: NICOTINE 7 MG/24 HOURS TOPICAL PATCH TD SCH (10:04)
[2019-09-24] MEDS: LACTULOSE 20 GM/30 ML UDC (FOR ORAL USE ONLY) PO SCH (10:04)
--- NOTE | 2019-09-24 11:38 | PN ---
[facility] Progress Note Note: Laboratory Tests 09/13/19 09/13/19 09/13/19 11:00 11:00 11:00 Potassium 4.4 POC Glucometer Ammonia 113.70 H Valproic Acid 54.7 09/16/19 09/18/19 09/18/19 07:30 07:21 08:15 Potassium POC Glucometer 106 Ammonia 82.40 H 36.00 H Valproic Acid 09/23/19 09:47 Potassium POC Glucometer 139 Ammonia Valproic Acid Vital Signs Period Temp Pulse Resp BP Sys/Duque Pulse Ox Last 24 Hr 97.1 F-98.0 F 76-84 16-20 110-119/70-71 95-97 Last ammonia level 36. Labs appreciated. Mildly elevated level. Will d/c lactulose and repeat level in am.
[2019-09-24] MEDS: IBUPROFEN 600 MG TABLET (FP) PO PRN ×2 (11:49→17:07)
[2019-09-24] MEDS: NICOTINE POLACRILEX 2 MG GUM BUC PRN (12:26)
[2019-09-24] MEDS ORDERED: PT OWN MED DRAWER 7, Y5N ONE ×2 (16:49→21:44)
[2019-09-24] MEDS: hydrOXYzine PAMOATE 50 MG CAPSULE (FP) PO PRN (21:01)
[2019-09-24] MEDS: THIAMINE HCL 100 MG TABLET (FP) PO SCH (21:01)
[2019-09-24] MEDS: OLANZapine 10 MG TABLET PO SCH (21:01)
[2019-09-24] MEDS: MELATONIN 5 MG TABLETS PO SCH (21:01)
[2019-09-24] MEDS: LIDOCAINE PATCH REMOVAL MC SCH (21:03)
[2019-09-24] MEDS: SUVOREXANT 5 MG TABLET PO PRN (21:03)
[2019-09-25] MEDS ORDERED: METHADONE HCL 10 MG TABLET ONE (03:17)
[2019-09-25] MEDS ORDERED: METHADONE HCL 40 MG DISPERSABLE TABLET ONE (03:17)
[2019-09-25] MEDS: METHADONE 80 MG, METHADONE 20 MG PO SCH (06:16)
[2019-09-25] MEDS: DOCUSATE SODIUM 100 MG CAPSULE (FP) PO SCH ×3 (06:17→21:00)
[2019-09-25] MEDS: GABAPENTIN 300 MG CAPSULE PO SCH ×3 (06:17→21:00)
[2019-09-25] MEDS ORDERED: PT OWN MED DRAWER 7, Y5N ONE ×3 (08:26→20:14)
[2019-09-25] MEDS: IBUPROFEN 600 MG TABLET (FP) PO PRN ×2 (09:03→16:30)
[2019-09-25] MEDS: PANTOPRAZOLE 20 MG TABLET PO SCH (09:04)
[2019-09-25] MEDS: DIVALPROEX SODIUM 500 MG TABLET E.C. PO SCH ×2 (09:04→21:00)
[2019-09-25] MEDS: METHOCARBAMOL 750 MG TABLET PO SCH ×4 (09:04→21:00)
[2019-09-25] MEDS: PRENATAL VITAMINS W/ FOLIC ACID TABLET (FP) PO SCH (09:04)
[2019-09-25] MEDS: ASPIRIN 81 MG CHEWABLE TABLETS PO SCH (09:05)
[2019-09-25] MEDS: NICOTINE 7 MG/24 HOURS TOPICAL PATCH TD SCH (09:05)
[2019-09-25] MEDS: LIDOCAINE 5% TOPICAL PATCH TP SCH (09:05)
[2019-09-25] MEDS: NICOTINE POLACRILEX 2 MG GUM BUC PRN ×2 (12:42→15:06)
[2019-09-25] MEDS: MELATONIN 5 MG TABLETS PO SCH (21:00)
[2019-09-25] MEDS: OLANZapine 10 MG TABLET PO SCH (21:00)
[2019-09-25] MEDS: THIAMINE HCL 100 MG TABLET (FP) PO SCH (21:00)
[2019-09-25] MEDS: SUVOREXANT 5 MG TABLET PO PRN (21:01)
[2019-09-25] MEDS: LIDOCAINE PATCH REMOVAL MC SCH (22:05)
[2019-09-26] MEDS ORDERED: METHADONE HCL 40 MG DISPERSABLE TABLET ONE (06:04)
[2019-09-26] MEDS ORDERED: METHADONE HCL 10 MG TABLET ONE (06:04)
[2019-09-26] MEDS: GABAPENTIN 300 MG CAPSULE PO SCH ×3 (06:44→21:09)
[2019-09-26] MEDS: METHADONE 80 MG, METHADONE 20 MG PO SCH (06:44)
[2019-09-26] MEDS: DOCUSATE SODIUM 100 MG CAPSULE (FP) PO SCH ×3 (06:44→21:09)
[2019-09-26] MEDS ORDERED: PT OWN MED DRAWER 7, Y5N ONE ×2 (08:24→17:26)
[2019-09-26] MEDS: IBUPROFEN 600 MG TABLET (FP) PO PRN (08:56)
[2019-09-26] MEDS: NICOTINE POLACRILEX 2 MG GUM BUC PRN (08:57)
[2019-09-26] MEDS: ASPIRIN 81 MG CHEWABLE TABLETS PO SCH (09:00)
[2019-09-26] MEDS: METHOCARBAMOL 750 MG TABLET PO SCH ×4 (09:00→21:09)
[2019-09-26] MEDS: PANTOPRAZOLE 20 MG TABLET PO SCH (09:00)
[2019-09-26] MEDS: DIVALPROEX SODIUM 500 MG TABLET E.C. PO SCH ×2 (09:00→21:08)
[2019-09-26] MEDS: LIDOCAINE 5% TOPICAL PATCH TP SCH (09:01)
[2019-09-26] MEDS: NICOTINE 7 MG/24 HOURS TOPICAL PATCH TD SCH (09:01)
[2019-09-26] MEDS: PRENATAL VITAMINS W/ FOLIC ACID TABLET (FP) PO SCH (09:01)
[2019-09-26] MEDS ORDERED: LACTULOSE 20 GM/30 ML UDC (FOR ORAL USE ONLY) PO PRN (12:31)
--- NOTE | 2019-09-26 14:45 | PN ---
[facility] Progress Note (SOAP) Subjective: patient with elevated ammonia level Objective: 09/26/19 14:41 Laboratory Last Values Potassium 4.4 mmol/L (3.5-5.1) 09/13/19 11:00 POC Glucometer 93 UNITS (80-120) 09/25/19 06:15 Ammonia 104.90 umol/L (11-32) H 09/26/19 07:10 Valproic Acid 54.7 ug/mL (50-100) 09/13/19 11:00 General: no apparent distress HEENTM: normocephalic, perrla Neck: suipple MSK: full weight bearing, steady gait ABD: +BS Neuro: No cognitive deficits, alert & orient, is not drowsy or obtunded 09/26/19 14:43 Vital Signs Period Temp Pulse Resp BP Sys/Duque Pulse Ox Last 24 Hr 97.1 F-97.1 F 65-72 18-18 110-114/75-79 95-97 Assessment: Elevated Ammonia level 09/26/19 14:43 Plan: Discussed findings with patient Re-started Lactulose Ordered CBC and CMP Encouraged patient to follow up with PCP upon discharge for elevated ammonia level.
[2019-09-26] MEDS: LACTULOSE 20 GM/30 ML UDC (FOR ORAL USE ONLY) PO SCH ×2 (17:30→21:09)
[2019-09-26] MEDS: SUVOREXANT 5 MG TABLET PO PRN (21:08)
[2019-09-26] MEDS: THIAMINE HCL 100 MG TABLET (FP) PO SCH (21:09)
[2019-09-26] MEDS: OLANZapine 10 MG TABLET PO SCH (21:09)
[2019-09-26] MEDS: LIDOCAINE PATCH REMOVAL MC SCH (21:10)
[2019-09-26] MEDS: MELATONIN 5 MG TABLETS PO SCH (21:10)
[2019-09-26] MEDS ORDERED: MASKS NR ONE (22:13)
[2019-09-27] MEDS ORDERED: METHADONE HCL 10 MG TABLET ONE (03:05)
[2019-09-27] MEDS ORDERED: METHADONE HCL 40 MG DISPERSABLE TABLET ONE (03:05)
[2019-09-27] MEDS: METHADONE 80 MG, METHADONE 20 MG PO SCH (06:07)
[2019-09-27] MEDS: DOCUSATE SODIUM 100 MG CAPSULE (FP) PO SCH ×3 (06:08→21:10)
[2019-09-27] MEDS: GABAPENTIN 300 MG CAPSULE PO SCH ×3 (06:08→21:10)
[2019-09-27] MEDS: ASPIRIN 81 MG CHEWABLE TABLETS PO SCH (09:40)
[2019-09-27] MEDS: LACTULOSE 20 GM/30 ML UDC (FOR ORAL USE ONLY) PO SCH ×4 (09:41→21:12)
[2019-09-27] MEDS: PANTOPRAZOLE 20 MG TABLET PO SCH (09:41)
[2019-09-27] MEDS: DIVALPROEX SODIUM 500 MG TABLET E.C. PO SCH ×2 (09:41→21:10)
[2019-09-27] MEDS: PRENATAL VITAMINS W/ FOLIC ACID TABLET (FP) PO SCH (09:41)
[2019-09-27] MEDS: hydrOXYzine PAMOATE 50 MG CAPSULE (FP) PO PRN (09:42)
[2019-09-27] MEDS: LIDOCAINE 5% TOPICAL PATCH TP SCH (09:42)
[2019-09-27] MEDS: METHOCARBAMOL 750 MG TABLET PO SCH ×4 (09:42→21:12)
[2019-09-27] MEDS: NICOTINE 7 MG/24 HOURS TOPICAL PATCH TD SCH (09:42)
[2019-09-27 12:50] LABS: BASO % 0.8 % (0-2.0); EOS % 2.2 % (0-4.5); HEMATOCRIT 41.1 % (35.4-49); HEMOGLOBIN 13.3 GM/dL (11.7-16.9); LYMPH % 36.9 % (8-40); MCH 29.6 pg (25.7-33.7); MCHC 32.3 g/dl (32.0-35.9); MEAN CELL VOLUME 91.5 fl (80-96); MEAN PLT VOLUME 9.4 fl (7.5-11.1); MONO % 8.4 % (3.8-10.2); NEUT % 51.7 % (42.8-82.8); PLATELET COUNT 149 K/MM3 (134-434); RBC 4.49 M/mm3 (4.00-5.60); RDW 15.2 % (11.9-15.9); WHITE BLOOD COUNT 4.4 K/mm3 (4.0-10.0)
[2019-09-27 13:00] LABS: ALBUMIN 3.8 g/dl (3.4-5.0); BILIRUBIN,TOTAL 1.4 mg/dL (0.2-1); BLOOD UREA NITROGEN 24.9 mg/dL (7-18); CALCIUM 9.4 mg/dL (8.5-10.1); CREATININE 0.9 mg/dL (0.55-1.3); POTASSIUM 4.8 mmol/L (3.5-5.1)
[2019-09-27] MEDS: THIAMINE HCL 100 MG TABLET (FP) PO SCH (21:10)
[2019-09-27] MEDS: SUVOREXANT 5 MG TABLET PO PRN (21:10)
[2019-09-27] MEDS: OLANZapine 10 MG TABLET PO SCH (21:11)
[2019-09-27] MEDS: MELATONIN 5 MG TABLETS PO SCH (21:11)
[2019-09-27] MEDS: LIDOCAINE PATCH REMOVAL MC SCH (21:11)
[2019-09-28] MEDS ORDERED: METHADONE HCL 10 MG TABLET ONE (05:26)
[2019-09-28] MEDS ORDERED: METHADONE HCL 40 MG DISPERSABLE TABLET ONE (05:26)
[2019-09-28] MEDS: METHADONE 80 MG, METHADONE 20 MG PO SCH (06:01)
[2019-09-28] MEDS: GABAPENTIN 300 MG CAPSULE PO SCH ×3 (06:02→21:04)
[2019-09-28] MEDS: DOCUSATE SODIUM 100 MG CAPSULE (FP) PO SCH ×3 (06:02→21:04)
[2019-09-28] MEDS: ASPIRIN 81 MG CHEWABLE TABLETS PO SCH (09:33)
[2019-09-28] MEDS: PANTOPRAZOLE 20 MG TABLET PO SCH (09:33)
[2019-09-28] MEDS: LACTULOSE 20 GM/30 ML UDC (FOR ORAL USE ONLY) PO SCH ×4 (09:33→21:05)
[2019-09-28] MEDS: DIVALPROEX SODIUM 500 MG TABLET E.C. PO SCH ×2 (09:33→21:04)
[2019-09-28] MEDS: LIDOCAINE 5% TOPICAL PATCH TP SCH (09:34)
[2019-09-28] MEDS: NICOTINE 7 MG/24 HOURS TOPICAL PATCH TD SCH (09:34)
[2019-09-28] MEDS: METHOCARBAMOL 750 MG TABLET PO SCH ×4 (09:34→21:06)
[2019-09-28] MEDS: PRENATAL VITAMINS W/ FOLIC ACID TABLET (FP) PO SCH (09:34)
[2019-09-28] MEDS: hydrOXYzine PAMOATE 50 MG CAPSULE (FP) PO PRN (12:59)
[2019-09-28] MEDS ORDERED: PT OWN MED DRAWER 7, Y5N ONE (17:33)
[2019-09-28] MEDS: OLANZapine 10 MG TABLET PO SCH (21:04)
[2019-09-28] MEDS: LIDOCAINE PATCH REMOVAL MC SCH (21:05)
[2019-09-28] MEDS: SUVOREXANT 5 MG TABLET PO PRN (21:05)
[2019-09-28] MEDS: MELATONIN 5 MG TABLETS PO SCH (21:05)
[2019-09-28] MEDS: THIAMINE HCL 100 MG TABLET (FP) PO SCH (21:48)
[2019-09-29] MEDS ORDERED: METHADONE HCL 10 MG TABLET ONE (03:20)
[2019-09-29] MEDS ORDERED: METHADONE HCL 40 MG DISPERSABLE TABLET ONE (03:20)
[2019-09-29] MEDS: METHADONE 80 MG, METHADONE 20 MG PO SCH (06:24)
[2019-09-29] MEDS: DOCUSATE SODIUM 100 MG CAPSULE (FP) PO SCH ×3 (06:25→21:10)
[2019-09-29] MEDS: GABAPENTIN 300 MG CAPSULE PO SCH ×3 (06:25→21:14)
[2019-09-29] MEDS ORDERED: PT OWN MED DRAWER 7, Y5N ONE ×3 (08:25→21:15)
[2019-09-29] MEDS: LACTULOSE 20 GM/30 ML UDC (FOR ORAL USE ONLY) PO SCH ×4 (09:45→21:12)
[2019-09-29] MEDS: PRENATAL VITAMINS W/ FOLIC ACID TABLET (FP) PO SCH (09:45)
[2019-09-29] MEDS: DIVALPROEX SODIUM 500 MG TABLET E.C. PO SCH ×2 (09:45→21:10)
[2019-09-29] MEDS: PANTOPRAZOLE 20 MG TABLET PO SCH (09:45)
[2019-09-29] MEDS: ASPIRIN 81 MG CHEWABLE TABLETS PO SCH (09:45)
[2019-09-29] MEDS: METHOCARBAMOL 750 MG TABLET PO SCH ×4 (09:45→21:16)
[2019-09-29] MEDS: IBUPROFEN 600 MG TABLET (FP) PO PRN ×2 (09:46→15:41)
[2019-09-29] MEDS: LIDOCAINE 5% TOPICAL PATCH TP SCH (09:47)
[2019-09-29] MEDS: NICOTINE 7 MG/24 HOURS TOPICAL PATCH TD SCH (09:48)
[2019-09-29] MEDS: NICOTINE POLACRILEX 2 MG GUM BUC PRN (14:38)
[2019-09-29] MEDS: hydrOXYzine PAMOATE 50 MG CAPSULE (FP) PO PRN (17:03)
--- NOTE | 2019-09-29 18:21 | PN ---
[facility] Progress Note Note: Psychiatry Attending's note : Professor Of Early Childhood Education is contacted by RN. Reason : renewal of suvorexant. Done : belsomra 5 mg po hs prn.
--- NOTE | 2019-09-29 19:25 | PN ---
[facility] Progress Note Note: Patient is referred for accidental ingestion of lidocaine given by her nurse. Upon arrival to unit, patient is noted walking to his room in no apparent distress, although visibly upset. He reports numbness to mouth and throat. He denies difficulty breathing' Vital Signs Temperature 97.5 F L 09/29/19 07:06 Pulse Rate 96 H 09/29/19 07:06 Respiratory Rate 18 09/29/19 07:06 Blood Pressure 96/69 09/29/19 07:06 O2 Sat by Pulse Oximetry (%) 95 09/29/19 14:30 PE HEENT: AT/NC, oral mucosa moist, no visible lesions Chest: Lungs clear in all [place], not using accessory muscles CVS:S1S2, RRR Abdomen: BS x 4, NT A/P Accidental ingestion of lidocaine, patient is not in distress. He has been reassured that once medicine leaves his system, numbness will resolve. Offer oral fluids Vital signs every 1 hr X 4hrs, then every 4hrs Staff will continue to observe
[2019-09-29] MEDS: LIDOCAINE PATCH REMOVAL MC SCH (21:10)
[2019-09-29] MEDS: MELATONIN 5 MG TABLETS PO SCH (21:11)
[2019-09-29] MEDS: THIAMINE HCL 100 MG TABLET (FP) PO SCH (21:11)
[2019-09-29] MEDS: OLANZapine 10 MG TABLET PO SCH (21:11)
[2019-09-29] MEDS: SUVOREXANT 5 MG TABLET PO PRN (21:14)
[2019-09-30] MEDS ORDERED: METHADONE HCL 10 MG TABLET ONE (03:16)
[2019-09-30] MEDS ORDERED: METHADONE HCL 40 MG DISPERSABLE TABLET ONE (03:17)
[2019-09-30] MEDS: METHADONE 80 MG, METHADONE 20 MG PO SCH (06:08)
[2019-09-30] MEDS: DOCUSATE SODIUM 100 MG CAPSULE (FP) PO SCH ×3 (06:09→21:01)
[2019-09-30] MEDS: GABAPENTIN 300 MG CAPSULE PO SCH ×3 (06:09→21:02)
[2019-09-30] MEDS: DIVALPROEX SODIUM 500 MG TABLET E.C. PO SCH ×2 (09:59→21:02)
[2019-09-30] MEDS: METHOCARBAMOL 750 MG TABLET PO SCH ×4 (09:59→21:02)
[2019-09-30] MEDS: LACTULOSE 20 GM/30 ML UDC (FOR ORAL USE ONLY) PO SCH ×4 (09:59→21:01)
[2019-09-30] MEDS: PRENATAL VITAMINS W/ FOLIC ACID TABLET (FP) PO SCH (10:00)
[2019-09-30] MEDS: ASPIRIN 81 MG CHEWABLE TABLETS PO SCH (10:00)
[2019-09-30] MEDS: LIDOCAINE 5% TOPICAL PATCH TP SCH (10:00)
[2019-09-30] MEDS: NICOTINE 7 MG/24 HOURS TOPICAL PATCH TD SCH (10:00)
[2019-09-30] MEDS: PANTOPRAZOLE 20 MG TABLET PO SCH (10:00)
[2019-09-30] MEDS: NICOTINE POLACRILEX 2 MG GUM BUC PRN (12:41)
[2019-09-30] MEDS: IBUPROFEN 600 MG TABLET (FP) PO PRN ×2 (13:12→17:49)
[2019-09-30] MEDS: hydrOXYzine PAMOATE 50 MG CAPSULE (FP) PO PRN ×2 (14:09→21:04)
[2019-09-30] MEDS ORDERED: PT OWN MED DRAWER 7, Y5N ONE (18:39)
[2019-09-30] MEDS: OLANZapine 10 MG TABLET PO SCH (21:02)
[2019-09-30] MEDS: MELATONIN 5 MG TABLETS PO SCH (21:02)
[2019-09-30] MEDS: THIAMINE HCL 100 MG TABLET (FP) PO SCH (21:02)
[2019-09-30] MEDS: LIDOCAINE PATCH REMOVAL MC SCH (21:02)
[2019-09-30] MEDS: SUVOREXANT 5 MG TABLET PO PRN (21:04)
[2019-10-01] MEDS ORDERED: METHADONE HCL 10 MG TABLET ONE (03:12)
[2019-10-01] MEDS ORDERED: METHADONE HCL 40 MG DISPERSABLE TABLET ONE (03:13)
[2019-10-01] MEDS: METHADONE 80 MG, METHADONE 20 MG PO SCH (06:24)
[2019-10-01] MEDS: DOCUSATE SODIUM 100 MG CAPSULE (FP) PO SCH ×3 (06:27→21:18)
[2019-10-01] MEDS: GABAPENTIN 300 MG CAPSULE PO SCH ×3 (06:27→21:17)
[2019-10-01] MEDS: IBUPROFEN 600 MG TABLET (FP) PO PRN ×2 (07:45→16:51)
[2019-10-01] MEDS ORDERED: PT OWN MED DRAWER 7, Y5N ONE ×3 (09:25→16:54)
[2019-10-01] MEDS: NICOTINE 7 MG/24 HOURS TOPICAL PATCH TD SCH (10:17)
[2019-10-01] MEDS: LIDOCAINE 5% TOPICAL PATCH TP SCH (10:17)
[2019-10-01] MEDS: LACTULOSE 20 GM/30 ML UDC (FOR ORAL USE ONLY) PO SCH ×4 (10:17→21:18)
[2019-10-01] MEDS: PRENATAL VITAMINS W/ FOLIC ACID TABLET (FP) PO SCH (10:18)
[2019-10-01] MEDS: DIVALPROEX SODIUM 500 MG TABLET E.C. PO SCH ×2 (10:18→21:16)
[2019-10-01] MEDS: ASPIRIN 81 MG CHEWABLE TABLETS PO SCH (10:18)
[2019-10-01] MEDS: METHOCARBAMOL 750 MG TABLET PO SCH ×4 (10:18→21:16)
[2019-10-01] MEDS: PANTOPRAZOLE 20 MG TABLET PO SCH (10:18)
[2019-10-01] MEDS: NICOTINE POLACRILEX 2 MG GUM BUC PRN (10:19)
--- NOTE | 2019-10-01 15:19 | PN ---
S Progress Note Note: Patient is scheduled for discharge tomorrow. Script for 30 days supply of Zyprexa 10 mg/hs will be electronically transmitted to [facility], [address] [place], [place] [id number]
[2019-10-01] MEDS: hydrOXYzine PAMOATE 50 MG CAPSULE (FP) PO PRN (16:51)
[2019-10-01] MEDS: SUVOREXANT 5 MG TABLET PO PRN (21:17)
[2019-10-01] MEDS: OLANZapine 10 MG TABLET PO SCH (21:17)
[2019-10-01] MEDS: THIAMINE HCL 100 MG TABLET (FP) PO SCH (21:17)
[2019-10-01] MEDS: LIDOCAINE PATCH REMOVAL MC SCH (21:18)
[2019-10-01] MEDS: MELATONIN 5 MG TABLETS PO SCH (21:18)
[2019-10-02] MEDS ORDERED: METHADONE HCL 40 MG DISPERSABLE TABLET ONE (05:49)
[2019-10-02] MEDS ORDERED: METHADONE HCL 10 MG TABLET ONE (05:49)
[2019-10-02] MEDS ORDERED: METHADONE 80 MG, METHADONE 20 MG PO SCH (06:00)
[2019-10-02] MEDS: GABAPENTIN 300 MG CAPSULE PO SCH (06:07)
[2019-10-02] MEDS: DOCUSATE SODIUM 100 MG CAPSULE (FP) PO SCH (06:07)
[2019-10-02 06:57] VITALS: BP 117/79; PULSE 83; TEMP 97.8
[2019-10-02] MEDS ORDERED: MASKS NR ONE (08:34)
[2019-10-02] MEDS: IBUPROFEN 600 MG TABLET (FP) PO PRN (08:47)
[2019-10-02] MEDS ORDERED: PT OWN MED DRAWER 7, Y5N ONE (08:58)
[2019-10-02] MEDS: PANTOPRAZOLE 20 MG TABLET PO SCH (09:00)
[2019-10-02] MEDS: ASPIRIN 81 MG CHEWABLE TABLETS PO SCH (09:00)
[2019-10-02] MEDS: DIVALPROEX SODIUM 500 MG TABLET E.C. PO SCH (09:00)
[2019-10-02] MEDS: PRENATAL VITAMINS W/ FOLIC ACID TABLET (FP) PO SCH (09:01)
[2019-10-02] MEDS: METHOCARBAMOL 750 MG TABLET PO SCH (09:01)
[2019-10-02] MEDS: NICOTINE 7 MG/24 HOURS TOPICAL PATCH TD SCH (09:02)
[2019-10-02] MEDS: LIDOCAINE 5% TOPICAL PATCH TP SCH (09:02)
== END 2019-10-02 09:08 | disposition home or self-care (01) | DRG 772 ==
LOC: YASAS 11:06 → Y3E 11:07
PROVIDERS: ADMIT Allergy & Immunology; ATTEND Allergy & Immunology
PROC: HZ42ZZZ Group Counseling for Substance Abuse Treatment, Cognitive-Behavioral (ICD-10-PCS; principal; 2019-09-12)
DX: F10.20 Alcohol dependence, uncomplicated (principal); F11.20 Opioid dependence, uncomplicated; F13.20 Sedative, hypnotic or anxiolytic dependence, uncomplicated; F14.20 Cocaine dependence, uncomplicated; F17.210 Nicotine dependence, cigarettes, uncomplicated; F31.81 Bipolar II disorder; F19.24 Other psychoactive substance dependence with psychoactive substance-induced mood disorder; F43.10 Post-traumatic stress disorder, unspecified; E72.20 Disorder of urea cycle metabolism, unspecified; G47.00 Insomnia, unspecified; G40.909 Epilepsy, unspecified, not intractable, without status epilepticus; K59.00 Constipation, unspecified; R00.1 Bradycardia, unspecified; Z86.73 Personal history of transient ischemic attack (TIA), and cerebral infarction without residual deficits; R10.13 Epigastric pain; T41.3X1A Poisoning by local anesthetics, accidental (unintentional), initial encounter; R20.0 Anesthesia of skin; Y92.238 Other place in hospital as the place of occurrence of the external cause
CPT/HCPCS: 36415; 80053; 80164; 82140; 82962; 84132; 85025; 93005; 93010; J0735

== ENCOUNTER 2019-11-17 13:05 | Inpatient (IN) | payer OTHER ==
[2019-11-17] MEDS ORDERED: guaiFENesin 200 MG/10 ML 10 ML UNIT-DOSE CUPS PO PRN (14:52)
[2019-11-17] MEDS ORDERED: MAGNESIUM HYDROX 2400MG/30ML ORAL SUSPENSION 30 ML CUP PO PRN (14:52)
[2019-11-17] MEDS ORDERED: P-EPHED 60MG/TRIPROLIDI 2.5MG TABLET PO PRN (14:52)
[2019-11-17] MEDS ORDERED: MENTHOL/PHENOL 1 EACH UD MM PRN (14:52)
[2019-11-17] MEDS ORDERED: MAGNESIUM CITRATE 300 ML BOTTLE PO PRN (14:52)
[2019-11-17] MEDS ORDERED: LOPERAMIDE HCL 2 MG CAPSULE PO PRN (14:52)
--- NOTE | 2019-11-17 14:52 | HP ---
[facility] Rehab Assess/Revision - Admission History Admitted to Rehab from: [facility] Date of Admission to Rehab: 11/17/19 - Findings Detox History & Physical reviewed: Yes Concur with findings: Yes Inpatient Rehab Admission - Rehab Decision to Admit Inpatient rehab admission?: Yes - Initial Determination Are CD services needed?: Yes Free of communicable disease: Yes Not in need of hospitalization: Yes - Rehab Admission Criteria Previous failed treatment: Yes Poor recovery environment: Yes Comorbidities: Yes Lacks judgement: Yes Patient is meeting Inpatient Rehab admission criteria:: Yes
[2019-11-17] MEDS ORDERED: COLLOIDAL OATMEAL 1 BAR EACH TP PRN (14:55)
--- NOTE | 2019-11-17 15:03 | PN ---
[facility] Progress Note Note: Psychiatry Attending's note : Mr Bee is transferred today to [address] For maintenance of sobriety (rehabilitation treatment). Mental status continues to be stable. No new issues. Orders for zyprexa 7.5 mg po hs + belsomra 5 mg po hs prn : Renewed on patient's consent (continuity of care). No need for further psychiatric intervention (at this time).
[2019-11-17] MEDS: GABAPENTIN 400 MG CAPSULE PO SCH ×2 (15:13→21:16)
[2019-11-17] MEDS: hydrOXYzine PAMOATE 25 MG CAPSULE (FP) PO PRN (17:57)
[2019-11-17] MEDS: DIVALPROEX SODIUM 500 MG TABLET E.C. PO SCH (21:16)
[2019-11-17] MEDS: METHOCARBAMOL 500 MG TABLET PO SCH (21:16)
[2019-11-17] MEDS: THIAMINE HCL 100 MG TABLET (FP) PO SCH (21:16)
[2019-11-17] MEDS: OLANZapine 7.5 MG TABLET PO SCH (21:17)
[2019-11-17] MEDS: MELATONIN 5 MG TABLETS PO SCH (21:18)
[2019-11-17] MEDS: SUVOREXANT 5 MG TABLET PO PRN (21:19)
[2019-11-18] MEDS: PRAZOSIN HCL 1 MG CAPSULE PO SCH ×2 (00:05→21:06)
[2019-11-18] MEDS ORDERED: METHADONE HCL 10 MG TABLET ONE (04:12)
[2019-11-18] MEDS ORDERED: METHADONE HCL 40 MG DISPERSABLE TABLET ONE (04:12)
[2019-11-18] MEDS ORDERED: METHADONE HCL 10 MG TABLET PO SCH (06:00)
[2019-11-18] MEDS: GABAPENTIN 400 MG CAPSULE PO SCH ×3 (06:21→21:06)
[2019-11-18] MEDS: METHADONE 80 MG, METHADONE 30 MG PO SCH (06:21)
[2019-11-18] MEDS: NICOTINE POLACRILEX 2 MG GUM BUC PRN ×4 (06:34→18:27)
[2019-11-18] MEDS: PRENATAL VITAMINS W/ FOLIC ACID TABLET (FP) PO SCH (09:44)
[2019-11-18] MEDS: METHOCARBAMOL 500 MG TABLET PO SCH ×4 (09:44→21:06)
[2019-11-18] MEDS: ASPIRIN 81 MG CHEWABLE TABLETS PO SCH (09:44)
[2019-11-18] MEDS: DIVALPROEX SODIUM 500 MG TABLET E.C. PO SCH ×2 (09:44→21:05)
[2019-11-18] MEDS: hydrOXYzine PAMOATE 25 MG CAPSULE (FP) PO PRN ×3 (09:45→21:05)
[2019-11-18] MEDS: NICOTINE 7 MG/24 HOURS TOPICAL PATCH TD SCH (09:46)
[2019-11-18] MEDS: MELATONIN 5 MG TABLETS PO SCH (21:05)
[2019-11-18] MEDS: SUVOREXANT 5 MG TABLET PO PRN (21:05)
[2019-11-18] MEDS: OLANZapine 7.5 MG TABLET PO SCH (21:05)
[2019-11-18] MEDS: THIAMINE HCL 100 MG TABLET (FP) PO SCH (21:07)
[2019-11-19] MEDS ORDERED: METHADONE HCL 10 MG TABLET ONE (04:02)
[2019-11-19] MEDS ORDERED: METHADONE HCL 40 MG DISPERSABLE TABLET ONE (04:03)
[2019-11-19] MEDS: METHADONE 80 MG, METHADONE 30 MG PO SCH (06:19)
[2019-11-19] MEDS: GABAPENTIN 400 MG CAPSULE PO SCH ×3 (06:20→21:13)
[2019-11-19] MEDS: METHOCARBAMOL 500 MG TABLET PO SCH ×4 (09:59→21:14)
[2019-11-19] MEDS: PRENATAL VITAMINS W/ FOLIC ACID TABLET (FP) PO SCH (09:59)
[2019-11-19] MEDS: ASPIRIN 81 MG CHEWABLE TABLETS PO SCH (09:59)
[2019-11-19] MEDS: DIVALPROEX SODIUM 500 MG TABLET E.C. PO SCH ×2 (09:59→21:13)
[2019-11-19] MEDS: NICOTINE 7 MG/24 HOURS TOPICAL PATCH TD SCH (10:00)
[2019-11-19] MEDS: NICOTINE POLACRILEX 2 MG GUM BUC PRN (10:00)
[2019-11-19] MEDS: hydrOXYzine PAMOATE 25 MG CAPSULE (FP) PO PRN ×3 (10:00→21:17)
--- NOTE | 2019-11-19 11:13 | PN ---
[facility] Progress Note Note: Patient requests adjustment in his medications. He is currently on Zyprexa 7.5 mg/hs and Belsomra 5 mg/hs prn. Told writer producer that he was on Zyprexa 15 mg/hs prior to his admission to this facility and requests that Belsomra dosage be increased to 10 mg/hs prn. Zyprexa changed to 10 mg/hs as confirmed from Dr Law note on 11/13/19 and Belsomra dosage increased to 10 mg/hs prn
[2019-11-19] MEDS: HYDROCORTISONE 1% TOPICAL CREAM 30 GM TUBE TP SCH ×2 (11:51→21:13)
[2019-11-19] MEDS: MELATONIN 5 MG TABLETS PO SCH (21:13)
[2019-11-19] MEDS: PRAZOSIN HCL 1 MG CAPSULE PO SCH (21:13)
[2019-11-19] MEDS: SUVOREXANT 10 MG TABLET PO PRN (21:13)
[2019-11-19] MEDS: THIAMINE HCL 100 MG TABLET (FP) PO SCH (21:14)
[2019-11-19] MEDS: OLANZapine 7.5 MG TABLET PO SCH (21:54)
[2019-11-19] MEDS ORDERED: OLANZapine 5 MG TABLET PO SCH (22:00)
[2019-11-20] MEDS ORDERED: METHADONE HCL 40 MG DISPERSABLE TABLET ONE (03:20)
[2019-11-20] MEDS ORDERED: METHADONE HCL 10 MG TABLET ONE (03:20)
[2019-11-20] MEDS: METHADONE 80 MG, METHADONE 30 MG PO SCH (06:20)
[2019-11-20] MEDS: GABAPENTIN 400 MG CAPSULE PO SCH ×3 (06:20→21:08)
[2019-11-20] MEDS: NICOTINE 7 MG/24 HOURS TOPICAL PATCH TD SCH (10:29)
[2019-11-20] MEDS: DIVALPROEX SODIUM 500 MG TABLET E.C. PO SCH ×2 (10:29→21:08)
[2019-11-20] MEDS: METHOCARBAMOL 500 MG TABLET PO SCH ×4 (10:29→21:08)
[2019-11-20] MEDS: ASPIRIN 81 MG CHEWABLE TABLETS PO SCH (10:29)
[2019-11-20] MEDS: PRENATAL VITAMINS W/ FOLIC ACID TABLET (FP) PO SCH (10:29)
[2019-11-20] MEDS: HYDROCORTISONE 1% TOPICAL CREAM 30 GM TUBE TP SCH ×2 (10:30→21:09)
[2019-11-20] MEDS: hydrOXYzine PAMOATE 25 MG CAPSULE (FP) PO PRN ×2 (11:16→21:08)
[2019-11-20] MEDS: NICOTINE POLACRILEX 2 MG GUM BUC PRN (13:20)
[2019-11-20] MEDS: OLANZapine 7.5 MG TABLET PO SCH (21:08)
[2019-11-20] MEDS: SUVOREXANT 10 MG TABLET PO PRN (21:08)
[2019-11-20] MEDS: PRAZOSIN HCL 1 MG CAPSULE PO SCH (21:08)
[2019-11-20] MEDS: MELATONIN 5 MG TABLETS PO SCH (21:09)
[2019-11-20] MEDS: THIAMINE HCL 100 MG TABLET (FP) PO SCH (21:10)
[2019-11-21] MEDS ORDERED: METHADONE HCL 40 MG DISPERSABLE TABLET ONE (03:27)
[2019-11-21] MEDS ORDERED: METHADONE HCL 10 MG TABLET ONE (03:27)
[2019-11-21] MEDS: GABAPENTIN 400 MG CAPSULE PO SCH ×3 (06:24→21:01)
[2019-11-21] MEDS: METHADONE 80 MG, METHADONE 30 MG PO SCH (06:24)
[2019-11-21] MEDS: PRENATAL VITAMINS W/ FOLIC ACID TABLET (FP) PO SCH (10:28)
[2019-11-21] MEDS: METHOCARBAMOL 500 MG TABLET PO SCH ×4 (10:28→21:01)
[2019-11-21] MEDS: NICOTINE 7 MG/24 HOURS TOPICAL PATCH TD SCH (10:28)
[2019-11-21] MEDS: DIVALPROEX SODIUM 500 MG TABLET E.C. PO SCH ×2 (10:28→21:01)
[2019-11-21] MEDS: ASPIRIN 81 MG CHEWABLE TABLETS PO SCH (10:28)
[2019-11-21] MEDS: HYDROCORTISONE 1% TOPICAL CREAM 30 GM TUBE TP SCH ×2 (10:28→21:00)
[2019-11-21] MEDS: hydrOXYzine PAMOATE 25 MG CAPSULE (FP) PO PRN ×2 (10:29→21:01)
[2019-11-21] MEDS: NICOTINE POLACRILEX 2 MG GUM BUC PRN ×3 (10:30→18:12)
[2019-11-21] MEDS: MELATONIN 5 MG TABLETS PO SCH (21:01)
[2019-11-21] MEDS: THIAMINE HCL 100 MG TABLET (FP) PO SCH (21:01)
[2019-11-21] MEDS: OLANZapine 7.5 MG TABLET PO SCH (21:01)
[2019-11-21] MEDS: PRAZOSIN HCL 1 MG CAPSULE PO SCH (21:01)
[2019-11-21] MEDS: SUVOREXANT 10 MG TABLET PO PRN (21:01)
[2019-11-22] MEDS ORDERED: METHADONE HCL 40 MG DISPERSABLE TABLET ONE (03:20)
[2019-11-22] MEDS ORDERED: METHADONE HCL 10 MG TABLET ONE (03:20)
[2019-11-22] MEDS: GABAPENTIN 400 MG CAPSULE PO SCH ×3 (06:15→21:02)
[2019-11-22] MEDS: METHADONE 80 MG, METHADONE 30 MG PO SCH (06:16)
[2019-11-22] MEDS: NICOTINE POLACRILEX 2 MG GUM BUC PRN ×2 (08:16→13:19)
[2019-11-22] MEDS: ASPIRIN 81 MG CHEWABLE TABLETS PO SCH (09:15)
[2019-11-22] MEDS: DIVALPROEX SODIUM 500 MG TABLET E.C. PO SCH ×2 (09:15→21:02)
[2019-11-22] MEDS: METHOCARBAMOL 500 MG TABLET PO SCH ×4 (09:15→21:01)
[2019-11-22] MEDS: NICOTINE 7 MG/24 HOURS TOPICAL PATCH TD SCH (09:16)
[2019-11-22] MEDS: PRENATAL VITAMINS W/ FOLIC ACID TABLET (FP) PO SCH (09:16)
[2019-11-22] MEDS: hydrOXYzine PAMOATE 25 MG CAPSULE (FP) PO PRN (09:16)
[2019-11-22] MEDS: HYDROCORTISONE 1% TOPICAL CREAM 30 GM TUBE TP SCH ×2 (09:17→21:38)
--- NOTE | 2019-11-22 10:10 | PN ---
[facility] Progress Note Note: Psychiatric nurse practitioner note: Belsomra 10mg renewed X3 days. Verbal consent given.
[2019-11-22] MEDS: hydrOXYzine PAMOATE 50 MG CAPSULE (FP) PO PRN (17:47)
[2019-11-22] MEDS: MAG HYDROX/AL HYDROX/SIMETH 30 ML UNIT-DOSE CUP PO PRN (19:45)
[2019-11-22] MEDS ORDERED: PANTOPRAZOLE 20 MG TABLET PO ONE (20:08)
--- NOTE | 2019-11-22 20:12 | PN ---
[facility] Progress Note Note: Vital Signs Temperature 98.2 F 11/22/19 06:12 Pulse Rate 95 H 11/22/19 06:12 Respiratory Rate 18 11/22/19 06:12 Blood Pressure 96/65 11/22/19 06:12 O2 Sat by Pulse Oximetry (%) 95 11/22/19 15:10 c/o heart burn with no relief with mylanta gibe one time dose protonix 20 mg PO continue to monitor
[2019-11-22] MEDS: PRAZOSIN HCL 1 MG CAPSULE PO SCH (21:01)
[2019-11-22] MEDS: OLANZapine 7.5 MG TABLET PO SCH (21:02)
[2019-11-22] MEDS: MELATONIN 5 MG TABLETS PO SCH (21:02)
[2019-11-22] MEDS: THIAMINE HCL 100 MG TABLET (FP) PO SCH (21:02)
[2019-11-22] MEDS: SUVOREXANT 10 MG TABLET PO PRN (21:05)
[2019-11-23] MEDS ORDERED: METHADONE HCL 10 MG TABLET ONE (03:20)
[2019-11-23] MEDS ORDERED: METHADONE HCL 40 MG DISPERSABLE TABLET ONE (03:20)
[2019-11-23] MEDS: GABAPENTIN 400 MG CAPSULE PO SCH ×3 (06:17→21:13)
[2019-11-23] MEDS: METHADONE 80 MG, METHADONE 30 MG PO SCH (06:18)
[2019-11-23] MEDS: METHOCARBAMOL 500 MG TABLET PO SCH ×4 (09:03→21:13)
[2019-11-23] MEDS: DIVALPROEX SODIUM 500 MG TABLET E.C. PO SCH ×2 (09:03→21:13)
[2019-11-23] MEDS: ASPIRIN 81 MG CHEWABLE TABLETS PO SCH (09:03)
[2019-11-23] MEDS: HYDROCORTISONE 1% TOPICAL CREAM 30 GM TUBE TP SCH ×2 (09:04→21:13)
[2019-11-23] MEDS: PRENATAL VITAMINS W/ FOLIC ACID TABLET (FP) PO SCH (09:04)
[2019-11-23] MEDS: NICOTINE POLACRILEX 2 MG GUM BUC PRN ×4 (09:04→19:05)
[2019-11-23] MEDS: NICOTINE 7 MG/24 HOURS TOPICAL PATCH TD SCH (09:04)
[2019-11-23] MEDS: hydrOXYzine PAMOATE 50 MG CAPSULE (FP) PO PRN (09:05)
[2019-11-23] MEDS: MELATONIN 5 MG TABLETS PO SCH (21:12)
[2019-11-23] MEDS: OLANZapine 7.5 MG TABLET PO SCH (21:13)
[2019-11-23] MEDS: THIAMINE HCL 100 MG TABLET (FP) PO SCH (21:13)
[2019-11-23] MEDS: PRAZOSIN HCL 1 MG CAPSULE PO SCH (21:51)
[2019-11-23] MEDS: SUVOREXANT 10 MG TABLET PO PRN (22:03)
[2019-11-24] MEDS ORDERED: METHADONE HCL 10 MG TABLET ONE (05:49)
[2019-11-24] MEDS ORDERED: METHADONE HCL 40 MG DISPERSABLE TABLET ONE (05:50)
[2019-11-24] MEDS: GABAPENTIN 400 MG CAPSULE PO SCH ×3 (06:27→21:08)
[2019-11-24] MEDS: METHADONE 80 MG, METHADONE 30 MG PO SCH (06:28)
[2019-11-24] MEDS: ASPIRIN 81 MG CHEWABLE TABLETS PO SCH (10:00)
[2019-11-24] MEDS: METHOCARBAMOL 500 MG TABLET PO SCH ×4 (10:00→21:12)
[2019-11-24] MEDS: PRENATAL VITAMINS W/ FOLIC ACID TABLET (FP) PO SCH (10:00)
[2019-11-24] MEDS: DIVALPROEX SODIUM 500 MG TABLET E.C. PO SCH ×2 (10:00→21:08)
[2019-11-24] MEDS: HYDROCORTISONE 1% TOPICAL CREAM 30 GM TUBE TP SCH ×2 (10:01→21:15)
[2019-11-24] MEDS: NICOTINE 7 MG/24 HOURS TOPICAL PATCH TD SCH (10:01)
[2019-11-24] MEDS: hydrOXYzine PAMOATE 50 MG CAPSULE (FP) PO PRN ×2 (11:39→21:13)
[2019-11-24] MEDS: NICOTINE POLACRILEX 2 MG GUM BUC PRN ×2 (11:40→16:00)
[2019-11-24] MEDS: MELATONIN 5 MG TABLETS PO SCH (21:08)
[2019-11-24] MEDS: THIAMINE HCL 100 MG TABLET (FP) PO SCH (21:08)
[2019-11-24] MEDS: PRAZOSIN HCL 1 MG CAPSULE PO SCH (21:09)
[2019-11-24] MEDS: SUVOREXANT 10 MG TABLET PO PRN (21:12)
[2019-11-24] MEDS: OLANZapine 7.5 MG TABLET PO SCH (21:15)
[2019-11-25] MEDS ORDERED: METHADONE HCL 10 MG TABLET ONE (05:33)
[2019-11-25] MEDS ORDERED: METHADONE HCL 40 MG DISPERSABLE TABLET ONE (05:33)
[2019-11-25] MEDS: METHADONE 80 MG, METHADONE 30 MG PO SCH (06:03)
[2019-11-25] MEDS: GABAPENTIN 400 MG CAPSULE PO SCH ×3 (06:03→21:05)
[2019-11-25] MEDS: METHOCARBAMOL 500 MG TABLET PO SCH ×4 (09:14→21:06)
[2019-11-25] MEDS: PRENATAL VITAMINS W/ FOLIC ACID TABLET (FP) PO SCH (09:14)
[2019-11-25] MEDS: NICOTINE 7 MG/24 HOURS TOPICAL PATCH TD SCH (09:14)
[2019-11-25] MEDS: ASPIRIN 81 MG CHEWABLE TABLETS PO SCH (09:14)
[2019-11-25] MEDS: DIVALPROEX SODIUM 500 MG TABLET E.C. PO SCH ×2 (09:14→21:06)
[2019-11-25] MEDS: HYDROCORTISONE 1% TOPICAL CREAM 30 GM TUBE TP SCH ×2 (09:15→21:07)
[2019-11-25] MEDS: hydrOXYzine PAMOATE 50 MG CAPSULE (FP) PO PRN ×2 (10:42→21:05)
[2019-11-25] MEDS: NICOTINE POLACRILEX 2 MG GUM BUC PRN (10:43)
[2019-11-25] MEDS: MAG HYDROX/AL HYDROX/SIMETH 30 ML UNIT-DOSE CUP PO PRN (19:54)
[2019-11-25] MEDS: SUVOREXANT 10 MG TABLET PO PRN (21:05)
[2019-11-25] MEDS: OLANZapine 7.5 MG TABLET PO SCH (21:06)
[2019-11-25] MEDS: THIAMINE HCL 100 MG TABLET (FP) PO SCH (21:06)
[2019-11-25] MEDS: PRAZOSIN HCL 1 MG CAPSULE PO SCH (21:07)
[2019-11-25] MEDS: MELATONIN 5 MG TABLETS PO SCH (21:07)
[2019-11-26] MEDS ORDERED: METHADONE HCL 10 MG TABLET ONE (03:16)
[2019-11-26] MEDS ORDERED: METHADONE HCL 40 MG DISPERSABLE TABLET ONE (03:17)
[2019-11-26] MEDS: GABAPENTIN 400 MG CAPSULE PO SCH ×3 (06:01→21:06)
[2019-11-26] MEDS: METHADONE 80 MG, METHADONE 30 MG PO SCH (06:02)
[2019-11-26] MEDS: IBUPROFEN 400 MG TABLET (FP) PO PRN ×2 (07:34→17:33)
[2019-11-26] MEDS: METHOCARBAMOL 500 MG TABLET PO SCH ×4 (09:46→21:06)
[2019-11-26] MEDS: ASPIRIN 81 MG CHEWABLE TABLETS PO SCH (09:46)
[2019-11-26] MEDS: PRENATAL VITAMINS W/ FOLIC ACID TABLET (FP) PO SCH (09:46)
[2019-11-26] MEDS: HYDROCORTISONE 1% TOPICAL CREAM 30 GM TUBE TP SCH ×2 (09:46→21:08)
[2019-11-26] MEDS: DIVALPROEX SODIUM 500 MG TABLET E.C. PO SCH ×2 (09:46→21:06)
[2019-11-26] MEDS: NICOTINE 7 MG/24 HOURS TOPICAL PATCH TD SCH (09:46)
[2019-11-26] MEDS: hydrOXYzine PAMOATE 50 MG CAPSULE (FP) PO PRN ×2 (10:56→21:06)
[2019-11-26] MEDS: NICOTINE POLACRILEX 2 MG GUM BUC PRN (10:57)
[2019-11-26] MEDS: ACETAMINOPHEN 325 MG TABLET (FP) PO PRN (12:26)
--- NOTE | 2019-11-26 14:37 | PN ---
S Progress Note (SOAP) Subjective: Pt c/o molar tooth ache. Objective: 11/26/19 14:32 Vital Signs - 24 hr 11/25/19 11/25/19 11/26/19 15:13 20:12 05:59 Temperature 97.1 F L Pulse Rate 85 Respiratory 16 Rate Blood Pressure 115/67 O2 Sat by Pulse 98 98 96 Oximetry (%) Oral exam:mm pink; Left upper molar tender. No redness or swelling to area. Assessment: 11/26/19 14:33 tooth ache Plan: Lidocaine 2% 20 ml TID swish and spit x 3 days then prn. Motrin as directed.
[2019-11-26] MEDS: LIDOCAINE VISCOUS 2% ORAL/TOP 20 ML UNIT-DOSE CUP MM SCH ×2 (14:45→21:45)
[2019-11-26] MEDS: SUVOREXANT 10 MG TABLET PO PRN (21:05)
[2019-11-26] MEDS: PRAZOSIN HCL 1 MG CAPSULE PO SCH (21:06)
[2019-11-26] MEDS: THIAMINE HCL 100 MG TABLET (FP) PO SCH (21:06)
[2019-11-26] MEDS: BENZOCAINE 20 % GEL TUBE MM PRN (21:06)
[2019-11-26] MEDS: MELATONIN 5 MG TABLETS PO SCH (21:10)
[2019-11-26] MEDS: OLANZapine 7.5 MG TABLET PO SCH (21:10)
[2019-11-27] MEDS ORDERED: METHADONE HCL 10 MG TABLET ONE (03:54)
[2019-11-27] MEDS ORDERED: METHADONE HCL 40 MG DISPERSABLE TABLET ONE (03:54)
[2019-11-27] MEDS: GABAPENTIN 400 MG CAPSULE PO SCH ×3 (06:16→21:07)
[2019-11-27] MEDS: METHADONE 80 MG, METHADONE 30 MG PO SCH (06:16)
[2019-11-27] MEDS: BENZOCAINE 20 % GEL TUBE MM PRN (06:18)
[2019-11-27] MEDS: LIDOCAINE VISCOUS 2% ORAL/TOP 20 ML UNIT-DOSE CUP MM SCH ×3 (06:23→21:10)
[2019-11-27] MEDS: IBUPROFEN 400 MG TABLET (FP) PO PRN ×2 (07:23→16:23)
[2019-11-27] MEDS: ASPIRIN 81 MG CHEWABLE TABLETS PO SCH (09:33)
[2019-11-27] MEDS: PRENATAL VITAMINS W/ FOLIC ACID TABLET (FP) PO SCH (09:33)
[2019-11-27] MEDS: METHOCARBAMOL 500 MG TABLET PO SCH ×4 (09:33→21:07)
[2019-11-27] MEDS: DIVALPROEX SODIUM 500 MG TABLET E.C. PO SCH ×2 (09:33→21:07)
[2019-11-27] MEDS: HYDROCORTISONE 1% TOPICAL CREAM 30 GM TUBE TP SCH ×2 (09:34→21:09)
[2019-11-27] MEDS: hydrOXYzine PAMOATE 50 MG CAPSULE (FP) PO PRN ×2 (09:36→16:23)
[2019-11-27] MEDS: ACETAMINOPHEN 325 MG TABLET (FP) PO PRN (09:36)
[2019-11-27] MEDS: NICOTINE POLACRILEX 2 MG GUM BUC PRN (09:38)
--- NOTE | 2019-11-27 10:17 | PN ---
[facility] Progress Note (SOAP) Subjective: Pt stil c/o tooth ache. Pt was unable to fully open mouth on first exam. States a little relief with ordered medications. Able to yield to full mouth opening today after few doses of Lidocaine swish and motrin as directed yesterday. Objective: 11/27/19 10:17 Vital Signs - 24 hr 11/26/19 11/26/19 11/27/19 15:30 20:06 06:09 Temperature 97.7 F Pulse Rate 82 Respiratory 18 Rate Blood Pressure 104/67 O2 Sat by Pulse 95 96 96 Oximetry (%) Oral Re-examination> Alert o x 3 nad oob ambulating with steady gait Three Upper premolars with decay and abscess; Pain, and sensitivity to touch with a tongue blade. Assessment: 11/27/19 10:29 Tooth Decay/Abscess Plan: Amoxicillin 500 mg po TID x 10 days motrin prn as directed Pt will be referred to dentist for follow up after rehab treatment upon discharge to and information and direction will be given to the patient to follow up at location below : [facility] [address] [phone] Dental Care: [phone]
[2019-11-27] MEDS: NICOTINE 7 MG/24 HOURS TOPICAL PATCH TD SCH (10:19)
[2019-11-27] MEDS ORDERED: AMOXICILLIN 500 MG CAPSULE (FP) PO ONE (10:30)
[2019-11-27] MEDS: AMOXICILLIN 500 MG CAPSULE (FP) PO SCH ×2 (13:48→21:06)
[2019-11-27] MEDS: LACTOBACILLUS ACIDOPHILUS 1 TABLET PO SCH (17:24)
[2019-11-27] MEDS: SUVOREXANT 10 MG TABLET PO PRN (21:06)
[2019-11-27] MEDS: THIAMINE HCL 100 MG TABLET (FP) PO SCH (21:06)
[2019-11-27] MEDS: OLANZapine 7.5 MG TABLET PO SCH (21:06)
[2019-11-27] MEDS: PRAZOSIN HCL 1 MG CAPSULE PO SCH (21:07)
[2019-11-27] MEDS: MELATONIN 5 MG TABLETS PO SCH (21:08)
[2019-11-28] MEDS ORDERED: METHADONE HCL 10 MG TABLET ONE (02:25)
[2019-11-28] MEDS ORDERED: METHADONE HCL 40 MG DISPERSABLE TABLET ONE (02:25)
[2019-11-28] MEDS: AMOXICILLIN 500 MG CAPSULE (FP) PO SCH ×3 (05:59→21:03)
[2019-11-28] MEDS: GABAPENTIN 400 MG CAPSULE PO SCH ×3 (05:59→21:03)
[2019-11-28] MEDS: METHADONE 80 MG, METHADONE 30 MG PO SCH (06:00)
[2019-11-28] MEDS: LIDOCAINE VISCOUS 2% ORAL/TOP 20 ML UNIT-DOSE CUP MM SCH ×3 (06:57→21:06)
[2019-11-28] MEDS: hydrOXYzine PAMOATE 50 MG CAPSULE (FP) PO PRN ×3 (08:37→21:03)
[2019-11-28] MEDS: IBUPROFEN 400 MG TABLET (FP) PO PRN ×2 (08:37→17:22)
[2019-11-28] MEDS: BENZOCAINE 20 % GEL TUBE MM PRN (08:38)
[2019-11-28] MEDS: LACTOBACILLUS ACIDOPHILUS 1 TABLET PO SCH ×2 (10:00→17:22)
[2019-11-28] MEDS: METHOCARBAMOL 500 MG TABLET PO SCH ×4 (10:13→21:03)
[2019-11-28] MEDS: DIVALPROEX SODIUM 500 MG TABLET E.C. PO SCH ×2 (10:13→21:03)
[2019-11-28] MEDS: ASPIRIN 81 MG CHEWABLE TABLETS PO SCH (10:13)
[2019-11-28] MEDS: NICOTINE 7 MG/24 HOURS TOPICAL PATCH TD SCH (10:14)
[2019-11-28] MEDS: PRENATAL VITAMINS W/ FOLIC ACID TABLET (FP) PO SCH (10:14)
[2019-11-28] MEDS: HYDROCORTISONE 1% TOPICAL CREAM 30 GM TUBE TP SCH ×2 (10:15→21:05)
--- NOTE | 2019-11-28 13:55 | PN ---
[facility] Progress Note Note: Psychiatric nurse practitioner note: Belsomra 10mg HS PRN renewed X3 days. Verbal consent given.
[2019-11-28] MEDS: PANTOPRAZOLE 40 MG TABLET PO SCH (17:23)
[2019-11-28] MEDS: THIAMINE HCL 100 MG TABLET (FP) PO SCH (21:02)
[2019-11-28] MEDS: PRAZOSIN HCL 1 MG CAPSULE PO SCH (21:02)
[2019-11-28] MEDS: SUVOREXANT 10 MG TABLET PO PRN (21:02)
[2019-11-28] MEDS: OLANZapine 7.5 MG TABLET PO SCH (21:03)
[2019-11-28] MEDS: MELATONIN 5 MG TABLETS PO SCH (21:04)
[2019-11-29] MEDS ORDERED: METHADONE HCL 40 MG DISPERSABLE TABLET ONE (03:50)
[2019-11-29] MEDS ORDERED: METHADONE HCL 10 MG TABLET ONE (03:50)
[2019-11-29] MEDS: GABAPENTIN 400 MG CAPSULE PO SCH ×3 (06:13→21:09)
[2019-11-29] MEDS: METHADONE 80 MG, METHADONE 30 MG PO SCH (06:14)
[2019-11-29] MEDS: AMOXICILLIN 500 MG CAPSULE (FP) PO SCH ×3 (06:18→21:09)
[2019-11-29] MEDS: LIDOCAINE VISCOUS 2% ORAL/TOP 20 ML UNIT-DOSE CUP MM SCH ×2 (06:57→14:10)
[2019-11-29] MEDS: LACTOBACILLUS ACIDOPHILUS 1 TABLET PO SCH ×2 (07:41→17:25)
[2019-11-29] MEDS: IBUPROFEN 400 MG TABLET (FP) PO PRN (09:10)
[2019-11-29] MEDS: METHOCARBAMOL 500 MG TABLET PO SCH ×4 (09:10→21:13)
[2019-11-29] MEDS: ASPIRIN 81 MG CHEWABLE TABLETS PO SCH (09:10)
[2019-11-29] MEDS: PANTOPRAZOLE 40 MG TABLET PO SCH (09:10)
[2019-11-29] MEDS: hydrOXYzine PAMOATE 50 MG CAPSULE (FP) PO PRN ×2 (09:10→21:13)
[2019-11-29] MEDS: HYDROCORTISONE 1% TOPICAL CREAM 30 GM TUBE TP SCH ×2 (09:11→21:10)
[2019-11-29] MEDS: NICOTINE 7 MG/24 HOURS TOPICAL PATCH TD SCH (09:11)
[2019-11-29] MEDS: PRENATAL VITAMINS W/ FOLIC ACID TABLET (FP) PO SCH (09:11)
[2019-11-29] MEDS: DIVALPROEX SODIUM 500 MG TABLET E.C. PO SCH ×2 (09:11→21:09)
[2019-11-29] MEDS ORDERED: AMOXICILLIN 500 MG CAPSULE (FP) PO ONE (09:30)
[2019-11-29] MEDS: ACETAMINOPHEN 325 MG TABLET (FP) PO PRN (13:18)
--- NOTE | 2019-11-29 14:43 | PN ---
S Progress Note Note: Psychiatric nurse practitioner note: Patient scheduled for discharge tomorrow. A 30 day prescription of Zyprexa 15mg HS was electronically sent to [facility] @ [address] [place] [address].
[2019-11-29] MEDS: OLANZapine 7.5 MG TABLET PO SCH (21:09)
[2019-11-29] MEDS: MELATONIN 5 MG TABLETS PO SCH (21:10)
[2019-11-29] MEDS: PRAZOSIN HCL 1 MG CAPSULE PO SCH (21:10)
[2019-11-29] MEDS: THIAMINE HCL 100 MG TABLET (FP) PO SCH (21:11)
[2019-11-29] MEDS: SUVOREXANT 10 MG TABLET PO PRN (21:13)
[2019-11-30] MEDS ORDERED: METHADONE HCL 40 MG DISPERSABLE TABLET ONE (05:45)
[2019-11-30] MEDS ORDERED: METHADONE HCL 10 MG TABLET ONE (05:45)
[2019-11-30] MEDS: AMOXICILLIN 500 MG CAPSULE (FP) PO SCH (06:29)
[2019-11-30] MEDS: GABAPENTIN 400 MG CAPSULE PO SCH (06:29)
[2019-11-30] MEDS: METHADONE 80 MG, METHADONE 30 MG PO SCH (06:30)
[2019-11-30] MEDS: LACTOBACILLUS ACIDOPHILUS 1 TABLET PO SCH (07:11)
[2019-11-30 07:17] VITALS: BP 92/72; PULSE 95; TEMP 97.8
--- NOTE | 2019-11-30 09:01 | DS ---
[facility] Rehab Discharge Summary - [facility] Rehab Discharge Summary Admission Date: 11/17/19 Discharge Date: 11/30/19 - History Present History: Alcohol dependence, Cocaine dependence, MMTP, Sedative dependence Pertinent Past History: Chronic Back pain Hx Seizure Neuropathy CVA ADHD Bipolar Disorder - Discharge Physical Exam Vital Signs: Vital Signs Temperature 97.8 F 11/30/19 06:27 Pulse Rate 95 H 11/30/19 06:27 Respiratory Rate 18 11/30/19 06:27 Blood Pressure 92/72 11/30/19 06:27 O2 Sat by Pulse Oximetry (%) 96 11/30/19 06:27 General:WDWN male, alert o x 3 cardiac:s1 s2,rrr lungs:ctab Abdomen:++fatty adipose,+bs, nt,nd MSK:Active FROM, all limbs, no edema Skin:Turgor wnl, intact Pertinent Admission Physical Exam Findings: s/p detox - Treatment Discharge Condition: Discharge condition good, Rehabilitated safely, Responded well, Outpatient referral accepted Hospital Course: Pt is a 48 y/o male who completed detox and referred to rehab, completed treatment today and discharged. CD aftercare referral to [facility] OTP - Medication Discharge Medications: Ambulatory Orders Divalproex [Depakote -] 500 mg PO BID 05/23/19 Methadone [Dolophine -] 110 mg PO DAILY 05/28/19 Prazosin HCl [Minipress -] 2 mg PO HS 09/12/19 Olanzapine [ZyPREXA -] 15 mg PO HS 11/13/19 Amoxicillin - [Amoxicillin 500mg Capsule -] 500 mg PO TID #21 capsule 11/28/19 Aspirin [ASA -] 81 mg PO DAILY #30 tab.chew 11/28/19 Gabapentin [Neurontin -] 800 mg PO TID #42 capsule 11/29/19 Olanzapine [Zyprexa] 5 mg PO HS #30 tablet 11/29/19 Olanzapine [Zyprexa] 10 mg PO HS #30 tablet 11/29/19 Prazosin HCl [Minipress -] 2 mg PO HS #14 capsule 11/30/19 - Medication-Assisted Treatment (MAT) Medication-Assisted Treatment (MAT): No - Discharge Instructions Diet, activity, other medical instructions: Diet:Regular Activity:oob ad jamir Other medical instructions:Follow up with CD aftercare as scheduled. [facility]. Reminded pt to complete course of ABX Amoxicillin treatment for tooth abscess and follow up with dentist after discharge. Referral to Dental clinic at: [address] [phone] Dental Care: [phone] - Diagnosis (1) Tooth abscess Status: Acute (2) Alcohol use disorder Status: Chronic (3) Uncomplicated sedative, hypnotic or anxiolytic withdrawal Status: Chronic (4) Low back pain Status: Chronic Qualifiers: Chronicity: chronic Back pain laterality: bilateral Sciatica presence: with sciatica Sciatica laterality: bilateral sciatica Qualified Code(s): M54.42 - Lumbago with sciatica, left side; M54.41 - Lumbago with sciatica, right side; G89.29 - Other chronic pain (5) Methadone maintenance therapy patient Status: Chronic (6) Cocaine dependence, uncomplicated Status: Chronic (7) Nicotine dependence Status: Chronic Qualifiers: Nicotine product type: cigarettes Substance use status: uncomplicated Qualified Code(s): F17.210 - Nicotine dependence, cigarettes, uncomplicated - Follow-up Referral Minutes to complete discharge: 35 - AMA Did Patient Leave Against Medical Advice: No Additional Comments: Amoxicillin 500 mg po TID#21 electronically sent to pt's home pharmacy for leaf size picker. Pt on Minipress 2 mg po HS for "night Terror" as per pt who reports given by his psychiatrist. Verified from [facility]'s pharmacy that patient is on the medication and last Rx leaf size picker was 08/02/19.
[2019-11-30] MEDS: METHOCARBAMOL 500 MG TABLET PO SCH (09:12)
[2019-11-30] MEDS: DIVALPROEX SODIUM 500 MG TABLET E.C. PO SCH (09:12)
[2019-11-30] MEDS: PANTOPRAZOLE 40 MG TABLET PO SCH (09:12)
[2019-11-30] MEDS: ASPIRIN 81 MG CHEWABLE TABLETS PO SCH (09:12)
[2019-11-30] MEDS: HYDROCORTISONE 1% TOPICAL CREAM 30 GM TUBE TP SCH (09:13)
[2019-11-30] MEDS: PRENATAL VITAMINS W/ FOLIC ACID TABLET (FP) PO SCH (09:13)
[2019-11-30] MEDS: NICOTINE 7 MG/24 HOURS TOPICAL PATCH TD SCH (09:13)
== END 2019-11-30 09:25 | disposition home or self-care (01) | DRG 772 ==
LOC: YASAS 13:05 → Y5N 13:06
PROVIDERS: ADMIT Allergy & Immunology; ATTEND Allergy & Immunology
PROC: HZ42ZZZ Group Counseling for Substance Abuse Treatment, Cognitive-Behavioral (ICD-10-PCS; principal; 2019-11-17)
DX: F10.20 Alcohol dependence, uncomplicated (principal); F11.20 Opioid dependence, uncomplicated; F13.20 Sedative, hypnotic or anxiolytic dependence, uncomplicated; F14.20 Cocaine dependence, uncomplicated; F17.210 Nicotine dependence, cigarettes, uncomplicated; F31.9 Bipolar disorder, unspecified; F90.9 Attention-deficit hyperactivity disorder, unspecified type; G62.9 Polyneuropathy, unspecified; K04.7 Periapical abscess without sinus; Z86.69 Personal history of other diseases of the nervous system and sense organs; Z86.73 Personal history of transient ischemic attack (TIA), and cerebral infarction without residual deficits

== ENCOUNTER 2020-05-30 11:16 | Inpatient (IN) | payer OTHER ==
[2020-05-30 12:19] VITALS: BMI 33.6
[2020-05-30] MEDS ORDERED: IBUPROFEN 400 MG TABLET (FP) PO PRN (13:18)
[2020-05-30] MEDS ORDERED: ONDANSETRON *ODT* 4 MG TABLET SL PRN (13:18)
[2020-05-30] MEDS ORDERED: MAGNESIUM HYDROX 2400MG/30ML ORAL SUSPENSION 30 ML CUP PO PRN (13:18)
[2020-05-30] MEDS ORDERED: NICOTINE POLACRILEX 2 MG GUM BUC PRN (13:18)
[2020-05-30] MEDS ORDERED: MENTHOL/PHENOL 1 EACH UD MM PRN (13:18)
[2020-05-30] MEDS ORDERED: BISMUTH SUBSALICYLATE 524 MG/30 ML UD PO PRN (13:18)
[2020-05-30] MEDS ORDERED: MAGNESIUM CITRATE 300 ML BOTTLE PO PRN (13:18)
[2020-05-30] MEDS ORDERED: MAG HYDROX/AL HYDROX/SIMETH 30 ML UNIT-DOSE CUP PO PRN (13:18)
[2020-05-30] MEDS ORDERED: ACETAMINOPHEN 325 MG TABLET (FP) PO PRN ×2 (13:18)
[2020-05-30] MEDS: chlordiazePOXIDE HCL 25 MG CAPSULE PO PRN (15:09)
[2020-05-30] MEDS: PRENATAL VITAMINS W/ FOLIC ACID TABLET (FP) PO SCH (15:10)
[2020-05-30] MEDS: hydrOXYzine PAMOATE 25 MG CAPSULE (FP) PO SCH ×3 (15:10→22:37)
[2020-05-30] MEDS: NICOTINE 21 MG/24 HOURS TOPICAL PATCH TD SCH (15:10)
[2020-05-30 15:20] LABS: HEMATOCRIT 39.7 % (35.4-49); HEMOGLOBIN 13.2 GM/dL (11.7-16.9); MCH 31.1 pg (25.7-33.7); MCHC 33.3 g/dl (32.0-35.9); MEAN CELL VOLUME 93.2 fl (80-96); MEAN PLT VOLUME 8.8 fl (7.5-11.1); PLATELET COUNT 164 K/MM3 (134-434); RBC 4.26 M/mm3 (4.00-5.60); RDW 15.3 % (11.9-15.9); WHITE BLOOD COUNT 5.7 K/mm3 (4.0-10.0)
[2020-05-30 15:21] LABS: POTASSIUM 3.9 mmol/L (3.5-5.1)
[2020-05-30 15:23] LABS: CALCIUM 9.4 mg/dL (8.5-10.1)
[2020-05-30 15:24] LABS: ALBUMIN 3.7 g/dl (3.4-5.0); BLOOD UREA NITROGEN 15.1 mg/dL (7-18)
[2020-05-30 15:27] LABS: CREATININE 1.2 mg/dL (0.55-1.3)
[2020-05-30 15:28] LABS: BILIRUBIN,TOTAL 0.4 mg/dL (0.2-1)
[2020-05-30] MEDS: chlordiazePOXIDE HCL 25 MG CAPSULE PO SCH ×2 (17:53→22:37)
[2020-05-30] MEDS: METHOCARBAMOL 500 MG TABLET PO PRN (20:44)
[2020-05-30] MEDS: THIAMINE HCL 100 MG TABLET (FP) PO SCH (22:37)
[2020-05-30] MEDS: MELATONIN 5 MG TABLETS PO SCH (22:37)
[2020-05-30] MEDS: OLANZapine 5 MG TABLET PO SCH (22:37)
[2020-05-30] MEDS: PRAZOSIN HCL 1 MG CAPSULE PO SCH (22:38)
[2020-05-31] MEDS: chlordiazePOXIDE HCL 25 MG CAPSULE PO SCH ×4 (04:00→22:04)
[2020-05-31] MEDS: hydrOXYzine PAMOATE 25 MG CAPSULE (FP) PO SCH (05:15)
[2020-05-31] MEDS: chlordiazePOXIDE HCL 25 MG CAPSULE PO PRN ×3 (06:50→19:29)
[2020-05-31] MEDS: METHADONE HCL 40 MG DISPERSABLE TABLET PO SCH (08:57)
[2020-05-31] MEDS: METHOCARBAMOL 500 MG TABLET PO PRN (09:00)
[2020-05-31] MEDS: PRENATAL VITAMINS W/ FOLIC ACID TABLET (FP) PO SCH (10:09)
[2020-05-31] MEDS: NICOTINE 21 MG/24 HOURS TOPICAL PATCH TD SCH (10:10)
[2020-05-31] MEDS: GABAPENTIN 300 MG CAPSULE PO SCH ×2 (13:33→22:03)
[2020-05-31] MEDS: MELATONIN 5 MG TABLETS PO SCH (22:03)
[2020-05-31] MEDS: OLANZapine 5 MG TABLET PO SCH (22:06)
[2020-05-31] MEDS: PRAZOSIN HCL 1 MG CAPSULE PO SCH (22:07)
[2020-05-31] MEDS: THIAMINE HCL 100 MG TABLET (FP) PO SCH (22:07)
[2020-06-01] MEDS: GABAPENTIN 300 MG CAPSULE PO SCH ×3 (06:02→22:46)
[2020-06-01] MEDS: chlordiazePOXIDE HCL 25 MG CAPSULE PO PRN ×3 (06:02→19:47)
[2020-06-01] MEDS: METHADONE HCL 40 MG DISPERSABLE TABLET PO SCH (06:02)
[2020-06-01] MEDS: chlordiazePOXIDE HCL 25 MG CAPSULE PO SCH ×4 (07:36→22:45)
[2020-06-01] MEDS: METHOCARBAMOL 500 MG TABLET PO PRN (08:49)
[2020-06-01] MEDS: PRENATAL VITAMINS W/ FOLIC ACID TABLET (FP) PO SCH (10:41)
[2020-06-01] MEDS: NICOTINE 21 MG/24 HOURS TOPICAL PATCH TD SCH (10:41)
[2020-06-01] MEDS: PRAZOSIN HCL 1 MG CAPSULE PO SCH (22:46)
[2020-06-01] MEDS: OLANZapine 5 MG TABLET PO SCH (22:46)
[2020-06-01] MEDS: THIAMINE HCL 100 MG TABLET (FP) PO SCH (22:46)
[2020-06-01] MEDS: MELATONIN 5 MG TABLETS PO SCH (22:46)
[2020-06-02] MEDS: METHADONE HCL 40 MG DISPERSABLE TABLET PO SCH (05:18)
[2020-06-02] MEDS: GABAPENTIN 300 MG CAPSULE PO SCH ×3 (05:18→22:07)
[2020-06-02] MEDS: chlordiazePOXIDE HCL 10 MG CAPSULE PO SCH ×4 (05:19→22:07)
[2020-06-02] MEDS: NICOTINE 21 MG/24 HOURS TOPICAL PATCH TD SCH (11:04)
[2020-06-02] MEDS: METHOCARBAMOL 500 MG TABLET PO PRN (11:04)
[2020-06-02] MEDS: PRENATAL VITAMINS W/ FOLIC ACID TABLET (FP) PO SCH (11:04)
[2020-06-02] MEDS: chlordiazePOXIDE HCL 10 MG CAPSULE PO PRN ×2 (13:08→20:11)
[2020-06-02] MEDS: THIAMINE HCL 100 MG TABLET (FP) PO SCH (22:07)
[2020-06-02] MEDS: OLANZapine 5 MG TABLET PO SCH (22:07)
[2020-06-02] MEDS: MELATONIN 5 MG TABLETS PO SCH (22:08)
[2020-06-02] MEDS: PRAZOSIN HCL 1 MG CAPSULE PO SCH (22:08)
[2020-06-03] MEDS: chlordiazePOXIDE HCL 10 MG CAPSULE PO SCH ×2 (05:56→17:43)
[2020-06-03] MEDS: METHADONE HCL 40 MG DISPERSABLE TABLET PO SCH (05:56)
[2020-06-03] MEDS: GABAPENTIN 300 MG CAPSULE PO SCH ×3 (05:56→21:52)
[2020-06-03] MEDS: METHOCARBAMOL 500 MG TABLET PO PRN ×2 (08:57→20:40)
[2020-06-03] MEDS: NICOTINE 21 MG/24 HOURS TOPICAL PATCH TD SCH (10:55)
[2020-06-03] MEDS: PRENATAL VITAMINS W/ FOLIC ACID TABLET (FP) PO SCH (10:56)
[2020-06-03] MEDS: PRAZOSIN HCL 1 MG CAPSULE PO SCH (21:52)
[2020-06-03] MEDS: MELATONIN 5 MG TABLETS PO SCH (21:53)
[2020-06-03] MEDS: THIAMINE HCL 100 MG TABLET (FP) PO SCH (21:53)
[2020-06-03] MEDS: OLANZapine 5 MG TABLET PO SCH (21:53)
[2020-06-04] MEDS ORDERED: chlordiazePOXIDE HCL 10 MG CAPSULE PO ONE (05:00)
[2020-06-04] MEDS: METHADONE HCL 40 MG DISPERSABLE TABLET PO SCH (05:51)
[2020-06-04] MEDS: GABAPENTIN 300 MG CAPSULE PO SCH (05:51)
[2020-06-04 09:53] VITALS: BP 115/70; PULSE 81; TEMP 97.3
[2020-06-04] MEDS: NICOTINE 21 MG/24 HOURS TOPICAL PATCH TD SCH (11:07)
[2020-06-04] MEDS: PRENATAL VITAMINS W/ FOLIC ACID TABLET (FP) PO SCH (11:07)
== END 2020-06-04 11:21 | disposition other institution (70) | DRG 773 ==
LOC: YASAS 11:16 → Y6N 14:20
PROVIDERS: ADMIT Allergy & Immunology; ATTEND Allergy & Immunology
PROC: HZ2ZZZZ Detoxification Services for Substance Abuse Treatment (ICD-10-PCS; principal; 2020-05-30)
DX: F10.230 Alcohol dependence with withdrawal, uncomplicated (principal); F11.20 Opioid dependence, uncomplicated; F13.20 Sedative, hypnotic or anxiolytic dependence, uncomplicated; F14.20 Cocaine dependence, uncomplicated; F17.210 Nicotine dependence, cigarettes, uncomplicated; F19.282 Other psychoactive substance dependence with psychoactive substance-induced sleep disorder; F19.280 Other psychoactive substance dependence with psychoactive substance-induced anxiety disorder; F19.24 Other psychoactive substance dependence with psychoactive substance-induced mood disorder; F41.1 Generalized anxiety disorder; G62.9 Polyneuropathy, unspecified; M51.26 Other intervertebral disc displacement, lumbar region; M54.5 Low back pain; B18.2 Chronic viral hepatitis C; Z86.59 Personal history of other mental and behavioral disorders; Z86.69 Personal history of other diseases of the nervous system and sense organs; Z86.73 Personal history of transient ischemic attack (TIA), and cerebral infarction without residual deficits; Z91.5 Personal history of self-harm
CPT/HCPCS: 36415; 80053; 80164; 85027; 86780; C9803; Q0162; U0003

== ENCOUNTER 2020-06-04 11:33 | Inpatient (IN) | payer OTHER ==
[2020-06-04] MEDS ORDERED: MAGNESIUM CITRATE 300 ML BOTTLE PO PRN (13:31)
[2020-06-04] MEDS ORDERED: MAGNESIUM HYDROX 2400MG/30ML ORAL SUSPENSION 30 ML CUP PO PRN (13:31)
[2020-06-04] MEDS ORDERED: guaiFENesin 200 MG/10 ML 10 ML UNIT-DOSE CUPS PO PRN (13:31)
[2020-06-04] MEDS ORDERED: MENTHOL/PHENOL 1 EACH UD MM PRN (13:31)
[2020-06-04] MEDS ORDERED: IBUPROFEN 400 MG TABLET (FP) PO PRN (13:31)
[2020-06-04] MEDS ORDERED: ACETAMINOPHEN 325 MG TABLET (FP) PO PRN (13:31)
[2020-06-04] MEDS ORDERED: P-EPHED 60MG/TRIPROLIDI 2.5MG TABLET PO PRN (13:31)
[2020-06-04] MEDS: hydrOXYzine PAMOATE 25 MG CAPSULE (FP) PO PRN ×2 (14:15→21:34)
[2020-06-04] MEDS: METHOCARBAMOL 500 MG TABLET PO SCH ×3 (14:15→21:33)
[2020-06-04] MEDS: GABAPENTIN 300 MG CAPSULE PO SCH ×2 (14:15→21:33)
[2020-06-04] MEDS: NICOTINE POLACRILEX 4 MG GUM BUC PRN ×3 (14:17→21:51)
[2020-06-04] MEDS: MELATONIN 5 MG TABLETS PO SCH (21:32)
[2020-06-04] MEDS: OLANZapine 5 MG TABLET PO SCH (21:33)
[2020-06-04] MEDS: THIAMINE HCL 100 MG TABLET (FP) PO SCH (21:33)
[2020-06-04] MEDS: PRAZOSIN HCL 1 MG CAPSULE PO SCH (21:33)
[2020-06-05] MEDS: METHADONE HCL 40 MG DISPERSABLE TABLET PO SCH (06:00)
[2020-06-05] MEDS: GABAPENTIN 300 MG CAPSULE PO SCH ×3 (06:01→21:20)
[2020-06-05] MEDS: NICOTINE POLACRILEX 4 MG GUM BUC PRN ×3 (08:17→13:35)
[2020-06-05] MEDS ORDERED: COLLOIDAL OATMEAL 1 BAR EACH TP PRN (08:41)
[2020-06-05] MEDS: hydrOXYzine PAMOATE 25 MG CAPSULE (FP) PO PRN ×3 (10:10→21:22)
[2020-06-05] MEDS: NICOTINE 21 MG/24 HOURS TOPICAL PATCH TD SCH (10:10)
[2020-06-05] MEDS: PRENATAL VITAMINS W/ FOLIC ACID TABLET (FP) PO SCH (10:10)
[2020-06-05] MEDS: DIVALPROEX SODIUM 500 MG TABLET E.C. PO SCH ×2 (10:10→21:20)
[2020-06-05] MEDS: ASPIRIN 81 MG CHEWABLE TABLETS PO SCH (10:10)
[2020-06-05] MEDS: METHOCARBAMOL 500 MG TABLET PO SCH ×4 (10:11→21:20)
[2020-06-05] MEDS: OLANZapine 5 MG TABLET PO SCH (21:20)
[2020-06-05] MEDS: THIAMINE HCL 100 MG TABLET (FP) PO SCH (21:20)
[2020-06-05] MEDS: MELATONIN 5 MG TABLETS PO SCH (21:20)
[2020-06-05] MEDS: PRAZOSIN HCL 1 MG CAPSULE PO SCH (21:21)
[2020-06-05] MEDS: LACTULOSE 20 GM/30 ML UDC (FOR ORAL USE ONLY) PO SCH (21:21)
[2020-06-06] MEDS: METHADONE HCL 40 MG DISPERSABLE TABLET PO SCH (06:08)
[2020-06-06] MEDS: GABAPENTIN 300 MG CAPSULE PO SCH ×3 (06:09→21:19)
[2020-06-06] MEDS: PRENATAL VITAMINS W/ FOLIC ACID TABLET (FP) PO SCH (10:20)
[2020-06-06] MEDS: hydrOXYzine PAMOATE 25 MG CAPSULE (FP) PO PRN ×3 (10:20→21:20)
[2020-06-06] MEDS: METHOCARBAMOL 500 MG TABLET PO SCH ×4 (10:20→21:19)
[2020-06-06] MEDS: DIVALPROEX SODIUM 500 MG TABLET E.C. PO SCH ×2 (10:20→21:19)
[2020-06-06] MEDS: NICOTINE POLACRILEX 4 MG GUM BUC PRN (10:20)
[2020-06-06] MEDS: LACTULOSE 20 GM/30 ML UDC (FOR ORAL USE ONLY) PO SCH ×4 (10:20→21:19)
[2020-06-06] MEDS: ASPIRIN 81 MG CHEWABLE TABLETS PO SCH (10:20)
[2020-06-06] MEDS: NICOTINE 21 MG/24 HOURS TOPICAL PATCH TD SCH (10:20)
[2020-06-06] MEDS: THIAMINE HCL 100 MG TABLET (FP) PO SCH (21:18)
[2020-06-06] MEDS: MELATONIN 5 MG TABLETS PO SCH (21:18)
[2020-06-06] MEDS: OLANZapine 5 MG TABLET PO SCH (21:19)
[2020-06-06] MEDS: PRAZOSIN HCL 1 MG CAPSULE PO SCH (21:19)
[2020-06-07] MEDS: METHADONE HCL 40 MG DISPERSABLE TABLET PO SCH (06:05)
[2020-06-07] MEDS: LACTULOSE 20 GM/30 ML UDC (FOR ORAL USE ONLY) PO SCH ×3 (06:05→21:11)
[2020-06-07] MEDS: GABAPENTIN 300 MG CAPSULE PO SCH ×3 (06:06→21:09)
[2020-06-07] MEDS ORDERED: MASKS NR ONE (07:15)
[2020-06-07] MEDS: METHOCARBAMOL 500 MG TABLET PO SCH ×4 (09:50→21:09)
[2020-06-07] MEDS: PRENATAL VITAMINS W/ FOLIC ACID TABLET (FP) PO SCH (09:50)
[2020-06-07] MEDS: DIVALPROEX SODIUM 500 MG TABLET E.C. PO SCH ×2 (09:50→21:09)
[2020-06-07] MEDS: NICOTINE 21 MG/24 HOURS TOPICAL PATCH TD SCH (09:50)
[2020-06-07] MEDS: ASPIRIN 81 MG CHEWABLE TABLETS PO SCH (09:50)
[2020-06-07] MEDS: IBUPROFEN 400 MG TABLET (FP) PO PRN (11:43)
[2020-06-07] MEDS: NICOTINE POLACRILEX 4 MG GUM BUC PRN ×2 (14:46→18:03)
[2020-06-07] MEDS: HYDROCORTISONE 0.5% TOPICAL CREAM 30 GM TUBE TP SCH ×2 (15:10→21:10)
[2020-06-07] MEDS: PRAZOSIN HCL 1 MG CAPSULE PO SCH (21:09)
[2020-06-07] MEDS: OLANZapine 5 MG TABLET PO SCH (21:09)
[2020-06-07] MEDS: MELATONIN 5 MG TABLETS PO SCH (21:09)
[2020-06-07] MEDS: THIAMINE HCL 100 MG TABLET (FP) PO SCH (21:09)
[2020-06-07] MEDS: hydrOXYzine PAMOATE 25 MG CAPSULE (FP) PO PRN (21:10)
[2020-06-08] MEDS: LACTULOSE 20 GM/30 ML UDC (FOR ORAL USE ONLY) PO SCH ×3 (06:08→21:14)
[2020-06-08] MEDS: GABAPENTIN 300 MG CAPSULE PO SCH ×3 (06:08→21:12)
[2020-06-08] MEDS: METHADONE HCL 40 MG DISPERSABLE TABLET PO SCH (06:08)
[2020-06-08] MEDS: NICOTINE POLACRILEX 4 MG GUM BUC PRN (08:33)
[2020-06-08] MEDS: PRENATAL VITAMINS W/ FOLIC ACID TABLET (FP) PO SCH (09:53)
[2020-06-08] MEDS: DIVALPROEX SODIUM 500 MG TABLET E.C. PO SCH ×2 (09:53→21:12)
[2020-06-08] MEDS: ASPIRIN 81 MG CHEWABLE TABLETS PO SCH (09:53)
[2020-06-08] MEDS: METHOCARBAMOL 500 MG TABLET PO SCH ×4 (09:53→21:12)
[2020-06-08] MEDS: HYDROCORTISONE 0.5% TOPICAL CREAM 30 GM TUBE TP SCH ×2 (09:54→21:14)
[2020-06-08] MEDS: NICOTINE 21 MG/24 HOURS TOPICAL PATCH TD SCH (09:54)
[2020-06-08] MEDS: MAG HYDROX/AL HYDROX/SIMETH 30 ML UNIT-DOSE CUP PO PRN (10:46)
[2020-06-08] MEDS: hydrOXYzine PAMOATE 25 MG CAPSULE (FP) PO PRN (19:14)
[2020-06-08] MEDS: OLANZapine 5 MG TABLET PO SCH (21:12)
[2020-06-08] MEDS: MELATONIN 5 MG TABLETS PO SCH (21:12)
[2020-06-08] MEDS: THIAMINE HCL 100 MG TABLET (FP) PO SCH (21:12)
[2020-06-08] MEDS: PRAZOSIN HCL 1 MG CAPSULE PO SCH (21:13)
[2020-06-09] MEDS: LACTULOSE 20 GM/30 ML UDC (FOR ORAL USE ONLY) PO SCH ×3 (06:01→21:16)
[2020-06-09] MEDS: GABAPENTIN 300 MG CAPSULE PO SCH ×3 (06:01→21:16)
[2020-06-09] MEDS: METHADONE HCL 40 MG DISPERSABLE TABLET PO SCH (06:01)
[2020-06-09] MEDS: MAG HYDROX/AL HYDROX/SIMETH 30 ML UNIT-DOSE CUP PO PRN (07:59)
[2020-06-09] MEDS: METHOCARBAMOL 500 MG TABLET PO SCH ×4 (10:25→21:18)
[2020-06-09] MEDS: DIVALPROEX SODIUM 500 MG TABLET E.C. PO SCH ×2 (10:25→21:18)
[2020-06-09] MEDS: PRENATAL VITAMINS W/ FOLIC ACID TABLET (FP) PO SCH (10:25)
[2020-06-09] MEDS: ASPIRIN 81 MG CHEWABLE TABLETS PO SCH (10:25)
[2020-06-09] MEDS: hydrOXYzine PAMOATE 25 MG CAPSULE (FP) PO PRN ×3 (10:26→21:18)
[2020-06-09] MEDS: HYDROCORTISONE 0.5% TOPICAL CREAM 30 GM TUBE TP SCH ×2 (10:27→21:20)
[2020-06-09] MEDS: NICOTINE 21 MG/24 HOURS TOPICAL PATCH TD SCH (10:47)
[2020-06-09] MEDS: NICOTINE POLACRILEX 4 MG GUM BUC PRN ×2 (11:01→18:47)
[2020-06-09] MEDS: DOCUSATE SODIUM 100 MG CAPSULE (FP) PO SCH ×2 (14:50→21:17)
[2020-06-09] MEDS ORDERED: PT OWN MED DRAWER 7, Y5N ONE (20:49)
[2020-06-09] MEDS: OLANZapine 5 MG TABLET PO SCH (21:17)
[2020-06-09] MEDS: PRAZOSIN HCL 1 MG CAPSULE PO SCH (21:18)
[2020-06-09] MEDS: MELATONIN 5 MG TABLETS PO SCH (21:18)
[2020-06-09] MEDS: THIAMINE HCL 100 MG TABLET (FP) PO SCH (21:18)
[2020-06-10] MEDS: LOPERAMIDE HCL 2 MG CAPSULE PO PRN ×5 (02:45→21:35)
[2020-06-10] MEDS: METHADONE HCL 40 MG DISPERSABLE TABLET PO SCH (05:56)
[2020-06-10] MEDS: GABAPENTIN 300 MG CAPSULE PO SCH ×3 (05:57→21:16)
[2020-06-10] MEDS: LACTULOSE 20 GM/30 ML UDC (FOR ORAL USE ONLY) PO SCH ×3 (05:57→21:16)
[2020-06-10] MEDS: DOCUSATE SODIUM 100 MG CAPSULE (FP) PO SCH ×3 (05:57→21:16)
[2020-06-10] MEDS ORDERED: BISMUTH SUBSALICYLATE 262 MG/15 ML BTL PO PRN (09:32)
[2020-06-10] MEDS: DIVALPROEX SODIUM 500 MG TABLET E.C. PO SCH ×2 (09:51→21:17)
[2020-06-10] MEDS: ASPIRIN 81 MG CHEWABLE TABLETS PO SCH (09:51)
[2020-06-10] MEDS: METHOCARBAMOL 500 MG TABLET PO SCH ×4 (09:51→21:16)
[2020-06-10] MEDS: PRENATAL VITAMINS W/ FOLIC ACID TABLET (FP) PO SCH (09:51)
[2020-06-10] MEDS: NICOTINE 21 MG/24 HOURS TOPICAL PATCH TD SCH (09:52)
[2020-06-10] MEDS: HYDROCORTISONE 0.5% TOPICAL CREAM 30 GM TUBE TP SCH ×2 (10:16→21:19)
[2020-06-10] MEDS: hydrOXYzine PAMOATE 25 MG CAPSULE (FP) PO PRN ×3 (10:23→21:18)
[2020-06-10] MEDS: THIAMINE HCL 100 MG TABLET (FP) PO SCH (21:16)
[2020-06-10] MEDS: MELATONIN 5 MG TABLETS PO SCH (21:16)
[2020-06-10] MEDS: OLANZapine 5 MG TABLET PO SCH (21:17)
[2020-06-10] MEDS: PRAZOSIN HCL 1 MG CAPSULE PO SCH (21:18)
[2020-06-10] MEDS ORDERED: PT OWN MED DRAWER 7, Y5N ONE (21:18)
[2020-06-11] MEDS: METHADONE HCL 40 MG DISPERSABLE TABLET PO SCH (05:51)
[2020-06-11] MEDS: LACTULOSE 20 GM/30 ML UDC (FOR ORAL USE ONLY) PO SCH ×3 (05:52→21:09)
[2020-06-11] MEDS: GABAPENTIN 300 MG CAPSULE PO SCH ×3 (05:52→21:07)
[2020-06-11] MEDS: DOCUSATE SODIUM 100 MG CAPSULE (FP) PO SCH ×3 (05:52→21:09)
[2020-06-11] MEDS: LOPERAMIDE HCL 2 MG CAPSULE PO PRN ×2 (06:12→09:44)
[2020-06-11] MEDS: NICOTINE POLACRILEX 4 MG GUM BUC PRN ×4 (07:57→18:55)
[2020-06-11] MEDS: METHOCARBAMOL 500 MG TABLET PO SCH ×4 (09:42→21:07)
[2020-06-11] MEDS: PRENATAL VITAMINS W/ FOLIC ACID TABLET (FP) PO SCH (09:42)
[2020-06-11] MEDS: ASPIRIN 81 MG CHEWABLE TABLETS PO SCH (09:43)
[2020-06-11] MEDS: NICOTINE 21 MG/24 HOURS TOPICAL PATCH TD SCH (09:43)
[2020-06-11] MEDS: DIVALPROEX SODIUM 500 MG TABLET E.C. PO SCH ×2 (09:43→21:07)
[2020-06-11] MEDS: HYDROCORTISONE 0.5% TOPICAL CREAM 30 GM TUBE TP SCH ×2 (09:43→21:09)
[2020-06-11] MEDS: hydrOXYzine PAMOATE 25 MG CAPSULE (FP) PO PRN ×3 (09:43→21:08)
[2020-06-11] MEDS: PRAZOSIN HCL 1 MG CAPSULE PO SCH (21:07)
[2020-06-11] MEDS: THIAMINE HCL 100 MG TABLET (FP) PO SCH (21:07)
[2020-06-11] MEDS: OLANZapine 5 MG TABLET PO SCH (21:07)
[2020-06-11] MEDS: MELATONIN 5 MG TABLETS PO SCH (21:07)
[2020-06-12] MEDS: METHADONE HCL 40 MG DISPERSABLE TABLET PO SCH (05:56)
[2020-06-12] MEDS: LACTULOSE 20 GM/30 ML UDC (FOR ORAL USE ONLY) PO SCH ×3 (05:57→21:13)
[2020-06-12] MEDS: DOCUSATE SODIUM 100 MG CAPSULE (FP) PO SCH ×3 (05:57→21:13)
[2020-06-12] MEDS: GABAPENTIN 300 MG CAPSULE PO SCH ×3 (05:57→21:11)
[2020-06-12] MEDS: NICOTINE POLACRILEX 4 MG GUM BUC PRN ×3 (06:47→17:49)
[2020-06-12] MEDS: DIVALPROEX SODIUM 500 MG TABLET E.C. PO SCH ×2 (09:56→21:12)
[2020-06-12] MEDS: METHOCARBAMOL 500 MG TABLET PO SCH ×4 (09:56→21:31)
[2020-06-12] MEDS: hydrOXYzine PAMOATE 25 MG CAPSULE (FP) PO PRN ×2 (09:56→21:12)
[2020-06-12] MEDS: ASPIRIN 81 MG CHEWABLE TABLETS PO SCH (09:56)
[2020-06-12] MEDS: PRENATAL VITAMINS W/ FOLIC ACID TABLET (FP) PO SCH (09:56)
[2020-06-12] MEDS: NICOTINE 21 MG/24 HOURS TOPICAL PATCH TD SCH (09:57)
[2020-06-12] MEDS: HYDROCORTISONE 0.5% TOPICAL CREAM 30 GM TUBE TP SCH ×2 (09:57→21:13)
[2020-06-12] MEDS: MELATONIN 5 MG TABLETS PO SCH (21:11)
[2020-06-12] MEDS: THIAMINE HCL 100 MG TABLET (FP) PO SCH (21:11)
[2020-06-12] MEDS: PRAZOSIN HCL 1 MG CAPSULE PO SCH (21:11)
[2020-06-12] MEDS: OLANZapine 5 MG TABLET PO SCH (21:11)
[2020-06-13] MEDS: GABAPENTIN 300 MG CAPSULE PO SCH ×3 (06:08→21:14)
[2020-06-13] MEDS: METHADONE HCL 40 MG DISPERSABLE TABLET PO SCH (06:08)
[2020-06-13] MEDS: DOCUSATE SODIUM 100 MG CAPSULE (FP) PO SCH ×3 (06:08→21:14)
[2020-06-13] MEDS: LACTULOSE 20 GM/30 ML UDC (FOR ORAL USE ONLY) PO SCH ×3 (06:08→21:14)
[2020-06-13] MEDS: NICOTINE POLACRILEX 4 MG GUM BUC PRN (06:45)
[2020-06-13] MEDS: ASPIRIN 81 MG CHEWABLE TABLETS PO SCH (09:56)
[2020-06-13] MEDS: hydrOXYzine PAMOATE 25 MG CAPSULE (FP) PO PRN ×3 (09:56→21:16)
[2020-06-13] MEDS: DIVALPROEX SODIUM 500 MG TABLET E.C. PO SCH ×2 (09:56→21:14)
[2020-06-13] MEDS: METHOCARBAMOL 500 MG TABLET PO SCH ×4 (09:56→21:14)
[2020-06-13] MEDS: PRENATAL VITAMINS W/ FOLIC ACID TABLET (FP) PO SCH (09:56)
[2020-06-13] MEDS: HYDROCORTISONE 0.5% TOPICAL CREAM 30 GM TUBE TP SCH ×2 (10:06→21:15)
[2020-06-13] MEDS: NICOTINE 21 MG/24 HOURS TOPICAL PATCH TD SCH (10:06)
[2020-06-13] MEDS: OLANZapine 10 MG TABLET PO SCH ×2 (10:26→21:14)
[2020-06-13] MEDS ORDERED: PT OWN MED DRAWER 7, Y5N ONE (18:56)
[2020-06-13] MEDS: MELATONIN 5 MG TABLETS PO SCH (21:15)
[2020-06-13] MEDS: PRAZOSIN HCL 1 MG CAPSULE PO SCH (21:15)
[2020-06-13] MEDS: THIAMINE HCL 100 MG TABLET (FP) PO SCH (21:15)
[2020-06-14] MEDS: LACTULOSE 20 GM/30 ML UDC (FOR ORAL USE ONLY) PO SCH ×3 (05:54→21:14)
[2020-06-14] MEDS: METHADONE HCL 40 MG DISPERSABLE TABLET PO SCH (05:55)
[2020-06-14] MEDS: DOCUSATE SODIUM 100 MG CAPSULE (FP) PO SCH ×3 (05:55→21:13)
[2020-06-14] MEDS: GABAPENTIN 300 MG CAPSULE PO SCH ×3 (05:55→21:13)
[2020-06-14] MEDS: PRENATAL VITAMINS W/ FOLIC ACID TABLET (FP) PO SCH (09:52)
[2020-06-14] MEDS: hydrOXYzine PAMOATE 25 MG CAPSULE (FP) PO PRN ×3 (09:52→21:13)
[2020-06-14] MEDS: DIVALPROEX SODIUM 500 MG TABLET E.C. PO SCH ×2 (09:52→21:13)
[2020-06-14] MEDS: METHOCARBAMOL 500 MG TABLET PO SCH ×4 (09:52→21:13)
[2020-06-14] MEDS: ASPIRIN 81 MG CHEWABLE TABLETS PO SCH (09:52)
[2020-06-14 09:53] LABS: BASO % 1.1 % (0-2.0); EOS % 2.4 % (0-4.5); HEMATOCRIT 40.6 % (35.4-49); HEMOGLOBIN 13.8 GM/dL (11.7-16.9); LYMPH % 45.8 % (8-40); MCH 31.3 pg (25.7-33.7); MCHC 34.1 g/dl (32.0-35.9); MEAN CELL VOLUME 91.7 fl (80-96); MEAN PLT VOLUME 9.9 fl (7.5-11.1); MONO % 8.4 % (3.8-10.2); NEUT % 42.3 % (42.8-82.8); PLATELET COUNT 149 K/MM3 (134-434); RBC 4.43 M/mm3 (4.00-5.60); RDW 15.2 % (11.9-15.9); WHITE BLOOD COUNT 4.8 K/mm3 (4.0-10.0)
[2020-06-14] MEDS: NICOTINE 21 MG/24 HOURS TOPICAL PATCH TD SCH (09:53)
[2020-06-14] MEDS: HYDROCORTISONE 0.5% TOPICAL CREAM 30 GM TUBE TP SCH ×2 (09:53→21:14)
[2020-06-14 13:17] LABS: BLOOD UREA NITROGEN 20.6 mg/dL (7-18); CALCIUM 9.3 mg/dL (8.5-10.1)
[2020-06-14 13:18] LABS: ALBUMIN 3.6 g/dl (3.4-5.0)
[2020-06-14 13:21] LABS: CREATININE 0.8 mg/dL (0.55-1.3)
[2020-06-14 13:22] LABS: BILIRUBIN,TOTAL 0.2 mg/dL (0.2-1)
[2020-06-14] MEDS: NICOTINE POLACRILEX 4 MG GUM BUC PRN ×2 (17:56→20:44)
[2020-06-14] MEDS: MELATONIN 5 MG TABLETS PO SCH (21:13)
[2020-06-14] MEDS: OLANZapine 10 MG TABLET PO SCH (21:13)
[2020-06-14] MEDS: THIAMINE HCL 100 MG TABLET (FP) PO SCH (21:14)
[2020-06-14] MEDS: PRAZOSIN HCL 1 MG CAPSULE PO SCH (21:40)
[2020-06-15] MEDS: LACTULOSE 20 GM/30 ML UDC (FOR ORAL USE ONLY) PO SCH ×3 (05:49→21:13)
[2020-06-15] MEDS: METHADONE HCL 40 MG DISPERSABLE TABLET PO SCH (05:50)
[2020-06-15] MEDS: DOCUSATE SODIUM 100 MG CAPSULE (FP) PO SCH ×3 (05:50→21:13)
[2020-06-15] MEDS: DIVALPROEX SODIUM 500 MG TABLET E.C. PO SCH ×3 (05:50→21:11)
[2020-06-15] MEDS: GABAPENTIN 300 MG CAPSULE PO SCH ×3 (05:50→21:11)
[2020-06-15] MEDS: NICOTINE 21 MG/24 HOURS TOPICAL PATCH TD SCH (09:42)
[2020-06-15] MEDS: hydrOXYzine PAMOATE 25 MG CAPSULE (FP) PO PRN ×2 (09:42→21:12)
[2020-06-15] MEDS: PRENATAL VITAMINS W/ FOLIC ACID TABLET (FP) PO SCH (09:42)
[2020-06-15] MEDS: METHOCARBAMOL 500 MG TABLET PO SCH ×4 (09:42→21:11)
[2020-06-15] MEDS: HYDROCORTISONE 0.5% TOPICAL CREAM 30 GM TUBE TP SCH ×2 (09:42→21:13)
[2020-06-15] MEDS: ASPIRIN 81 MG CHEWABLE TABLETS PO SCH (09:42)
[2020-06-15] MEDS: NICOTINE POLACRILEX 4 MG GUM BUC PRN ×2 (14:50→17:57)
[2020-06-15] MEDS: THIAMINE HCL 100 MG TABLET (FP) PO SCH (21:12)
[2020-06-15] MEDS: MELATONIN 5 MG TABLETS PO SCH (21:12)
[2020-06-15] MEDS: OLANZapine 5 MG TABLET PO SCH (21:43)
[2020-06-15] MEDS: PRAZOSIN HCL 1 MG CAPSULE PO SCH (21:44)
[2020-06-16] MEDS: DIVALPROEX SODIUM 500 MG TABLET E.C. PO SCH ×3 (06:18→21:23)
[2020-06-16] MEDS: LACTULOSE 20 GM/30 ML UDC (FOR ORAL USE ONLY) PO SCH ×3 (06:18→21:24)
[2020-06-16] MEDS: METHADONE HCL 40 MG DISPERSABLE TABLET PO SCH (06:18)
[2020-06-16] MEDS: GABAPENTIN 300 MG CAPSULE PO SCH ×3 (06:18→21:22)
[2020-06-16] MEDS: DOCUSATE SODIUM 100 MG CAPSULE (FP) PO SCH ×3 (06:18→21:24)
[2020-06-16] MEDS: METHOCARBAMOL 500 MG TABLET PO SCH ×4 (10:15→21:23)
[2020-06-16] MEDS: PRENATAL VITAMINS W/ FOLIC ACID TABLET (FP) PO SCH (10:15)
[2020-06-16] MEDS: ASPIRIN 81 MG CHEWABLE TABLETS PO SCH (10:15)
[2020-06-16] MEDS: NICOTINE 21 MG/24 HOURS TOPICAL PATCH TD SCH (10:15)
[2020-06-16] MEDS: HYDROCORTISONE 0.5% TOPICAL CREAM 30 GM TUBE TP SCH ×2 (10:15→21:23)
[2020-06-16] MEDS: hydrOXYzine PAMOATE 25 MG CAPSULE (FP) PO PRN ×3 (10:15→21:23)
[2020-06-16] MEDS: NICOTINE POLACRILEX 4 MG GUM BUC PRN ×3 (12:28→19:42)
[2020-06-16] MEDS ORDERED: PT OWN MED DRAWER 7, Y5N ONE (18:50)
[2020-06-16] MEDS: OLANZapine 5 MG TABLET PO SCH (21:22)
[2020-06-16] MEDS: PRAZOSIN HCL 1 MG CAPSULE PO SCH (21:23)
[2020-06-16] MEDS: THIAMINE HCL 100 MG TABLET (FP) PO SCH (21:23)
[2020-06-16] MEDS: MELATONIN 5 MG TABLETS PO SCH (21:23)
[2020-06-16] MEDS: IBUPROFEN 400 MG TABLET (FP) PO PRN (21:40)
[2020-06-17] MEDS: DIVALPROEX SODIUM 500 MG TABLET E.C. PO SCH ×3 (05:57→21:14)
[2020-06-17] MEDS: GABAPENTIN 300 MG CAPSULE PO SCH ×3 (05:57→21:15)
[2020-06-17] MEDS: DOCUSATE SODIUM 100 MG CAPSULE (FP) PO SCH ×3 (05:57→21:15)
[2020-06-17] MEDS: LACTULOSE 20 GM/30 ML UDC (FOR ORAL USE ONLY) PO SCH ×3 (05:57→21:16)
[2020-06-17] MEDS: METHADONE HCL 40 MG DISPERSABLE TABLET PO SCH (05:58)
[2020-06-17] MEDS ORDERED: PT OWN MED DRAWER 7, Y5N ONE ×2 (08:55→19:03)
[2020-06-17] MEDS: PRENATAL VITAMINS W/ FOLIC ACID TABLET (FP) PO SCH (09:50)
[2020-06-17] MEDS: ASPIRIN 81 MG CHEWABLE TABLETS PO SCH (09:50)
[2020-06-17] MEDS: NICOTINE POLACRILEX 4 MG GUM BUC PRN ×3 (09:51→19:03)
[2020-06-17] MEDS: METHOCARBAMOL 500 MG TABLET PO SCH ×4 (09:51→21:15)
[2020-06-17] MEDS: NICOTINE 21 MG/24 HOURS TOPICAL PATCH TD SCH (09:51)
[2020-06-17] MEDS: hydrOXYzine PAMOATE 25 MG CAPSULE (FP) PO PRN ×3 (09:51→21:15)
[2020-06-17] MEDS: HYDROCORTISONE 0.5% TOPICAL CREAM 30 GM TUBE TP SCH ×2 (09:51→21:16)
[2020-06-17] MEDS: IBUPROFEN 400 MG TABLET (FP) PO PRN (16:49)
[2020-06-17] MEDS: MELATONIN 5 MG TABLETS PO SCH (21:14)
[2020-06-17] MEDS: THIAMINE HCL 100 MG TABLET (FP) PO SCH (21:14)
[2020-06-17] MEDS: PRAZOSIN HCL 1 MG CAPSULE PO SCH (21:14)
[2020-06-17] MEDS: OLANZapine 5 MG TABLET PO SCH (21:14)
[2020-06-18] MEDS: LACTULOSE 20 GM/30 ML UDC (FOR ORAL USE ONLY) PO SCH ×3 (06:03→21:24)
[2020-06-18] MEDS: METHADONE HCL 40 MG DISPERSABLE TABLET PO SCH (06:03)
[2020-06-18] MEDS: DIVALPROEX SODIUM 500 MG TABLET E.C. PO SCH ×3 (06:04→21:22)
[2020-06-18] MEDS: DOCUSATE SODIUM 100 MG CAPSULE (FP) PO SCH ×3 (06:04→21:22)
[2020-06-18] MEDS: GABAPENTIN 300 MG CAPSULE PO SCH ×3 (06:04→21:23)
[2020-06-18] MEDS ORDERED: PT OWN MED DRAWER 7, Y5N ONE (08:43)
[2020-06-18] MEDS: PRENATAL VITAMINS W/ FOLIC ACID TABLET (FP) PO SCH (10:10)
[2020-06-18] MEDS: ASPIRIN 81 MG CHEWABLE TABLETS PO SCH (10:11)
[2020-06-18] MEDS: NICOTINE POLACRILEX 4 MG GUM BUC PRN ×3 (10:11→18:32)
[2020-06-18] MEDS: hydrOXYzine PAMOATE 25 MG CAPSULE (FP) PO PRN ×3 (10:11→21:22)
[2020-06-18] MEDS: METHOCARBAMOL 500 MG TABLET PO SCH ×4 (10:11→21:22)
[2020-06-18] MEDS: NICOTINE 21 MG/24 HOURS TOPICAL PATCH TD SCH (10:12)
[2020-06-18] MEDS: HYDROCORTISONE 0.5% TOPICAL CREAM 30 GM TUBE TP SCH ×2 (10:12→21:24)
[2020-06-18] MEDS: OLANZapine 5 MG TABLET PO SCH (21:22)
[2020-06-18] MEDS: PRAZOSIN HCL 1 MG CAPSULE PO SCH (21:22)
[2020-06-18] MEDS: MELATONIN 5 MG TABLETS PO SCH (21:22)
[2020-06-18] MEDS: THIAMINE HCL 100 MG TABLET (FP) PO SCH (21:22)
[2020-06-19] MEDS: METHADONE HCL 40 MG DISPERSABLE TABLET PO SCH (06:03)
[2020-06-19] MEDS: DIVALPROEX SODIUM 500 MG TABLET E.C. PO SCH ×3 (06:03→21:15)
[2020-06-19] MEDS: DOCUSATE SODIUM 100 MG CAPSULE (FP) PO SCH ×3 (06:03→21:15)
[2020-06-19] MEDS: GABAPENTIN 300 MG CAPSULE PO SCH ×3 (06:03→21:15)
[2020-06-19] MEDS: LACTULOSE 20 GM/30 ML UDC (FOR ORAL USE ONLY) PO SCH ×3 (06:03→21:17)
[2020-06-19] MEDS: METHOCARBAMOL 500 MG TABLET PO SCH ×4 (09:45→21:15)
[2020-06-19] MEDS: hydrOXYzine PAMOATE 25 MG CAPSULE (FP) PO PRN ×3 (09:45→21:16)
[2020-06-19] MEDS: ASPIRIN 81 MG CHEWABLE TABLETS PO SCH (09:45)
[2020-06-19] MEDS: NICOTINE 21 MG/24 HOURS TOPICAL PATCH TD SCH (09:45)
[2020-06-19] MEDS: PRENATAL VITAMINS W/ FOLIC ACID TABLET (FP) PO SCH (09:45)
[2020-06-19] MEDS: HYDROCORTISONE 0.5% TOPICAL CREAM 30 GM TUBE TP SCH ×2 (09:46→21:17)
[2020-06-19] MEDS: NICOTINE POLACRILEX 4 MG GUM BUC PRN ×3 (09:46→20:10)
[2020-06-19] MEDS: IBUPROFEN 400 MG TABLET (FP) PO PRN (10:41)
[2020-06-19] MEDS: OLANZapine 5 MG TABLET PO SCH (21:14)
[2020-06-19] MEDS: PRAZOSIN HCL 1 MG CAPSULE PO SCH (21:16)
[2020-06-19] MEDS: MELATONIN 5 MG TABLETS PO SCH (21:16)
[2020-06-19] MEDS: THIAMINE HCL 100 MG TABLET (FP) PO SCH (21:17)
[2020-06-20] MEDS: DIVALPROEX SODIUM 500 MG TABLET E.C. PO SCH ×3 (06:03→21:02)
[2020-06-20] MEDS: METHADONE HCL 40 MG DISPERSABLE TABLET PO SCH (06:03)
[2020-06-20] MEDS: DOCUSATE SODIUM 100 MG CAPSULE (FP) PO SCH ×3 (06:03→21:02)
[2020-06-20] MEDS: GABAPENTIN 300 MG CAPSULE PO SCH ×3 (06:03→21:02)
[2020-06-20] MEDS: LACTULOSE 20 GM/30 ML UDC (FOR ORAL USE ONLY) PO SCH ×3 (06:03→21:03)
[2020-06-20] MEDS: MAG HYDROX/AL HYDROX/SIMETH 30 ML UNIT-DOSE CUP PO PRN (08:39)
[2020-06-20] MEDS: METHOCARBAMOL 500 MG TABLET PO SCH ×4 (10:10→21:01)
[2020-06-20] MEDS: ASPIRIN 81 MG CHEWABLE TABLETS PO SCH (10:10)
[2020-06-20] MEDS: PRENATAL VITAMINS W/ FOLIC ACID TABLET (FP) PO SCH (10:10)
[2020-06-20] MEDS: hydrOXYzine PAMOATE 25 MG CAPSULE (FP) PO PRN ×3 (10:10→21:02)
[2020-06-20] MEDS: HYDROCORTISONE 0.5% TOPICAL CREAM 30 GM TUBE TP SCH ×2 (10:11→21:03)
[2020-06-20] MEDS: NICOTINE POLACRILEX 4 MG GUM BUC PRN ×2 (10:11→13:26)
[2020-06-20] MEDS: NICOTINE 21 MG/24 HOURS TOPICAL PATCH TD SCH (10:11)
[2020-06-20] MEDS: IBUPROFEN 400 MG TABLET (FP) PO PRN (15:14)
[2020-06-20] MEDS ORDERED: MASKS NR ONE (19:37)
[2020-06-20] MEDS: MELATONIN 5 MG TABLETS PO SCH (21:01)
[2020-06-20] MEDS: THIAMINE HCL 100 MG TABLET (FP) PO SCH (21:01)
[2020-06-20] MEDS: OLANZapine 5 MG TABLET PO SCH (21:01)
[2020-06-20] MEDS: PRAZOSIN HCL 1 MG CAPSULE PO SCH (21:03)
[2020-06-21] MEDS: DIVALPROEX SODIUM 500 MG TABLET E.C. PO SCH ×3 (06:01→21:13)
[2020-06-21] MEDS: DOCUSATE SODIUM 100 MG CAPSULE (FP) PO SCH ×3 (06:01→21:13)
[2020-06-21] MEDS: GABAPENTIN 300 MG CAPSULE PO SCH ×3 (06:01→21:13)
[2020-06-21] MEDS: METHADONE HCL 40 MG DISPERSABLE TABLET PO SCH (06:01)
[2020-06-21] MEDS: LACTULOSE 20 GM/30 ML UDC (FOR ORAL USE ONLY) PO SCH ×3 (06:02→21:14)
[2020-06-21] MEDS: hydrOXYzine PAMOATE 25 MG CAPSULE (FP) PO PRN ×3 (09:40→17:46)
[2020-06-21] MEDS: NICOTINE 21 MG/24 HOURS TOPICAL PATCH TD SCH (09:40)
[2020-06-21] MEDS: METHOCARBAMOL 500 MG TABLET PO SCH ×4 (09:40→21:13)
[2020-06-21] MEDS: HYDROCORTISONE 0.5% TOPICAL CREAM 30 GM TUBE TP SCH ×2 (09:40→21:14)
[2020-06-21] MEDS: ASPIRIN 81 MG CHEWABLE TABLETS PO SCH (09:40)
[2020-06-21] MEDS: PRENATAL VITAMINS W/ FOLIC ACID TABLET (FP) PO SCH (09:40)
[2020-06-21] MEDS: NICOTINE POLACRILEX 4 MG GUM BUC PRN ×2 (11:19→13:42)
[2020-06-21] MEDS ORDERED: PT OWN MED DRAWER 7, Y5N ONE (18:41)
[2020-06-21] MEDS: THIAMINE HCL 100 MG TABLET (FP) PO SCH (21:13)
[2020-06-21] MEDS: MELATONIN 5 MG TABLETS PO SCH (21:13)
[2020-06-21] MEDS: PRAZOSIN HCL 1 MG CAPSULE PO SCH (21:13)
[2020-06-21] MEDS: OLANZapine 5 MG TABLET PO SCH (21:13)
[2020-06-22] MEDS: DOCUSATE SODIUM 100 MG CAPSULE (FP) PO SCH ×3 (06:05→21:15)
[2020-06-22] MEDS: METHADONE HCL 40 MG DISPERSABLE TABLET PO SCH (06:05)
[2020-06-22] MEDS: LACTULOSE 20 GM/30 ML UDC (FOR ORAL USE ONLY) PO SCH ×3 (06:05→21:14)
[2020-06-22] MEDS: GABAPENTIN 300 MG CAPSULE PO SCH ×3 (06:06→21:15)
[2020-06-22] MEDS: DIVALPROEX SODIUM 500 MG TABLET E.C. PO SCH ×3 (06:06→21:15)
[2020-06-22] MEDS: PRENATAL VITAMINS W/ FOLIC ACID TABLET (FP) PO SCH (09:42)
[2020-06-22] MEDS: NICOTINE POLACRILEX 4 MG GUM BUC PRN ×3 (09:43→17:26)
[2020-06-22] MEDS: ASPIRIN 81 MG CHEWABLE TABLETS PO SCH (09:43)
[2020-06-22] MEDS: METHOCARBAMOL 500 MG TABLET PO SCH ×4 (09:43→21:15)
[2020-06-22] MEDS: HYDROCORTISONE 0.5% TOPICAL CREAM 30 GM TUBE TP SCH ×2 (09:43→21:18)
[2020-06-22] MEDS: hydrOXYzine PAMOATE 25 MG CAPSULE (FP) PO PRN ×3 (09:43→21:15)
[2020-06-22] MEDS: NICOTINE 21 MG/24 HOURS TOPICAL PATCH TD SCH (09:44)
[2020-06-22] MEDS: OLANZapine 5 MG TABLET PO SCH (21:14)
[2020-06-22] MEDS: MELATONIN 5 MG TABLETS PO SCH (21:15)
[2020-06-22] MEDS: THIAMINE HCL 100 MG TABLET (FP) PO SCH (21:15)
[2020-06-22] MEDS: PRAZOSIN HCL 1 MG CAPSULE PO SCH (21:16)
[2020-06-23] MEDS: LACTULOSE 20 GM/30 ML UDC (FOR ORAL USE ONLY) PO SCH ×3 (06:03→21:34)
[2020-06-23] MEDS: METHADONE HCL 40 MG DISPERSABLE TABLET PO SCH (06:03)
[2020-06-23] MEDS: DOCUSATE SODIUM 100 MG CAPSULE (FP) PO SCH ×3 (06:03→21:18)
[2020-06-23] MEDS: DIVALPROEX SODIUM 500 MG TABLET E.C. PO SCH ×3 (06:03→21:17)
[2020-06-23] MEDS: GABAPENTIN 300 MG CAPSULE PO SCH ×3 (06:03→21:17)
[2020-06-23] MEDS: METHOCARBAMOL 500 MG TABLET PO SCH ×4 (09:49→21:17)
[2020-06-23] MEDS: PRENATAL VITAMINS W/ FOLIC ACID TABLET (FP) PO SCH (09:49)
[2020-06-23] MEDS: hydrOXYzine PAMOATE 25 MG CAPSULE (FP) PO PRN ×3 (09:49→21:20)
[2020-06-23] MEDS: ASPIRIN 81 MG CHEWABLE TABLETS PO SCH (09:49)
[2020-06-23] MEDS: NICOTINE POLACRILEX 4 MG GUM BUC PRN ×3 (09:50→16:41)
[2020-06-23] MEDS: HYDROCORTISONE 0.5% TOPICAL CREAM 30 GM TUBE TP SCH ×2 (10:08→21:34)
[2020-06-23] MEDS: NICOTINE 21 MG/24 HOURS TOPICAL PATCH TD SCH (10:08)
[2020-06-23] MEDS: PRAZOSIN HCL 1 MG CAPSULE PO SCH (21:17)
[2020-06-23] MEDS: THIAMINE HCL 100 MG TABLET (FP) PO SCH (21:18)
[2020-06-23] MEDS: OLANZapine 5 MG TABLET PO SCH (21:18)
[2020-06-23] MEDS: traZODone HCL 100 MG TABLET (FP) PO SCH (21:19)
[2020-06-24] MEDS: GABAPENTIN 300 MG CAPSULE PO SCH ×3 (06:19→21:05)
[2020-06-24] MEDS: DIVALPROEX SODIUM 500 MG TABLET E.C. PO SCH ×3 (06:19→21:05)
[2020-06-24] MEDS: LACTULOSE 20 GM/30 ML UDC (FOR ORAL USE ONLY) PO SCH ×3 (06:19→21:06)
[2020-06-24] MEDS: METHADONE HCL 40 MG DISPERSABLE TABLET PO SCH (06:20)
[2020-06-24] MEDS: DOCUSATE SODIUM 100 MG CAPSULE (FP) PO SCH ×3 (06:20→21:05)
[2020-06-24] MEDS: METHOCARBAMOL 500 MG TABLET PO SCH ×4 (09:47→21:05)
[2020-06-24] MEDS: PRENATAL VITAMINS W/ FOLIC ACID TABLET (FP) PO SCH (09:47)
[2020-06-24] MEDS: ASPIRIN 81 MG CHEWABLE TABLETS PO SCH (09:47)
[2020-06-24] MEDS: hydrOXYzine PAMOATE 25 MG CAPSULE (FP) PO PRN ×2 (09:47→13:50)
[2020-06-24] MEDS: NICOTINE POLACRILEX 4 MG GUM BUC PRN ×4 (09:48→19:35)
[2020-06-24] MEDS: NICOTINE 21 MG/24 HOURS TOPICAL PATCH TD SCH (09:53)
[2020-06-24] MEDS: HYDROCORTISONE 0.5% TOPICAL CREAM 30 GM TUBE TP SCH ×2 (09:53→21:08)
[2020-06-24] MEDS: hydrOXYzine PAMOATE 50 MG CAPSULE (FP) PO PRN ×2 (15:39→21:06)
[2020-06-24] MEDS: THIAMINE HCL 100 MG TABLET (FP) PO SCH (21:04)
[2020-06-24] MEDS: traZODone HCL 100 MG TABLET (FP) PO SCH (21:05)
[2020-06-24] MEDS: OLANZapine 5 MG TABLET PO SCH (21:05)
[2020-06-24] MEDS: PRAZOSIN HCL 1 MG CAPSULE PO SCH (21:05)
[2020-06-25] MEDS: DOCUSATE SODIUM 100 MG CAPSULE (FP) PO SCH ×3 (06:07→21:02)
[2020-06-25] MEDS: GABAPENTIN 300 MG CAPSULE PO SCH ×3 (06:07→21:02)
[2020-06-25] MEDS: DIVALPROEX SODIUM 500 MG TABLET E.C. PO SCH ×3 (06:08→21:03)
[2020-06-25] MEDS: METHADONE HCL 40 MG DISPERSABLE TABLET PO SCH (06:08)
[2020-06-25] MEDS: LACTULOSE 20 GM/30 ML UDC (FOR ORAL USE ONLY) PO SCH ×3 (06:10→21:29)
[2020-06-25] MEDS: PRENATAL VITAMINS W/ FOLIC ACID TABLET (FP) PO SCH (09:40)
[2020-06-25] MEDS: ASPIRIN 81 MG CHEWABLE TABLETS PO SCH (09:40)
[2020-06-25] MEDS: METHOCARBAMOL 500 MG TABLET PO SCH ×4 (09:40→21:03)
[2020-06-25] MEDS: hydrOXYzine PAMOATE 50 MG CAPSULE (FP) PO PRN ×3 (09:41→21:03)
[2020-06-25] MEDS: HYDROCORTISONE 0.5% TOPICAL CREAM 30 GM TUBE TP SCH ×2 (10:06→21:29)
[2020-06-25] MEDS: NICOTINE 21 MG/24 HOURS TOPICAL PATCH TD SCH (10:07)
[2020-06-25] MEDS: NICOTINE POLACRILEX 4 MG GUM BUC PRN ×2 (17:26→19:34)
[2020-06-25] MEDS: PRAZOSIN HCL 1 MG CAPSULE PO SCH (21:02)
[2020-06-25] MEDS: traZODone HCL 100 MG TABLET (FP) PO SCH (21:02)
[2020-06-25] MEDS: OLANZapine 5 MG TABLET PO SCH (21:03)
[2020-06-25] MEDS: THIAMINE HCL 100 MG TABLET (FP) PO SCH (21:29)
[2020-06-26] MEDS: DOCUSATE SODIUM 100 MG CAPSULE (FP) PO SCH ×3 (06:21→21:12)
[2020-06-26] MEDS: METHADONE HCL 40 MG DISPERSABLE TABLET PO SCH (06:21)
[2020-06-26] MEDS: GABAPENTIN 300 MG CAPSULE PO SCH ×3 (06:21→21:11)
[2020-06-26] MEDS: DIVALPROEX SODIUM 500 MG TABLET E.C. PO SCH ×3 (06:21→21:10)
[2020-06-26] MEDS: LACTULOSE 20 GM/30 ML UDC (FOR ORAL USE ONLY) PO SCH ×3 (06:23→21:12)
[2020-06-26] MEDS: HYDROCORTISONE 0.5% TOPICAL CREAM 30 GM TUBE TP SCH ×2 (09:52→21:12)
[2020-06-26] MEDS: ASPIRIN 81 MG CHEWABLE TABLETS PO SCH (09:52)
[2020-06-26] MEDS: PRENATAL VITAMINS W/ FOLIC ACID TABLET (FP) PO SCH (09:52)
[2020-06-26] MEDS: hydrOXYzine PAMOATE 50 MG CAPSULE (FP) PO PRN ×3 (09:52→21:11)
[2020-06-26] MEDS: METHOCARBAMOL 500 MG TABLET PO SCH ×4 (09:52→21:10)
[2020-06-26] MEDS: NICOTINE POLACRILEX 4 MG GUM BUC PRN ×3 (09:53→17:34)
[2020-06-26] MEDS: NICOTINE 21 MG/24 HOURS TOPICAL PATCH TD SCH (09:53)
[2020-06-26] MEDS: IBUPROFEN 400 MG TABLET (FP) PO PRN (10:55)
[2020-06-26] MEDS: OLANZapine 5 MG TABLET PO SCH (21:09)
[2020-06-26] MEDS: THIAMINE HCL 100 MG TABLET (FP) PO SCH (21:09)
[2020-06-26] MEDS: traZODone HCL 100 MG TABLET (FP) PO SCH (21:10)
[2020-06-26] MEDS: PRAZOSIN HCL 1 MG CAPSULE PO SCH (21:28)
[2020-06-27] MEDS: GABAPENTIN 300 MG CAPSULE PO SCH ×3 (06:23→21:15)
[2020-06-27] MEDS: DOCUSATE SODIUM 100 MG CAPSULE (FP) PO SCH ×3 (06:23→21:15)
[2020-06-27] MEDS: DIVALPROEX SODIUM 500 MG TABLET E.C. PO SCH ×3 (06:23→21:16)
[2020-06-27] MEDS: LACTULOSE 20 GM/30 ML UDC (FOR ORAL USE ONLY) PO SCH ×3 (06:24→21:17)
[2020-06-27] MEDS: METHADONE HCL 40 MG DISPERSABLE TABLET PO SCH (06:24)
[2020-06-27] MEDS: METHOCARBAMOL 500 MG TABLET PO SCH ×4 (09:46→21:16)
[2020-06-27] MEDS: ASPIRIN 81 MG CHEWABLE TABLETS PO SCH (09:46)
[2020-06-27] MEDS: PRENATAL VITAMINS W/ FOLIC ACID TABLET (FP) PO SCH (09:46)
[2020-06-27] MEDS: hydrOXYzine PAMOATE 50 MG CAPSULE (FP) PO PRN ×3 (09:48→21:15)
[2020-06-27] MEDS: NICOTINE 21 MG/24 HOURS TOPICAL PATCH TD SCH (09:48)
[2020-06-27] MEDS: HYDROCORTISONE 0.5% TOPICAL CREAM 30 GM TUBE TP SCH ×2 (09:48→21:17)
[2020-06-27] MEDS: NICOTINE POLACRILEX 4 MG GUM BUC PRN ×3 (10:31→15:37)
[2020-06-27] MEDS: LOPERAMIDE HCL 2 MG CAPSULE PO PRN (18:35)
[2020-06-27] MEDS: MAG HYDROX/AL HYDROX/SIMETH 30 ML UNIT-DOSE CUP PO PRN (18:35)
[2020-06-27] MEDS: THIAMINE HCL 100 MG TABLET (FP) PO SCH (21:15)
[2020-06-27] MEDS: traZODone HCL 100 MG TABLET (FP) PO SCH (21:15)
[2020-06-27] MEDS: PRAZOSIN HCL 1 MG CAPSULE PO SCH (21:15)
[2020-06-27] MEDS: OLANZapine 5 MG TABLET PO SCH (21:16)
[2020-06-28] MEDS: METHADONE HCL 40 MG DISPERSABLE TABLET PO SCH (06:36)
[2020-06-28] MEDS: DOCUSATE SODIUM 100 MG CAPSULE (FP) PO SCH ×3 (06:38→21:18)
[2020-06-28] MEDS: GABAPENTIN 300 MG CAPSULE PO SCH ×3 (06:38→21:16)
[2020-06-28] MEDS: LACTULOSE 20 GM/30 ML UDC (FOR ORAL USE ONLY) PO SCH ×3 (06:42→21:19)
[2020-06-28] MEDS: DIVALPROEX SODIUM 500 MG TABLET E.C. PO SCH ×3 (06:59→21:16)
[2020-06-28] MEDS: ASPIRIN 81 MG CHEWABLE TABLETS PO SCH (09:35)
[2020-06-28] MEDS: hydrOXYzine PAMOATE 50 MG CAPSULE (FP) PO PRN ×3 (09:35→21:17)
[2020-06-28] MEDS: PRENATAL VITAMINS W/ FOLIC ACID TABLET (FP) PO SCH (09:35)
[2020-06-28] MEDS: METHOCARBAMOL 500 MG TABLET PO SCH ×4 (09:35→21:17)
[2020-06-28] MEDS: NICOTINE 21 MG/24 HOURS TOPICAL PATCH TD SCH (09:36)
[2020-06-28] MEDS: HYDROCORTISONE 0.5% TOPICAL CREAM 30 GM TUBE TP SCH ×2 (09:36→21:18)
[2020-06-28] MEDS: NICOTINE POLACRILEX 4 MG GUM BUC PRN ×2 (12:38→17:31)
[2020-06-28] MEDS: THIAMINE HCL 100 MG TABLET (FP) PO SCH (21:15)
[2020-06-28] MEDS: PRAZOSIN HCL 1 MG CAPSULE PO SCH (21:15)
[2020-06-28] MEDS: OLANZapine 5 MG TABLET PO SCH (21:16)
[2020-06-28] MEDS: traZODone HCL 100 MG TABLET (FP) PO SCH (21:16)
[2020-06-28] MEDS: MAG HYDROX/AL HYDROX/SIMETH 30 ML UNIT-DOSE CUP PO PRN (21:17)
[2020-06-29] MEDS: DIVALPROEX SODIUM 500 MG TABLET E.C. PO SCH ×3 (05:57→21:33)
[2020-06-29] MEDS: DOCUSATE SODIUM 100 MG CAPSULE (FP) PO SCH ×3 (05:57→21:34)
[2020-06-29] MEDS: METHADONE HCL 40 MG DISPERSABLE TABLET PO SCH (05:57)
[2020-06-29] MEDS: GABAPENTIN 300 MG CAPSULE PO SCH ×3 (05:57→21:34)
[2020-06-29] MEDS: LACTULOSE 20 GM/30 ML UDC (FOR ORAL USE ONLY) PO SCH (05:57)
[2020-06-29] MEDS: PRENATAL VITAMINS W/ FOLIC ACID TABLET (FP) PO SCH (09:49)
[2020-06-29] MEDS: hydrOXYzine PAMOATE 50 MG CAPSULE (FP) PO PRN ×3 (09:49→21:33)
[2020-06-29] MEDS: METHOCARBAMOL 500 MG TABLET PO SCH ×4 (09:49→21:33)
[2020-06-29] MEDS: ASPIRIN 81 MG CHEWABLE TABLETS PO SCH (09:49)
[2020-06-29] MEDS: NICOTINE 21 MG/24 HOURS TOPICAL PATCH TD SCH (09:50)
[2020-06-29] MEDS: HYDROCORTISONE 0.5% TOPICAL CREAM 30 GM TUBE TP SCH ×2 (09:50→21:34)
[2020-06-29] MEDS: NICOTINE POLACRILEX 4 MG GUM BUC PRN (19:00)
[2020-06-29] MEDS: traZODone HCL 100 MG TABLET (FP) PO SCH (21:33)
[2020-06-29] MEDS: OLANZapine 5 MG TABLET PO SCH (21:33)
[2020-06-29] MEDS: PRAZOSIN HCL 1 MG CAPSULE PO SCH (21:34)
[2020-06-29] MEDS: THIAMINE HCL 100 MG TABLET (FP) PO SCH (21:35)
[2020-06-30] MEDS: LACTULOSE 20 GM/30 ML UDC (FOR ORAL USE ONLY) PO SCH ×4 (00:18→21:01)
[2020-06-30] MEDS: GABAPENTIN 300 MG CAPSULE PO SCH ×3 (06:10→21:00)
[2020-06-30] MEDS: METHADONE HCL 40 MG DISPERSABLE TABLET PO SCH (06:10)
[2020-06-30] MEDS: DOCUSATE SODIUM 100 MG CAPSULE (FP) PO SCH ×3 (06:10→21:00)
[2020-06-30] MEDS: DIVALPROEX SODIUM 500 MG TABLET E.C. PO SCH ×3 (06:10→21:00)
[2020-06-30] MEDS: PRENATAL VITAMINS W/ FOLIC ACID TABLET (FP) PO SCH (09:58)
[2020-06-30] MEDS: HYDROCORTISONE 0.5% TOPICAL CREAM 30 GM TUBE TP SCH ×2 (09:58→21:02)
[2020-06-30] MEDS: METHOCARBAMOL 500 MG TABLET PO SCH ×4 (09:58→21:00)
[2020-06-30] MEDS: hydrOXYzine PAMOATE 50 MG CAPSULE (FP) PO PRN ×2 (09:59→21:00)
[2020-06-30] MEDS: NICOTINE 21 MG/24 HOURS TOPICAL PATCH TD SCH (09:59)
[2020-06-30] MEDS: ASPIRIN 81 MG CHEWABLE TABLETS PO SCH (10:12)
[2020-06-30] MEDS: NICOTINE POLACRILEX 4 MG GUM BUC PRN ×2 (13:33→17:49)
[2020-06-30] MEDS: traZODone HCL 100 MG TABLET (FP) PO SCH (21:00)
[2020-06-30] MEDS: THIAMINE HCL 100 MG TABLET (FP) PO SCH (21:00)
[2020-06-30] MEDS: OLANZapine 5 MG TABLET PO SCH (21:00)
[2020-06-30] MEDS: PRAZOSIN HCL 1 MG CAPSULE PO SCH (21:01)
[2020-07-01] MEDS: METHADONE HCL 40 MG DISPERSABLE TABLET PO SCH (06:14)
[2020-07-01] MEDS: DOCUSATE SODIUM 100 MG CAPSULE (FP) PO SCH (06:14)
[2020-07-01] MEDS: LACTULOSE 20 GM/30 ML UDC (FOR ORAL USE ONLY) PO SCH (06:14)
[2020-07-01] MEDS: GABAPENTIN 300 MG CAPSULE PO SCH (06:14)
[2020-07-01] MEDS: DIVALPROEX SODIUM 500 MG TABLET E.C. PO SCH (06:14)
[2020-07-01 06:47] VITALS: BP 129/72; PULSE 80; TEMP 97.5
[2020-07-01] MEDS: hydrOXYzine PAMOATE 50 MG CAPSULE (FP) PO PRN (09:07)
[2020-07-01] MEDS: METHOCARBAMOL 500 MG TABLET PO SCH (09:07)
[2020-07-01] MEDS: ASPIRIN 81 MG CHEWABLE TABLETS PO SCH (09:07)
[2020-07-01] MEDS: PRENATAL VITAMINS W/ FOLIC ACID TABLET (FP) PO SCH (09:08)
[2020-07-01] MEDS: NICOTINE 21 MG/24 HOURS TOPICAL PATCH TD SCH (09:08)
[2020-07-01] MEDS: NICOTINE POLACRILEX 4 MG GUM BUC PRN (09:09)
[2020-07-01] MEDS: HYDROCORTISONE 0.5% TOPICAL CREAM 30 GM TUBE TP SCH (10:00)
== END 2020-07-01 09:35 | disposition home or self-care (01) | DRG 772 ==
LOC: YASAS 11:33 → Y3W 11:35
PROVIDERS: ADMIT Allergy & Immunology; ATTEND Allergy & Immunology
PROC: HZ42ZZZ Group Counseling for Substance Abuse Treatment, Cognitive-Behavioral (ICD-10-PCS; principal; 2020-06-04)
DX: F10.20 Alcohol dependence, uncomplicated (principal); F11.20 Opioid dependence, uncomplicated; F14.20 Cocaine dependence, uncomplicated; F13.20 Sedative, hypnotic or anxiolytic dependence, uncomplicated; F17.210 Nicotine dependence, cigarettes, uncomplicated; F31.9 Bipolar disorder, unspecified; F43.10 Post-traumatic stress disorder, unspecified; G47.00 Insomnia, unspecified; K59.00 Constipation, unspecified; L25.9 Unspecified contact dermatitis, unspecified cause; M51.26 Other intervertebral disc displacement, lumbar region; R60.0 Localized edema; R79.89 Other specified abnormal findings of blood chemistry; E66.9 Obesity, unspecified; Z68.34 Body mass index [BMI] 34.0-34.9, adult; Z86.73 Personal history of transient ischemic attack (TIA), and cerebral infarction without residual deficits; Z86.69 Personal history of other diseases of the nervous system and sense organs
CPT/HCPCS: 36415; 80053; 80164; 82140; 85025; C9803; U0003